=== PATIENT | female | born 1960 | race Caucasian/White ===

== ENCOUNTER 2023-04-16 10:04 | Outpatient (OUT) | payer MEDICARE, SELFPAY ==
--- NOTE | 2023-04-16 10:36 | MM_ITS ---
Patient: JOSE LLANOS Exam Date: 04/16/2023 : 1960 Gender:F Ordering : DR Ray Rawls D.O. Admission #: [id number] Family : Order #: [id number] CLICK HERE TO VIEW EXAM RADIOLOGY REPORT PROCEDURE: MM TOMOSYNTHESIS SCREENING BI COMPARISON: MG MAMM SCREEN 3D OSKAR CAD, 04/13/2022. INDICATIONS: Screening mammogram Z12.13 Calculator Name NCI Breast Cancer Risk Assessment Tool 5 Year Breast Cancer Risk 2.20% Lifetime Breast Cancer Risk 8.20% Personal Breast Cancer No Personal Ovarian Cancer No Treatments None Family Cancers Grandmother-paternal with breast cancer at age 60; Uncle-maternal with brain cancer at age 45. LOCATION: [facility] BREAST COMPOSITION: Scattered areas fibroglandular density. FINDINGS: DIAGNOSTIC CATEGORY 2--BENIGN FINDING: RIGHT BREAST: No significant suspicious finding. No significant change has occurred. LEFT BREAST: No significant suspicious finding. Scattered benign-appearing nodules are present. No significant change has occurred. RECOMMENDATIONS: ROUTINE MAMMOGRAM AND CLINICAL EVALUATION IN 12 MONTHS. PLEASE NOTE: A NORMAL MAMMOGRAM DOES NOT EXCLUDE THE POSSIBILITY OF BREAST CANCER. A CLINICALLY SUSPICIOUS PALPABLE LUMP SHOULD BE BIOPSIED. Dictated by: Clemente Noriega M.D. on 04/16/2023 at 14:34 Approved by: Clemente Noriega M.D. on 04/16/2023 at 14:42
== END 2023-04-16 10:05 | disposition home or self-care (01) ==
LOC: MAMMO 10:10
PROVIDERS: PCP Internal Medicine; Visit Provider Internal Medicine
DX: Z12.31 Encounter for screening mammogram for malignant neoplasm of breast (principal); Z80.3 Family history of malignant neoplasm of breast
CPT/HCPCS: 77063; 77067

== ENCOUNTER 2023-12-04 06:57 | Outpatient (OUT) | payer MEDICARE, SELFPAY ==
[2023-12-04 07:39] LABS: Basophils Percent Auto 0.7 % (0.2-2.0); Eosinophils Absolute Auto 0.3 10^3/uL (0.0-0.7); Eosinophils Percent Auto 5.8 % (0.9-7.0); Hematocrit 38.5 % (36.0-48.0); Hemoglobin 12.2 g/dL (12.0-16.0); Immature Granulocytes Abs Auto 0.01 10^3/uL (0.00-0.03); Immature Granulocytes Pct Auto 0.2 % (0.0-0.5); Lymphocytes Absolute Auto 2.1 10^3/uL (1.2-3.8); Lymphocytes Percent Auto 37.9 % (20.5-60.0); Mean Corpuscular HGB Conc 31.7 g/dL (29.9-35.2); Mean Corpuscular Hemoglobin 28.8 pg (26.7-34.0); Monocytes Absolute Auto 0.4 10^3/uL (0.3-0.8); Monocytes Percent Auto 7.4 % (1.7-12.0); Neutrophils Absolute Auto 2.7 10^3/uL (1.4-6.5); Platelet Count 310 10^3/uL (150-450); Red Blood Count 4.23 10^6/uL (4.20-5.40); Red Cell Distribution Width 13.5 % (11.0-15.0); White Blood Count 5.5 10^3/uL (4.0-11.0)
[2023-12-04 07:44] LABS: Alanine Aminotransferase 27 U/L (14-59); Albumin Globulin Ratio 0.9; Albumin Level 3.4 g/dL (3.4-5.0); Alkaline Phosphatase 87 U/L (46-116); Anion Gap 11.4; Aspartate Amino Transferase 23 U/L (15-37); BUN Creatinine Ratio 17.6; Bilirubin Total 0.3 mg/dL (0.2-1.0); Calcium 9.1 mg/dL (8.5-10.1); Carbon Dioxide 28.8 mmol/L (21.0-32.0); Chloride 100 mmol/L (98-107); Chol HDL Ratio 3.6; Cholesterol 185 mg/dL (<=200); Estimated GFR (African America >60 (>=60); Estimated GFR (Non-African Ame >60 (>=60); Globulin 3.9 g/dL; Glucose 109 mg/dL (74-106); HDL Cholesterol 52 mg/dL (40-60); LDL Cholesterol Calculated 105.8 mg/dL; Potassium 4.2 mmol/L (3.5-5.1); Sodium 136 mmol/L (136-145); Thyroid Stimulating Hormone 6.476 uIU/mL (0.358-3.740); Total Protein 7.3 g/dL (6.4-8.2); Triglycerides 136 mg/dL (<=150); VLDL CHOLESTEROL 27.2 mg/dL
== END 2023-12-04 06:58 | disposition home or self-care (01) ==
LOC: LAB 06:59
PROVIDERS: PCP Internal Medicine; Visit Provider Internal Medicine
DX: E03.9 Hypothyroidism, unspecified (principal); R73.01 Impaired fasting glucose; Z79.899 Other long term (current) drug therapy; R53.83 Other fatigue; E78.00 Pure hypercholesterolemia, unspecified
CPT/HCPCS: 36415; 80053; 80061; 84443; 85025

== ENCOUNTER 2023-12-07 09:31 | Outpatient (OUT) | payer MEDICARE, SELFPAY ==
[2023-12-07 10:15] LABS: Estimated Average Glucose 117 mg/dL; Glycohemoglobin A1C 5.7 % (4.5-6.2)
== END 2023-12-07 09:32 | disposition home or self-care (01) ==
PROVIDERS: PCP Internal Medicine; Visit Provider Internal Medicine
DX: R73.01 Impaired fasting glucose (principal)
CPT/HCPCS: 36415; 83036

== ENCOUNTER 2024-04-18 10:53 | Outpatient (OUT) | payer MEDICARE, SELFPAY ==
--- NOTE | 2024-04-18 10:56 | MM_ITS ---
Patient Name: JOSE LLANOS MR#: [id number] : 1960 Exam Date: 04/18/2024 Ordering Doctor: DR Ray Rawls D.O. RADIOLOGY REPORT PROCEDURE: MM TOMOSYNTHESIS SCREENING BI COMPARISON: MG MAMM SCREEN 3D OSKAR CAD, 04/13/2022. MM TOMOSYNTHESIS SCREENING BI, 04/16/2023. INDICATIONS: Screening Calculator Name NCI Breast Cancer Risk Assessment Tool 5 Year Breast Cancer Risk 2.20% Lifetime Breast Cancer Risk 7.90% Personal Breast Cancer No Personal Ovarian Cancer No Treatments None Family Cancers Grandmother-paternal with breast cancer at age 60; Uncle-maternal with brain cancer at age 45. LOCATION: [facility] BREAST COMPOSITION: There are scattered areas of fibroglandular density. FINDINGS: DIAGNOSTIC CATEGORY 2--BENIGN FINDING. NO CHANGE FROM COMPARISON. Scattered benign-appearing nodules are present. Scattered benign-appearing calcifications are present. Scattered benign-appearing lymph nodes are present. RIGHT BREAST: No significant suspicious finding. LEFT BREAST: No significant suspicious finding. RECOMMENDATIONS: ROUTINE MAMMOGRAM AND CLINICAL EVALUATION IN 12 MONTHS. PLEASE NOTE: A NORMAL MAMMOGRAM DOES NOT EXCLUDE THE POSSIBILITY OF BREAST CANCER. A CLINICALLY SUSPICIOUS PALPABLE LUMP SHOULD BE BIOPSIED. Dictated by: Toro Hendrickson MD on 04/21/2024 at 07:58 Approved by: Toro Hendrickson MD on 04/21/2024 at 07:59
--- OUTSIDE RECORDS SUMMARY | 2024-04-18 10:57 | XMS_ITS | CCD ---
Author Organization [facility] Care Team Providers Care Neurophysiologist Name Role Phone RAY RAWLS Primary Care Physician Curly, Ray Unavailable CURLY, DR BATRES Primary Care Unavailable BALL, DR BATRES Admitting Unavailable BALL, DR BATRES Attending Unavailable BALL, DR BATRES Consulting Unavailable WEST, DR REGINA Gandhi Consulting Unavailable BALL, DR BATRES Primary Care Unavailable REQUEST, DR TIM LISTED Admitting Unavaila ble REQUEST, DR TIM LISTED Attending Unavaila ble REQUEST, DR TIM LISTED Consulting Unavaila ble BALL, DR BATRES Primary Care Unavailable REQUEST, DR TIM LISTED Admitting Unavaila ble REQUEST, DR TIM LISTED Attending Unavaila ble REQUEST, DR TIM LISTED Consulting Unavaila ble BALL, DR BATRES Consulting Unavailable BALL, DR BATRES Primary Care Unavailable BALL, DR BATRES Admitting Unavailable BALL, DR BATRES Attending Unavailable BALL, DR BATRES Consulting Unavailable BALL, DR BATRES Primary Care Unavailable BALL, DR BATRES Admitting Unavailable BALL, DR BATRES Attending Unavailable Leilani Archibald Unavailable Allergies Allergy Classification Reported Allergen(s) Allergy Type Date of Onset Reaction(s) Facility (10 sources) Diclofenac; Translations: [diclofenac] Drug Allergy Unknown (qualifier value) [facility] (1 source) Egg Drug allergy Nausea and vomiting (disorder) [facility] (1 source) influenza A virus A/[place]/GP1 908/2014 (H1N1) antigen / influenza A virus A//2 050/2014 (H3N2) antigen / influenza B virus B/[place] antigen / influenza B virus B/ antigen; Translations: [influenza virus vaccine] Drug Allergy Dyspnea (finding) [facility] (9 sources) Eggs/Apples/Oat s Drug allergy Unknown [facility] Other (6 sources) Diclofenac Potassium *ANALGESICS - ANTI-INFLAMMATO Propensity to adverse reactions Unknown [facility] Other (6 sources) Eggs/Apples/Oat s *DIETARY PRODUCTS/DIETAR Y MANAGEM Propensity to adverse reactions 9 Comment:Allerg y to eggs and cranberries- Reaction unknown [facility] Other (1 source) Diclofenac Potassium *ANALGESI Allergy to substance 4 [facility] (1 source) Eggs/Apples/Oat s *DIETARY PROD Allergy to substance 4 Comment:Allerg y to eggs and cranberries- Reaction unknown [facility] Medications Current Medications Medication Drug Class(es) Dates Sig (Normalized) Sig (Original) acetaminophen 325 mg / HYDROcodone bitartrate 5 mg oral tablet (13 sources) Opioid Agonist Start: 12-06-2023 take 1 tablet by mouth every six hours Hydrocodone-Aceta minophen Active 1 TAB PO Every 6 hours December 06, 2023 12:00am Start: 12-26-2022 take 1 tablet by tala th every six hours HYDROcodone-Acetaminophen 5-325 MG 1 tab let as needed Orally every 6 hrs for 7 days Dec, Active [id number] 200 actuat albuterol 0.09 mg/actuat metered dose inhaler (15 sources) beta2-Adrenergic Agonist Start: 12-06-2023 take 1 puff(s) by inhalation every four hours Albuterol Sulfate (Ventolin Hfa) 90 mcg/actuation HFA aerosol inhaler Active 2 PUFF INHALATION Every 4 hours December 06, 2023 12:00am take 2 puff(s) by in halation every four hours as needed for cough Ventolin HFA 108 (90 Base) MCG/ACT 2 puffs Inhalation every 4 hrs as needed for cough or dyspnea for 90 days Active amoxicillin 875 mg / clavulanate 125 mg oral tablet (2 sources) Penicillin-class Antibacterial Start: 08-13-2023 take 1 tablet by mouth every twelve hours Amoxicillin-Pot Clavulanate 875-125 MG 1 tablet Orally every 12 hrs for 10 days Jul, Active levothyroxine sodium 0.075 mg oral capsule (12 sources) l-Thyroxine Start: 12-10-2023 take 75 ug by mouth once daily Levothyroxine Active 75 MCG PO Daily December 10, 2023 12:00am Start: 12-06-2023 End: 12-10-2023 take 50 ug by mouth once daily Levothyroxine Discontin ued 50 MCG PO Daily December 06, 2023 2:14pm December 10, 2023 9:24am Start: 12-06-2023 End: 12-10-2023 take 50 ug by mouth once daily Levothyroxine Discontin ued 50 MCG PO Daily December 06, 2023 12:00am December 10, 2023 9:24am Start: 12-04-2023 End: 12-06-2023 take 75 ug by mouth once daily Levothyroxine Discontin ued 75 MCG PO Daily December 04, 2023 12:00am December 06, 2023 2:14pm Start: 03-14-2023 take 1 tablet by tala th once daily in the morning Levothyroxine Sodium 50 MCG 1 tablet in the morning on an empty stomach Orally Once a day February, Active Levothyroxine So dium 50 MCG TAKE ONE TABLET BY MOUTH ONCE DAILY IN THE MORNING ON AN EMPTY STOMACH Orally Once a day for 90 days Active montelukast 10 mg oral tablet (16 sources) Leukotriene Receptor Antagonist Start: 12-06-2023 take 10 mg by mouth once daily Montelukast Active 10 MG PO Daily December 06, 2023 12:00am Start: 2022 take 1 tablet by tala th once daily montelukast 10 mg Tab 10 mg = 1 tab(s), Oral, Daily, Refills(s) 0, Allergy symptoms Start Date: 01/02/22 Status: Ordered omeprazole 40 mg delayed release oral capsule (15 sources) Proton Pump Inhibitor Start: 12-06-2023 take 40 mg by mouth once daily Omeprazole Active 40 MG PO Daily December 06, 2023 12:00am take 1 capsule by mouth once josué ly Omeprazole 40 MG 1 capsule 30 minutes before morning meal Orally Once a day Active omeprazole 40 mg Cap-DR (1 source) Start: 2022 omeprazole 40 mg Cap-DR 40 mg = 1 cap(s), Oral, Daily, Refills(s) 0, Control of stomach acid Start Date: 01/02/22 Status: Ordered traMADol hydrochloride 50 mg oral tablet (7 sources) Opioid Agonist Start: 12-25-2022 take 1 tablet by mouth every six hours as needed for pain traMADol HCl 50 MG 1 tablet Orally every 6 hours for pain, as needed for 7 days Dec, Active triamcinolone acetonide 0.055 mg/actuat metered dose nasal spray (4 sources) Corticosteroid Start: 08-03-2023 take 1 spray(s) nasal route once daily Nasacort Allergy 24HR 55 MCG/ACT 1 spray in each nostril Nasally Once a day for 30 days Jul, Active take 1 spray(s) nasal route once daily Nasacort Allergy 24HR 55 MCG/ACT 1 spray in each nostril Nasally Once a day for 30 days Active Ventolin HFA 90 mcg/inh Aerosol (1 source) Start: 2022 take 1 puff(s) by inhalation every six hours as needed for wheezing Ventolin HFA 90 mcg/inh Aerosol puff(s), Inhalation, q6hr as needed for wheezing, Refill(s) 0 Start Date: 01/02/22 Status: Ordered Completed/Discontinued Medications Medication Drug Class(es) Dates Sig (Normalized) Sig (Original) escitalopram 10 mg oral tablet (16 sources) Serotonin Reuptake Inhibitor Start: 12-06-2023 End: 12-10-2023 take 10 mg by mouth once daily Escitalopram Oxalate Discontinued 10 MG PO Daily December 06, 2023 12:00am December 10, 2023 9:26am Start: 2022 take 1 tablet by tala th once daily escitalopram 10 mg Tab 10 mg = 1 tab(s), Oral, Daily, Refills(s) 0, Depression Start Date: 01/02/22 Status: Ordered Fluticasone Propion-Salmeterol (6 sources) Corticosteroid, beta2-Adrenergic Agonist Start: 12-06-2023 End: 12-10-2023 take 1 puff(s) by inhalation twice daily Fluticasone Propion-Salmeterol (Advair Hfa) 115-21 mcg/actuation HFA aerosol inhaler Discontinued 2 PUFF INHALATION Twice daily December 06, 2023 12:00am December 10, 2023 9:26am Start: 05-21-2023 take 2 puff(s) by in halation twice daily Advair HFA 115-21 MCG/ACT 2 puffs Inhalation Twice a day for 30 days May, Active methylPREDNISolone 4 mg oral tablet (4 sources) Corticosteroid Start: 12-06-2023 End: 12-10-2023 take 4 mg by mouth once daily Methylprednisolone Discontinued 4 MG PO Daily December 06, 2023 12:00am December 10, 2023 9:25am Start: 08-09-2023 methylPREDNISo lone 4 MG as directed Orally daily for 6 days Jul, Active ondansetron 4 mg disintegrating oral tablet (11 sources) Serotonin-3 Receptor Antagonist Start: 12-06-2023 End: 12-10-2023 take 4 mg by mouth every six hours Ondansetron Discontinued 4 MG PO Every 6 hours December 06, 2023 12:00am December 10, 2023 9:25am Start: 02-16-2023 Ondansetron 4 MG 1 tablet SL every 6 hours as needed for nausea for 3 days February, Active predniSONE 10 mg oral tablet (5 sources) Start: 03-22-2023 take 2 tablets by mouth twice daily, then take 1 tablet by mouth every other day predniSONE 10 MG 2 tablets Orally Twice daily w/ food x 3 days then decrease by 1 tablet every 2 days for 9 days Mar, Not-Taking Problems Active Problems Problem Classification Problem Date Documented Da te Episodic/Chronic Allergic reactions (10 sources) Idiopathic urticaria; Translations: [Idiopathic urticaria] Episodic Anxiety disorders (17 sources) Generalized anxiety disorder; Translations: [Generalized anxiety disorder] 12-08-2023 Chronic Asthma (20 sources) Mild intermittent asthma; Translations: [Mild intermittent asthma, uncomplicated] Resolved: 12-04-2021 Chronic Diabetes mellitus without complication (9 sources) Diabetes mellitus without complication; Translations: [Type 2 diabetes mellitus without complications] Chronic Diabetes mellitus without complication (17 sources) Impaired fasting glycemia; Translations: [Impaired fasting glucose] Episodic Disorders of lipid metabolism (2 sources) Hypercholesterolemia ; Translations: [Pure hypercholesterolemia , unspecified] 11-29-2023 Chronic Esophageal disorders (7 sources) Gastro-esophageal reflux disease with esophagitis; Translations: [Gastroesophageal reflux disease with esophagitis without hemorrhage] 2022 Chronic Mood disorders (16 sources) Major depression in remission; Translations: [Major depressive disorder, single episode, in full remission] Chronic Mycoses (10 sources) Onychomycosis; Translations: [Tinea unguium] Episodic Nausea and vomiting (6 sources) Nausea; Translations: [Nausea] Episodic Osteoarthritis (20 sources) Osteoarthritis of knee; Translations: [Unilateral primary osteoarthritis, left knee] Chronic Other and unspecified benign neoplasm (1 source) Polyp of colon; Translations: [Polyp of colon] Onset: 02-13-2022 Episodic Other diseases of veins and lymphatics (20 sources) Peripheral venous insufficiency; Translations: [Venous insufficiency (chronic) (peripheral)] 2022 Episodic Other diseases of veins and lymphatics (1 source) Venous insufficiency (chronic) (peripheral) Episodic Other gastrointestinal disorders (1 source) Alteration in bowel elimination 01-03-2022 Episodic Other gastrointestinal disorders (1 source) Diarrhea, unspecified Episodic Other gastrointestinal disorders (1 source) Abnormal feces; Translations: [Other fecal abnormalities] Episodic Other nervous system disorders (15 sources) Trigeminal neuralgia; Translations: [Trigeminal neuralgia] Episodic Other nutritional; endocrine; and metabolic disorders (8 sources) Morbid obesity; Translations: [Morbid (severe) obesity due to excess calories] Resolved: 10-17-2021 Chronic Other nutritional; endocrine; and metabolic disorders (2 sources) Morbid (severe) obesity due to excess calories Chronic Other nutritional; endocrine; and metabolic disorders (5 sources) Body mass index 40+ - severely obese; Translations: [Body mass index (BMI) 40.0-44.9, adult] Chronic Other nutritional; endocrine; and metabolic disorders (5 sources) Severe obesity; Translations: [Morbid (severe) obesity due to excess calories] Chronic Other nutritional; endocrine; and metabolic disorders (1 source) Body mass index (BMI) 40.0-44.9, adult Chronic Other screening for suspected conditions (not mental disorders or infectious disease) (20 sources) Stool DNA-based colorectal cancer screening positive; Translations: [Serum TSH level abnormal] Onset: 04-13-2022 2022 Episodic Other skin disorders (10 sources) Alopecia; Translations: [Nonscarring hair loss, unspecified] Episodic Other upper respiratory infections (1 source) Acute maxillary sinusitis, unspecified Episodic Otitis media and related conditions (2 sources) Unspecified Eustachian tube disorder, left ear Episodic Rheumatoid arthritis and related disease (9 sources) Inflammatory polyarthropathy; Translations: [Inflammatory polyarthropathy] Chronic Sprains and strains (1 source) Strain of muscle and/or tendon of lower leg; Translations: [Strain of unspecified muscle(s) and tendon(s) at lower leg level, left leg, subsequent encounter] Episodic Thyroid disorders (20 sources) Autoimmune thyroiditis; Translations: [Autoimmune thyroiditis] Chronic Past or Other Problems Problem Classification Problem Date Documented Da te Episodic/Chronic Esophageal disorders (12 sources) Esophageal disorders; Translations: [Gastroesophageal reflux disease with esophagitis without hemorrhage] Joint disorders and dislocations; trauma-related (1 source) Current tear of medial cartilage AND/OR meniscus of knee; Translations: [Other tear of medial meniscus, current injury, unspecified knee, initial encounter] Onset: 03-15-2021 Episodic Other connective tissue disease (1 source) Pain in left lower limb; Translations: [Pain in left leg] Resolved: 04-13-2021 Episodic Other nutritional; endocrine; and metabolic disorders (1 source) Obesity; Translations: [Obesity, unspecified] Resolved: 04-13-2022 Chronic Unclassified (1 source) Exposure to acute respiratory syndrome coronavirus 2; Translations: [Contact with and (suspected) exposure to COVID-19] Resolved: 07-20-2020 Results Test Name Value Interpretation Reference Range Facility Glucose mean value [Mass/vol ume] in Blood Estimated from glycated hemoglobinon 12-07-2023 Average glucose Estimated from glycated hemoglobin (Bld) [Mass/Vol] 117 mg/dL [facility] - Hematology and Cell countson 12-07-2023 HbA1c (Bld) [Mass fraction] 5.7 % 4.5-6.2 [facility] Comment on above: ADA RECOMMENDED LIMI T 4.0 - 6.0ADA THERAPEUTIC TARGET < 7.0ACTION SUGGESTED> 7.0 Basophils Auto (Bld) [#/Vol] on 12-04-2023 Basophils (Bld) [#/Vol] 0.0 10 3/uL 0.0-0.1 [facility] Basophils/100 WBC Auto (Bld) on 12-04-2023 Basophils/100 WBC (Bld) 0.7 % 0.2-2.0 [facility] Cholesterol in LDL Calc [Mas s/Vol]on 12-04-2023 Cholesterol in LDL [Mass/Vol] 105.8 mg/dL [facility] Comment on above: <100 mg/dl [id number] 0-129 mg/dl NEAR OR ABOVE [id number] mg/dl BORDERLINE [id number] mg/dl HIGH>190 mg/dl VERY HIGH Cholesterol in VLDL Calc [Ma ss/Vol]on 12-04-2023 Cholesterol in VLDL [Mass/Vol] 27.2 mg/dL [facility] Eosinophils/100 WBC Auto (Bl d)on 12-04-2023 Eosinophils/100 WBC (Bld) 5.8 % 0.9-7.0 [facility] Erythrocyte distribution wid th Auto (RBC) [Ratio]on 12-04-2023 Erythrocyte distribution width (RBC) [Ratio] 13.5 % 11.0-15.0 [facility] Estimated glomerular filtrat ion rate (GFR) non- Americanon 12-04-2023 GFR/1.73 sq M.predicted among non-blacks MDRD (S/P/Bld) [Vol rate/Area] mL/min/{1.73_m2} >=60 [facility] Globulin Calc (S) [Mass/Vol] on 12-04-2023 Globulin (S) [Mass/Vol] 3.9 g/dL [facility] Hematocrit Auto (Bld) [Volum e fraction]on 12-04-2023 Hematocrit (Bld) [Volume fraction] 38.5 % 36.0-48.0 [facility] Hemoglobin [Mass/volume] in Bloodon 12-04-2023 Hemoglobin (Bld) [Mass/Vol] 12.2 g/dL 12.0-16.0 [facility] - Chemistry and C hemistry - challengeon 12-04-2023 Albumin [Mass/Vol] 3.4 g/dL 3.4-5.0 [facility] ALP [Catalytic activity/Vol] 87 U/L 46-116 [facility] ALT [Catalytic activity/Vol] 27 U/L 14-59 [facility] AST [Catalytic activity/Vol] 23 U/L 15-37 [facility] Bilirubin [Mass/Vol] 0.3 mg/dL 0.2-1.0 [facility] Calcium [Mass/Vol] 9.1 mg/dL 8.5-10.1 [facility] Chloride [Moles/Vol] 100 mmol/L 98-107 [facility] Cholesterol [Mass/Vol] 185 mg/dL <=200 [facility] Cholesterol in HDL [Mass/Vol] 52 mg/dL 40-60 [facility] Comment on above: > or =60 mg/dl - LOW CARDIOVASCULAR RISK<40 mg/dl - HIGH CARDIOVASCULAR RISK CO2 [Moles/Vol] 28.8 mmol/L 21.0-32.0 [facility] Creatinine [Mass/Vol] 0.91 mg/dL 0.55-1.02 [facility] GFR/1.73 sq M.predicted MDRD (S/P/Bld) [Vol rate/Area] mL/min/{1.73_m2} >=60 [facility] Glucose [Mass/Vol] 109 mg/dL 74-106 [facility] Potassium [Moles/Vol] 4.2 mmol/L 3.5-5.1 [facility] Protein [Mass/Vol] 7.3 g/dL 6.4-8.2 [facility] Sodium [Moles/Vol] 136 mmol/L 136-145 [facility] Triglyceride [Mass/Vol] 136 mg/dL <=150 [facility] TSH Qn 6.476 m[IU]/L 0.358-3.740 [facility] Urea nitrogen [Mass/Vol] 16.0 mg/dL 7.0-18.0 [facility] Urea nitrogen/Creatinine [Mass ratio] 17.6 mg/mg [facility] - Hematology and Cell countson 12-04-2023 Immature granulocytes/100 WBC (Bld) 0.2 % 0.0-0.5 [facility] Leukocytes [#/volume] correc mart for nucleated erythrocytes in Blood by Automated counon 12-04-2023 WBC corrected for nucl RBC Auto (Bld) [#/Vol] 5.5 10 3/uL 4.0-11.0 [facility] Lymphocytes Auto (Bld) [#/Vo l]on 12-04-2023 Lymphocytes (Bld) [#/Vol] 2.1 10 3/uL 1.2-3.8 [facility] Lymphocytes/100 WBC Auto (Bl d)on 12-04-2023 Lymphocytes/100 WBC (Bld) 37.9 % 20.5-60.0 [facility] MCH Auto (RBC) [Entitic mass ]on 12-04-2023 MCH (RBC) [Entitic mass] 28.8 pg 26.7-34.0 [facility] MCHC Auto (RBC) [Mass/Vol]on 12-04-2023 MCHC (RBC) [Mass/Vol] 31.7 g/dL 29.9-35.2 [facility] MCV Auto (RBC) [Entitic vol] on 12-04-2023 MCV (RBC) [Entitic vol] 91.0 fL 81.0-99.0 [facility] Monocytes Auto (Bld) [#/Vol] on 12-04-2023 Monocytes (Bld) [#/Vol] 0.4 10 3/uL 0.3-0.8 [facility] Monocytes/100 WBC Auto (Bld) on 12-04-2023 Monocytes/100 WBC (Bld) 7.4 % 1.7-12.0 [facility] Neutrophils Auto (Bld) [#/Vo l]on 12-04-2023 Neutrophils (Bld) [#/Vol] 2.7 10 3/uL 1.4-6.5 [facility] Neutrophils/100 WBC Auto (Bl d)on 12-04-2023 Neutrophils/100 WBC (Bld) 48.0 % 43.0-75.0 [facility] No Panel Informationon 12-04 Eosinophils # (Auto) 0.3 10 3/uL 0.0-0.7 [facility] Immature Granulocyte # (Auto) 0.01 10 3/uL 0.00-0.03 [facility] Platelet mean volume Auto (B ld) [Entitic vol]on 12-04-2023 Platelet mean volume (Bld) [Entitic vol] 10.0 fL 9.5-13.5 [facility] Platelets Auto (Bld) [#/Vol] on 12-04-2023 Platelets (Bld) [#/Vol] 310 10 3/uL 150-450 [facility] RBC Auto (Bld) [#/Vol]on RBC (Bld) [#/Vol] 4.23 10 6/uL 4.20-5.40 [facility] Serum or plasma albumin/glob ulin mass ratioon 12-04-2023 Albumin/Globulin [Mass ratio] 0.9 {ratio} [facility] Serum or plasma anion gap de terminationon 12-04-2023 Anion gap [Moles/Vol] 11.4 mmol/L [facility] Serum or plasma total choles terol/high density lipoprotein (HDL) cholesterol mass thomas 12-04-2023 Cholesterol.total/Ch olesterol in HDL [Mass ratio] 3.6 {ratio} [facility] Comment on above: 3.3 - 4.4 LOW RISK4. 4 - 7.1 AVERAGE RISK7.1 - 11.0 MODERATE RISK>11.0 HIGH RISK DANO - TSHon 03-14-2023 TSH 5.980 uIU/mL Critically high 0.358-3.740 [facility] Comment on above: Performed By: #### D ATTSH #### [facility] [address] [place] [address] Dr. Yadira Jo TSH RANGE SEE BELOW Normal [facility] Comment on above: Result Comment: <0.3 4 UIU/ml HYPERTHYROID 0.34-5.60 UIU/ml EUTHYROID >5.60 UIU/ml HYPOTHYROID Performed By: #### D ATTSH #### [facility] [address] [address] [address] Yadira Jo GLUCOSE BLOODon 11-13-2022 Glucose [Mass/Vol] 101 mg/dL Normal 74-106 [facility] Comment on above: Performed By: #### L IPID, GLUC #### [facility] [address] [place] [address] Dr. Yadira Jo GLYCOHEMOGLOBIN A1Con 2022 ADA RECOMMENDATION SEE BELOW Normal [facility] Comment on above: Result Comment: ADA RECOMMENDED LIMIT 4.0 - 6.0 ADA THERAPEUTIC TARGET < 7.0 ACTION SUGGESTED > 7.0 Performed By: #### A 1C #### [facility] [address] [address] [address] Yadira Jo Glucose [Mass/Vol] 111 mg/dL Normal [facility] Comment on above: Performed By: #### A 1C #### [facility] [address] [address] [address] Yadira Jo HbA1c (Bld) [Mass fraction] 5.5 % Normal 4.5-6.2 [facility] Comment on above: Performed By: #### A 1C #### [facility] [address] [address] [address] Yadira Jo LIPID PROFILEon 11-13-2022 CHOL-HDL RATIO NORM SEE BELOW Normal [facility] Comment on above: Result Comment: 3.3 - 4.4 LOW RISK 4.4 - 7.1 AVERAGE RISK 7.1 - 11.0 MODERATE RISK >11.0 HIGH RISK Performed By: #### L IPID, GLUC #### [facility] [address] [place] [address] Dr. Yadira Jo Cholesterol [Mass/Vol] 184 mg/dL Normal <=200 [facility] Comment on above: Performed By: #### L IPID, GLUC #### [facility] [address] [place] [address] Dr. Yadira Jo Cholesterol in HDL [Mass/Vol] 56 mg/dL Normal 40-60 [facility] Comment on above: Performed By: #### L IPID, GLUC #### [facility] [address] [address] [address] Yadira Jo Cholesterol in LDL [Mass/Vol] 111.2 mg/dL Normal [facility] Comment on above: Performed By: #### L IPID, GLUC #### [facility] [address] [address] [address] Yadira Jo Cholesterol.total/Ch olesterol in HDL [Mass ratio] 3.3 {ratio} Normal [facility] Comment on above: Performed By: #### L IPID, GLUC #### [facility] [address] [address] [address] Yadira Jo HDL NORMAL > or = 60 mg/dl - LO W CARDIOVASCULAR RISK <40 mg/dl - HIGH CARDIOVASCULAR RISK Normal [facility] Comment on above: Performed By: #### L IPID, GLUC #### [facility] [address] [place] [address] Dr. Yadira Jo LDL CALC NORMAL SEE BELOW Normal [facility] Comment on above: Result Comment: <100 mg/dl OPTIMAL 100 - 129 mg/dl NEAR OR ABOVE OPTIMAL 130 - 159 mg/dl BORDERLINE HIGH 160 - 189 mg/dl HIGH >190 mg/dl VERY HIGH Performed By: #### L IPID, GLUC #### [facility] [address] [address] [address] Yadira Jo Triglyceride [Mass/Vol] 84 mg/dL Normal <=150 [facility] Comment on above: Performed By: #### L IPID, GLUC #### [facility] [address] [place] [address] Dr. Yadira Jo VLDL CALC 16.8 mg/dL Normal [facility] Comment on above: Performed By: #### L IPID, GLUC #### [facility] [address] [address] [address] Yadira Jo DANO - TSHon 06-08-2022 TSH 4.673 uIU/mL Critically high 0.358-3.740 [facility] Comment on above: Performed By: #### D ATTSH #### [facility] [address] [place] [address] Dr. Yadira Jo TSH RANGE SEE BELOW Normal [facility] Comment on above: Result Comment: <0.3 4 UIU/ml HYPERTHYROID 0.34-5.60 UIU/ml EUTHYROID >5.60 UIU/ml HYPOTHYROID Performed By: #### D ATTSH #### [facility] [address] [place] [address] Dr. Yadira Jo TSHon 04-27-2022 TSH 4.399 uIU/mL Critically high 0.358-3.740 [facility] Comment on above: Performed By: #### T SH #### [facility] [id number] Yadira Jo MG MAMM SCREEN 3D OSKAR CADon 04-13-2022 MG MAMM SCREEN 3D OSKAR CAD Patient: YADIRA SMITH Exam Date: 04/13/2022 : 1960 Gender:F Ordering : DR RAY RAWLS D.O. Admission #: [id number] Family : Order #: [id number] CLICK HERE TO VIEW EXAM RADIOLOGY REPORT PROCEDURE: MAMMOGRAM SCREENING 3D BILATERAL CAD COMPARISON: None. INDICATIONS: Screening mammography Calculator Name NCI Breast Cancer Risk Assessment Tool 5 Year Breast Cancer Risk 1.80% Lifetime Breast Cancer Risk 7.20% Personal Breast Cancer No Personal Ovarian Cancer No Treatments None Family Cancers None LOCATION: [facility] BREAST COMPOSITION: Scattered areas fibroglandular density. FINDINGS: DIAGNOSTIC CATEGORY 2--BENIGN FINDING: Scattered benign-appearing nodules are present. Scattered benign-appearing calcifications are present. Scattered benign-appearing lymph nodes are present. RIGHT BREAST: No significant suspicious finding. LEFT BREAST: No significant suspicious finding. RECOMMENDATIONS: ROUTINE MAMMOGRAM AND CLINICAL EVALUATION IN 12 MONTHS. PLEASE NOTE: A NORMAL MAMMOGRAM DOES NOT EXCLUDE THE POSSIBILITY OF BREAST CANCER. A CLINICALLY SUSPICIOUS PALPABLE LUMP SHOULD BE BIOPSIED. Dictated by: Regina Hendrickson MD on 04/13/2022 at 12:31 Approved by: Regina Hendrickson MD on 04/13/2022 at 12:32 Normal [facility] Reminderson 03-10-2022 Reminders - From: Chantelle Sanches CNP To: Eugenie Good; Sent: 03/02/2022 08:28:24 EDT Show up: 03/02/2022 08:29:00 EDT Subject: Ambulatory Reminder Reminder/Recall Colonoscopy in 5 years (2026). Normal [facility] Ambulatory Visit Summaryon 0 03-02-2022 Ambulatory Visit Summary YADIRA SMITH :1960 Visit Date:03/02/2022 Ambulatory Visit Instructions Your Diagnosis Colon polyp Hemorrhoids Change in bowel habits Your Care Team Attending Physician - Chantelle Sanches CNP Primary Care Physician - RAY RAWLS DO This Is Your Medications List Contact prescribing physician if questions or concerns albuterol (Ventolin HFA 90 mcg/inh Aerosol) escitalopram (escitalopram 10 mg Tab) montelukast (montelukast 10 mg Tab) omeprazole (omeprazole 40 mg Cap-DR) Procedures Performed Colonoscopy (02/13/2022), Gastroscopy (10/15/2018), Abdominal hysterectomy (10/15/2008), Biopsy of breast (10/15/2008), Cholecystectomy (10/15/1998), Carpal tunnel release (10/15/1979). Discharge Vitals Temperature (Temporal Artery) 36.4 ?C Heart Rate (Peripheral) 65 Blood Pressure 120/82 Height 162.0 cm Height 162 cm Weight 105.1 kg Weight 105.1 kg BMI 40.05 What to do next You Need to Schedule the Following Appointments Follow Up with Chantelle Sanches CNP When: Within 1 year, only if needed Where: Medications What How Much When Instructions Unchanged albuterol (Ventolin HFA 90 mcg/ inh Aerosol) Inhalation Every 6 hours as needed for as needed for wheezing Contact prescribing physician if questions or concerns Unchanged escitalopram (escitalopram 10 mg Tab) 1 Tablets By Mouth Every day Contact prescribing physician if questions or concerns Unchanged montelukast (montelukast 10 mg Tab) 1 Tablets By Mouth Every day Contact prescribing physician if questions or concerns Unchanged omeprazole (omeprazole 40 mg Cap-DR) 1 Capsules By Mouth Every day Contact prescribing physician if questions or concerns Allergies Diclofenac Potassium (Unknown) Eggs (Nausea and vomiting) Influenza Virus Vaccine (Shortness of breath) cranberry (anaphylaxis) Problems Ongoing - Any problem that you are currently receiving treatment for. Change in bowel habits Chronic reflux esophagitis Chronic venous insufficiency Colon polyp Hemorrhoids Positive colorectal cancer screening using Cologuard test Education Materials Colon Polyps Polyps are tissue growths inside the body. Polyps can grow in many places, including the large intestine (colon). A polyp may be a round bump or a mushroom-shaped growth. You could have one polyp or several. Most colon polyps are noncancerous (benign). However, some colon polyps can become cancerous over time. Finding and removing the polyps early can help prevent this. What are the causes? The exact cause of colon polyps is not known. What increases the risk? You are more likely to develop this condition if you: ? Have a family history of colon cancer or colon polyps. ? Are older than 50 or older than 45 if you are . ? Have inflammatory bowel disease, such as ulcerative colitis or Crohn's disease. ? Have certain hereditary conditions, such as: ? Familial adenomatous polyposis. ? Sapp syndrome. ? Turcot syndrome. ? Peutz?Jeghers syndrome. ? Are overweight. ? Smoke cigarettes. ? Do not get enough exercise. ? Drink too much alcohol. ? Eat a diet that is high in fat and red meat and low in fiber. ? Had childhood cancer that was treated with abdominal radiation. What are the signs or symptoms? Most polyps do not cause symptoms. If you have symptoms, they may include: ? Blood coming from your rectum when having a bowel movement. ? Blood in your stool. The stool may look dark red or black. ? Abdominal pain. ? A change in bowel habits, such as constipation or diarrhea. How is this diagnosed? This condition is diagnosed with a colonoscopy. This is a procedure in which a lighted, flexible scope is inserted into the anus and then passed into the colon to examine the area. Polyps are sometimes found when a colonoscopy is done as part of routine cancer screening tests. How is this treated? Treatment for this condition involves removing any polyps that are found. Most polyps can be removed during a colonoscopy. Those polyps will then be tested for cancer. Additional treatment may be needed depending on the results of testing. Follow these instructions at home: Lifestyle ? Maintain a healthy weight, or lose weight if recommended by your health care provider. ? Exercise every day or as told by your health care provider. ? Do not use any products that contain nicotine or tobacco, such as cigarettes and e-cigarettes. If you need help quitting, ask your health care provider. ? If you drink alcohol, limit how much you have: ? 0?1 drink a day for women. ? 0?2 drinks a day for men. ? Be aware of how much alcohol is in your drink. In the [place] one drink equals one 12 oz bottle of beer (355 mL), one 5 oz glass of wine (148 mL), or one 1? oz shot of hard liquor (44 mL). Eating and drinking ? Eat (more content not included)... Normal [facility] Gastroenterology Office/Clin ic Noteon 03-02-2022 Gastroenterology Office/Clinic Note Chief Complaint Review results HPI Staff Patient i here today to review procedure results. History of Present Illness Patient is a 62-year-old female who presents for follow-up from colonoscopy completed 02/13/[address] Wu. Patient with positive Cologuard testing and change in bowel habits during previous evaluation 01/03/2022. Patient had reported over the last year looser bowel movements, were previously formed. Patient was ordered colonoscopy and educated to start fiber daily. Colonoscopy completed 02/13/2022 revealed hyperplastic polyp removed from cecum, hemorrhoids- Dr. uW recommended for patient to have repeat colonoscopy in 5 years (2026). During today's visit, patient reports she is having more formed stools with fiber and decrease stress recently. Denies having any GI complaints. Review of Systems PHQ Score Initial Depression Screen Score: 0 ROS - Provider Constitutional: no fever, no chills. Skin: no Jaundice. ENMT: Denies dysphagia and heartburn. Respiratory: no shortness of breath. Cardiovascular: no chest pain. Gastrointestinal: no nausea, no vomiting, no GI bleeding. Physical Exam Vitals & Measurements T: 36.4 ?C(Temporal Artery) HR: 65(Peripheral) BP: 120/82 SpO2: 98% HT: 162.0 cm HT: 162 cm WT: 105.1 kg WT: 105.1 kg BMI: 40.05 General: Well developed, well nourished, in no acute distress Head: Normocephalic/atrauma tic Lungs: Normal respiratory effort and clear to auscultation Cardio: Regular rate and rhythm, normal S1 and S2, no murmur, no rub Abdomen: Soft, non-distended, non-tender. Normoactive bowel sounds present in all 4 abdominal quadrants, bilaterally. Mental Status: Alert and oriented x3. Normal mood and affect Assessment/Plan 1. Colon polyp (K63.5: Polyp of colon) Colonoscopy completed 02/13/2022 revealed hyperplastic polyp removed from cecum, hemorrhoids. Patient to have repeat colonoscopy in 5 years (2026). Educated regarding use of fiber daily for hemorrhoids and to potentially assist in reducing risk of future colon polyps. 2. Hemorrhoids (K64.9: Unspecified hemorrhoids) Same as above plan of care. See # 1. 3. Change in bowel habits (R19.4: Change in bowel habit) Improved- having more formed stools- takes fiber supplementation and reports eating high-fiber diet. Continue fiber daily. Follow-up With When Contact Information Chantelle Sanches CNP Within 1 year, only if needed Additional Instructions: Patient Education Colon Polyps Problem List/Past Medical History Ongoing Change in bowel habits Chronic reflux esophagitis Chronic venous insufficiency Colon polyp Hemorrhoids Positive colorectal cancer screening using Cologuard test Historical No qualifying data Procedure/Surgical History Colonoscopy (02/13/2022), Gastroscopy (10/15/2018), Abdominal hysterectomy (10/15/2008), Biopsy of breast (10/15/2008), Cholecystectomy (10/15/1998), Carpal tunnel release (10/15/1979). Medications escitalopram 10 mg Tab, 10 mg= 1 tab(s), Oral, Daily montelukast 10 mg Tab, 10 mg= 1 tab(s), Oral, Daily omeprazole 40 mg Cap-DR, 40 mg= 1 cap(s), Oral, Daily Ventolin HFA 90 mcg/inh Aerosol, Inhalation, q6hr, PRN Allergies Diclofenac Potassium (Unknown) Eggs (Nausea and vomiting) Influenza Virus Vaccine (Shortness of breath) cranberry (anaphylaxis) Social History Alcohol - Denies Alcohol Use, 2022 Substance Abuse - Denies Substance Abuse, 2022 Tobacco Never (less than 100 in lifetime) Tobacco Use:. Never Smokeless Tobacco Use:., 03/02/2022 Family History : Father. Immunizations Vaccine Date Status Comments influenza virus vaccine, inactivated - Not Given Allergy to Eggs (disorder) SARS-CoV-2 (COVID-19) mRNA BNT-162b2 vax 01/14/2021 Given Prophylaxis SARS-CoV-2 (COVID-19) mRNA BNT-162b2 vax 12/24/2020 Given Prophylaxis Normal [facility] Comment on above: Result Comment: Elec tronically Signed By: Chantelle Sanches CNP\.br\Date and Time Signed: 03/02/22 08:34 EDT Patient Educationon 03-02-20 Patient Education Oncology Colon Polyps Polyps are tissue growths inside the body. Polyps can grow in many places, including the large intestine (colon). A polyp may be a round bump or a mushroom-shaped growth. You could have one polyp or several. Most colon polyps are noncancerous (benign). However, some colon polyps can become cancerous over time. Finding and removing the polyps early can help prevent this. What are the causes? The exact cause of colon polyps is not known. What increases the risk? You are more likely to develop this condition if you: ? Have a family history of colon cancer or colon polyps. ? Are older than 50 or older than 45 if you are . ? Have inflammatory bowel disease, such as ulcerative colitis or Crohn's disease. ? Have certain hereditary conditions, such as: ? Familial adenomatous polyposis. ? Sapp syndrome. ? Turcot syndrome. ? Peutz?Jeghers syndrome. ? Are overweight. ? Smoke cigarettes. ? Do not get enough exercise. ? Drink too much alcohol. ? Eat a diet that is high in fat and red meat and low in fiber. ? Had childhood cancer that was treated with abdominal radiation. What are the signs or symptoms? Most polyps do not cause symptoms. If you have symptoms, they may include: ? Blood coming from your rectum when having a bowel movement. ? Blood in your stool. The stool may look dark red or black. ? Abdominal pain. ? A change in bowel habits, such as constipation or diarrhea. How is this diagnosed? This condition is diagnosed with a colonoscopy. This is a procedure in which a lighted, flexible scope is inserted into the anus and then passed into the colon to examine the area. Polyps are sometimes found when a colonoscopy is done as part of routine cancer screening tests. How is this treated? Treatment for this condition involves removing any polyps that are found. Most polyps can be removed during a colonoscopy. Those polyps will then be tested for cancer. Additional treatment may be needed depending on the results of testing. Follow these instructions at home: Lifestyle ? Maintain a healthy weight, or lose weight if recommended by your health care provider. ? Exercise every day or as told by your health care provider. ? Do not use any products that contain nicotine or tobacco, such as cigarettes and e-cigarettes. If you need help quitting, ask your health care provider. ? If you drink alcohol, limit how much you have: ? 0?1 drink a day for women. ? 0?2 drinks a day for men. ? Be aware of how much alcohol is in your drink. In the [place] one drink equals one 12 oz bottle of beer (355 mL), one 5 oz glass of wine (148 mL), or one 1? oz shot of hard liquor (44 mL). Eating and drinking ? Eat foods that are high in fiber, such as fruits, vegetables, and whole grains. ? Eat foods that are high in calcium and vitamin D, such as milk, cheese, yogurt, eggs, liver, fish, and broccoli. ? Limit foods that are high in fat, such as fried foods and desserts. ? Limit the amount of red meat and processed meat you eat, such as hot dogs, sausage, viramontes, and lunch meats. General instructions ? Keep all follow-up visits as told by your health care provider. This is important. ? This includes having regularly scheduled colonoscopies. ? Talk to your health care provider about when you need a colonoscopy. Contact a health care provider if: ? You have new or worsening bleeding during a bowel movement. ? You have new or increased blood in your stool. ? You have a change in bowel habits. ? You lose weight for no known reason. Summary ? Polyps are tissue growths inside the body. Polyps can grow in many places, including the colon. ? Most colon polyps are noncancerous (benign), but some can become cancerous over time. ? This condition is diagnosed with a colonoscopy. ? Treatment for this condition involves removing any polyps that are found. Most polyps can be removed during a colonoscopy. This information is not intended to replace advice given to you by your health care provider. Make sure you discuss any questions you have with your health care provider. Document Released: 06/27/2005 Document Revised: 01/16/2019 Document Reviewed: 01/16/2019 Ellie Patient Education ? 2019 [employer] [facility] Progress Note-Physicianon Progress Note-Physician Patient: YADIRA SMITH Age: 62 years Sex: Female : 1960 Associated Diagnoses: None Author: Talon Toribio Jr, DO Postoperative Information Post Operative Note: Post Anesthesia Care Unit. Anesthetic utilized: Monitored anesthesia care. Health Status Allergies: Allergic Reactions (Selected) Severity Not Documented Diclofenac Potassium- Unknown. Eggs- Nausea and vomiting. Influenza Virus Vaccine- Shortness of breath. Problem list: All Problems Change in bowel habits / SNOMED CT 209057291 / Confirmed Chronic reflux esophagitis / SNOMED CT 033155986 / Confirmed Chronic venous insufficiency / SNOMED CT 92691561 / Confirmed Positive colorectal cancer screening using Cologuard test / SNOMED CT 7337148216 / Confirmed Physical Examination Vital Signs 02/13/2022 8:50 EDT Heart Rate Monitored 60 bpm Respiratory Rate Monitored 11 br/min Systolic Blood Pressure 155 mmHg HI Diastolic Blood Pressure 86 mmHg SpO2 100 % 02/13/2022 8:35 EDT Heart Rate Monitored 65 bpm Heart Rate Monitored 65 bpm Respiratory Rate Monitored 11 br/min Respiratory Rate Monitored 12 br/min Systolic Blood Pressure 139 mmHg Diastolic Blood Pressure 90 mmHg SpO2 99 % SpO2 100 % 02/13/2022 8:30 EDT Heart Rate Monitored 61 bpm Heart Rate Monitored 63 bpm Respiratory Rate Monitored 10 br/min Respiratory Rate Monitored 8 br/min Respiratory Rate Monitored 18 br/min Systolic Blood Pressure 133 mmHg Diastolic Blood Pressure 83 mmHg SpO2 99 % SpO2 100 % 02/13/2022 8:26 EDT Temperature Temporal Artery 36.0 DegC LOW Heart Rate Monitored 67 bpm Respiratory Rate Monitored 18 br/min Systolic Blood Pressure 126 mmHg Diastolic Blood Pressure 67 mmHg SpO2 100 % 02/13/2022 8:20 EDT Heart Rate Monitored 66 bpm bpm Respiratory Rate 16 br/min br/min Systolic Blood Pressure 106 mmHg mmHg Diastolic Blood Pressure 60 mmHg mmHg SpO2 100 % % 02/13/2022 8:16 EDT Respiratory Rate 19 br/min br/min 02/13/2022 8:15 EDT Heart Rate Monitored 62 bpm bpm Respiratory Rate 19 br/min br/min Systolic Blood Pressure 122 mmHg mmHg Diastolic Blood Pressure 66 mmHg mmHg SpO2 100 % % 02/13/2022 8:10 EDT Heart Rate Monitored 68 bpm bpm Respiratory Rate 16 br/min br/min SpO2 100 % % 02/13/2022 8:08 EDT Systolic Blood Pressure 175 mmHg mmHg Diastolic Blood Pressure 83 mmHg mmHg 02/13/2022 7:20 EDT Temperature Temporal Artery 36.9 DegC Heart Rate Monitored 70 bpm Respiratory Rate Monitored 18 br/min Systolic Blood Pressure 146 mmHg HI Diastolic Blood Pressure 91 mmHg HI Blood Pressure Location Left arm SpO2 100 % Vital Signs (last 24 hrs) Last Charted Resp Rate 11 br/min (FEBRUARY 13 08:50) SBP H 155mmHg (FEBRUARY 13 08:50) DBP 86 mmHg (FEBRUARY 13 08:50) SpO2 100 % (FEBRUARY 13 08:50) Weight 100 kg (FEBRUARY 13 07:11) BMI 38.1 (FEBRUARY 13 07:11) Documented vital signs Pain assessment: Pain Assessment 02/13/2022 8:50 EDT Pain Symptoms Self Report No, able to self report 02/13/2022 8:26 EDT Pain Symptoms Self Report No, able to self report . General: Alert and oriented, No acute distress. Respiratory: Lungs are clear to auscultation. Cardiovascular: Normal rate, Regular rhythm. Neurologic: Normal sensory. Review / Management Condition: Stable. Assessment Anesthetic outcome No anesthetic complications noted. Adequate pain relief. TOLERATING PO INTAKE. voiding w/o diff.. No Complaint of nausea and vomiting. Plan Transfer/ Discharge: Condition stable. Normal [facility] Comment on above: Result Comment: Elec tronically Signed By: Talon Toribio Jr, DO\.br\Date and Time Signed: 02/28/22 08:51 EDT Progress Note-Physician Patient: YADIRA SMITH Age: 62 years Sex: Female : 1960 Associated Diagnoses: None Author: Talon Toribio Jr, DO Preoperative Information Anesthesia Preop Information NPO 8 HOURS EXCEPT GI PREP AT LEAST 4 HOURS PRIOR TO PROCEDURE Anesthesia history: Patient history: No prior anesthesia problems. Re-evaluation prior to induction: Initial evaluation reviewed: No significant change. Anesthesia results Review of Systems Cardiovascular: Negative. Respiratory: Negative. Health Status Allergies: Allergic Reactions (Selected) Severity Not Documented Diclofenac Potassium- Unknown. Eggs- Nausea and vomiting. Influenza Virus Vaccine- Shortness of breath. Current medications: (Selected) Inpatient Medications Ordered Sodium Chloride 0.9% IV Caridad 1000 mL 1,000 mL: 1,000 mL, IV, 20 mL/hr, Routine, Start date 02/13/22 6:44:00 EDT, 50 hour(s), Total volume (mL): 1,000 Prescriptions Prescribed polyethylene glycol 3350 with electrolytes Oral Pwdr for Caridad 4000 mL (NuLytely): See Instructions, 1 EA, Refill(s) 0, PER PHYSICIAN INSTRUCTIONS. PRIOR TO COLONOSCOPY., [facility], 162, cm, 01/03/22 10:33:00 EDT, Height/Length Dosing, 100, kg, 01/03/22 10:33:00 EDT, Weight Dosing Documented Medications Documented Ventolin HFA 90 mcg/inh Aerosol: puff(s), Inhalation, q6hr as needed for wheezing, Refill(s) 0 escitalopram 10 mg Tab: 10 mg = 1 tab(s), Oral, Daily, Refills(s) 0, Depression montelukast 10 mg Tab: 10 mg = 1 tab(s), Oral, Daily, Refills(s) 0, Allergy symptoms omeprazole 40 mg Cap-DR: 40 mg = 1 cap(s), Oral, Daily, Refills(s) 0, Control of stomach acid, Home Medications (5) Active escitalopram 10 mg Tab 10 mg = 1 tab(s), Oral, Daily montelukast 10 mg Tab 10 mg = 1 tab(s), Oral, Daily omeprazole 40 mg Cap-DR 40 mg = 1 cap(s), Oral, Daily polyethylene glycol 3350 with electrolytes Oral Pwdr for Caridad 4000 mL (NuLytely) See Instructions Ventolin HFA 90 mcg/inh Aerosol , PRN, Inhalation, q6hr Problem list: All Problems Change in bowel habits / SNOMED CT 157037744 / Confirmed Chronic reflux esophagitis / SNOMED CT 813444369 / Confirmed Chronic venous insufficiency / SNOMED CT 11355256 / Confirmed Positive colorectal cancer screening using Cologuard test / SNOMED CT 7909637432 / Confirmed Histories Past Medical History: No active or resolved past medical history items have been selected or recorded. Social History Social & Psychosocial Habits Alcohol 2022 Risk Assessment: Denies Alcohol Use Substance Abuse 2022 Risk Assessment: Denies Substance Abuse Tobacco 01/03/2022 Tobacco Use: Never (less than 100 in l Smokeless tobacco use: Never . Physical Examination Airway: Mallampati classification: II (soft palate, fauces, uvula visible). Respiratory: Lungs are clear to auscultation. Cardiovascular: Regular rhythm. Neurologic: Alert, Oriented. Plan [employer] Anesthesiologists (ASA) physical status classification: Class III. Anesthetic Preoperative Plan Anesthesia: General. . Anesthetic plan, risks, benefits, and alternatives discussed with the patient and/or family. Communication: face to face with (patient 5 minutes, Patient educated on smoking cesstation). Normal [facility] Comment on above: Result Comment: Elec tronically Signed By: Talon Toribio Jr, DO\Date and Time Signed: 02/28/22 08:51 EDT Intra[employer] Documentson 0 02-23-2022 [employer] Documents [id number]# 1.00CD:[address] [facility] Coding Summary.on 02-15-2022 Coding Summary. CD:[id number] G h0bWw+PGhlYWQ+QE0FBVQ dF47pcFZiyR5SF5zURF1D TYXPQWGOZS5ZMF7lgNR5I XopF4SlgeNq OfgfqBKjRE20UAq9JSV5z ZdcEYmrsT3bkSFmF6g7Qi LsQZ54qY04AQbrVPGeGfO 3LjZpbjsgbWFy K9arSmRtbWDlHeq+PHRhY mxlIHdpZHRoPScxMDAlJy AwjZivPR8hRh2nQEExEKF vbGxhcHNlOiBj e5hxTCUwNQnsLH2zpQphX 2NgmGQ7LRHof5g1Yp95dT I+QPOeEED9iDsvYRwrf11 8EbXoj2hqCIA2 jYAiITphUME4I22nt7F2B SNrKGEfEIJ9uHA3tL5zoY dnczeoC8EfoGQvLsV7RSY 7hQOmfO0vsSju brmerQ9eVsp+I28GVM3VW XANNL1IDgv7T6YsPntaxW I+YS29YHJkEM20jYCazAK ug5bkcQz7QgAv ESAqMYP8bZusFDddo9JoU JAbV70ssLVdt4O1FBHueV zyxBXcWjUhfSJ7pG6zRKb fikxgn9vkbmii Ogizu3bwud05dI21D28eR EiaTTIcVIV9GBIfMLXuaX kjir3zwD9zYl0+HCjpm2b mg0zxcBs1XdZf KUKdcnNmmQrjLKA4u1RkW x12V8TwbFqha9BsDkh1qp 40fITbh7W2nYM2RIjbPUY piF7iKBzsMaU7 MQPiPgXldH27nQCfMGwfW s4dyZdsgKceNL2mMONacj spQPZheG0cZDFeeMMecRr cKD6gYBMltlqi c252XwBkDPT5EBFphZSpR 7GkfP7kZqUlRGBaHFYoU0 HjgZFeKOroJ530XLbkPyQ 1RXGbblOiP1Ij WHLboGhjWkX1j1E4Mi7Gq 1OvcmleVQX2ROyiECA0Bc C0MvTyShZ5J9CuFho4TGB yoIyoAO3rL0Jk TCFhweixjjqmeNE9BSGuR NMhsD66tKHqPPvwXd0xp4 W2k451TSQuOURkcT59Ns1 udDogMTBwdCBU xC6zjxwtb4fcdnxcZcQhN YWqNNy5KJy9LTMdrRzaVv KpWPW3LqL3TTW4fYAfaV1 dgEaeazpqkZ0w Oyc+X99wjG0aBYU4LDV5z ibkWOTeugDzKP41CM29F5 RyPjwvdGFibGU+PGRpdiB amHawHP2bAjSi z5ssd4YbGPwvN6QoCGLlH IshOfx0BOUuZMD9nEW4aF 0hOIEiYEyol9S4iLI2K6O wvzSakw6kg4zc DXLxVAefY02lrNDce2K9Y IYucMN8BPXdsDsmTnQpgF 93Oyc+RHJnvCgbx8HrUeh gl0ekg7vgsCr8 UdZyFPGabdUyaMgrNTY7v 8GbMo24T18jLLclZWKmNQ RaNIFqKQEqbDcbyb7cxT0 wIi8+PGNvbCB3 mBV6mA6eCBJyGnX7CWooL 809PvVwxMYyUxcma1fgf5 eczCc1WqGyKPVwgvBzrUz zGRR3q6RgPz57 V51sGNlsDJPeRXTcWLSxY XBooLwkhd5tlA4xIa2+PC 8yv5jjep68zT70fYJ+PHR sZFZ6uZpzWYun GDJucW9cPNqtUwT3DMUlD vIgzS65gVZnGCxcAl1skO xnnCcaDT7pIEBvjtamx72 5FrTez8umKRYp lTFzIBapYVN1N73ua5T9K YUaAJQcUMD8uVK9sD0uyO lnbjogbGVmdDsgdmVydGl fZUkrIVrpO025 IHRvcDsnPlBhdGllbnQgT oAqEUt8F4IeUnz7UDXgeA whDR2pyFOsXQoyFz5wtRj poUvcRX2oJBIr vmsdv885WaFsq9mxWSJtg DWmGZvqLJZ0G73vw2U5VV YxMTCqHMH9iZA0mZ0koVk nbjogbGVmdDsg pyJmyPzaWBggZPatO137C HRvcDsnPkJpcnRoIERhdG K4KM60ZF25wZWmk4H5yOH 3F9EmHFTthycc jbvlzRL2SICzJEZpyX43Y p6uzApaQb6eZSAjEKZ9JY MkxYYpC7SilO5xZnCnASP eRRXnJ2FmlJBn FYjvY763BVurZaP9VODxg hJtL4NeWPEdzAnvMwH0b8 G8Gc4MT9Z3MP77MA93yHO ol8Q1jDZ1E4Se VODlfeawhzkzqIO9ASSmG MAzwE64Fb8okPrlGv8kZN AcSJP5APPqyWOiA5UlzM6 yOiAjMDAwMDAw F5WbnREjZWfkS681CCmwR mN2ZXQftmZzI5ByKRLkfF vaIiR7u7I4Qn1FCZa5PK1 3NL91mPVtz6N2 nYE4C0CcRUYbodysrpcah ME9WWMlJSEebB24Ui7piK roYd7yTTGaSKU4KJUiyXI vZ6BufC4iWsFe IALrEIWrQ2PooNNfOAgaT 122FCeuZeW7PYNcwpUtK5 FmLGKnbBsxGsS3l7J2Gz8 GPFXkKA40MAD1 xYZ0TD00TB33C5XwTlref GFibGU+PHRhYmxlIHdpZH RoPScxMDAlJyBzdHlsZT0 tLr5sWFAhHWRe rYicdCGpKrFlc9pnDLYmE WttPN2qtOtiP7OlmCW2ID Qzz2r5Dz02I74sS3YdxES +HTVzwDJ6eGD7 mS5xVxYpDnP2LJjwQ696S tXltWHfKtnvf1jlo8hebW y6MfK7QTKekmUigQzoCYZ 8z9FzCt50D31e IHdpZHRoPSIxNSUiIHZhb Vjdun9pfR5cNr5+PGNvbC B7oBN0mH8mMcDhArO9BDz nD490IkVbhIOi Mksxg3ibg5ahmKa8AwLyX HLlmbKpjBzlBMO4h0IaLb 31R4YqbAsfn1NcOho1uw6 4vBOcg8R0xSV9 Q5GkKBQmxhsbjXBjyAirJ W3cLIIepzduIPQdmW9iFN KiU3u0ZrQjIdJ8ABxiT7S budN0ESLcsQBl UEhuCDE9O42pw9C7FJBqX WOjGZI1uYZ0pO3pkYcfng ogbGVmdDsgdmVydGljYWw kEQczD149HGDs qDleUBMkjF9rAKWsnKJwv QhcUQ9uLMEbevwhXrwCVE FYOtnWLwlsY5IQFVc1H3P tPpa0VQNxqSuc AP8ksDVfQFhnPp8bwFucf WhrTY2cGARnbampOZIrtR 0uQBCrwQEscCrcKZ1bSCH brtoii509UjHu NJZ4CKZvoEEsT5YeaK7eU pDgVTRwNLOeG8DcvMArSD vdT767COsgUeC4BPCgxpB kF6IqJQZqiLyk DyB9s2V9In9hAs8nZZ4cC YN2ZD23JT91qMVlf6O0iI Y6I1LaNTPvtiogwonnvHM 6PZRxPFFjdZ81 qJTlVUtsGc1kg7L2g235V QOtNPEefG01Xk1wlMcjUN AucUEQiB8yspbzc3dvola gIzAwMDAwMDt0 MPo9DXKhdRicYfAaQOB2P kO9WQE5uMXyyA7xyPodyf tknS2uXov+NjQgWWVhcnM 8S4CqFds3IWVu zIweEU3dsTXrPFxrGd4jj JwsqKbdCJ4yVKAiihpuFY PzjE5oDAQplLCguIsqAH6 jPUGmboaat791 FjIyLLN3GDKpvNPkB3Syp K5hCwCxNJXyHARwD3MosO EvNZltS340MTtdAkX8IPD rxlHsN8QqKFXf sVbwZjY2g5S1Rh0TBH6ku HC5B2XnOei8KBFidVsoSL 7uwUOkFWibJl6nvRmokZr jNT2bVGBqxuhy GHSiyX4aUSVxaPMapEwcS K3nGTWgtqvkd538TmJmSV D2AIQljTOyQ1VmgK9tLfV fWNRqREWmO2Nu tOVnLHmiR454RPioNzB6G FRgseDsH9JrHGIvaXgwYm N3m0V7Wq0JyIAhUORvTI2 2DB64YI09U3Lg PjwvdGFibGU+PHRhYmxlI HdpZHRoPScxMDAlJyBzdH prCJ5sJd9xQIKxFMYavWp tjZUzLlVzl0ac HBNyWLhjEE1tgQzzA7Oju VX3XCZri3n3Vb82L46wC7 JvdXA+DOJzaJG3vAF6fQ8 yZkSfSsP7SPsj G935XmJokIGsUuorq0tvc 2oymDe9EkTeRRVrhuBpqL sqHAE7p8AbBg21S00dBPa pZHRoPSIyMCUi OFQzrQkcpr1jpG5bWo0+P DZvmMU7mWU3zW3tWjSgLm U6KHpzN128RbKtlEFoKsr hY07zE6BrtOD+ GXYiOqy9PPBwaZqnQP2mx WJpUPwfJl1fUDW7UoMlXh YtYOepM4ByHNJoynnxtty giJC9HCAtHRRd eP38Iu0agLmkYx0uIRLbM MZ8SBEfnZWmB2RnwT5lKa KcSGKzDBEkU1WtiHDxOSn dL125IWzlEzQ0 UYDqusKeE9NhKDHyrMbiV fL5t8S6Ye2PlLgbmIExNB 6gRqKaSGo7A6HjEvd1RFW dcZjcIS5gnUGl ILlyXw8yvMijtAsxJB0wR FLywfauy821NqPby3jrOM EoqYCxQPqnESP3J12oz1N 2GVZmMEOkEPE0 qJV6uF3krHbmubexiRLki DsgdmVydGljYWwtYWxpZ2 45QHLlxUpvBpEUFzq7Z3T iIlc8VQHmdYmr UV3juMBnRRsfBa9tpLeut CyoSY3fPZHweqzna932Av Mvh7zrJLRdzDMxGJlyVPW 4B73yu5I0AUKc UPHeWNV5fNG1uZ1jaYonk jogbGVmdDsgdmVydGljYW spGXahD093RTJirJhvDy9 QCyg0S6NfJvl2 ZNJgtKnkTG1tdZYoSWkdJ v5aiPaioTbtFO2yKVAlkd vck025AaShs2aeWHAafJV kFJvkXGO8Y72s j1P0LXUjXSPdLAA8sMB3e L0xlRflcfutiFQelMrzza WtoCysOBaoCPudJ547LQO vcDsnPlBheWVy OjwvdGQ+IT74th61Y7OfE abgLfu0XRMxWZR6eJZ7xQ 5gZPQeCUmvu7B5sRX9Z5T kraBwdb1pj6qd YXBz (more content not included)... Normal [facility] Consenton 02-15-2022 Consent [id number] .00CD:127 [facility] Discharge Instructionson Discharge Instructions [id number]#1 .00CD:127 [facility] IntraOperative Documentson 0 02-15-2022 IntraOperative Documents [id number] .00CD:127 [facility] IntraOperative Documents [id number] .00CD:127 [facility] Main OR Intraoperative Recor don 02-15-2022 Main OR Intraoperative Record IntraOp Document Type FT Summary Primary Physician: Stacey WU MD Finalized Date/Time: 02/15/22 14:00:09 Pt. Name: YADIRA SMITH/Sex: 1960 Female Med Rec #: [id number] Physician: Stacey WU MD Financial #: [id number] Pt. Type: O Room/Bed: / Admit/Disch: 02/13/22 06:51:53 - 02/13/22 23:59:59 Institution: Case Times FT Entry 1 Patient Times In Room 02/13/22 08:07:00 Out Room 02/13/22 08:25:00 Procedure Times Start 02/13/22 08:12:00 Stop 02/13/22 08:22:00 Anesthesia Times Start 02/13/22 08:07:00 Stop 02/13/22 08:25:00 Time at [place] 02/13/22 08:16:00 Last Modified By: Gloria LESLIE, Priya Pedraza 02/13/22 08:25:25 General Comments: 02/15 chart opened for charge review only. Kaia Byrne RN. [place] Case Attendance FT Entry 1 Entry 2 Entry 3 Case Attendee Isaac HODGE, Azeb Hale, Mackenzie Art Role Performed Anesthesiologist Scrub - Primary Staff - Other [employer] Time In 02/13/22 08:07:00 02/13/22 08:07:00 02/13/22 08:07:00 Time Out 02/13/22 08:25:00 02/13/22 08:25:00 02/13/22 08:25:00 Procedure COLONOSCOPY(.) COLONOSCOPY(.) COLONOSCOPY(.) Comments Dr. Toribio supervising help in room case Last Modified By: Gloria RN, Priya Castro RN, Priya Castro RN, Pryia Pedraza 02/13/22 08:25:26 02/13/22 08:25:26 02/13/22 08:25:26 Entry 4 Entry 5 Case Attendee BRYCE GONZALEZ, Stacey Castro RN, Priya Pedraza Role Performed Surgeon - Primary Material Distributor - Primary Time In 02/13/22 08:07:00 02/13/22 08:07:00 Time Out 02/13/22 08:25:00 02/13/22 08:25:00 Procedure COLONOSCOPY(.) COLONOSCOPY(.) Comments Last Modified By: Gloria LESLIE, Priya Castro RN, Priya Pedraza 02/13/22 08:25:26 02/13/22 08:25:26 Perioperative Protocols FT Pre-Care Text: Implements protective measures prior to operative or invasive procedure, confirms identity before the operative or invasive procedure, verifies operative procedure, surgical site, and laterality Entry 1 Procedure(s) COLONOSCOPY(.) Patient Identity Birthday, ID Band Verified (select at Check, Patient least 2): Participation Consents / H and P Anesthesia Consent, Operative Site N/A Verified HandP, Surgery/Procedure Marking Verified Consent Surgical Site No Laterality Verified n/a Verified Procedure Verified Yes Correct Patient Yes Position Verified Availability Equipment, Medication Prep Dry n/a Verified (If Applicable) PreOp Antibiotic No Time Out Azeb Spencer, Given Participants Kavita Hale Sparks, Micala E, Stacey WU MD, Priya Castro RN Time Out Complete 02/13/22 08:11:00 Outcomes Met? Yes Last Modified By: Priya Castro RN 02/13/22 08:12:37 Post-Care Text: The patient is free from signs and symptoms of injury caused by extraneous objects Allergy Information FT Pre-Care Text: Verifies allergies Entry 1 Allergies Reviewed? Yes Allergies Reviewed Self/Patient With Outcomes Met? Yes Last Modified By: Priya Castro RN 02/13/22 08:12:43 Post-Care Text: The patient received appropriate medication(s) safely administered during the perioperative period Surgical Procedures FT Entry 1 Procedure Description Procedure COLONOSCOPY Modifiers . Surgeon Description Colonoscopy with cecal polypectomy Primary Procedure Yes Primary Surgeon Stacey WU MD Start 02/13/22 08:12:00 Stop 02/13/22 08:22:00 Anesthesia Type General Surgical Service Gastroenterology Wound Class 2 - Clean-Contaminated Last Modified By: Priya Castro RN 02/13/22 08:22:08 General Case Data FT Pre-Care Text: Classifies surgical wound, implements aseptic technique, initiates traffic control Entry 1 Case Information OR ENDO 1 FT Case Level Level 2 Wound Class 2 - Clean-Contaminated Specialty Gastroenterology ASA Class 3 Preop Diagnosis Change in bowel habits, Postop Same As Preop No positive cologuard Postop Diagnosis Cecal polyp, internal Outcomes Met? Yes hemorrhoids Last Modified By: Priya Castro RN 02/13/22 08:22:51 Post-Care Text: The patient is free from signs and symptoms of infection Skin Assessment (Pre Procedure) FT Pre-Care Text: Implements protective measures to prevent skin/ tissue injury due to thermal or mechanical sources Evaluates for signs and symptoms of physical injury to skin and tissue Entry 1 Skin Integrity Intact, [place], Warm, and Skin Abnormality No Dry Outcomes Met? Yes Last Modified By: Priya Castro RN 02/13/22 08:13:18 Post-Care Text: The patient is free from signs and symptoms of injury caused by extraneous objects Patient Positioning FT Pre-Care Text: Identifies physical alterations that require additional precautions for procedure-specific positioning, verifies presence of prosthetics or corrective devices, positions the patient, evaluates the patient for signs and symptoms of injury as a result of positioning Entry 1 Procedure COLONOSCOPY(.) Body Position Lateral, right side u (more content not included)... Normal [facility] Postoperative Documentson Postoperative Documents [id number]#1 .00CD:[address] [facility] Consent for Treatmenton Consent for Treatment [id number] .00CD:[address] [facility] Endoscopic Procedure Report - Otheron 02-13-2022 Endoscopic Procedure Report - Other Patient: YADIRA SMITH Age: 62 years Sex: Female : 1960 Associated Diagnoses: None Author: Stacey WU MD Pre-Procedure Procedure Date 02/13/2022 08:24:00 . Procedure Type: Colonoscopy with removal of tumor(s), polyp(s), or other lesion(s) by cold snare technique. Procedure provider Performed by Stacey Wu MD. Current history and physical Documented on chart. Colorectal neoplasm risk assessment Average risk. Informed Consent After discussing the rationale, risks and benefits, and alternatives to this procedure, the patient provided signed consent for the procedure. Pre-procedure diagnosis: Positive fecal immunochemical test. Medications Anticoagulant/antipla telet None. ASA Classification: Class II. . Procedure The procedure was performed in the hospital. Rectal exam was performed and was normal with no masses palpated. The patient was positioned in the left lateral decubitus position and a digital rectal exam was performed.. Endoscope type used was an adult-size. The endoscope was lubricated then introduced through the anus. The scope was advanced to the cecum verified by photographing the appendiceal orifice, verified by photographing the ileocecal valve, verified by transillumination, The time to the cecum was 4 minutes, The withdrawal time was 6 minutes. No difficulties encountered during the procedure. The bowel preparation quality was adequate (see polyps greater than or equal to 6 millimeters). The patient tolerated the procedure well. Findings Diminutive polyp, 2 mm, in the cecum, removed completely with cold snare Moderate nonbleeding internal hemorrhoids Images Procedure images: [id number]_hd_video_2021_ _[id number].jpg Rec1_hd_video_2021_ _[id number].jpg [id number]_hd_video_2021_ _[id number].jpg [id number]_hd_video_2021_ _[id number].jpg . Post-Procedure Complications: none. Estimated blood loss: none. Specimens: sent to pathology. Devices/ implants: none left in place. Impression and Plan Diminutive polyp, 2 mm, in the cecum, removed completely with cold snare Moderate nonbleeding internal hemorrhoids Recommendations: Repeat colonoscopy:: In 5 years, Pending pathology results. Follow-up:: Clinic follow-up in 1-2 weeks. Diet:: Resume previous diet. Medication resumption:: Continue current medications. Return to activities:: After [address]. [address] [facility] Comment on above: Result Comment: Elec tronically Signed By: BRYCE GONZALEZ, Stacey\.br\Date and Time Signed: 02/13/22 08:25 EDT Other Comment: Idania green Attachment - attachment storage system not supported [id number] Can be viewed in source system Missing Attachment - attachment storage system not supported [id number] Can be viewed in source system Missing Attachment - attachment storage system not supported [id number] Can be viewed in source system Missing Attachment - attachment storage system not supported [id number] Can be viewed in source system Inpatient Patient Summaryon 02-13-2022 Inpatient Patient Summary [address] [address] [facility] Clinical Discharge Instructions PERSON INFORMATION Name: YADIRA SMITH PHYSICIANS Admitting Physician: Stacey WU MD Attending Physician: Stacey WU MD PCP: RAY RAWLS DO Discharge Diagnosis: Colon polyp Comment: PATIENT EDUCATION INFORMATION Instructions: Colonoscopy, Care After Surgery Bryce (JAMILAH); Colon Polyps Medication Leaflets: Follow up: With: Address: [facility] [address] [place], [place] [phone] Business (1) MEDICATION LIST Medications to Continue with No Changes Other Medications albuterol (Ventolin HFA 90 mcg/inh Aerosol) Inhalation every 6 hours as needed as needed for wheezing. escitalopram (escitalopram 10 mg Tab) 1 Tablets By Mouth every day. montelukast (montelukast 10 mg Tab) 1 Tablets By Mouth every day. omeprazole (omeprazole 40 mg Cap-DR) 1 Capsules By Mouth every day. Comment: Normal [facility] Main OR PACU I Recordon Main OR PACU I Record PACU Phase I Document Type FT Summary Primary Physician: Stacey WU MD Finalized Date/Time: 02/13/22 12:41:47 Pt. Name: YADIRA SMITH/Sex: 1960 Female Med Rec #: [id number] Physician: Stacey WU MD Financial #: [id number] Pt. Type: O Room/Bed: / Admit/Disch: 02/13/22 06:51:53 - Institution: Case Times PACU I FT Pre-Care Text: Identifies barriers to communication and implements measures to provide psychological support Develops individualized plan of care, and ensures continuity of care Maintains patient's dignity and privacy, and maintains patient confidentiality Identifies and reports philosophical, cultural, and spiritual beliefs and values Identifies individual values and wishes concerning care Implements aseptic technique, and administers prescribed antibiotic therapy and immunizing agents as ordered Evaluates postoperative tissue perfusion Implements thermoregulation measures, and monitors body temperature Evaluates postoperative respiratory status Evaluates postoperative cardiac status Evaluates postoperative neurological status Assesses pain control, collaborated in initiating patient-controlled analgesia and implements alternative methods of pain control Verifies allergies, administers prescribed medications and solutions, evaluates response to medications Entry 1 In PACU I 02/13/22 08:26:00 Discharge from PACU 02/13/22 08:56:00 I Outcomes Met? Yes Last Modified By: Delmi Bailey RN 02/13/22 12:40:19 Post-Care Text: The patient demonstrates knowledge of the expected response to the operative or invasive procedure The patient's care is consistent with the individualized perioperative plan of care The patient's right to privacy is maintained The patient's value system, lifestyle, ethnicity, and culture are considered, respected, and incorporated into the perioperative plan of care The patient participates in decisions affecting his or her perioperative plan of care The patient is free from signs and symptoms of infection The patient has wound/tissue perfusion consistent with or improved from baseline levels established preoperatively The patient is at or returning to normothermia at the conclusion of the immediate postoperative period The patient's respiratory function is consistent with or improved from baseline levels established preoperatively The patient's cardiovascular status is consistent with or improved from baseline levels established preoperatively The patient's cardiovascular status is consistent with or improved from baseline levels established preoperatively The patient demonstrates and/or reports adequate pain control throughout the perioperative period The patient received appropriate medication(s), safely administered during the perioperative period Acuity Level PACU I FT Entry 1 Start Time 02/13/22 08:26:00 Stop Time 02/13/22 08:56:00 Acuity Level Acuity Level I Last Modified By: Delmi Bailey RN 02/13/22 12:41:43 Finalized By: Delmi Bailey RN Document Signatures Signed By: Delmi Bailey RN 02/13/22 12:[address] [facility] Main OR Preoperative Recordo n 02-13-2022 Main OR Preoperative Record Holding Area Document Type FT Summary Primary Physician: Stacey WU MD Finalized Date/Time: 02/13/22 07:11:40 Pt. Name: YADIRA SMITH/Sex: 1960 Female Med Rec #: [id number] Physician: Stacey WU MD Financial #: [id number] Pt. Type: O Room/Bed: / Admit/Disch: 02/13/22 06:51:53 - Institution: Case Times Holding FT Pre-Care Text: Verifies consent for planned procedure, identifies individual values and wishes concerning care, includes family members in perioperative teaching Secures patient's records' belongings, and valuables, maintains patient's dignity and privacy, and maintains patient confidentiality Entry 1 In Holding 02/13/22 07:07:00 Outcomes Met? Yes Last Modified By: Priya Castro RN 02/13/22 07:09:08 Post-Care Text: The patient participates in decisions affecting his or her perioperative plan of care The patient's right to privacy is maintained Surgery Checklist FT Entry 1 Patient Birthday, ID Band Procedure History and Physical, Identification: Check, Patient Verification: Surgical Consent, With Participation Patient NPO after Midnight: No Results Reviewed pt states finished Comments: colon prep at 0230, states stool is clear in color Personal Items: Glasses Personal Items clothes, glasses Comment: Limitations: n/a Complaints of Pain: No Pain Comment: denies Operative Site n/a Marking: Marked By: n/a Availability Equipment Verified: Does Patient Smoke No Patient states Yes Comment - Adult Sae- brother postop adult Supervision supervision available Case Cancelled in No Holding Area see comments below for reason Last Modified By: Priya Castro RN 02/13/22 07:11:35 Finalized By: Priya Castro RN Document Signatures Signed By: Priya Castro RN 02/13/22 07:[address] [facility] Monitor Recordon 02-13-2022 Monitor Record [id number]# 1.00CD:[address] [facility] Monitor Record [id number]# 1.00CD:[address] [facility] Outpatient Surgery Discharge Instructionon 02-13-2022 Outpatient Surgery Discharge Instruction [address] [address] Patient Discharge Instructions PERSON INFORMATION Name: YADIRA SMITH Date of : 1960 Current Date: 02/13/2022 08:39:03 PHYSICIANS Admitting Physician: BRYCE GONZALEZ, Ibarra Discharge Diagnosis: Colon polyp YADIRA SMITH has been given the following list of follow-up instructions, prescriptions, and patient education materials: PATIENT FOLLOW-UP INFORMATION Diet: Regular Discharge Activity: Resume normal activities in 24 hours Discharge Restrictions: No driving for 24 hrs, Do not operate machinery or tools, Do not make important decisions for 24 hours IF UNABLE TO CONTACT YOUR PHYSICIAN AND YOU FEEL IT IS AN EMERGENCY, GO TO THE NEAREST EMERGENCY ROOM OR CALL 911 ROMI Petersen SALLY, have received the attached patient education materials/instruction s and have verbalized understanding: May we do a follow up call? Yes No I was present when discharge instructions were given Patient Signature Date Clinican/Nurse Signature Date Follow up: With: Address: When: Stacey WU [address] [place] [address]. [address] [place], [place] [phone] Business (1) [facility] Information[facility] You may receive a survey from [employer] asking you to rate your care experience. Your feedback is important and will help us understand what we do well and how we can improve the quality of care we provide to you, your loved ones and our community. It?s an honor to serve you. Thank you for choosing [facility] HERE ARE THE MEDICATION CHANGES THAT OCCURRED DURING YOUR HOSPITAL STAY Medications to Continue with No Changes Other Medications albuterol (Ventolin HFA 90 mcg/inh Aerosol) Inhalation every 6 hours as needed as needed for wheezing. escitalopram (escitalopram 10 mg Tab) 1 Tablets By Mouth every day. montelukast (montelukast 10 mg Tab) 1 Tablets By Mouth every day. omeprazole (omeprazole 40 mg Cap-DR) 1 Capsules By Mouth every day. PATIENT EDUCATION INFORMATION Instructions: Colonoscopy Care After Surgery Please read the instructions outlined below and refer to this sheet in the next few weeks. These discharge instructions provide you with general information on caring for yourself after you leave the hospital. Your doctor may also give you specific instructions. While your treatment has been planned according to the most current medical practices available, unavoidable complications occasionally occur. If you have any problems or questions after discharge, please call your doctor. ACTIVITY You may resume your regular activity, but move at a slower pace for the next 24 hours. Take frequent rest periods for the next 24 hours. Walking will help get rid of the air and reduce the bloated feeling in your abdomen (belly). No driving for 24 hours (because of the anesthesia (medicine) used during the test). You may shower. Do not sign any important legal documents or operate any machinery for 24 hours (because of the anesthesia used during the test). NUTRITION Drink plenty of fluids. You may resume your normal diet as instructed by your doctor. Begin with a light meal and progress to your normal diet. Heavy or fried foods are harder to digest and may make you feel nauseated (sick to your stomach). Avoid alcoholic beverages for 24 hours or as instructed. MEDICATIONS You may resume your normal medications unless your doctor tells you otherwise. WHAT YOU CAN EXPECT TODAY Some feelings of bloating in the abdomen. Passage of more gas than usual. Spotting of blood in your stool or on the toilet paper. FOLLOW-UP Your doctor will discuss the results of your test with you. SEEK IMMEDIATE MEDICAL ATTENTION IF: There is more than a spotting of blood in your stool. There is abdominal distention (your abdomen is swollen). There is vomiting. You have a temperature over 101.5 F. There is abdominal pain or discomfort that is severe or gets worse throughout the day. Colon Polyps Polyps are tissue growths inside the body. Polyps can grow in many places, including the large intestine (colon). A polyp may be a round bump or a mushroom-shaped growth. You could have one polyp or several. Most colon polyps are noncancerous (benign). However, some colon polyps can become cancerous over time. Finding and removing the polyps early can help prevent this. What are the causes? The exact cause of colon polyps is not known. What increases the risk? You are more likely to develop this condition if you: ? Have a (more content not included)... Normal [facility] Patient Education - Texton 0 02-13-2022 Patient Education - Text Colonoscopy Care After Surgery Please read the instructions outlined below and refer to this sheet in the next few weeks. These discharge instructions provide you with general information on caring for yourself after you leave the hospital. Your doctor may also give you specific instructions. While your treatment has been planned according to the most current medical practices available, unavoidable complications occasionally occur. If you have any problems or questions after discharge, please call your doctor. ACTIVITY You may resume your regular activity, but move at a slower pace for the next 24 hours. Take frequent rest periods for the next 24 hours. Walking will help get rid of the air and reduce the bloated feeling in your abdomen (belly). No driving for 24 hours (because of the anesthesia (medicine) used during the test). You may shower. Do not sign any important legal documents or operate any machinery for 24 hours (because of the anesthesia used during the test). NUTRITION Drink plenty of fluids. You may resume your normal diet as instructed by your doctor. Begin with a light meal and progress to your normal diet. Heavy or fried foods are harder to digest and may make you feel nauseated (sick to your stomach). Avoid alcoholic beverages for 24 hours or as instructed. MEDICATIONS You may resume your normal medications unless your doctor tells you otherwise. WHAT YOU CAN EXPECT TODAY Some feelings of bloating in the abdomen. Passage of more gas than usual. Spotting of blood in your stool or on the toilet paper. FOLLOW-UP Your doctor will discuss the results of your test with you. SEEK IMMEDIATE MEDICAL ATTENTION IF: There is more than a spotting of blood in your stool. There is abdominal distention (your abdomen is swollen). There is vomiting. You have a temperature over 101.5 F. There is abdominal pain or discomfort that is severe or gets worse throughout the day. Oncology Colon Polyps Polyps are tissue growths inside the body. Polyps can grow in many places, including the large intestine (colon). A polyp may be a round bump or a mushroom-shaped growth. You could have one polyp or several. Most colon polyps are noncancerous (benign). However, some colon polyps can become cancerous over time. Finding and removing the polyps early can help prevent this. What are the causes? The exact cause of colon polyps is not known. What increases the risk? You are more likely to develop this condition if you: ? Have a family history of colon cancer or colon polyps. ? Are older than 50 or older than 45 if you are . ? Have inflammatory bowel disease, such as ulcerative colitis or Crohn's disease. ? Have certain hereditary conditions, such as: ? Familial adenomatous polyposis. ? Sapp syndrome. ? Turcot syndrome. ? Peutz?Jeghers syndrome. ? Are overweight. ? Smoke cigarettes. ? Do not get enough exercise. ? Drink too much alcohol. ? Eat a diet that is high in fat and red meat and low in fiber. ? Had childhood cancer that was treated with abdominal radiation. What are the signs or symptoms? Most polyps do not cause symptoms. If you have symptoms, they may include: ? Blood coming from your rectum when having a bowel movement. ? Blood in your stool. The stool may look dark red or black. ? Abdominal pain. ? A change in bowel habits, such as constipation or diarrhea. How is this diagnosed? This condition is diagnosed with a colonoscopy. This is a procedure in which a lighted, flexible scope is inserted into the anus and then passed into the colon to examine the area. Polyps are sometimes found when a colonoscopy is done as part of routine cancer screening tests. How is this treated? Treatment for this condition involves removing any polyps that are found. Most polyps can be removed during a colonoscopy. Those polyps will then be tested for cancer. Additional treatment may be needed depending on the results of testing. Follow these instructions at home: Lifestyle ? Maintain a healthy weight, or lose weight if recommended by your health care provider. ? Exercise every day or as told by your health care provider. ? Do not use any products that contain nicotine or tobacco, such as cigarettes and e-cigarettes. If you need help quitting, ask your health care provider. ? If you drink alcohol, limit how much you have: ? 0?1 drink a day for women. ? 0?2 drinks a day for men. ? Be aware of how much alcohol is in your drink. In the [place] one drink equals one 12 oz bottle of beer (355 mL), one 5 oz glass of wine (148 mL), or one 1? oz shot of hard liquor (44 mL). Eating and drinking ? Eat foods that are high in fiber, such as fruits, vegetables, and whole grains. ? Eat foods that are high in calcium and vitamin D, such as milk, cheese, yogurt, eggs, liver, fish, and broccoli. ? Limit foods that are (more content not included)... Normal [facility] Coding Summary.on 01-13-2022 Coding Summary. CD:[id number] G h0bWw+PGhlYWQ+BY5MZQV tO21twCBapU3II7dYVX0G FFWLPBQITK5KIV5uuYS9W DhnA7TlyqRb NvovtQZoBL38HJu5CAY5i ZtuKIzluX0ekZBbO8n1St AxHZ84zU35NGzvQIWdQpA 3LjZpbjsgbWFy N3tkUwBicFCmSht+PHRhY mxlIHdpZHRoPScxMDAlJy VvgYbyNO6oRz4pYUZgLKM vbGxhcHNlOiBj c2jaXVTeUAgdFJ6egMloH 6OqvNH8MCVqg1o5Ym00wX I+QKIhVND7kScfCHaxt09 1AsDbv6fyNNZ5 lULuSBtjREE2Z64th9V2G EXsTZEcEYQ0zRI6fT0gvN qqtbanP9HdcZOcIsT3LBH 5qNJjqG9qaAux jlaoqG5mBjw+D64DCG1SR XNGSS5VHml0N8UkTiwipZ I+MJ50UQEoWO97pVHwbLJ mb5krlFf1MlVt ZMHcIZH1zMneRZszw6DaU WHnW07biYKln1T3QZSjbR andTIrBtXlhXS3dP6oRVy oqypbr2lewfke Bmpao6tocw37iB14O30eI KojDITgMFJ6EMTtLFCxeM afjw4fqU4jVg4+BDtwq2o sk7afoXn2BsUf SDFufaFkmLyeMTV8w4FbC b28F0IyfObvg1JdVzp6oe 90wBXvi2O7cXU0NMufSVG eiO4sIOuzKpO8 KUMqPhRmhQ04aZNxRFykS g7mdJewiNhnKG8uSYHrpx xdEJZprK8wIUAcqFHrpYt wPR7lBFEvwxws f307XsTnMGD9RTYntOJpH 8EmiM3uTeQbXNWwIAUuN3 LjiZDiEZpeH162HZgbDtR 4LKWhbdPlW2Gj JURttYmtUuI0s8X3Re2Dr 9SusrtcDBZ0ZGvhZJJ4Ht HzIpQeYvV6Q0MrIuq6NIA unQncYR4aJ4Gk WFIdlegzkqlupAT9IZMlI CYenN67lRXtZIzhAc1bn7 R4k545HAVnQYKcyJ28Ty6 udDogMTBwdCBU xN7upmyqh7nmkvivCkAdQ ZFeTBq7VUx3GARtwNypQl DzOWM5VlE3UNY8fZBzoE4 saInjdxqccD4z Oyc+D50xvR4mQDA4VKE1f enxSXIjanUaWN48GT92W7 RyPjwvdGFibGU+PGRpdiB goCmyMV3aNaAa o4mjf6SmSTsdK1LgIMHsN ShlMmy0QCTgFYV9sKO1nB 6iXERyYYoye6H6jVO3Q1O jhcWotk5vp2zo HOAkYVcmQ93paXDze3B4O SDbpUY9DQNirObkQzXayA 93Oyc+YVHvqYcap6GgHzu xe9exa5rdeAm2 MfUdWNYilbSmnAqxENG4x 1TgDq37T03aBAsjSBCoXT DsJIGlEQTypSkvxl6hhU3 wIi8+PGNvbCB3 gKE2mT5hYZDhVdV2QXvfV 799IgLhvDNcLwegu2kxb2 tcwYq5ZxUhAZKdwnCkcNn iEIM8p7BqHm44 S19pWXkaWEHeEAVdZFLrK YQhcNczyb9niN3pAq0+PC 4dq0sstm66cZ53cPK+PHR nNZD3vKcqWPue EJNbkN5gIFrwYuF1VFRjK dLvvG00jFGcNMouRd0xwA ytxPsyAC4eVBOfozoiw86 1JnCfp4gmHXZz iNVpLVgnKWT1Y89cb9H2X MWvDJQzOHW8sAV7cW7dtR lnbjogbGVmdDsgdmVydGl xSZjzWDwsZ145 IHRvcDsnPlBhdGllbnQgT uHqFWl3Q4UqNqa1CQNxfM sbJQ2xnLSxPVvvQs8afTb gdFbmDE6pJXDg swdma784KjNtb9qpESAhl HAbXNgcFYN7T66ye4M2MV BfSHJkRWK2aYM6iQ0sjWf nbjogbGVmdDsg ozJnqXwcDJkcEBnuM593P HRvcDsnPkJpcnRoIERhdG V3TS22KT93eXOho3Y7aVJ 6S5NfYSItaupl xcouvQW8SWEhCAIfuH39F b6gpJuwUl2jMHOjEDH6OG MdyNDaM7CdaW8yHoLcONX jDQUvB1YjbLDk YWwuJ150PTikVqZ0RSCiv lAoR3UzPRZqbJdbOsP4r6 I0Nj5LU7H7RR10OG09qLG tj3J3zGK2D4Ep OUIustwmpjknjFN9GLEdD CRemA13Kc8fhPwmJu9dBW SxKZM1YCWtzQUfC8PafC8 yOiAjMDAwMDAw Z0KdqHZkSOczW482YTcpY lW8HQEonsEmF2WeXSVccK ioMgN6c3B5Kk8STPe1PL5 0PX26hSXvf7N7 kOI5C1AnRFDyitbfmvdag EW9AEZxKDFdeZ14Wv8biI rsYy7sJWGjUOJ7NUFsaIN eD3RroC1qYqNw FAFwKDJqK0KuuRUhSOxxF 325RIrgLcJ8IALxgnGzW3 LsMAPyfSrcGuP5r1L6Ym3 GEULgPX11GZX8 tDS8OO12LA22O8PgHcjez GFibGU+PHRhYmxlIHdpZH RoPScxMDAlJyBzdHlsZT0 eZu4uGCNuDDHr aAnjoZDbBfZpo7ykJBRjV BzrAF4cvMgqB6LxvHY9DE Pnz9h0Id16W95bM9NblUI +WBHqdHC0sTH3 rU4dOwLrWiV1BEzbV906M vUjhRHzPrjbo5nxh3pdnI y4WxB0KHPisvQheHacGJR 8o0AkSp64S06w IHdpZHRoPSIxNSUiIHZhb Bccbr7cdG8nRr8+PGNvbC R4xVZ6nR7aLhWsWbD8MCo vS854LkWckNKj Veiud0phn8mxpYb2SjUzV TWunkAzfHquHYZ8f4DhDo 43M3QmmYdox2LvJrh2ll7 2aNBlt6X5sQU2 K5MbLJJeepspvJJfwByqL R9oLVMrfkjlZGHciZ1hWQ FaX7r2LyCoPwA6EOekF7C ybuX4GAIunVIt ALijRLD1Z89nf7S2JWAjM HPeNIB7fNB1yP1zpKnact ogbGVmdDsgdmVydGljYWw hEQtuW708QQUr vCzhQJHjrI9dMWEzfSLcc NlmKK4lUBVkcppiXixEQK AAUtzUOkowY0QNYDr9B7A eKkp3KZGwgIeh JI7sgQPhUApvXv6ccDeyy NodOS6tOIHtpgliUPOfxQ 6dXSIryJRnsYklWH3tFDX xohxpu034HnYu HWQ1MIOwtEVfS1SumD2fZ nRmRSZwNCWtK7DkkHLjVB gtM194BQybTdZ8LXOxraX fC5FeQBKsmXrx LzV9l1Z2Zv6pYe2wOA5xW AX3DG73JE80rMDiq5Z5nQ O3E6QpXMHoefjycodizSJ 8YQPuOQBnwI06 uXBkJBlbIj2wx8E9y455B ZWbWWQxzP05Kj4nbVftAE KpqKWCpP6apvpcj2hchde gIzAwMDAwMDt0 TOr1MPEjsAgvYdVrTJN9J aJ4ZMJ4qAJbgW2wiAeikt daqA7oNty+NjQgWWVhcnM 8B5OxXth8UKBa aYviVC2ecYRtYMxpGd4vv QojbOkdIL0lHLGynupoXA ZtcY0aYWFgpEYdrVlxTP9 pNTFbmvfpy930 QvFsPJD0BFNriQBgA1Zic C2yLjWvTAJaDZJxI7GhgC CaDFclG911UZnsUcU3LVU iyqLxR9PkMJIk uIrrOtT8b9X0Ti9VER8gu CW4C6ClGnh4OBZjgCetFR 1ovVIqPDnhAb5xkNbzaXk qMQ8vNWWgmajx KPAunL4xPNTxcFBukDliW Y2lNNNdlnetj551NfZyVP Y4UHFrgWPdO2JrkE0oKzP rVGZsNUCqV4Hx nQEyQOykJ762IEfaElZ4A PFsqhEqA1PkGDHrbOihSj S1l3H1Lh1QtWWuQKTgEH8 9OC92IV76O5Ar PjwvdGFibGU+PHRhYmxlI HdpZHRoPScxMDAlJyBzdH ywYV8wZa7hCGHmVSZtaXo nvVYpRtLdl1ly ZULxCAxzSZ5cdKrhW4Wot YK7HVAtq4l6Uq84T37gC9 JvdXA+SJVkcUM6iMX5zR9 kNeUzGpL7TNin F451SzNkhDPlLloku6pkw 9dzdWd9FiZnTIRxdoRyeI amTRG9p0DiDr91Q90kCUp pZHRoPSIyMCUi KGGbbLuero9vzZ2wNg6+P ALmqIC5bDG8aG6uIsXbAu L7HIzcZ409EtXhdKMhEfz yB90rJ1FmuRT+ RAUvYdq5OFKcnXgoHK2tm BBgXOzqSc1jJLS4OtFzNl WzPGabO7IyQGNdhhpvspx ctHN3TSOkJPEi hJ00Kn8mvXlxTn1yIUVvG FF7EKTcyTNjT5FujS1xLz PgNWFmELEuU7SkfUXdBHh uA866UOxqPwD4 KNHljvRuF3EtNWEsrTgrT sJ8d8D4Vf5JmXhkfIUkCO 0vTySbXYc5F2SgQtk1JZI clXotIF2jaIIt LLjyDu2wcJybqPuuZH7wE HWhvsbov105LvKhq7gwHX UsdVUrTEouOOE0L38ag4T 6GTPfHWSzBEV1 tXR4iR4mnEknofqogEFtj DsgdmVydGljYWwtYWxpZ2 31JUNfaGhwNvYWPcb7N6K iZlg9KKArnBvv MC7tcQJnVCsqLy8hxJapy JntNX9uAXIcljiai444Fu Ggz9dhUOIxvVSsTCanPTQ 0R37ks4L5PNZd EPEsCGS2vEG2jZ6lnAnop jogbGVmdDsgdmVydGljYW awMJtrB402HAMomGmpQl5 FTnh0T6UsRij0 BLYyxLjxZE5qsGZjFSxcL r4xxSezfCtbFO0dPMTkzf hjq840JsKld4hqCTHtiXO aKSwkDNA9N13o z2F0SXSpRAAsHPP2hAW2k I6giEwzxsabrBPfjCujco DuyUxjBFkySHqcJ058HLI vcDsnPlBheWVy OjwvdGQ+JX71lv99E3OzF cwlMxm1RMYsEAJ2fEH9wU 5tEPUlHRgnf3H4uEZ9U6X nnhRlfs6nc6ek YXBz (more content not included)... Normal [facility] T3 Totalon 01-07-2022 T3 [Mass/Vol] 113 ng/dL Invalid Interpretation Code 71-[address] [facility] Comment on above: Result Comment: Perf ormed at: [facility] [id number] [place], [place] [id number] PhD Krishna Richardson Performed By: #### 2 [id number] ####[facility] [address] [place] [address] Thyroid Perox.tpo Abon 01-07 TPO Ab Qn 293 International_Unit/mL High 0-[address] [facility] Comment on above: Result Comment: Perf ormed at: [facility] [address] [place], [place] [id number] PhD Krishna Richardson Performed By: #### 2 [id number] ####[facility] [address] [place] [address] Consent for Treatmenton 12-14 Consent for Treatment [id number]# 1.00CD:[address] [facility] Free T4on 01-06-2022 Free T4 [Mass/Vol] 0.85 ng/dL Normal 0.58-1.[address] [facility] Comment on above: Performed By: #### 2 [id number] ####[facility] [address] [place] [address] TSHon 01-06-2022 TSH Qn 5.94 m[IU]/L High 0.34-5.[address] [facility] Comment on above: Performed By: #### 2 [id number] ####[facility] [address] [place] [address] Physician Orderon 01-05-2022 Physician Order [id number]# 1.00CD:[address] [facility] Consent for Procedure/Surger yon 01-04-2022 Consent for Procedure/Surgery [id number] .00CD:[address] [facility] Gastroenterology Office/Clin ic Noteon 01-03-2022 Gastroenterology Office/Clinic Note Chief Complaint [employer] positive cologuard HPI Staff New patient Yadira is a 62 y.o. female referred by Dr. Ck Rawls for positive Cologuard She denies constipation She does have frequent stools that are soft to diarrhea in consistency Denies blood in stools Denies family hx of colon ca History of Present Illness Patient is a 62-year-old female who presents for colonoscopy ?Referred by her PCP Dr. Rawls for positive Cologuard test-performed by her PCP. Family history of colon cancer: Denies. Family history of colon polyps: Denies. Personal history of colon cancer: Denies. Personal history of colon polyps: Denies. Anticoagulation therapy: Denies. Antiplatelet therapy: Denies. During today's visit, patient reports she has never had a colonoscopy before. Patient reports she has been experiencing change in bowel habits over the last year with looser in consistency, were previously formed. Explains she was previously having 1 BM daily and is now having a BM 2-3 times a day. Denies black/bloody stools. Denies having any other GI complaints. Review of Systems PHQ Score Initial Depression Screen Score: 2 ROS - Provider Constitutional: no fever, no chills. Skin: no Jaundice. ENMT: Denies dysphagia and heartburn. Respiratory: no shortness of breath. Cardiovascular: no chest pain. Gastrointestinal: no nausea, no vomiting, no diarrhea, no GI bleeding. Physical Exam Vitals & Measurements HR: 60(Peripheral) BP: 135/77 HT: 162.0 cm HT: 162 cm WT: 100.0 kg WT: 100 kg BMI: 38.1 General: Well developed, well nourished, in no acute distress Head: Normocephalic/atrauma tic Lungs: Normal respiratory effort and clear to auscultation Cardio: Regular rate and rhythm, normal S1 and S2, no murmur, no rub Abdomen: Soft, non-distended, non-tender. Normoactive bowel sounds present in all 4 abdominal quadrants, bilaterally. Mental Status: Alert and oriented x3. Normal mood and affect Assessment/Plan 1. Positive colorectal cancer screening using Cologuard test (R19.5: Other fecal abnormalities) Per patient's PCP- positive cologuard test. Ordered Colonoscopy. Denies anticoagulation therapy. Ordered: Colonoscopy (Hospital Procedure) E&M of New Patient Low 30-44 Min 97451 2. Change in bowel habits (R19.4: Change in bowel habit) Change in bowel habits over the last year with looser in consistency, were previously formed. Explains she was previously having 1 BM daily and is now having a BM 2-3 times a day. BMs formed. Educated regarding use of fiber daily. Ordered Colonoscopy. Ordered: Colonoscopy (Hospital Procedure) E&M of New Patient Low 30-44 Min 68402 Orders: polyethylene glycol 3350 with electrolytes, See Instructions, 1 EA, Refill(s) 0, PER PHYSICIAN INSTRUCTIONS. PRIOR TO COLONOSCOPY., [facility], 162, cm, 01/03/22 10:33:00 EDT, Height/Length Dosing, 100, kg, 01/03/22 10:33:00 EDT, Weight Dosing Follow-up With When Contact Information Chantelle Sanches CNP Within 2 to 4 weeks Additional Instructions: Patient Education Colonoscopy, Adult Problem List/Past Medical History Ongoing Change in bowel habits Chronic reflux esophagitis Chronic venous insufficiency Positive colorectal cancer screening using Cologuard test Historical No qualifying data Procedure/Surgical History Gastroscopy (10/15/2018), Abdominal hysterectomy (10/15/2008), Biopsy of breast (10/15/2008), Cholecystectomy (10/15/1998), Carpal tunnel release (10/15/1979). Medications escitalopram 10 mg Tab, 10 mg= 1 tab(s), Oral, Daily montelukast 10 mg Tab, 10 mg= 1 tab(s), Oral, Daily omeprazole 40 mg Cap-DR, 40 mg= 1 cap(s), Oral, Daily polyethylene glycol 3350 with electrolytes Oral Pwdr for Caridad 4000 mL (NuLytely), See Instructions Ventolin HFA 90 mcg/inh Aerosol, Inhalation, q6hr Allergies Diclofenac Potassium (Unknown) Eggs (Nausea and vomiting) Influenza Virus Vaccine (Shortness of breath) Social History Alcohol - Denies Alcohol Use, 2022 Substance Abuse - Denies Substance Abuse, 2022 Tobacco Never (less than 100 in lifetime) Tobacco Use:. Never Smokeless Tobacco Use:., 01/03/2022 Family History : Father. Immunizations Vaccine Date Status Comments influenza virus vaccine, inactivated - Not Given Allergy to Eggs (disorder) SARS-CoV-2 (COVID-19) mRNA BNT-162b2 vax 01/14/2021 Given Prophylaxis SARS-CoV-2 (COVID-19) mRNA BNT-162b2 vax 12/24/2020 Given Prophylaxis Normal [facility] Comment on above: Result Comment: Elec tronically Signed By: Chantelle Sanches CNP\.br\Date and Time Signed: 01/03/22 10:43 EDT Patient Educationon 01-04-20 Patient Education Radiology Colonoscopy, Adult A colonoscopy is an exam to look at the entire large intestine. During the exam, a lubricated, flexible tube that has a camera on the end of it is inserted into the anus and then passed into the rectum, colon, and other parts of the large intestine. You may have a colonoscopy as a part of normal colorectal screening or if you have certain symptoms, such as: ? Lack of red blood cells (anemia). ? Diarrhea that does not go away. ? Abdominal pain. ? Blood in your stool (feces). A colonoscopy can help screen for and diagnose medical problems, including: ? Tumors. ? Polyps. ? Inflammation. ? Areas of bleeding. Tell a health care provider about: ? Any allergies you have. ? All medicines you are taking, including vitamins, herbs, eye drops, creams, and ocls-jra-ogqksrp medicines. ? Any problems you or family members have had with anesthetic medicines. ? Any blood disorders you have. ? Any surgeries you have had. ? Any medical conditions you have. ? Any problems you have had passing stool. What are the risks? Generally, this is a safe procedure. However, problems may occur, including: ? Bleeding. ? A tear in the intestine. ? A reaction to medicines given during the exam. ? Infection (rare). What happens before the procedure? Eating and drinking restrictions Follow instructions from your health care provider about eating and drinking, which may include: ? A few days before the procedure ? follow a low-fiber diet. Avoid nuts, seeds, dried fruit, raw fruits, and vegetables. ? 1?3 days before the procedure ? follow a clear liquid diet. Drink only clear liquids, such as clear broth or bouillon, black coffee or tea, clear juice, clear soft drinks or sports drinks, gelatin dessert, and popsicles. Avoid any liquids that contain red or purple dye. ? On the day of the procedure ? do not eat or drink anything starting 2 hours before the procedure, or within the time period that your health care provider recommends. Up to 2 hours before the procedure, you may continue to drink clear liquids, such as water or clear fruit juice. Bowel prep If you were prescribed an oral bowel prep to clean out your colon: ? Take it as told by your health care provider. Starting the day before your procedure, you will need to drink a large amount of medicated liquid. The liquid will cause you to have multiple loose stools until your stool is almost clear or light green. ? If your skin or anus gets irritated from diarrhea, you may use these to relieve the irritation: ? Medicated wipes, such as adult wet wipes with aloe and vitamin E. ? A skin-soothing product like petroleum jelly. ? If you vomit while drinking the bowel prep, take a break for up to 60 minutes and then begin the bowel prep again. If vomiting continues and you cannot take the bowel prep without vomiting, call your health care provider. ? To clean out your colon, you may also be given: ? Laxative medicines. ? Instructions about how to use an enema. General instructions ? Ask your health care provider about: ? Changing or stopping your regular medicines or supplements. This is especially important if you are taking iron supplements, diabetes medicines, or blood thinners. ? Taking medicines such as aspirin and ibuprofen. These medicines can thin your blood. Do not take these medicines before the procedure if your health care provider tells you not to. ? Plan to have someone take you home from the hospital or clinic. What happens during the procedure? ? An IV may be inserted into one of your veins. ? You will be given medicine to help you relax (sedative). ? To reduce your risk of infection: ? Your health care team will wash or sanitize their hands. ? Your anal area will be washed with soap. ? You will be asked to lie on your side with your knees bent. ? Your health care provider will lubricate a long, thin, flexible tube. The tube will have a camera and a light on the end. ? The tube will be inserted into your anus. ? The tube will be gently eased through your rectum and colon. ? Air will be delivered into your colon to keep it open. You may feel some pressure or cramping. ? The camera will be used to take images during the procedure. ? A small tissue sample may be removed to be examined under a microscope (biopsy). ? If small polyps are found, your health care provider may remove them and have them checked for cancer cells. ? When the exam is done, the tube will be removed. The procedure may vary among health care providers and hospitals. What happens after the procedure? ? Your blood pressure, heart rate, breathing rate, and blood oxygen level will be monitored until the medicines you were given have worn off. ? Do not drive for 24 hours after the exam. ? You may have a small amount of blood in your stool. ? You may pass gas and have mild abdominal cramping or bloating due to the air t (more content not included)... Normal [facility] Physician Referralon Physician Referral [id number]#1 .00CD:[address] [facility] COVID-19 ([facility])on 11-14-2021 SARS-CoV-2 (COVID-19) RNA NORMA+probe Ql (Resp) Not detected Normal Not Detected [facility] Comment on above: Result Comment: This test result should be correlated with clinical presentations and medical history by a healthcare provider to determine its clinical significance. This assay was performed by a reverse transcriptase real-time polymerase chain reaction (rt PCR) method on the [employer] reQRdos system. This test has been authorized only for the detection of nucleic acid from SARS-CoV-2, not for any other viruses or pathogens. This test has not been FDA cleared or approved. This test has been authorized by FDA under an Emergency Use Authorization (EUA). This test is only authorized for the duration of time the declaration on that circumstances exist justifying the authorization emergency use of in vitro diagnostic tests for detection and/or diagnosis of COVID-19 infection under section 564 (b) (1) of the Act, 21 U.S.C. 360 bbb-3 (b) (1), unless authorization is terminated or revoked sooner. Performed By: #### 2 [id number] #### [facility] [address] [place] [address] SARS-CoV-2 (COVID-19) RNA NORMA+probe Ql (Unsp spec) Pass Normal Pass [facility] Comment on above: Performed By: #### 2 [id number] #### [facility] [address] [place] [address] Specimen source Nom (Unsp spec) Nasal Normal [facility] Comment on above: Performed By: #### 2 [id number] #### [facility] [address] [place] [address] ADMITTED TO INTENSIVE CARE UNIT FOR CONDITION OF INTEREST:FIND:PT: Unknown Normal [facility] Comment on above: Performed By: #### 2 [id number] #### [facility] [address] [place] [address] EMPLOYED IN A HEALTHCARE SETTING:FIND:PT: YES Normal [facility] Comment on above: Performed By: #### 2 [id number] #### [facility] [address] [place] [address] FIRST TEST FOR CONDITION OF INTEREST:FIND:PT: Unknown Normal [facility] Comment on above: Performed By: #### 2 [id number] #### [facility] [address] [place] [address] HAS SYMPTOMS RELATED TO CONDITION OF INTEREST:FIND:PT: Unknown Normal [facility] Comment on above: Performed By: #### 2 [id number] #### [facility] [address] [place] [address] HOSPITALIZED FOR CONDITION OF INTEREST:FIND:PT: Unknown Normal [facility] Comment on above: Performed By: #### 2 [id number] #### [facility] [address] [place] [address] STATUS:FIND:PT: Unknown Normal [facility] Comment on above: Performed By: #### 2 [id number] #### [facility] [address] [place] [address] [facility]:FIND:PT: Unknown Normal [facility] Comment on above: Performed By: #### 2 [id number] #### [facility] [address] [place] [address] Consent for Treatmenton 10-17 Consent for Treatment [id number]# 1.00CD:[address] [facility] Coding Summary.on 11-02-2021 Coding Summary. CD:[id number] G h0bWw+PGhlYWQ+IH3NSEX yW51jiMEzqQ0OS4zBWI7S NLOHNWKRYW7OAQ8fbEK1W GyaJ3CmjoJi CixclPKvVF12QVl6DDH1m MmzQMxcxX9psFLgI7c2Sv LtZO47vL57MZofCPKdPrY 3LjZpbjsgbWFy S9rlWwLrkAUoGwt+PHRhY mxlIHdpZHRoPScxMDAlJy VnjGhvAY6jYz6hOMPnSZR vbGxhcHNlOiBj v7nwJUIrGQimNK7unLveZ 0YxvMG6DYUnh6i6Te60uU I+XHMjZDE3gNbeDKxbb01 5BjAgn5hvEXB9 rRIyVOvyFBB8P15jb6K9T EHzPFBmIKP3qSS3vZ2hiP oviypwT1TaeWUhVhL9GJW 5uGIhbY3mzCsd lexbxJ9dQkn+X31LTI5DY SOGKO7KVfi6C2KkNdlyqT I+RJ48JKXfZX27qLCrrNB dl7czaIj8LrGf AATmKLA0rQoiZPzmt2XrX AYpH95yhECkh6L8EAFvuZ fmvAQwBySwaGP5mA2eOKb swpblx5fftaoq Gqqyt2voez32bA39W29aJ TuiBGWjXLU0TXDpOKZyfY mrvw3qiM8fFk1+DArvx9n bf1fuqDl4DjCx TLGxsoKncRqfMIA7q8TnG s56S4EvvDnve9IqWph8fx 38wKNnt4H7jNA4VUkgZFB zwR2lZErjViU5 XXJvMqFsmA19zRPcSUtxH y6rlAubfHggQX2aZTLrlh zsNRYkfN7iGAEbnHOihZu iYT3qXOSzqxpa v498LoOyPAD7DXDeqQJlV 3LxvZ5yDoNkFKAfNWBfP9 TzaKRnCAbgE800JNraNvB 0ZKKhzqGjN4Hi HDDycYezZrD7d1X2Sb9Oj 7NtqpugTFO3LLonCGOfJx J7GsTeCdS7J9HyAtr2EXJ xhIxhKG9bU1Gb GYYhspwwnvpcsGT5YBGxL VKaeA48dWNvITyjCh1dq8 M9v918SLXjNGCcjX98Ne7 udDogMTBwdCBU gD3cjixyh8amkowmXrVfN EFkZTy6JWq7JTPzqPhiCv RoDVS9HyF1MEB4yXPkiE7 hlLpaegdxjE4e Oyc+V91skN9pORM1UWK4o mreDITgbvEbHL26ZH95C5 RyPjwvdGFibGU+PGRpdiB eyZrrOP0uImIv r9uuy6WtPQzoS6BqEGCnJ TyyLio5YDOiHZJ8rFR9gZ 4eDIDhXCcyw5Y3pQP2K0G kdsTqoj9tp1kp SNAaEIthK54uxCXhk8Z0O MRrcBE1BVKzfHokPtIwqJ 93Oyc+TDFeyLrgj6CpXpd or3dmh2tvpPc1 CfNeVKSbbiRqfEsxFOR8q 8BcDn40V65kDNeiPFYpVF RhSGYwIWLikKzoup1rdJ9 wIi8+PGNvbCB3 iHI5mF9gRWDwAsD0YRysT 706JcJbbMWtOffoy5mms0 evsVj0FwShDQDsnkNcoWm oWRH8t1GhOi84 X49eLOclGAFhFCDyPYUuF RZdfKdlhy5oqR7vUi2+PC 1lo4eyxo20nW57nNJ+PHR gMLY0qKxlWLvo OMSctD4fSBsvSwU3EOMhG aKofP91cWPtGDesSv6mdZ rowAgmZB5uDACjketij04 0JtQww7foSGGh mPGpHHnhTXG3A35cd7V0N CNaVSIyDSV2tQQ1dJ4awT lnbjogbGVmdDsgdmVydGl jHBvaSHrqV185 IHRvcDsnPlBhdGllbnQgT vZyHKh9R6TyQdy4GENwvG cwXT5pvHCvJRhzIi8bkTm qmSwkSJ6bEDFo fhkss279DtQvh1uiHDDjl UHqKXjoPOZ9A75ju6W5UF RzEZEvXDE9bDT6kW9ndBw nbjogbGVmdDsg tbFynLnlWYyfFGynY290A HRvcDsnPkJpcnRoIERhdG Z8QP74TE41cQDxq3A1dXN 4Y2WpTSCennfp umegnLU3ETObAXGcaY06B a2lzQilHn0yNIRzYNW5UZ BxjHFiJ3OleR4vLjTdAWI zIAMkG9DrbLGn OCvjV374INhkPkB6FMOpj vWeB6QcEKWtkHtqOiI6j2 J7Ff0WC2O6UG24QG17vKB wx7L2iVJ2O3Bb QZPsmppolodvcLN4NOHrZ JRziO68Qs5jwBlsBf3nUL IxVWN2LZJeuUUzX3YeeX8 yOiAjMDAwMDAw Z1FzyPEvZYetK221COcaT aY3JBShoqSoU5YpWEJmlZ wmOcD7d7B3Sm4BEWt7NC6 2VH29yTHbw0Z1 rPZ8R0JeLBIysosheaxlv PS3JOBxCBSxyC91Ma8kcV glAi8kLZCgURJ0QCSmoAO cU5QsgA4hNiFb UGOkUXFzL2FxnRAfBIdzL 869OJotZfW8PQLduwKcD4 MrBCTnqXrjJpP2q8X3Xb5 QSIGtCA06QXU9 jKG8BE25GM48L0YrRkaim GFibGU+PHRhYmxlIHdpZH RoPScxMDAlJyBzdHlsZT0 cXd6lOTMrGOGq xAwtsYFrRfTzd9oaQAIvT RhqXO8kbQnzE1KtzKH0HX Xtc2y9Pd88Y18tN0DxuMC +OAYbqPT3gQB7 mA9xTkEkNvH8IRmaQ781S jSskGQeGmmkl9mgg8yxbM e8OwQ6KIAuvwZezUtgFSU 8s4AqUc06L61v IHdpZHRoPSIxNSUiIHZhb Ddtrr4fnH9zEv5+PGNvbC F6sMT5pY5vJjStMqH7KBu pP587JfJwnFUd Rdafe8ixl6gzcYc0LnJnO DCbjhVuiTwyQPV1h4BjXr 04U0YakQyzi9HzMkv1pq6 9eHNnl6M6yOO9 T7IfZZFhwhhtpKCdxJsiU U3fBTXeozdtRTQllJ4xLG DoE2b1RyNeWaK5VYefR0N jboQ6DRXioHFv TRspAYA3Q10ot0I8HQBfU NQcXGA1cMT2pC5bxBggjd ogbGVmdDsgdmVydGljYWw oJClsM001NKWu sTmzKRYeiJ5yVICmoXWxa KahUL3zXOArnqzyNlhVSV JGCveFYrxnW7XNWLi6J0O oEst4FVNfnWgx ZR2viWNqHOvtBp8boGuzu FdoWR7yJDGnretrCLJcuF 7uHHFdhABshEwsXA4xAAZ nzkvra615QbPo STF6EJGlkUAvM7EjpN1gY iUlDIWjIHMjX8BjdDCsVY hyT855VMwmFiT7FGPyfbQ dW2AbBCFthXqi NbW1x5E2Jo1bXm2bWF7lT KH2WH02OJ58cTQab3Z7vE M8E0GsLSOexdikrmaxkFN 0AGVkLYLsmT36 zMFtOIaxJx8qn4N5s464V RAhQPUesE80Eg5viLghJX EahXWFbF7tbwfct6gtvpl gIzAwMDAwMDt0 IRx9UYZsqXbzVrJnKRG5H lA5EFY0tJSwsG4ghYusrp zubV6hSri+NjMgWWVhcnM 1U3PoVhp1BYNa cOtfVG4emRYqKWzsVq5qb CvzhXqxBN5hOVAawmtdUD DfjO7oSHCzaYNvwBkuMW1 oXYNsnzwhb439 UuAmMIK9OWOaaHMnS6Pdx H9bBeOsEDWaWVPcT3GjyP RmAIpzD244LBsaScL9UID cqcDbZ5IpWABg zEblKiQ5m1S8Ez6VBL2dc MR4Z5IaThf5YBKgoDjfKF 3ckSScQSheLb2qdTigtZl qEZ1nJYNncecs NAKauP9vMYBtaYNinLurW F2vIQPefcvyf661CxPqPY G3KYNvdIGdQ5RllV5lNuY qZVVfTZNsE5Fd fGNkPHfmC721RWcnSpD4J PBgsoJzE3UuIAJsnFjcPq V1u8Y7Cd0JdVIvABXzOM3 6YQ72BF29R7Rz PjwvdGFibGU+PHRhYmxlI HdpZHRoPScxMDAlJyBzdH mfXT4cRa8pIYDoURXnpRy nrTKjGsZzj7pm FOTfLGlnLX5ikWlxO6Xuo XS8MVVfn9r2Pk86W50gV8 JvdXA+LKHheHK7zMQ3fT4 zNbUsXbF8LEkr A393KyKwxMWmKcgwu6stq 1eirWq6QmUfPMApaoPidD umMQP7k9MxGc02S48qPSr pZHRoPSIyMCUi CYFoaAundj7cmL3bJr5+P YFduSC1yRD8qJ9zClTpMz X8YEnjW100AkUjaLHxYxd jU66zO6BjbLN+ FLZwLqc5FTOokJobZD5wg EFwPHzkUe5hVOI6CtWgHk XaXCbyK3LkVMRfotbduoo ovCP9BACpPXXu vX37Iu6baEveMo9hROCzW UL0CCBqyHSfX9BlrM9aOb UzEKVtCHCdA1ChsIYiLCi uL423UTkzIzG0 UUMbniBoO8UqWXKhiQqcO xI6j1I1Qu0PvPuqiAXzJO 9gJpYmVWj5X4KzMwl1VPR dhMgjQV0onSUx ALqgOi0baIwbeLqgLH2cJ VFbltlkj940ReUsk0vrRQ JpoPZcEOcoSNO4D93ky8R 8TKSuDCFjTFZ1 uGD9eY7lyWdhwqdqdUBsd DsgdmVydGljYWwtYWxpZ2 46YOGehQhdEyTTVjy3C9B bOby1EJGzrZgd NZ0rzOXxXGteDw4xvZkcp WevFT0bKISjsgavp161Nb Nab7zhQMYuwWYsSJuxZJG 8O46wb1Q2NLHk HJPlKSB6kTW1rL7ocVdjv jogbGVmdDsgdmVydGljYW adDKbrD055SIKiuBakZb8 GNnp2A9ZnZrl1 HQBcaAwjHG6jnSWsNQdhC t1weNdxjRyuDW7nXTVxnt vek434FvNvd5yhMRAzeOH aGSscPTO3F23r v0M6FLQqFJRqXRT0pXH6t Z6xbMrnjxpkwOUpvOxlsh TbaQenBLykTOffH486HEE vcDsnPlBheWVy OjwvdGQ+CP93nq82Z0NoX nptLhi8YSCaNVX1oPR7cF 7wPYLiLGrvg6H4sFN6H4X jypInmz4jf7re YXBz (more content not included)... Normal [facility] Auto Diffon 10-22-2021 Basophils/100 WBC (Bld) 0.1 % Normal 0.0-2.[address] [facility] Comment on above: Order Comment: Order Added by Discern Expert. Performed By: #### 2 414506, 9938079, 4735986, 4804627, 8064967, 10919216 ####[facility] [address] [place] [address] Basophils/Leukocytes Auto (Bld) [Pure # fraction] 0.0 E9/L Normal 0.0-0.[address] [facility] Comment on above: Order Comment: Order Added by Discern Expert. Performed By: #### 2 242780, 4787314, 5410943, 3473432, 3005340, 08363941 ####[address] [address] Eosinophils/100 WBC (Bld) 4.8 % Normal 0.0-8.[address] [facility] Comment on above: Order Comment: Order Added by Discern Expert. Performed By: #### 2 082671, 4587714, 1177863, 5383342, 8939716, 36431592 ####[address] [address] Eosinophils/Leukocyt es Auto (Bld) [Pure # fraction] 0.2 E9/L Normal 0.0-0.[address] [facility] Comment on above: Order Comment: Order Added by Discern Expert. Performed By: #### 2 355275, 4212098, 3850713, 7809113, 7643551, 79073897 ####[address] [address] Lymphocytes/100 WBC (Bld) 33.2 % Normal 14.0-50.[address] [facility] Comment on above: Order Comment: Order Added by Discern Expert. Performed By: #### 2 486546, 8954116, 2808940, 9953239, 3335545, 74564577 ####[address] [place] [address] Lymphocytes/Leukocyt es Auto (Bld) [Pure # fraction] 1.5 E9/L Normal 1.0-4.[address] [facility] Comment on above: Order Comment: Order Added by Discern Expert. Performed By: #### 2 159360, 6375234, 4663276, 0741602, 6031526, 24337273 ####[address] [address] Monocytes/100 WBC (Bld) 8.4 % Normal 4.0-14.[address] [facility] Comment on above: Order Comment: Order Added by Discern Expert. Performed By: #### 2 498290, 1988852, 6722416, 2651363, 7572577, 97504582 ####[address] [address] Monocytes/Leukocytes Auto (Bld) [Pure # fraction] 0.4 E9/L Normal 0.2-1.[address] [facility] Comment on above: Order Comment: Order Added by Discern Expert. Performed By: #### 2 035150, 8268047, 9686559, 1467723, 5254107, 16780415 ####[address] [address] Neutrophils/100 WBC (Bld) 53.5 % Normal 36.0-75.[address] [facility] Comment on above: Order Comment: Order Added by Discern Expert. Performed By: #### 2 930575, 5327496, 1010836, 1710259, 3084003, 22897806 ####[address] [place] [address] Neutrophils/Leukocyt es Auto (Bld) [Pure # fraction] 2.3 E9/L Normal 2.0-7.[address] [facility] Comment on above: Order Comment: Order Added by Discern Expert. Performed By: #### 2 739017, 3602801, 3138814, 3715969, 1038687, 41175237 ####[address] [address] CBC w/ Auto Diffon Erythrocyte distribution width (RBC) [Ratio] 14.4 % High 10.9-14.[address] [facility] Comment on above: Performed By: #### 2 956803, 4304215, 4128903, 7516476, 4231526, 27866825 ####[facility] [address] [place] [address] Hematocrit (Bld) [Volume fraction] 38.2 % Normal 34.0-46.[address] [facility] Comment on above: Performed By: #### 2 534318, 8025364, 2749947, 2806661, 7552457, 38540332 ####[facility] [address] [place] [address] Hemoglobin (Bld) [Mass/Vol] 12.8 g/dL Normal 12.0-16.[address] [facility] Comment on above: Performed By: #### 2 904051, 9925113, 8329938, 7931639, 2011633, 77077958 ####[facility] [address] [place] [address] MCH (RBC) [Entitic mass] 29.1 pg Normal 27.0-34.[address] [facility] Comment on above: Performed By: #### 2 578593, 4667466, 7246202, 9331088, 4097217, 85045769 ####[facility] [address] [place] [address] MCHC (RBC) [Mass/Vol] 33.5 g/dL Normal 31.4-36.[address] [facility] Comment on above: Performed By: #### 2 904088, 7215844, 0747842, 4984966, 3034888, 23704062 ####[address] [place] [address] MCV (RBC) [Entitic vol] 86.8 fL Normal 80.0-100.[address] [facility] Comment on above: Performed By: #### 2 099057, 6026453, 0771749, 0789858, 5056926, 61471315 ####[facility] [address] [place] [address] Platelet mean volume (Bld) [Entitic vol] 8.3 fL Normal 6.4-10.[address] [facility] Comment on above: Performed By: #### 2 835917, 9506829, 8560083, 8842468, 3611615, 94716548 ####[facility] [address] [place] [address] Platelets (Bld) [#/Vol] 303.0 E9/L Normal 150.0-500.[address] [facility] Comment on above: Performed By: #### 2 294764, 9034988, 3850257, 0927163, 2193947, 73727437 ####[address] [address] RBC (Bld) [#/Vol] 4.4 E12/L Normal 4.3-5.[address] [facility] Comment on above: Performed By: #### 2 028159, 8600401, 9430838, 6254263, 9200344, 01094229 ####[address] [address] WBC corrected for nucl RBC Auto (Bld) [#/Vol] 4.4 E9/L Normal 4.0-11.[address] [facility] Comment on above: Performed By: #### 2 967508, 5051574, 9626227, 8861846, 8306895, 50723974 ####[facility] [address] [place] [address] CMPon 10-22-2021 Albumin [Mass/Vol] 3.6 g/dL Normal 3.3-5.[address] [facility] Comment on above: Performed By: #### 2 848585, 3582983, 6406315, 7406524, 3986763, 66052644 ####[facility] [address] [place] [address] Albumin/Globulin (S) [Mass conc ratio] 1.2 Normal 1.1-2.[address] [facility] Comment on above: Performed By: #### 2 885384, 0050880, 3060234, 0788726, 5294533, 74823161 ####[facility] [address] [place] [address] ALP [Catalytic activity/Vol] 115 Int._Unit/L High 21-[address] [facility] Comment on above: Performed By: #### 2 704777, 1613684, 3996024, 8651317, 5797949, 23610358 ####[facility] [address] [place] [address] ALT No additional P-5'-P [Catalytic activity/Vol] 46 Int._Unit/L Normal 6-[address] [facility] Comment on above: Performed By: #### 2 728165, 9572628, 2966536, 3232301, 7625597, 43724431 ####[facility] [address] [place] [address] Anion gap [Moles/Vol] 12 mmol/L Normal 6-[address] [facility] Comment on above: Performed By: #### 2 898281, 9541127, 2769122, 9294554, 2583837, 16331674 ####[facility] [address] [place] [address] AST [Catalytic activity/Vol] 36 Int._Unit/L Normal 5-[address] [facility] Comment on above: Performed By: #### 2 756514, 1050989, 3726013, 3155169, 4525973, 35747721 ####[facility] [address] [place] [address] Bilirubin [Mass/Vol] 0.6 mg/dL Normal 0.0-1.1 [facility] Comment on above: Performed By: #### 2 308944, 6469475, 5016921, 8869707, 2477544, 42981940 ####[facility] [address] [place] [address] Calcium [Mass/Vol] 9.3 mg/dL Normal 8.9-11.[address] [facility] Comment on above: Performed By: #### 2 735622, 2930392, 8183615, 3747938, 9303007, 40474013 ####[facility] [address] [place] [address] Chloride [Moles/Vol] 101 mmol/L Normal 101-111 [facility] Comment on above: Performed By: #### 2 410167, 3730610, 8284666, 0881158, 2905635, 14114426 ####[facility] [address] [place] [address] CO2 [Moles/Vol] 26 mmol/L Normal 21-31 [facility] Comment on above: Performed By: #### 2 375327, 9892049, 7730394, 7898789, 0942295, 00643499 ####[facility] [address] [place] [address] Creatinine [Mass/Vol] 0.7 mg/dL Normal 0.5-1.[address] [facility] Comment on above: Performed By: #### 2 584685, 2843664, 2564895, 3940852, 6578755, 78570724 ####[facility] [address] [place] [address] Globulin (S) [Mass/Vol] 3.0 g/dL Normal 1.4-4.[address] [facility] Comment on above: Performed By: #### 2 082527, 1858403, 8927063, 4130156, 5487256, 16628678 ####[facility] [address] [place] [address] Glucose [Mass/Vol] 90 mg/dL Normal 55-[address] [facility] Comment on above: Result Comment: If t his glucose result represents a fasting glucose, interpretation should refer to the following reference range: 55-99 mg/dL Performed By: #### 2 929558, 1981908, 1517648, 1782261, 6339138, 22232676 ####[facility] [address] [place] [address] Potassium [Moles/Vol] 4.2 mmol/L Normal 3.5-5.[address] [facility] Comment on above: Performed By: #### 2 591553, 4644597, 5525288, 0680227, 4472091, 64414175 ####[facility] [address] [place] [address] Protein [Mass/Vol] 6.6 g/dL Normal 6.0-7.[address] [facility] Comment on above: Performed By: #### 2 816938, 1793162, 9091219, 8599965, 9657868, 32402724 ####[facility] [address] [place] [address] Sodium [Moles/Vol] 135 mmol/L Normal 135-[address] [facility] Comment on above: Performed By: #### 2 735511, 0656425, 5922499, 0361966, 3453148, 16823581 ####[facility] [address] [place] [address] Urea nitrogen [Mass/Vol] 14 mg/dL Normal 5-[address] [facility] Comment on above: Performed By: #### 2 271552, 9923830, 7811705, 8235439, 5844295, 16895952 ####[facility] [address] [place] [address] Urea nitrogen/Creatinine [Mass ratio] 20 No Units Normal 10-[address] [facility] Comment on above: Performed By: #### 2 132707, 1812387, 2093816, 9348421, 9007533, 83066248 ####[facility] [address] [place] [address] Consent for Treatmenton Consent for Treatment [id number] .00CD:[address] [facility] Lipid Panelon 10-22-2021 Cholesterol [Mass/Vol] 207 mg/dL High 120-[address] [facility] Comment on above: Performed By: #### 2 743341, 3842375, 4628591, 1388760, 1129647, 51388101 ####[facility] [address] [place] [address] Cholesterol in HDL [Mass/Vol] 51 mg/dL Invalid Interpretation Code [facility] Comment on above: Result Comment: HDL > or equal to 60 mg/dL: Low cardiovascular risk HDL < 40 mg/dL : High cardiovascular risk Performed By: #### 2 388407, 5050390, 3651497, 3053755, 5413024, 69149705 ####[facility] [address] [place] [address] Cholesterol in LDL [Mass/Vol] 128 mg/dL Normal <=[address] [facility] Comment on above: Performed By: #### 2 474565, 4342971, 6834737, 6302222, 7718512, 46813980 ####[facility] [address] [place] [address] Cholesterol in VLDL [Mass/Vol] 21 mg/dL Normal 7-[address] [facility] Comment on above: Performed By: #### 2 147426, 3742349, 9390926, 4308925, 0709742, 14653186 ####[facility] [address] [place] [address] Triglyceride [Mass/Vol] 107 mg/dL Normal <=[address] [facility] Comment on above: Performed By: #### 2 123160, 2826212, 0984804, 2775709, 4929088, 37674026 ####[facility] [address] [place] [address] Physician Orderon 10-22-2021 Physician Order [id number]. 00CD:[address] [facility] TSHon 10-22-2021 TSH Qn 6.19 m[IU]/L High 0.34-5.[address] [facility] Comment on above: Performed By: #### 2 377428, 2609915, 7053019, 5047378, 1390106, 88578560 ####[facility] [address] [place] [address] eGFRon 10-22-2021 GFR/1.73 sq M.predicted among blacks MDRD (S/P/Bld) [Vol rate/Area] mL/min/{1.73_m2} Normal >=[address] [facility] Comment on above: Order Comment: Order added by Discern Expert. Result Comment: eGFR is race adjusted. AA=. Performed By: #### 2 117810, 9173015, 3680376, 8836426, 4363079, 45739156 ####[facility] [address] [place] [address] GFR/1.73 sq M.predicted among non-blacks MDRD (S/P/Bld) [Vol rate/Area] mL/min/{1.73_m2} Normal >=[address] [facility] Comment on above: Order Comment: Order added by Discern Expert. Result Comment: [employer] Room T[employer] ginger kidney disease could be indicated at eGFR's of less than 60 mL/min/1.73m2. Kidney failure is indicated at less than 15 mL/min/1.73m2. Performed By: #### 2 424832, 1321787, 6596357, 5867208, 7213594, 54402005 ####[facility] [address] [place] [address] COVID-19 ([facility])on 10-13-2021 SARS-CoV-2 (COVID-19) RNA NORMA+probe Ql (Resp) Not detected Normal Not Detected [facility] Comment on above: Result Comment: This test result should be correlated with clinical presentations and medical history by a healthcare provider to determine its clinical significance. This assay was performed by a reverse transcriptase real-time polymerase chain reaction (rt PCR) method on the [employer] reQRdos system. This test has been authorized only for the detection of nucleic acid from SARS-CoV-2, not for any other viruses or pathogens. This test has not been FDA cleared or approved. This test has been authorized by FDA under an Emergency Use Authorization (EUA). This test is only authorized for the duration of time the declaration on that circumstances exist justifying the authorization emergency use of in vitro diagnostic tests for detection and/or diagnosis of COVID-19 infection under section 564 (b) (1) of the Act, 21 U.S.C. 360 bbb-3 (b) (1), unless authorization is terminated or revoked sooner. Performed By: #### 2 [id number] #### [facility] [address] [place] [address] SARS-CoV-2 (COVID-19) RNA NORMA+probe Ql (Unsp spec) Pass Normal Pass [facility] Comment on above: Performed By: #### 2 [id number] #### [facility] [address] [place] [address] Specimen source Nom (Unsp spec) Nasal Normal [facility] Comment on above: Performed By: #### 2 [id number] #### [facility] [address] [place] [address] COVID-19 ([facility])on 10-12-2021 ADMITTED TO INTENSIVE CARE UNIT FOR CONDITION OF INTEREST:FIND:PT: NO Normal [facility] Comment on above: Performed By: #### 2 [id number] #### [facility] [address] [place] [address] EMPLOYED IN A HEALTHCARE SETTING:FIND:PT: YES Normal [facility] Comment on above: Performed By: #### 2 [id number] #### [facility] [address] [place] [address] FIRST TEST FOR CONDITION OF INTEREST:FIND:PT: Unknown Normal [facility] Comment on above: Performed By: #### 2 [id number] #### [facility] [address] [place] [address] HAS SYMPTOMS RELATED TO CONDITION OF INTEREST:FIND:PT: Unknown Normal [facility] Comment on above: Performed By: #### 2 [id number] #### [facility] [address] [place] [address] HOSPITALIZED FOR CONDITION OF INTEREST:FIND:PT: NO Normal [facility] Comment on above: Performed By: #### 2 [id number] #### [facility] [address] [place] [address] STATUS:FIND:PT: NO Normal [facility] Comment on above: Performed By: #### 2 [id number] #### [facility] [address] [place] [address] RESIDES IN A CRITICAL ACCESS HOSPITAL CARE SETTING:FIND:PT: NO Normal [facility] Comment on above: Performed By: #### 2 [id number] #### [facility] [address] [place] [address] Coding Summary.on 04-08-2021 Coding Summary. CD:[id number] G h0bWw+PGhlYWQ+FU9QVBW qU54lfHUsnU4VO3oJBX3L JBXORUXQDW6JJY8glMC4T QwrI1VlakGh NlgxdEXwPG07HDb9HAT3u CdqBVbcsH2wxALjE5g4Mc DfOZ96eV50GKnwMYZrBcP 3LjZpbjsgbWFy H7ubWzJslYBtYxl+PHRhY mxlIHdpZHRoPScxMDAlJy FrtYnpKM7fHt9lRELcCAC vbGxhcHNlOiBj g2osVHCzFOkbOS9smNuxQ 5GjyRU6FPElt4y7Rf02aX I+DAWuBUM0dZsqWDtuq34 3KiTtg7ujQXF5 hLUsXOddAUR0F44dd8B6E JZkWRXyWJB5fEX4wL6nwV cmveeaX8YcoVXiLwP9OOC 5rZZycK1cwIod dfbhlX8eOgu+N47HWY8EB HKYFV1PXex7S3LnNrblbV I+FB77DCNzTY69vOMzfIZ zv7htxOc1NrXw OSTzCYI3jZyjBFigo8MpL LKxD03yiRAxw2X5EBChaB mmuLJiJoVrzQC2cM7cPSx zgskeh8phyjor Cxzpn6jcye59wM11H89qV JxeAWVkIOX1YJHmOTSurF iohw2bcY4fDr7+ELbhu3b zz0fhxSh2HxJj PZWhsvBzoMooKZE1x6StZ r04W3DipJihl9MfVcy1mv 69uWEzo5H9qAW6SRrtETD smP9dOMghVxS1 OYPoJwKfxJ93pRCdIHpcT q3crCbtkCdbBQ9xGVKnko tiWDHvoT2oLXSrxIYlmSq mCW9dPRNyihbv k273VzNzKXA9AUWweZPuY 7UnjB4xSkIiDAEmIPZvR1 UoxBNsYMyuL249GHilXtE 7EEGluyOnT7Qi JPTgcUqoTrB7h9M8Yn6Sl 9GqeneoDYG9UVbsAEJ9Nw S5MgMlLhJ8H2DkXep4RVX nbPskUM6uN7Hi TEHbbbkkijesiGZ7KZKuW YXetL17zQIvACdnMt3am8 R1r572ZTCeZWQlcV62Oe5 udDogMTBwdCBU hF5hcwnaq4xpmxcqFlDtO ZKlETw9YLs7KDJaqOxrHj ZsUZY5UsG7JPF6vBXhcS5 agLvxcequzK5c Oyc+A65gxN4fXSU2BAK1b atvVCOvkfZeZR74RW35A7 RyPjwvdGFibGU+PGRpdiB ipIqwIJ6qPpWm g9kpn3BsSHgjF9YyBMQmS QwlFiq0IXMmKKL0qPF5bO 7oDXLuSEttn1J7lCC6S3S qjgUhej7gb8zn BEAlUScqF68hvXUpp6D4J OAphPJ3WNHxnBnqTsGtsT 93Oyc+DNUucGapd5YhGbd ko9xmu9dxaPq4 RqDqJIQytiRsgPsxXZA0m 4TzMn68Z87dBThaPATnOR VjCNJzHQXnsQbgsb2kfE3 wIi8+PGNvbCB3 pKV9rC1hESKsBwE9TOuqW 270OtXiaUIbHrbwm2buo6 jeqWe7EzFkTVGqlyQpjHt gVHN9t6LhDc74 O56oSZhwDNDxAYHyCAAyY UOskEwaqg9vxF7lAl7+PC 3ch1jpgv17bD84qVX+PHR dAVH6lXlyJCcb FNYgjH5oBIqpMvN3ECRaI gWqsR62aMUoIFudTm1njF hbzLvuPF7hVPFfbwbdp81 1ZvGaa5auWAVc aHEoVKpsCJZ0H83zk1W5E PJwKRPnHRU2sJS9iG3yrS lnbjogbGVmdDsgdmVydGl wSNriEXgmQ758 IHRvcDsnPlBhdGllbnQgT oNnQWe4B6WmVbr0CHNmaD wtNE0wgTGuIFyeSf0rkFc gpMshIV5oBYNm uytae609RxFdq1ebLUSvy FKyOVejBCC0J81in2Z6VV IsKJQnPSG0qGC0nA8myEn nbjogbGVmdDsg vmDnkXaySJtaIQglB186Y HRvcDsnPkJpcnRoIERhdG D9ZV34EG83wEKns1C9oAT 3Y0AyRRZholci bxfuoQL6FTFtYWEieF17I d0taYhfDl5dCMOvEUK9LC AydIMnS6ZlyZ7oVpDtVHV bVSWlS7RteQQl TEukY836BBfcLfW2BGVst bPiD7ZxGXZmjOqcHjL4k9 H8Cu8PD9Q2SI38LA16sWK qa1W8mES5V8Mb GYZgpsdrujlgyIA6CSKaK LBhyF36Ux5fsHrfIp3dYI EwLHB4JBSdkSRiP1HpiB6 yOiAjMDAwMDAw O5SxuTXrJEbqA718NIfuG xI5WDYpcrEbS4YkSGDurG nkJxH6h0M5Tk2PZFz3CY5 1EO27uQGng3Z3 uWC9F6BkRAQpyyagnszeo QD3HDYrNMUifM65De5buV cvHj7rBLUgNWI5CCOsoCW uS7IftP7rIdAt EWXmGUUdH7BaaYMwXWzzL 068AHlzAtF9LPMpizBwZ1 XzZNUaiFedRnD7b7Z9Hr4 KGKKmVR44BMY1 mZT4ZJ43EM77M9UyRmdsp GFibGU+PHRhYmxlIHdpZH RoPScxMDAlJyBzdHlsZT0 uFt3iRTGfRTAj gUlttXXrAgNzk1prETNkJ RcxLT0scOhlF5XsdYB8IR Frq0x0Ay78M00vA2DinJX +DKOvuCW9cOO4 yZ5uIiRvSiX1ROytP343A fApqJUvLvqfo8bps8yjgQ x5JtL5PKNouzQjiJjpNGO 2e3RkLj52B12n IHdpZHRoPSIxNSUiIHZhb Qduyi3hdZ6bGu4+PGNvbC M5xIY2dS6cXmFcOuD4WLk oF264HhCamYCv Okofv9edu4abpTl1DkFjP WQhvnTreQotFQT0d8KlIh 46R9OzlZjhr2NuTti8gm7 0tTOup7V7cJS3 S8CvGZVoqwrbzKRcnYxfL M1lALIqnsigLJGclK4mKH JrM8w7HfJrMtU8KJthE7X tdxY1QIJjlWVk USliTRZ9B60rg5Z5DCAkW QMtQNF2zHR0tT7amSlggf ogbGVmdDsgdmVydGljYWw nBUjmO001QMTx vTfeXDImzL0wQXZluSFca IdpZL1kDMQygcktIeuYHV LLNlhHLvbcH5FVDWh6G3Y zPsb5IAWvaRtl GN5udNCrGFpoAa0ivDytd GjdQS4zBGSdfkxuRMSssM 7sSVBdiVAlnFmkYA9oQHM derczw704EsAn MSS1JRZthHQuX6ZbtR1bY gGdPUWzEGUsH1XeeYXrOO sfQ653JCfoWsH5LJHuxeT oF1CkVRBsvAua PuC3i2K8Mw9bOb3mZW4fE KM7EH56YL15mUYjy6J9yR T2X4VeEBNuejkkulnpmHE 6ZIBnVJNmaQ66 xZIwWOowAd6cu4C6n776O DTxEPYsrL89Ld1nzCfeOY UezZCGhJ8qsuqjn6apugk gIzAwMDAwMDt0 MRv5BIMijUgdUySsIZC1Z eR8XKC4uSLonP9apZfoca dluY3mWfv+NjMgWWVhcnM 8B0RoEcn0MVCk uIlmHS0kyDUlENxxVr1bv EjjkCbvHQ5tEGMzvtcaYR XxuJ8hZZCshEIkmFoyQH9 iZJGzbhbhs234 FyEkLVB2BNZrmMIfZ6Pfl J4uDeFpVPSuXLCyG0PwnG GpBDcrL314NNvtCuD6EPY anuLjD0ItCVFr yBvmUdK5o9F7Yq4LVG6ut MC5M6GrInu9QHTkhHwqOW 8hiVTjIWwlVb5nkLapcXj zIC7nXOMnfica RECrtL5hNMTseIGguVhbH L4qYCLiasibe155HjRmLU L1OAVtgWAxG0TauI2cThB vCWYpUQBnJ2Ov hZUrLEwtS280MCmiCyC3G GJnuwQnG2UySYQiqXfwQz R2t9Y5Qq5PpMZuWCVzGO9 2TG22KN15Z4Pd PjwvdGFibGU+PHRhYmxlI HdpZHRoPScxMDAlJyBzdH tgLJ3pZa6kUQCiTBHeiVp qxYXwEvTuc8jm DFScJYtsBA6twAxoJ4Esd AJ6OGLrn5f1Nr18W56tG5 JvdXA+SYMjmQQ0iYV6nO1 fFrUxLvX6MUiy G655GcGtnSHbAkmto8gng 9oyzIm0RtGfHEBnlfTbcP vlAHM3y2UxJz40Y60bYEn pZHRoPSIyMCUi STHkuKijuu2flY0gYa8+P KXysLB8nSY7dR5lYkEqWb S0LOgyC979QrDzoDBkXgx iF86hU5ScuLQ+ LBZyKsq3ZRUsiFcfWG7ef PUtDBtqBw6zAIJ7AsSiRa ZgIWtjS1HmTPBflrjronb syNG7URJeGJPe cI51Em6plRtsCr2rJLTzF HE5RDGcwZZrS4AvkP5lXu WiYVMjUGTkR0SzlXXvQEr zM608ZMwyHgK8 ZPHvjuWzR7KeUMCliIkeG dY7w5Y2Vd1MaOemmAMgZC 9uEmRaZMl8R3EpNox2CXY ztAybJF6poVQe AAufSt3fyUlfaWnwVZ8oW XUmkpkaq206KjUaj4wvIS QwtUYjCIbuTGP6B09sf9Y 6ODKjBZDhWQF2 tJC8sW9zrJqotnjtbEPki DsgdmVydGljYWwtYWxpZ2 45DVKjgKoaTbOXNok9N9N kGtd0BLUobXnx BK7ocXWjGZrlEx8fwPtns IhmXU5fDTQnjvqrz936Fi Fux2gaTFByeXYhVFktNCI 1O76ls3I6EMFw JZUyENK7sMW4uN5zeCufj jogbGVmdDsgdmVydGljYW lzJFcaJ045QHAyhZfoYc8 FRbl5C2LxXwq7 QNRdlItaNY5snDRzEHrcP h1bcMdeqPqrFU6rREHsrz jvc353KtHhn0gkIAZpcPY eQMvgTKX5D38d e5T5PYGmASZrKJL0gTG6j V0cjNlrlrtmnKXywJsabh [id number] (more content not included)... Normal [facility] MRI Knee w/o Contrast Lefton 04-08-2021 MRI Knee w/o Contrast Left Exam Date/Time: 04/07/2021 17:36 EDT Reason for Exam: [id number] Report IMPRESSION: Medial meniscal tear with associated subchondral fracture medial tibial plateau. Ruptured Reyez's cyst. Moderate patellofemoral osteoarthritis with findings predisposing to patellar instability/maltracki ng. EXAMINATION: MRI Knee w/o Contrast Left HISTORY: Left knee pain involving the entire knee with difficulty walking and symptoms for a couple weeks. Possible Reyez's cyst rupture TECHNIQUE: Routine non-contrast MRI of the knee LEFT COMPARISON: Radiographs 03/17/2021 RESULT: MENISCI: Medial Meniscus: Radial tear involving the posterior root and horizontal tearing involving the posterior horn and body. Portion of the meniscus protruding toward the medial gutter. Lateral Meniscus: Intact. LIGAMENTS: ACL: Intact PCL: Intact MCL: Intact LCL Complex: Intact CARTILAGE: Medial Femoral Condyle: Normal Medial Tibial Plateau: Small area(s) of full thickness cartilage loss/fissuring Lateral Femoral Condyle: Normal Lateral Tibial Plateau: Normal Patella: Moderate sized area(s) of full thickness cartilage loss/fissuring Trochlea: Normal TENDONS: Distal quadriceps intact. Patellar tendon is intact. Popliteus tendon is intact. BONES AND MARROW: Subchondral edema within the medial tibial plateau, with associated subchondral fracture measuring approximately 12 mm in AP dimension x 10 mm transverse. Subchondral edema underlying the full-thickness cartilage loss involving the patella. MUSCLES: Muscle bulk and signal intensity are normal. Report JOINT FLUID AND SYNOVIUM: Small joint effusion. No synovitis. Small Reyez's cyst with ruptured component tracking inferiorly. OTHER: Diffuse subcutaneous edema. Patella vinh. Shallow trochlear morphology. TT-TG distance measures approximately 14 mm. FINAL REPORT Dictated: 04/08/2021 12:43 pm Jose Hodgson MD Signed (Electronic Signature): 04/08/2021 12:43 pm Signed by: Jose Hodgson MD Transcribed by: NEETU Technologist: MEGHANN Technical Comments None [facility] Consent for Treatmenton 03-16 Consent for Treatment [id number] .00CD:127 [facility] RAD - MRI Screening Formon 0 04-07-2021 RAD - MRI Screening Form [id number]# 1.00CD:127 [facility] Physician Orderon 03-24-2021 Physician Order [id number]# 1.00CD:127 [facility] Pre-Certification Formon Pre-Certification Form [id number]# 1.00CD:127 [facility] Vital Signs Date Time Vital Sign Value Performing Clinician Facility 12-10-2023 09:290500 Body height 162.56 cm [facility] 12-10-2023 09:29-0500 Body mass index (BMI) [Ratio] 39.1 kg/m2 [facility] 12-10-2023 09:29-0500 Body weight 103.47 kg [facility] 12-10-2023 09:29-0500 Diastolic blood pressure 83 mm[Hg] [facility] 12-10-2023 09:29-0500 Heart rate 83 /min [facility] 12-10-2023 09:29-0500 Respiratory rate 12 /min [facility] 12-10-2023 09:29-0500 Systolic blood pressure 134 mm[Hg] [facility] 08-13-2023 14:30-0400 Body height 162.56 cm Leilani Archibald Other [facility] Other 08-13-2023 14:30-0400 Diastolic blood pressure 64 mm[Hg] Leilani Buciorbacher Other [facility] Other 08-13-2023 14:30-0400 SaO2% (BldA) [Mass fraction] 100 % Leilani Christineacher Other [facility] Other 08-13-2023 14:30-0400 Systolic blood pressure 122 mm[Hg] Leilani Buciorbacher Other [facility] Other 08-03-2023 10:15-0400 Body height 162.56 cm Leilani Christineacher Other [facility] Other 08-03-2023 10:15-0400 Diastolic blood pressure 80 mm[Hg] Leilani Buciorbacher Other [facility] Other 08-03-2023 10:15-0400 SaO2% (BldA) [Mass fraction] 100 % Leilani Buciorbacher Other [facility] Other 08-03-2023 10:15-0400 Systolic blood pressure 132 mm[Hg] Leilani Rupinderrbacher Other [facility] Other 05-21-2023 09:00-0400 Body height 162.56 cm Ray Ball Other [facility] Other 05-21-2023 09:00-0400 Body mass index (BMI) [Ratio] 41.6 kg/m2 Ray Ball Other [facility] Other 05-21-2023 09:00-0400 Body weight 109.95 kg Ray Ball Other [facility] Other 05-21-2023 09:00-0400 Diastolic blood pressure 84 mm[Hg] Ray Ball Other [facility] Other 05-21-2023 09:00-0400 Respiratory rate 16 /min Ray Ball Other [facility] Other 05-21-2023 09:00-0400 Systolic blood pressure 133 mm[Hg] Ray Ball Other [facility] Other 12-26-2022 15:30-0400 Body height 162.56 cm Ray Ball Other [facility] Other 12-26-2022 15:30-0400 Body mass index (BMI) [Ratio] 42.38 kg/m2 Ray Ball Other [facility] Other 12-26-2022 15:30-0400 Body weight 111.99 kg Ray Ball Other [facility] Other 12-26-2022 15:30-0400 Diastolic blood pressure 84 mm[Hg] Ray Ball Other [facility] Other 12-26-2022 15:30-0400 Respiratory rate 12 /min Ray Ball Other [facility] Other 12-26-2022 15:30-0400 Systolic blood pressure 132 mm[Hg] Ray Ball Other [facility] [employer] Other 02-13-2022 08:50-0400 Diastolic blood pressure 86 mm[Hg] Ibarra SALAM [facility] 02-13-2022 08:50-0400 Heart rate 60 /min Ibarra SALAM [facility] 02-13-2022 08:50-0400 Respiratory rate 11 /min Ibarra SALAM [facility] 02-13-2022 08:50-0400 SaO2% (BldA) [Mass fraction] 100 % Ibarra SALAM [facility] 02-13-2022 08:50-0400 Systolic blood pressure 155 mm[Hg] Ibarra SALAM [facility] 02-13-2022 08:35-0400 Diastolic blood pressure 90 mm[Hg] Ibarra SALAM [facility] 02-13-2022 08:35-0400 Heart rate 65 /min Ibarra SALAM [facility] 02-13-2022 08:35-0400 Respiratory rate 12 /min Ibarra SALAM [facility] 02-13-2022 08:35-0400 Respiratory rate 11 /min Ibarra SALAM [facility] 02-13-2022 08:35-0400 SaO2% (BldA) [Mass fraction] 100 % Ibarra SALAM [facility] 02-13-2022 08:35-0400 SaO2% (BldA) [Mass fraction] 99 % Ibarra SALAM [place] 41478-02-2022 08:35-0400 Systolic blood pressure 139 mm[Hg] Ibarra SALAM [facility] 02-13-2022 08:30-0400 Diastolic blood pressure 83 mm[Hg] Ibarra SALAM [facility] 02-13-2022 08:30-0400 Systolic blood pressure 133 mm[Hg] Ibarra SALAM [facility] 02-13-2022 08:26-0400 Body temperature 96.8 [degF] Ibarra SALAM [facility] 02-13-2022 08:20-0400 Respiratory rate 16 /min Ibarra SALAM [facility] 02-13-2022 08:16-0400 Respiratory rate 19 /min Ibarra SALAM [facility] 02-13-2022 08:15-0400 Respiratory rate 19 /min Ibarra SALAM [facility] 02-13-2022 07:20-0400 Blood Pressure Location Ibarra SALAM [facility] 02-13-2022 07:20-0400 Body temperature 98.42 [degF] Ibarra SALAM [facility] Encounters Encounter Date Encounter Type Care Provider Facility Start: 12-10-2023 End: 12-10-2023 ambulatory [facility] Work Phone: Start: 12-10-2023 End: 12-10-2023 Patient encounter procedure [facility] Work Phone: Start: 12-07-2023 Non-patient / Non-visit [facility] Work Phone: Start: 12-04-2023 Non-patient / Non-visit [facility] Work Phone: Start: 11-07-2023 End: 11-07-2023 ambulatory Ray Rawls Other [facility] Other Start: 11-07-2023 Telephone encounter Ray Rawls [facility] Start: 08-13-2023 End: 08-13-2023 ambulatory Leilani Archibald Other [facility] Other Start: 08-13-2023 Office outpatient vi sit 15 minutes Leilani Cristela [facility] Start: 08-09-2023 End: 08-09-2023 ambulatory Leilani Cristela Other [facility] Other Start: 08-09-2023 Telephone encounter Leilani menon [facility] Start: 08-03-2023 End: 08-03-2023 ambulatory Leilani Archibald Other [facility] Other Start: 08-03-2023 Office outpatient vi sit 15 minutes Leilani Archibald [facility] Start: 05-21-2023 End: 05-21-2023 ambulatory Ray Rawls Other [facility] Other Start: 05-21-2023 Office outpatient vi sit 25 minutes Ray Rawls [facility] Start: 05-15-2023 End: 05-15-2023 ambulatory Ray Rawls Other [facility] Other Start: 05-15-2023 Telephone encounter Ray Rawls [facility] Start: 04-18-2023 End: 04-18-2023 ambulatory Ray Ralws Other [facility] Other Start: 04-18-2023 Telephone encounter Ray WOLFE [facility] Start: 03-14-2023 End: 03-15-[address] RAY RAWLS Facility:[facility] Start: 03-14-2023 Telephone encounter Ray Rawls [facility] Start: 02-16-2023 End: 02-16-2023 ambulatory Ray Rawls Other [facility] Other Start: 02-16-2023 Office outpatient vi sit 10 minutes Ray Rawls [facility] Start: 02-16-2023 Telephone encounter Ray Rawls [facility] Start: 12-26-2022 End: 12-26-2022 ambulatory Ray Rawls Other [facility] Other Start: 12-26-2022 Office outpatient vi sit 15 minutes Ray Rawls [facility] Start: 12-25-2022 End: 12-25-2022 ambulatory Ray Rawls Other [facility] Other Start: 12-25-2022 Telephone encounter Ray Rawls [facility] Start: 11-14-2022 Encounter for genera l adult medical examination without abnormal findings DR RAY RAWLS [facility] Start: 11-13-2022 End: 11-14-[address] RAY RAWLS Facility:[facility] Start: 11-13-2022 End: 11-14-2022 Encounter for general adult medical examination without abnormal findings DR RAY RAWLS Facility:[facility] Start: 11-01-2022 End: 11-01-2022 ambulatory Ray Rawls Other [facility] Other Start: 11-01-2022 Encounter for genera l adult medical examination without abnormal findings Ray Rawls [facility] Start: 11-01-2022 Telephone encounter Ray WOLFE [facility] Start: 06-14-2022 End: 06-15-[address] RAY RAWLS Facility:[facility] Start: 04-27-2022 End: 04-28-[address] RAY RAWLS Facility:[facility] Start: 04-13-2022 End: 04-14-[address] RAY RAWLS Facility:[facility] Start: 02-13-2022 End: 02-13-2022 Patient encounter procedure Stacey WU [facility] Start: 01-12-2022 Adult health examination Ray Rawls Other [facility] [employer] Other Procedures Date Procedure Procedure Detail Performing Clinician Start: 02-13-2022 Colonoscopy Stacey Borja Comment on above: cecal colon polyp, I H Start: 10-15-2018 Endoscopy of stomach Vickie WU Start: 10-15-2008 Abdominal hysterectomy Stacey WU Start: 10-15-2008 Biopsy of breast Stacey WU Start: 10-15-1998 Cholecystectomy Stacey ACOSTA Start: 10-15-1979 Decompression of med diogenes nerve Stacey WU Depression screening Livier Rawls Other End: 01-12-2022 Screening for malignant neoplasm of breast Ray Rawls Other Screening mammography Charley Rawls Other Immunizations Immunization Date Immunization Notes Care Provider Sandeep robertson 07-16-2023 COVID-19 Vaccine Pfizer - Documentation Purposes Only Leilani Archibald Other [facility] 07-16-2023 Flu Shot - Documentation Purposes Only Leilani Archibald Other [facility] 07-14-2022 influenza virus vaccine, split virus (incl. purified surface antigen) Ray Rawls Other [facility] Other 07-14-2022 influenza virus vaccine, unspecified formulation [facility] 08-13-2021 COVID-19 Vaccine Pfizer - Documentation Purposes Only Ray Rawls Other [facility] 01-14-2021 COVID-19, mRNA, LNP- S, PF, 30 mcg/0.3 mL dose; Translations: [Pfizer-BioNTech COVID-19 Vaccine] Stacey WU [facility] Comment on above: Reason for Medicatio n: Prophylaxis 12-24-2020 COVID-19, mRNA, LNP- S, PF, 30 mcg/0.3 mL dose; Translations: [ColoWrap-[employer] Sound COVID-19 Vaccine] Stacey WU [facility] Comment on above: Reason for Medicatio n: Prophylaxis Payers Date Payer Category Payer Self-pay 1961 Unknown [id number] 1960 Unknown [id number] 1960 Unknown [id number] 1960 Unknown [id number] [facility] [id number] Unknown [id number] [id number] Unknown [id number] [id number] Social History Date Type Detail Facility Start: 01-03-2022 End: 12-10-2023 Tobacco smoking status Never smoked tobacco (finding) [facility] Tobacco smoking status Never [facility] Sex Assigned At Female [facility] Start: 1960 Sex Assigned At Female [facility] Clinical Notes 02-13-2022 to 08-13-2023 Note Date & Type Note Facility 08-13-2023 Evaluation note Encounter Date Diagnosis Assessment Notes Jul, Acute non-recurrent maxillary sinusitis (ICD-10 - J01.00) Will tx tody for bacterial sinusitis based on physical exam and duration of symptoms. Take antibiotic as prescribed, complete entire course of therapy even if symptoms resolve. Supportive care as directed, push fluids and rest, Tylenol/Motrin as directed for aches/fever, warm moist compress over sinuses several times a day, cool mist humidifier, nasal saline spray as directed. Symptoms should improve in the next 3 days, if symptoms persist follow up with PCP. Immediate eval for warning s/sx as discussed. Patient verbalizes understanding and is agreeable to treatment plan. Jul, Dysfunction of left eustachian tube (ICD-10 - H69.92) Informed pt that there are no signs of a bacterial infection on exam today. Continue to use Nasocort nasal spray, 1 sprays in each nostril once daily. Takes 5-7 days of consistent use to see full benefits of medication. Encouraged patient to continue taking OTC antihistamine. May use OTC Tylenol/Motrin as directed for any discomfort. If continues follow-up may need to refer to ENT. Patient verbalizes understanding and agreement with treatment plan. [facility] Other 10-20-2023 Evaluation note* Encounter Date Diagnosis Assessment Notes Treatment Notes Treatment Clinical Notes Jul, Dysfunction of left eustachian tube (ICD-10 - H69.92) Informed pt that there are no signs of a bacterial infection on exam today. Will not treat with an antibiotic at this time. Use Nasocort nasal spray, 1 sprays in each nostril once daily. Takes 5-7 days of consistent use to see full benefits of medication. Encouraged patient to continue taking OTC antihistamine to help dry up effusion. May use OTC Tylenol/Motrin as directed for any discomfort. If no improvement of symptoms by 7-10 days, patient should follow up. Patient should follow up sooner if symptoms worsen. Patient verbalizes understanding and agreement with treatment plan. [facility] Other 08-07-2023 Evaluation note* Encounter Date Diagnosis Assessment Notes Treatment Notes Treatment Clinical Notes May, IFG (impaired fastin g glucose) (ICD-10 - R73.01) This patient is following a comprehensive diabetic treatment plan. They are checking their feet daily for calluses and nonhealing ulcers. They are being seen for yearly dilated eye examinations. Goals: SBP less than 130, LDL less than 100, FBS less than 140, AC and A1C less than 7%. They are checking their BS daily, will which are reviewed at the office visit. Continue regular routine monitoring of A1C,] Microalbumin, Dilated eye exam and Foot exam Instructed on healthy diet, exercise ad weight loss May, Moderate persistent asthma without complication (ICD-10 - J45.40) Increased use of CLARIBEL due to poor air quality. Suggested continuing Singuliar Add LABA/ICS q 12 hours Continue CLARIBEL as needed May, Gastroesophageal reflux disease with esophagitis without hemorrhage (ICD-10 - K21.00) Diet instructions: Smaller portions, avoid eating and laying flat, avoid eating or drinking prior to bedtime. Weight loss. Continue PPI May, Autoimmune thyroidit is (ICD-10 - E06.3) Much improved w/ treatment. Fatigue, weight, edema all improved w/ Levothyroxine Continue replacement, TSH yearly May, Other specified hypothyroidism (ICD-10 - E03.8) May, Morbid (severe) obesity due to excess calories (ICD-10 - E66.01) This patient has been instructed on a low-fat, high-fiber diet. They are instructed to reduce calories, portion sizes and snacks. It is recommended that they exercise for 30 minutes, 3-5 times weekly. May, Body mass index [BMI ] 40.0-44.9, adult (ICD-10 - Z68.41) May, Chronic venous insufficiency (ICD-10 - I87.2) Avoid salt and elevate lower extremities, support stockings, inspect legs and feet daily for blisters and ulcerations. May, Primary osteoarthrit is of left knee (ICD-10 - M17.12) Quad exercises, ice/heat and weight loss. Non weightbearing exercises. f/u Ortho for Synvisc if needed in Jun [facility] Other 05-31-2023 Evaluation note* Encounter Date Diagnosis Assessment Notes Treatment Notes Treatment Clinical Notes February, Other specified hypothyroidism (ICD-10 - E03.8) February, Autoimmune thyroiditis (ICD-10 - E06.3) [facility] Other 05-05-2023 Evaluation note* Encounter Date Diagnosis Assessment Notes Treatment Notes Treatment Clinical Notes February, Diarrhea of presumed infectious origin (ICD-10 - R19.7) Diet instructions: - avoid juice, milk and tomato sauce - increase bananas, yogurt and cheese February, Nausea (ICD-10 - R11.0) Sip on water and snack every couple hours Zofran as needed. ER for intractable nausea/emesis and dehydration [facility] Other 03-14-2023 Evaluation note* Encounter Date Diagnosis Assessment Notes Treatment Notes Treatment Clinical Notes Dec, Primary osteoarthritis of right knee (ICD-10 - M17.11) Quad exercises, ice/heat and Tylenol Avoid squatting or kneeling Dec, Morbid exogenous obesity (ICD-10 - E66.01) This patient has been instructed on a low-fat, high-fiber diet. They are instructed to reduce calories, portion sizes and snacks. It is recommended that they exercise for 30 minutes, 3-5 times weekly. [facility] Other 01-18-2023 Evaluation note* Encounter Date Diagnosis Assessment Notes Treatment Notes Treatment Clinical Notes Oct, Wellness examination (ICD-10 - Z00.00) [facility] Other 05-04-2022 Note [id number]:127[facility] 02-13-2022 Hospital Discharge instructions Patient Education 02/13/2022 08:39:02 Colonoscopy, Care After Surgery Bryce (CUSTOM) Colonoscopy Care After Surgery Please read the instructions outlined below and refer to this sheet in the next few weeks. These discharge instructions provide you with general information on [facility] Your doctor may also give you specific instructions. While your treatment has been planned according to the most current medical practices available, unavoidable complications occasionally occur. If you have any problems or questions after discharge, please call your doctor. ACTIVITY You may resume your regular activity, but move at a slower pace for the next 24 hours. Take frequent rest periods for the next 24 hours. Walking will help get rid of the air and reduce the bloated feeling in your abdomen (belly). No driving for 24 hours (because of the anesthesia (medicine) used during the test). You may shower. Do not sign any important legal documents or operate any machinery for 24 hours (because of the anesthesia used during the test). NUTRITION Drink plenty of fluids. You may resume your normal diet as instructed by your doctor. Begin with a light meal and progress to your normal diet. Heavy or fried foods are harder to digestand may make you feel nauseated (sick to your stomach). Avoid alcoholic beverages for 24 hours or as instructed. MEDICATIONS You may resume your normal medications unless your doctor tells you otherwise. WHAT YOU CAN EXPECT TODAY Some feelings of bloating in the abdomen. Passage of more gas than usual. Spotting of blood in your stool or on the toilet paper. FOLLOW-UP Your doctor will discuss the results of your test with you. SEEK IMMEDIATE MEDICAL ATTENTION IF: There is more than a spotting of blood in your stool. There is abdominal distention (your abdomen is swollen). There is vomiting. You have a temperature over 101.5 F. There is abdominal pain or discomfort that is severe or gets worse throughout the day. 02/13/2022 08:39:02 Colon Polyps Colon Polyps Polyps are tissue growths inside the body. Polyps can grow in many places, including the large intestine (colon). A polyp may be a round bump or a mushroom-shaped growth. You could have one polyp or several. Most colon polyps are noncancerous (benign). However, some colon polyps can become cancerous over time. Finding and removing the polyps early can help prevent this. What are the causes? The exact cause of colon polyps is not known. What increases the risk? You are more likely to develop this condition if you: Have a family history of colon cancer or colon polyps. Are older than 50 or older than 45 if you are . Have inflammatory bowel disease, such as ulcerative colitis or Crohn's disease. Have certain hereditary conditions, such as: ?Familial adenomatous polyposis. ?Sapp syndrome. ?Turcot syndrome. ?Peutz Jeghers syndrome. Are overweight. Smoke cigarettes. Do not get enough exercise. Drink too much alcohol. Eat a diet that is high in fat and red meat and low in fiber. Had childhood cancer that was treated with abdominal radiation. What are the signs or symptoms? Most polyps do not cause symptoms. If you have symptoms, they may include: Blood coming from your rectum when having a bowel movement. Blood in your stool. The stool may look dark red or black. Abdominal pain. A change in bowel habits, such as constipation or diarrhea. How is this diagnosed? This condition is diagnosed with a colonoscopy. This is a procedure in which a lighted, flexible scope is inserted into the anus and then passed into the colon to examine the area. Polyps are sometimes found when a colonoscopy is done as part of routine cancer screening tests. How is this treated? Treatment for this condition involves removing any polyps that are found. Most polyps can be removed during a colonoscopy. Those polyps will then be tested for cancer. Additional treatment may be needed depending on the results of testing. Follow these instructions at home: Lifestyle Maintain a healthy weight, or lose weight if recommended by your health care provider. Exercise every day or as told by your health care provider. Do not use any products that contain nicotine or tobacco, such as cigarettes and e-cigarettes. If you need help quitting, ask your health care provider. If you drink alcohol, limit how much you have: ?0 1 drink a day for women. ? 0 2 drinks a day for men. Be aware of how much alcohol is in your drink. In the [place] one drink equals one 12 oz bottle of beer (355 mL), one 5 oz glass of wine (148 mL), or one 1 oz shot of hard liquor (44 mL). Eating and drinking Eat foods that are high in fiber, such as fruits, vegetables, and whole grains. Eat foods that are high in calcium and vitamin D, such as milk, cheese, yogurt, eggs, liver, fish, and broccoli. Limit foods that are high in fat, such as fried foods and desserts. Limit the amount of red meat and processed meat you eat, such as hot dogs, sausage, viramontes, and lunch meats. General instructions Keep all follow-up visits as told by your health care provider. This is important. ?This includes having regularly scheduled colonoscopies. ?Talk to your health care provider about when you need a colonoscopy. Contact a health care provider if: You have new or worsening bleeding during a bowel movement. You have new or increased blood in your stool. You have a change in bowel habits. You lose weight for no known reason. Summary Polyps are tissue growths inside the body. Polyps can grow in many places, including the colon. Most colon polyps are noncancerous (benign), but some can become cancerous over time. This condition is diagnosed with a colonoscopy. Treatment for this condition involves removing any polyps that are found. Most polyps can be removed during a colonoscopy. This information is not intended to replace advice given to you by your health care provider. Make sure you discuss any questions you have with your health care provider. Document Released: 06/27/2005 Document Revised: 01/16/2019 Document Reviewed: 01/16/2019 Ellie Patient Education 2019 [employer] Follow Up Care 01/03/2022 10:52:47 With:Stacey WU Address: [facility] [address] [place] [address] Business (1) When: Unknown [facility] + Plan note No data available for this section [facility] noteNo InformationNokapturem Infolinks Other Evaluation note* Diagnosis Onset Date Resolution Status JEANE (generalized anxiety disorder) acute Gastroesophageal reflux dise ase with esophagitis without hemorrhage acute Hypercholesteremia acute Hypothyroid acute IFG (impaired fasting glucose) acute Screening mammogram for breast cancer acute [facility] Work Phone: [place] [facility] Narrative - Reported* Type Description Date Medical History Asthma, mild intermittent Medical History Abnormal TSH Medical History Gastroesophageal ref lux disease with esophagitis without hemorrhage Medical History JEANE (generalized anxiety disorde r) Medical History Trigeminal neuralgia of left jacinda e of face Medical History Alopecia Medical History Onychomycosis Medical History Abnormal stool test Medical History Major depression in remission Medical History Inflammatory polyarthropathy Medical History Urticaria, idiopathic Medical History Chronic venous insufficiency Medical History Osteoarthritis of left knee Medical History Chronic venous insufficiency Medical History IFG (impaired fasting glucose) Medical History Screening mammogram for breast c ancer Surgical History HYSTERECTOMY; ABDOMINAL 2009 Surgical History BREAST BIOPSY; LEFT 2009 Surgical History CARPAL TUNNEL SURGERY; LEFT 198 0 Surgical History CHOLECYSTECTOMY 1998 Surgical History GASTROSCOPY 2018 Surgical History COLONOSCOPY 2021 Hospitalization History SEE SURGICAL HX [facility] Other [place] Narrative - Reported* Type Description Date Medical History Asthma, mild intermittent Medical History Abnormal TSH Medical History Gastroesophageal ref lux disease with esophagitis without hemorrhage Medical History JEANE (generalized anxiety disorde r) Medical History Trigeminal neuralgia of left jacinda e of face Medical History Alopecia Medical History Onychomycosis Medical History Abnormal stool test Medical History Major depression in remission Medical History Inflammatory polyarthropathy Medical History Urticaria, idiopathic Medical History Chronic venous insufficiency Medical History Osteoarthritis of left knee Medical History Chronic venous insufficiency Medical History IFG (impaired fasting glucose) Medical History Screening mammogram for breast c ancer Medical History hypothyroid Surgical History HYSTERECTOMY; ABDOMINAL 2009 Surgical History BREAST BIOPSY; LEFT 2009 Surgical History CARPAL TUNNEL SURGERY; LEFT 198 0 Surgical History CHOLECYSTECTOMY 1998 Surgical History GASTROSCOPY 2018 Surgical History COLONOSCOPY 2021 Hospitalization History SEE SURGICAL HX [facility] Other Summary Purpose Family History No Family History Records FoundNo Family History Records Found Advance Directives Advance Directive Response Recorded Date/ Time Advance Directives No November 03, 2023 1:50pm Chief Complaint and Reason for Visit Chief Complaint Medicare Wellness Reason for Visit JEANE (generalized anx iety disorder) Gastroesophageal reflux disease with esophagitis without hemorrhage Hypercholesteremia Hypothyroid IFG (impaired fasting glucose) Screening mammogram for breast cancer Additional Source Comments INFORMATION SOURCE (unrecogn ized section and content) DATE CREATED AUTHOR 03/11/2022 [facility] DATE CREATED AUTHOR AUTHOR'S ORGANIZ ATION 03/23/2023 [facility] REASON FOR VISIT (unrecogniz ed section and content) BloodworkNo Informationknee painprescription refillWork noteDiarrhea/Vomiting- Work NoteNo InformationMamm resultsrepeat labs6 month Follow upleft ear acheUpdateLEFT EAR ACHERefill Care Teams (unrecognized sec tion and content) Team Status: Active Member Role Status Dates Ray Rawls DO Primary Care Provider Active Team Status: Active Member Role Status Dates Ray Rawls DO Primary Care Provide r, Attending Provider Active Start: December 04, 2023 Team Status: Active Member Role Status Dates Ray Rawls DO Primary Care Provide r, Attending Provider Active Start: December 07, 2023 Team Status: Inactive Member Role Status Dates Ray Rawls DO Primary Care Provide r, Attending Provider Active Start: December 10, 2023 End: December 10, 2023 Goals (unrecognized section and content) Goals may be documented in a n alternate section FOR RECORDS PERTAINING TO PATIENTS WHO ARE OR HAVE BEEN ENROLLED IN A CHEMICAL DEPENDENCY/SUBSTANCEABUSE PROGRAM, SOME INFORMATION MAY BE OMITTED. This clinical summary was aggregated from multiple sources. Caution should be exercised in using it in the provision of clinical care. This summary normalizes information from multiple sources, and as a consequence, information in this document may materially change the coding, format and clinical context of patient data. In addition, data may be omitted in some cases. CLINICAL DECISIONS SHOULD BE BASED ON THE PRIMARY CLINICAL RECORDS. [employer] [facility]. provides no warranty or guarantee of the accuracy or completeness of information in this document.
== END 2024-04-18 10:54 | disposition home or self-care (01) ==
LOC: MAMMO 10:53
PROVIDERS: PCP Internal Medicine; Visit Provider Internal Medicine
DX: Z12.31 Encounter for screening mammogram for malignant neoplasm of breast (principal); Z80.3 Family history of malignant neoplasm of breast; Z80.8 Family history of malignant neoplasm of other organs or systems
CPT/HCPCS: 77063; 77067

== ENCOUNTER 2024-06-02 09:32 | Outpatient (OUT) | payer MEDICARE, SELFPAY ==
--- OUTSIDE RECORDS SUMMARY | 2024-06-02 09:55 | XMS_ITS | CCD ---
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 Role Phone RAY RAWLS Primary Care Physician Ray Rawls Unavailable CURLY, DR BATRES Primary Care Unavailable [...] DR BATRES Attending Unavailable Leilani Archibald Unavailable BANDAR BILLS Attending Unavailable CLIFF SERRANO Referring Unavailable CLIFF SERRANO Attending Unavailable Allergies Allergy Classification Reported Allergen(s) Allergy Type Date of Onset Reaction(s) Facility (10 sources) Diclofenac; Translations: [diclofenac] Drug Allergy Unknown (qualifier value) [facility] (1 source) Egg Drug allergy Nausea and vomiting (disorder) [facility] (1 source) influenza A virus A/[place]/GP1 908 (H1N1) antigen / influenza A virus A//GP2 050/2014 (H3N2) antigen / influenza B virus B/[place] antigen / influenza B virus B/ antigen; Translations: [influenza virus vaccine] Drug Allergy Dyspnea (finding) [facility] (9 sources) Eggs/Apples/Oat s Drug allergy Unknown [facility] Other (6 sources) Diclofenac Potassium *ANALGESICS - ANTI-INFLAMMATO Propensity to adverse reactions Unknown [facility] Other (6 sources) Eggs/Apples/Oat s *DIETARY PRODUCTS/DIETAR Y MANAGEM Propensity to adverse reactions 9 Comment:Allerg y to eggs and cranberries- Reaction unknown [facility] Other (1 source) Diclofenac Potassium *ANALGESI Allergy to substance 4 [facility] (1 source) Eggs/Apples/Oat s *DIETARY PROD Allergy to substance 4 Comment:Allerg y to eggs and cranberries- Reaction unknown [facility] Medications Current Medications Medication Drug Class(es) Dates [...] 6 hrs for 7 days Dec, Active [id number] 200 actuat albuterol 0.09 mg/actuat metered dose [...] from glycated hemoglobin (Bld) [Mass/Vol] 117 mg/dL [facility] Laboratory - Hematology and Cell countson 12-07-2023 HbA1c (Bld) [Mass fraction] 5.7 % 4.5-6.2 [facility] Comment on above: ADA RECOMMENDED LIMI T 4.0 - 6.0ADA THERAPEUTIC TARGET < 7.0ACTION SUGGESTED> 7.0 Basophils Auto (Bld) [#/Vol] on 12-04-2023 Basophils (Bld) [#/Vol] 0.0 10 3/uL 0.0-0.1 [facility] Basophils/100 WBC Auto (Bld) on 12-04-2023 Basophils/100 WBC (Bld) 0.7 % 0.2-2.0 [facility] Cholesterol in LDL Calc [Mas s/Vol]on 12-04-2023 Cholesterol in LDL [Mass/Vol] 105.8 mg/dL [facility] Comment on above: <100 mg/dl [id number] 0-129 mg/dl NEAR OR ABOVE IUCIDYW215-230 mg/dl BORDERLINE [id number] mg/dl HIGH>190 mg/dl VERY HIGH Cholesterol in VLDL Calc [Ma ss/Vol]on 12-04-2023 Cholesterol in VLDL [Mass/Vol] 27.2 mg/dL [facility] Eosinophils/100 WBC Auto (Bl d)on 12-04-2023 Eosinophils/100 WBC (Bld) 5.8 % 0.9-7.0 [facility] Erythrocyte distribution wid th Auto (RBC) [Ratio]on 12-04-2023 Erythrocyte distribution width (RBC) [Ratio] 13.5 % 11.0-15.0 [facility] Estimated glomerular filtrat ion rate (GFR) non- Americanon 12-04-2023 GFR/1.73 sq M.predicted among non-blacks MDRD (S/P/Bld) [Vol rate/Area] mL/min/{1.73_m2} >=60 [facility] Globulin Calc (S) [Mass/Vol] on 12-04-2023 Globulin (S) [Mass/Vol] 3.9 g/dL [facility] Hematocrit Auto (Bld) [Volum e fraction]on 12-04-2023 Hematocrit (Bld) [Volume fraction] 38.5 % 36.0-48.0 [facility] Hemoglobin [Mass/volume] in Bloodon 12-04-2023 Hemoglobin (Bld) [Mass/Vol] 12.2 g/dL 12.0-16.0 [facility] Laboratory - Chemistry and C hemistry - challengeon 12-04-2023 Albumin [Mass/Vol] 3.4 g/dL 3.4-5.0 [facility] ALP [Catalytic activity/Vol] 87 U/L 46-116 [facility] ALT [Catalytic activity/Vol] 27 U/L 14-59 [facility] AST [Catalytic activity/Vol] 23 U/L 15-37 [facility] Bilirubin [Mass/Vol] 0.3 mg/dL 0.2-1.0 [facility] Calcium [Mass/Vol] 9.1 mg/dL 8.5-10.1 [facility] Chloride [Moles/Vol] 100 mmol/L 98-107 [facility] Cholesterol [Mass/Vol] 185 mg/dL <=200 [facility] Cholesterol in HDL [Mass/Vol] 52 mg/dL 40-60 [facility] Comment on above: > or =60 mg/dl - LOW CARDIOVASCULAR RISK<40 mg/dl - HIGH CARDIOVASCULAR RISK CO2 [Moles/Vol] 28.8 mmol/L 21.0-32.0 [facility] Creatinine [Mass/Vol] 0.91 mg/dL 0.55-1.02 [facility] GFR/1.73 sq M.predicted MDRD (S/P/Bld) [Vol rate/Area] mL/min/{1.73_m2} >=60 [facility] Glucose [Mass/Vol] 109 mg/dL 74-106 [facility] Potassium [Moles/Vol] 4.2 mmol/L 3.5-5.1 [facility] Protein [Mass/Vol] 7.3 g/dL 6.4-8.2 [facility] Sodium [Moles/Vol] 136 mmol/L 136-145 [facility] Triglyceride [Mass/Vol] 136 mg/dL <=150 [facility] TSH Qn 6.476 m[IU]/L 0.358-3.740 [facility] Urea nitrogen [Mass/Vol] 16.0 mg/dL 7.0-18.0 [facility] Urea nitrogen/Creatinine [Mass ratio] 17.6 mg/mg [facility] Laboratory - Hematology and Cell countson 12-04-2023 Immature granulocytes/100 WBC (Bld) 0.2 % 0.0-0.5 [facility] Leukocytes [#/volume] correc mart for nucleated erythrocytes in Blood by Automated counon 12-04-2023 WBC corrected for nucl RBC Auto (Bld) [#/Vol] 5.5 10 3/uL 4.0-11.0 [facility] Lymphocytes Auto (Bld) [#/Vo l]on 12-04-2023 Lymphocytes (Bld) [#/Vol] 2.1 10 3/uL 1.2-3.8 [facility] Lymphocytes/100 WBC Auto (Bl d)on 12-04-2023 Lymphocytes/100 WBC (Bld) 37.9 % 20.5-60.0 [facility] MCH Auto (RBC) [Entitic mass ]on 12-04-2023 MCH (RBC) [Entitic mass] 28.8 pg 26.7-34.0 [facility] MCHC Auto (RBC) [Mass/Vol]on 12-04-2023 MCHC (RBC) [Mass/Vol] 31.7 g/dL 29.9-35.2 [facility] MCV Auto (RBC) [Entitic vol] on 12-04-2023 MCV (RBC) [Entitic vol] 91.0 fL 81.0-99.0 [facility] Monocytes Auto (Bld) [#/Vol] on 12-04-2023 Monocytes (Bld) [#/Vol] 0.4 10 3/uL 0.3-0.8 [facility] Monocytes/100 WBC Auto (Bld) on 12-04-2023 Monocytes/100 WBC (Bld) 7.4 % 1.7-12.0 [facility] Neutrophils Auto (Bld) [#/Vo l]on 12-04-2023 Neutrophils (Bld) [#/Vol] 2.7 10 3/uL 1.4-6.5 [facility] Neutrophils/100 WBC Auto (Bl d)on 12-04-2023 Neutrophils/100 WBC (Bld) 48.0 % 43.0-75.0 [facility] No Panel Informationon 12-04 Eosinophils # (Auto) 0.3 10 3/uL 0.0-0.7 [facility] Immature Granulocyte # (Auto) 0.01 10 3/uL 0.00-0.03 [facility] Platelet mean volume Auto (B ld) [Entitic vol]on 12-04-2023 Platelet mean volume (Bld) [Entitic vol] 10.0 fL 9.5-13.5 [facility] Platelets Auto (Bld) [#/Vol] on 12-04-2023 Platelets (Bld) [#/Vol] 310 10 3/uL 150-450 [facility] RBC Auto (Bld) [#/Vol]on RBC (Bld) [#/Vol] 4.23 10 6/uL 4.20-5.40 [facility] Serum or plasma albumin/glob ulin mass ratioon 12-04-2023 Albumin/Globulin [Mass ratio] 0.9 {ratio} [facility] Serum or plasma anion gap de terminationon 12-04-2023 Anion gap [Moles/Vol] 11.4 mmol/L [facility] Serum or plasma total choles terol/high density lipoprotein (HDL) cholesterol mass thomas 12-04-2023 Cholesterol.total/Ch olesterol in HDL [Mass ratio] 3.6 {ratio} [facility] Comment on above: 3.3 - 4.4 LOW RISK4. 4 - 7.1 AVERAGE RISK7.1 - 11.0 MODERATE RISK>11.0 HIGH RISK DANO - TSHon 03-14-2023 TSH 5.980 uIU/mL Critically high 0.358-3.740 [facility] Comment on above: Performed By: #### D ATTSH #### [facility] [address] [address] [address] Yadira Jo TSH RANGE SEE BELOW Normal [facility] Comment on above: Result Comment: <0.3 4 UIU/ml HYPERTHYROID 0.34-5.60 UIU/ml EUTHYROID >5.60 UIU/ml HYPOTHYROID Performed By: #### D ATTSH #### [facility] [address] [address] [address] Yadira Jo GLUCOSE BLOODon 11-13-2022 Glucose [Mass/Vol] 101 mg/dL Normal 74-106 [facility] Comment on above: Performed By: #### L IPID, GLUC #### [facility] [address] [address] [address] Yadira Jo GLYCOHEMOGLOBIN A1Con 2022 ADA RECOMMENDATION SEE BELOW Normal [facility] Comment on above: Result Comment: ADA RECOMMENDED LIMIT 4.0 - 6.0 ADA THERAPEUTIC TARGET < 7.0 ACTION SUGGESTED > 7.0 Performed By: #### A 1C #### [facility] [address] [place] [address] Dr. Yadira Jo Glucose [Mass/Vol] 111 mg/dL Normal [facility] Comment on above: Performed By: #### A 1C #### [facility] [address] [address] [address] Yadira Jo HbA1c (Bld) [Mass fraction] 5.5 % Normal 4.5-6.2 [facility] Comment on above: Performed By: #### A 1C #### [facility] [address] [place] [address] Dr. Yadira Jo LIPID PROFILEon 11-13-2022 CHOL-HDL RATIO NORM SEE BELOW Normal [facility] Comment on above: Result Comment: 3.3 - 4.4 LOW RISK 4.4 - 7.1 AVERAGE RISK 7.1 - 11.0 MODERATE RISK >11.0 HIGH RISK Performed By: #### L IPID, GLUC #### [facility] [address] [place] [address] Dr. Yadira Jo Cholesterol [Mass/Vol] 184 mg/dL Normal <=200 [facility] Comment on above: Performed By: #### L IPID, GLUC #### [facility] [address] [place] [address] Dr. Yadira Jo Cholesterol in HDL [Mass/Vol] 56 mg/dL Normal 40-60 [facility] Comment on above: Performed By: #### L IPID, GLUC #### [facility] [address] [address] [address] Yadira Jo Cholesterol in LDL [Mass/Vol] 111.2 mg/dL Normal [facility] Comment on above: Performed By: #### L IPID, GLUC #### [facility] [address] [address] [address] Yadira Jo Cholesterol.total/Ch olesterol in HDL [Mass ratio] 3.3 {ratio} Normal [facility] Comment on above: Performed By: #### L IPID, GLUC #### [facility] [address] [address] [address] Yadira Jo HDL NORMAL > or = 60 mg/dl - LO W CARDIOVASCULAR RISK <40 mg/dl - HIGH CARDIOVASCULAR RISK Normal [facility] Comment on above: Performed By: #### L IPID, GLUC #### [facility] [address] [address] [address] Yadira Jo LDL CALC NORMAL SEE BELOW Normal [facility] Comment on above: Result Comment: <100 mg/dl OPTIMAL 100 - 129 mg/dl NEAR OR ABOVE OPTIMAL 130 - 159 mg/dl BORDERLINE HIGH 160 - 189 mg/dl HIGH >190 mg/dl VERY HIGH Performed By: #### L IPID, GLUC #### [facility] [address] [address] [address] Yadira Jo Triglyceride [Mass/Vol] 84 mg/dL Normal <=150 [facility] Comment on above: Performed By: #### L IPID, GLUC #### [facility] [address] [address] [address] Yadira Jo VLDL CALC 16.8 mg/dL Normal [facility] Comment on above: Performed By: #### L IPID, GLUC #### [facility] [address] [address] [address] Yadira Jo DANO - TSHon 06-08-2022 TSH 4.673 uIU/mL Critically high 0.358-3.740 [facility] Comment on above: Performed By: #### D ATTSH #### [facility] [address] [address] [address] Yadira Jo TSH RANGE SEE BELOW Normal [facility] Comment on above: Result Comment: <0.3 4 UIU/ml HYPERTHYROID 0.34-5.60 UIU/ml EUTHYROID >5.60 UIU/ml HYPOTHYROID Performed By: #### D ATTSH #### [facility] [address] [place] [address] Dr. Yadira Jo TSHon 04-27-2022 TSH 4.399 uIU/mL Critically high 0.358-3.740 [facility] Comment on above: Performed By: #### T #### [facility] [address] [address] [address] Yadira Jo MG MAMM SCREEN 3D OSKAR CADon 04-13-2022 MG MAMM SCREEN 3D OSKAR CAD Patient: YADIRA LLANOS Exam Date: 04/13/2022 : 1960 Gender:F Ordering : DR RAY RAWLS D.O. Admission #: [id number] Family : Order #: [id number] CLICK HERE TO VIEW EXAM RADIOLOGY REPORT PROCEDURE: MAMMOGRAM SCREENING 3D BILATERAL CAD COMPARISON: None. INDICATIONS: Screening mammography Calculator Name NCI Breast Cancer Risk Assessment Tool 5 Year Breast Cancer Risk 1.80% Lifetime Breast Cancer Risk 7.20% Personal Breast Cancer No Personal Ovarian Cancer No Treatments None Family Cancers None LOCATION: [facility] BREAST COMPOSITION: Scattered areas fibroglandular density. [...] Hendrickson MD on 04/13/2022 at 12:32 Normal [facility] Reminderson 03-10-2022 Reminders - From: Chantelle Sanches CNP To: Eugenie Good; Sent: 03/02/2022 08:28:24 EDT Show up: 03/02/2022 08:29:00 EDT Subject: Ambulatory Reminder Reminder/Recall Colonoscopy in 5 years (2026). Normal [facility] Ambulatory Visit Summaryon 0 03-02-2022 Ambulatory Visit Summary YADIRA LLANOS :1960 Visit Date:03/02/2022 Ambulatory Visit Instructions Your [...] ? Eat (more content not included)... Normal [facility] Gastroenterology Office/Clin ic Noteon 03-02-2022 Gastroenterology Office/Clinic [...] hyperplastic polyp removed from cecum, hemorrhoids- Dr. Wu recommended for patient to have repeat colonoscopy [...] vax 12/24/2020 Given Prophylaxis Normal [facility] Comment on above: Result Comment: Elec [...] 06/27/2005 Document Revised: 01/16/2019 Document Reviewed: 01/16/2019 Qonf Patient Education ? 2019 [employer]. [facility] Progress Note-Physicianon Progress Note-Physician Patient: YADIRA LLANOS Age: 62 years Sex: Female : 1960 Associated Diagnoses: None Author: Talon Toribio Jr, DO Postoperative Information Post Operative Note: Post Anesthesia Care Unit. Anesthetic utilized: Monitored anesthesia care. Health Status Allergies: Allergic Reactions (Selected) Severity Not Documented Diclofenac Potassium- Unknown. Eggs- Nausea and vomiting. Influenza Virus Vaccine- Shortness of breath. Problem list: All Problems Change in bowel habits / SNOMED CT 510008429 / Confirmed Chronic reflux esophagitis / SNOMED CT 750748993 / Confirmed Chronic venous insufficiency / SNOMED CT 48657556 / Confirmed Positive colorectal cancer screening using Cologuard test / SNOMED CT 3884846839 / Confirmed Physical Examination Vital Signs 02/13/2022 [...] Transfer/ Discharge: Condition stable. Normal [facility] Comment on above: Result Comment: Elec tronically Signed By: Talon Toribio Jr, DO\.br\Date and Time Signed: 02/28/22 08:51 EDT Progress Note-Physician Patient: YADIRA LLANOS Age: 62 years Sex: Female : 1960 [...] Change in bowel habits / SNOMED CT 897303350 / Confirmed Chronic reflux esophagitis / SNOMED CT 849193730 / Confirmed Chronic venous insufficiency / SNOMED CT 98396344 / Confirmed Positive colorectal cancer screening using Cologuard test / SNOMED CT 0713404176 / Confirmed Histories Past Medical History: No [...] Cardiovascular: Regular rhythm. Neurologic: Alert, Oriented. Plan [place] [employer] (ASA) physical status classification: Class III. Anesthetic Preoperative Plan Anesthesia: General. . Anesthetic plan, risks, benefits, and alternatives discussed with the patient and/or family. Communication: face to face with (patient 5 minutes, Patient educated on smoking cesstation). [facility] Comment on above: Result Comment: Elec tronically Signed By: Talon Toribio Jr, DO.tammy\Date and Time Signed: 02/28/22 08:51 EDT IntraOperative Documentson 0 02-23-2022 IntraOperative Documents [id number]# 1.00CD:127 [facility] Coding Summary.on 02-15-2022 Coding Summary. CD:[id number] G h0bWw+PGhlYWQ+SZ7LYBS iU17jlIBvjM4IX0uVGZ3Y NSRAOPBVVX4JYP1uxNK5P WtgG8SuzcLn TxjooSJoPS92RBu8JXR6h RcqGFkpnF1wdYWjQ2c1Lz LlHK75vO80CKxuQPIqMfD 3LjZpbjsgbWFy Z1ijZcZonXMzUby+PHRhY mxlIHdpZHRoPScxMDAlJy CveIiqKG4xVv3kSPWuQWL vbGxhcHNlOiBj r4usWLTcGIicGX0pqNxeN 7FeqWB8VMHcj1f5Pr82iL I+XCQrMTI6cDypQGydk07 3HxAkk7trGVK9 uHWuMIxvTOA1I31qo0G9W UYfJLJcFGL2rXR7xQ2ltU ooqnoyZ8BifMMlChP4THC 4sWOskN9zmXco ixdifD6sYad+N30BEC3DZ OTGXG4KYky6O2CzJfqdoM I+OC13NXZrLG88zKYxkWF cb6evxGt2YnHn UUSwNDH7aFjwRTifu2WhV AEuC29zlTOsu5B4SDIojH eaxBVkUvXzwAP9kM6ySEr sukuqu4vpmpxx Pbvqd1ozgd31oX96D33pO YzmJIAfZIR8BTRoBMExvV mheu4qyT2rVu7+VJnwq1w ox7xxtJr9BoKp GFZqrgExaSdiEWH8h1CvF x29Y4SjgYafx0ZjPss2ks 58cKSjt5N9qXN9JQgzTFJ kzJ3kWKocGzH5 CBGrZkXvuW74pPEzXVkdN v3fsWzhzAuuOR2hTAIoro lyEHEouI9zKPOiiIBcoRo uSB5uDGAvnmsz j943VtXdLAB0THLayFZeP 4GrlR1nDhAfYGKxUDIgD9 EumNYgJCrwV992NMqaEjW 5BGZprlSwU5Vb DSBrsFdkDdV5i1X5Hc5Ds 9HxdallACN7WMkxFYO5Ib W1OdRyDhG2O2ZnMck7LOJ faFtkSF9lJ9Ao STQattolyslpjMC9EAAxV HAjdP41wDXpCXukDn8zz1 X6r081VGKiLJVxmQ52El9 udDogMTBwdCBU oN5ecfdxk1mvazclUwGmT HFfFZp8IPr0XRDqkUhzXl YwJAT9VxO6JEY4gVYrfT9 cmGbqzmmkzE1x Oyc+P07mmQ2jAMB2AQG8k fepTNFngiOzMM47DQ12M8 RyPjwvdGFibGU+PGRpdiB bkIxdTO6uIcWe a8yoo4NwUQqlR6PuDMHlO AnzRgb5OHGoQZL8lZC2aC 9vPGZeCIxds4X6bLH2E7P ztgTybj3fa7ss HBFlDOgdI88fqCLah9O4N NIrvOI3GKMauMwdMdSsbH 93Oyc+DKZenSwqo4RcBbm ls5upz8nfaTs4 OqDlJBGqfxExjEuuQOQ6i 5GxSs15Z13yUUajTNDeOU IuWFDmYNHvyIeqsk1ylF2 wIi8+PGNvbCB3 nSP4lH9vXZPxMtS0NCbzV 142PtSgnDJzHmynh4ztw8 zyjPo0TpDhVGEnoiPwtDf aQIO0o9PzWp55 O66eKXtaOLNzKEYuKBNgQ JBtiHtkzv5utW9vWd1+PC 6bk3pgqm16cR09dGD+PHR gBEU1dNrlCNyr ZDIgjG1fURvsQyZ3ADBaZ rTfzD64dHXoSStqBy8ajA mpzQosTP0hMOCinuupv10 4ReAib4egBCFv lWEbZXvuJYA5N82dp9T4U QVpSZOdYXB6hZI1xE5dpA lnbjogbGVmdDsgdmVydGl xRRzhNWlzG724 IHRvcDsnPlBhdGllbnQgT cBjMRn6H0SiPgp4WUThiJ qhZX9pnSJeQVevCz8hbPt vjGaxFU6jPUDb xmgve650IoQmh2geQXWil WZfTUzjPDE6G85wt4Z3NI XvDFMdQDD5mQJ8yU8gmAf nbjogbGVmdDsg epZdmLlaQLusIAuiQ765Y HRvcDsnPkJpcnRoIERhdG R5KH19GE35mNFoz6T6gNE 6O8KwNIQixtdb kamdiWI8OCXaACIovM12V o0bqSpoWs7yQMMjZOZ9VR RcyTAlB9NxmW3aSuWdLAI qCQIkM7NdrEOn CGkbH992FBupIbB1IWQol zVtH5YzNLCsgVriEqY1y5 V6Vr4NL4W8CP02AC21lMF os6L3hWV4K4Su MZFjcydgjyshgCB7ASTqQ GLgdF00Vn8vtQmlXt4pWT AcJEP5ORIxsOTyP9HjtG3 yOiAjMDAwMDAw G4WbyIGqEHurX910QRuwV lE5FWRjfcGpC9TlFERuwS rrZlX3w8M3Zu6YDEo7ZK0 6QH68lGDvd2M0 jBM1E1FnDOWvhchrauywh CK4RWCrVCEscY12Ry4njV gmYj7wSGYePEP3EECzxBA yD9QttL3iGdTd NWPuVHMvN2PkfUSmBOnpP 818HNblHyZ6AYTjvtUrA5 AbEABvhScfWgW8d2Z0Tn0 FKIOpCK21XZT7 zDU4AN92QW12O1TzQbagx GFibGU+PHRhYmxlIHdpZH RoPScxMDAlJyBzdHlsZT0 wAm5hNNXiIDUq zObjcMIqYdHeq8mrJQOnU AcoAN8baBvtU0EnxRZ8TZ Hvy8u8Iv76G15zI8TulCA +VLFlvDI1rBJ5 hA5hLbQrRnC6GStkL846C cLpqLEcCzobv8fom0xkiS d8EhH9RYYptyWweEooSAK 2u6RmQl12T94y IHdpZHRoPSIxNSUiIHZhb Ybndj3nyQ2kTn0+PGNvbC X5dDD0oH8tUeWyRvT7XPq qD992UqRvrEXu Lsbyv6vwt6xxyMk6AbNgG INgkxJjeCneUKT0t5WhHy 89C9GzlNtqn1LyCgv4ui9 7oFStw6O1cCA4 G6QgFRYelauvbCQesPzeM O0gIURgqxwbGTXhqF1bNJ GtY4i7AdAuQsF1XWzwT0Y plrF1UTQubIBw KPxeYML9V85ia6J9SERbR WKmKKZ4tFA5cS1sfEcyca ogbGVmdDsgdmVydGljYWw rZVivA452VRKd uZwvBTRmbK7dHTDwmZBpa MeiHE4tXWYafzdcSbeZBZ KVNoaVOwlaU4JQHKr9Z4P vOxa9AKUdcPzi BW7phOZmLHneDp7nlApfz GtlNT0sNRDmwtedSGTrfI 3iHAEbyELvkDosMV5vMSU ofzfis834RnHy CSA7PRIlkIPkZ2VqvT5zZ kEtVGHmJUNdU5HjpUTaXR swK038ETxrHmP3VPQregY eU8RxKTMviOjw UgF4h4U0Wv0zYw1bTA1oK QL0EZ78SC87yLGap6P8mJ Y5U1UuGYRkabnhhdyywYD 7RBEvHFGviR69 oZRmGXgiWm4bv9D3a098D BSqLAHnbG24Xv5qiHzhER CxzRQZiW0lsedfl2zxlzz gIzAwMDAwMDt0 OYd4WMGtnApiScUaAFN4Z mC3BGO6lJDevA3mmYxoid rgdD7cOfa+NjQgWWVhcnM 6F4WrZsy3HZRg mWhtPW7qjKAcUQccWq3yc BadtQdtIQ0vGNAbxzzeLK SorG1yXRMfmVUryXkcVD6 mEIXetjljf674 McVsXJP9AGZkkDIaR2Waf Y0gEyYsDEZmWMYpY3QalH UkJRucE078PLlnRmV3VFC hiqSnK6VnODAh eEgrDoZ1r9J8Us4MGL4qa SA1T8DeSjf3QJJijVckEJ 2riNUpWPnyLa2uoZlehAm gJT5bENXnkghq QPSngK6rZOSubGBggGcxH F4mHUVladmkk704QsRrFF W8NRDufPOuC1JykD1uMrH sIMNgIUIdY3Xu eJDlFGcqJ143HVxaDuN0P TFbylTmI8AwGFGwrTakDm Q4a5I0Ml4RnNTpJLQbWZ4 4BR95DP09G2Nr PjwvdGFibGU+PHRhYmxlI HdpZHRoPScxMDAlJyBzdH axXW3zQm1iTMVhCFSznFx njCJmXfJcg4ft SUUdNFknIK6fvAcoK4Qlq CE5OUFpc5m7Ut37D59lM3 JvdXA+EBBxkRX6nVB0jF5 aOsWhGbH8VQad I917ZzCwsLJcZegyd7ics 5ilmAp9FnVkIQNceoWryC pvTYO7s1CaGy13B52gXUs pZHRoPSIyMCUi WUAjgXmkpv7vkZ4tBg2+P LSjyOE0jTR1sZ9yQdYoZl B3PXqcI979CvTyiTAtUkw kI12dC0JbxER+ UQWsRvh1SRTghBpzSD8pv BTyUUtcEi0qBPQ5WxRxLf WgJVzmZ6YgBWGqwxvsics gfML7XVKsRWXv cR75Td9swDhaAs8vREUlQ JC2GKIytHJbD2XhsX5jKk AhGZDoYMIjZ4SvzCPwPHc uC737CTotXsO2 KFCvvhFbM6CrYLSlnBexE lF9q6S3Im2SpDyvaULpUT 2zYdJsKAb8I9AbPzi4HSK wyObbHF4btUSv JRdeMb8yeMiyxCazBS8cW MTxpvquf760KnBie3awXP YnvJCwDIoyMGO2R01ov3G 2LNHnZVDbNQQ8 oNE8bX5nqNklzccflBIpx DsgdmVydGljYWwtYWxpZ2 72HZVuuSlkNnGTQmp8I1F rYdy6LBWfpMkf TE1rfIEzGNddVi7huRpyx SnbGJ8fJCWjwwzsa310Dn Lba9gwNXMcqQDeFYrrWYR 0N91nj4I5BYNi RXCrPRB8dSD9xX5lyWymx jogbGVmdDsgdmVydGljYW tjBPeaD628KFGdwOspIo2 OMhv9L5BmQxh3 ODHoqRioLB1peBHyPZjlL u9leZmezBwlON7mASLbvm ddq949AoAln4cpFVWuyEM oBTwzZDX8Z41l h6P8ODNxGLDjERN6sXM3x T9peVyaljsqzYFdtJzlem TtjTpzGLprMKgfC467PAZ vcDsnPlBheWVy OjwvdGQ+YX02ud64D8PeF yprGzr9HOGkQGU1sMF0nT 8nJXYkQCjfb5I2wYA6P1X juxZnxi8cy0fi YXBz (more content not included)... Normal [facility] Consenton 02-15-2022 Consent [id number]#1 .00CD:127 [facility] Discharge Instructionson Discharge Instructions [id number]#1 .00CD:127 [facility] IntraOperative Documentson 0 02-15-2022 IntraOperative Documents [id number]#1 .00CD:127 [facility] IntraOperative Documents [id number]#1 .00CD:127 [facility] Main OR Intraoperative Recor don 02-15-2022 Main OR Intraoperative Record IntraOp Document Type FT Summary Primary Physician: Stacey WU MD Finalized Date/Time: 02/15/22 14:00:09 Pt. Name: YADIRA LLANOS/Sex: 1960 Female Med Rec #: [id number] Physician: Stacey WU MD Financial #: [id number] Pt. Type: O Room/Bed: / Admit/Disch: 02/13/22 [...] Anesthesiologist Scrub - Primary Staff - Other Hot Dip Plating Supervisor Time In 02/13/22 08:07:00 02/13/22 08:07:00 02/13/22 08:07:00 Time Out 02/13/22 08:25:00 02/13/22 08:25:00 02/13/22 08:25:00 Procedure COLONOSCOPY(.) COLONOSCOPY(.) COLONOSCOPY(.) Comments Dr. Toribio supervising help in room case Last Modified By: Gloria LESLIE, Priya Castro RN, Priya Castro RN, Priya Pedraza 02/13/22 08:25:26 02/13/22 08:25:26 02/13/22 08:25:26 Entry 4 Entry 5 Case Attendee BRYCE GONZALEZ, Stacey Castro RN, Priya Pedraza Role Performed Surgeon - Primary Sales And Marketing Engineer - Primary Time In 02/13/22 08:07:00 02/13/22 [...] Time Out Azeb Spencer, Given Participants Kavita Hale, Mackenzie Zavala, Stacey WU MD, Vogel RN, Madaline F Time Out Complete 02/13/22 08:11:00 Outcomes Met? [...] and tissue Entry 1 Skin Integrity Intact, [place], Warm, and Skin Abnormality No Dry Outcomes Met? Yes Last Modified By: Gloria LESLIE, Priya Pedraza 02/13/22 08:13:18 Post-Care Text: The patient is [...] (more content not included)... Normal [facility] Postoperative Documentson Postoperative Documents [id number]#1 .00CD:127 Normal [facility] Consent for Treatmenton Consent for Treatment [id number]#1 .00CD:127 Normal [facility] Endoscopic Procedure Report - Otheron 02-13-2022 Endoscopic Procedure Report - Other Patient: YADIRA LLANOS Age: 62 years Sex: Female : 1960 [...] Procedure images: Rec1_hd_video_2021_ _[id number].jpg Rec1_hd_video_2021_ _[id number].jpg Rec1_hd_video_2021_ _[id number].jpg Rec1_hd_video_2021_ _[id number].jpg . Post-Procedure Complications: none. Estimated [...] activities:: After 24 hours. Normal [facility] Comment on above: Result Comment: Elec tronically Signed By: BRYCE GONZALEZ, Stacey\.br\Date and Time Signed: 02/13/22 08:25 EDT Other Comment: Idania green Attachment - attachment storage system not supported [id number] Can be viewed in source system Missing Attachment - attachment storage system not supported [id number] Can be viewed in source system Missing Attachment - attachment storage system not supported [id number] Can be viewed in source system Missing Attachment - attachment storage system not supported [id number] Can be viewed in source system Inpatient Patient Summaryon 02-13-2022 Inpatient Patient Summary [address] [address] [facility] Clinical Discharge Instructions PERSON INFORMATION Name: YADIRA LLANOS [facility]#:[id number] PHYSICIANS Admitting Physician: Stacey UW MD Attending Physician: Stacey WU MD PCP: RAY RAWLS DO Discharge Diagnosis: Colon polyp Comment: PATIENT EDUCATION INFORMATION Instructions: Colonoscopy, Care After Surgery Bryce (CUSTOM); Colon Polyps Medication Leaflets: Follow up: With: Address: When: Stacey WU [address] [place], [place] [phone] Business (1) MEDICATION LIST Medications to Continue [...] Mouth every day. Comment: Normal [facility] Main OR PACU I Recordon Main OR PACU I Record PACU Phase I Document Type FT Summary Primary Physician: Stacey WU MD Finalized Date/Time: 02/13/22 12:41:47 Pt. Name: YADIRA LLANOS /Sex: 1960 Female Med Rec #: [id number] Physician: Stacey WU MD Financial #: [id number] Pt. Type: O Room/Bed: / Admit/Disch: 02/13/22 [...] I Outcomes Met? Yes Last Modified By: Delim Bailey RN 02/13/22 12:40:19 Post-Care Text: The [...] Bailey RN 02/13/22 12:41 Normal [facility] Main OR Preoperative Recordo n 02-13-2022 Main OR Preoperative Record Holding Area Document Type FT Summary Primary Physician: Stacey WU MD Finalized Date/Time: 02/13/22 07:11:40 Pt. Name: YADIRA LLANOS/Sex: 1960 Female Med Rec #: [id number] Physician: Stacey WU MD Financial #: [id number] Pt. Type: O Room/Bed: / Admit/Disch: 02/13/22 [...] Castro RN 02/13/22 07:11 Normal [facility] Monitor Recordon 02-13-2022 Monitor Record [id number]# 1.00CD:127 Normal [facility] Monitor Record [id number]# 1.00CD:127 Normal [facility] Outpatient Surgery Discharge Instructionon 02-13-2022 Outpatient Surgery Discharge Instruction [address] [address] Patient Discharge Instructions PERSON INFORMATION Name: YADIRA LLANOS Date of : 1960 Current Date: 02/13/2022 08:39:03 PHYSICIANS Admitting Physician: BRYCE GONZALEZ Ibarra Discharge Diagnosis: Colon polyp YADIRA LLANOS has been given the following list of [...] THE NEAREST EMERGENCY ROOM OR CALL 911 I, YADIRA LLANOS, have received the attached patient education materials/instruction s and have verbalized understanding: May we do a follow up call? Yes No I was present when discharge instructions were given Patient Signature Date Clinican/Nurse Signature Date Follow up: With: Address: When: Stacey WU [address] [place] [address] [address] [place], [place] [phone] Business (1) [facility] You may receive a survey from [employer] asking you to rate your care experience. Your feedback is important and will help us understand what we do well and how we can improve the quality of care we provide to you, your loved ones and our community. It?s an honor to serve you. Thank you for choosing [facility] HERE ARE THE MEDICATION CHANGES THAT OCCURRED [...] (more content not included)... Normal [facility] Patient Education - Texton 0 02-13-2022 [...] (more content not included)... Normal [facility] Coding Summary.on 01-13-2022 Coding Summary. CD:[id number] G h0bWw+PGhlYWQ+CO2POHA eJ78qwZFcrL0BK0xEFU1I FNASVVMAKR8OST7ybHW4C SpjN3PiohJz JxspoIUfHP81DDp3EXX2v DpjTDebiA4fuCEbK7d1Df QxZM02cI22KEkoZPMhKyH 3LjZpbjsgbWFy X5wuBsIioWEeLve+PHRhY mxlIHdpZHRoPScxMDAlJy OhlRwrPN6eFu6fLKVzFHL vbGxhcHNlOiBj b5fsIUFqJHckAM3prRnsT 1YiwKP3QMZmq6o5Yl75bD I+VOSnTMB9iVfnBKpja83 0AuQup7taIHS0 hQKrFPjjCUJ6G82ed0R4R YWcQTPfIEP3bZH3dT0pdA icazpjT7HezACaZhL5HXK 3nSAlfZ9biUno psiljO3cDxp+O02CTI2BI RNFWD6SSpe5S0YeZsexfK I+QZ71LFTrCZ75wRDgiYH tz6djaVw5AhUm GGZqUNH6kPqrGFnbf9NsB RJnD15peKUga6L6JDYsdP lbsYWcHiTvjNG4vZ1tDDy rotqvh1mhsywu Fulfi2qbbw80jR01B77oX SxuYJHhIAG7KQUbXSCmoV plnw6kuP3mFv1+QCvux4t zo2ffcHh5NxBs MLBsufPpkYlxMKL2i5RcO d58X8HuuNxrw4ArTmc7rn 97bZQtf6H8mTZ5IGiuEPU aoQ0vSTbpGuL3 GEUpSfYfaJ09pLQgIEbeI p3gcFpldJkuPM1rAHOxxk yeCKGkpD4sKWLwbXIqwVh iDI4zRSEhwshg r951TfOwOVR1ZYTcyMFnO 9DdqQ2dPjKkECQtEQAlD5 NcxOBhBWqyT371PScnGbS 7ZZSzsvQxZ7Gh VAIqwNidMwL1t3A8Qq1Po 2TjqhfgPUZ7QIobMQA6Ex KkKuJjHyC1C4KuDxp0MXM yfBjdTX3kL6Ox GJOkwawmuvyqsLH3VPKeI JGhqH80uQDkTHsiKr8ch1 N5e769PDKqJHDnkD08Gy4 udDogMTBwdCBU xY2yijfdh0lqswlaEvLsX YLnSQu2WGz9BZXpnWeeQi GzFTJ7IiC7NXC9zTMnaJ9 bySrrpmicbD4i Oyc+R95lcA8yIAB1VTH3e utnWZPykpDlJD75SD55L7 RyPjwvdGFibGU+PGRpdiB iiJoePP3tOoBr j3esr5IwKZqiX9JyWOHwO FqtHav9VEOgHSK3eEW3aM 5cIYDhIAojo3K4oSQ6L2I bozFqdr8fe7vp WRBkJProT12axLTht2R0W XAfcNV2JBRknYpqEoVxuW 93Oyc+NQZypCmnm5HyUqr ge6tla5sfzAq0 OxNtCGJelcJxqZwhMOK1y 2ElSl00I24aWVkiUNRkAS TtDEVqXKNahKvvgr8zxO5 wIi8+PGNvbCB3 ySS1iM3uVMHfIvR3ZWpcH 575LqPdyBZxNdwoy3vty7 qeiGi1KaPeTPOksyViiFw uTYW8s2NvAn67 V39kCPbrETAuPZQxBAJmC FRyxAposw0boZ4xBi9+PC 0jr5ujhx87tW47uWL+PHR kUJK8bGrqVWoe SQOhrG3bKRafNjU9HNNyU gPddB78dMZiKIirAv4thR lwzGntJP2zVICisloij61 9UwOog9eoCQSv wASyLCllUML7E43bv4B4Y AWuYYLxJJY9dQA4dA6mnY lnbjogbGVmdDsgdmVydGl rHVyuFZeuT244 IHRvcDsnPlBhdGllbnQgT uJoFSl8D1LlVde1CGFzmY rmNT2xhDNmSSwoUi6erCl enRxmDQ4sMGQs rqpst003KzTfc6jiUMChe LObRGswDGU6J29tl1C3HA FaDHRcVFI6qGH9sV9yvBu nbjogbGVmdDsg muOtxVwfNKugZXraO311A HRvcDsnPkJpcnRoIERhdG Q8TB73XA36hBXmz3W7cUI 1T5McNFQwmesh mgzkpWW3NMUkMZHfpH65E o1ggFygGy9vLWNpKLF2VA YvaMToJ7NjpR5uDaEdNPV fWKYqR7FonBSg CJklD664LFdtZgP1CGUyl eUfP3AxSGGjjBaySnV4z0 W5Cg1TF4E8TD11SH56jSA id0A8tIE1L2Ki ZSNiuikqwyiyyFU4TANjK YPtdT98Qm8hcByzGk0cNG VtTUV9IWNagMVoL1HcoQ2 yOiAjMDAwMDAw H5KqxUCeKHugW442KLljM uX6YFHkokGoZ8JrUZUslN xvVhE0l3X2Kf2GYKv4JA3 2EC00rWRsr3I2 eIX7I6GjKNCelblwnoluv DK4XVCpPXCrsZ85Ib5jfN zqBv6jBUHoMDS6WEPqjXI bZ1MkcB6mBhIl NCAyNFKwF6AteVSzSJnpW 210XOfrFtQ1FBFgrxOlJ8 OtLRXzdMxwEpW5g9K9Ck4 BPROrSY60DVN5 cMY6JS49EH94K7FtUubye GFibGU+PHRhYmxlIHdpZH RoPScxMDAlJyBzdHlsZT0 xId7hRPDrIRHx gBlxyQTwUrJgv2kvJOMhS NqkHP1yaLkwQ4YlrCP0FD Zry3h4An99N75oB7TovEO +TRRkmBA9rAY5 jZ0vKtEfJpZ2HKnyG383E fBzrRWyYaokw1gfm8tpbW d4EwT8KKEyaoQdlPdqZXQ 5n0SfLt35Y81j IHdpZHRoPSIxNSUiIHZhb Uctrv1fzE5dGo0+PGNvbC J3rCL1lS7wElHiToM3GLw qK385PoCozEPx Ycyal7vpg0qybRn4BxVeP GMhjrLxcQcuOGO0o1WlOu 34G8HqzIaqm9BzLjj9uy3 6cNKdp4I6vGL0 M7VbHUSmnbiwdDAdpRfmO R5qBGLszqnyYJQjzT3eOS ZwC9b0JhJiBpX8ECsbW0A zvfE7LEBijNCh BJbsKDQ6M04ip8L7DVBhY NBnWPP1pIT4eG6ffVttcw ogbGVmdDsgdmVydGljYWw lDImiX423RBLa zIjxHSQagJ6iMMTwdVKmi LabXG6bFARonxzzQpgRGY KWHnjUMrheG2TKKTs9N8E iOmq7ADIzqWrp FW3cjJScRGzrZz9nvTgno SguPW3pHRVcgspjRDLldV 7sXIAuaEIxvVfkVE2mTSX mzwuyx620WlHe HBP7ZWZoeDTfB5VyiC0oC lFhJZYoCDXnI8QwuJRaGD thU981INnqXfZ9WFZptfW hN6EzCIKggMyr VyV4y1U4Lm4uGj9lJI8pK TC8YG75BG13oSJko2Q6pT E4C2ItVGKrvszclnduqRE 9OJCbPEWwnO75 sNFsBMapRz1qc6S8l820P KZmXNOouC05Hu2loMshQQ KzkBPGsT6auawzz4uktxg gIzAwMDAwMDt0 PRu3ZGLscWbrIiDgGYK1A hP2WBM2rNRwjC4gyNirfc arxX2pZbj+NjQgWWVhcnM 5O6MvHbz3MYOh eQhhJK5nnCOjLDfxZy7fl FnvuMdzTF7qJTQduhciBJ VywZ2jMBAxcVYgcPddTY9 iPLYxpbydc155 SmTbFJW6IZVeqKPiM0Www F7hYdAtNTSdLDXwR3XxvG ItSOjlE328QAjuLyY9DTG pfbWqH8OmKLMm lYesPzY1f1W3Qk8EDG3px LC2I9IaHxq0WKIbnQzqCL 3cvJUzHPmkFi8nlZovkPw sPD1wFVXeklnv MHOedE5vDUYljTUmjWmrO J0yGTVfpxapw007IxAgBD D2HEMqwBKoB7GppV1xRlB oFKVbOQDeG1Ct qNUjDGnrI395RPspPbJ5F YSnfbXlH4AaFVRhhAodUv V8d0K4Xr8XiYDoMFCiXQ1 4FT04RR85G3Xp PjwvdGFibGU+PHRhYmxlI HdpZHRoPScxMDAlJyBzdH kkLX1dUr1kNJImAPXksAm tcKVoGhFfg2iz DIZbOLthJL5ugVqdU7Obd TP3BUJjh8x6Mz66R58uP5 JvdXA+WQSvjNK0lTZ3vL5 gMzSbDlN7IOvw C842AdTwrDUqWhsti2fpi 2vwwLs8HeJoOBUnkeTwjC amPDD5x2GtLg30I45uNWs pZHRoPSIyMCUi MJTmlDmjqn4xcT6wPx3+P TMlvJN4zOK2aP1sYzGtCl E7LNaoI344VbXdyVFcCdu lA34hP5PjrAQ+ QNEyVpo0PKEgaIssUF5yd DIiEWcoYp9rDZD3ScIkFy GfWRvtI0KnFAEejbximfl yvBJ4ZKZfYVOn uV55Uy7ueBoePz6ySLPkX AD9MOQjcZWyW7CdeF4iVh BfJYBmZWOkY7AzaWKeUKk uF084REjsXuR6 SWXcveEcT5PoJHJrjQuwE jM7n7A9Qg2PwZiurIPzKA 3bOmStAZe9K9JnKxc8EPT wmUdpKI2maQKu HZpvVo1ogVudzSdrLL6pU YQyalxvn970NnEdy8ojVX ElbXSiDQvaEEX2Y06pe8J 5NKRaELJdXVS2 uPY8uJ5pfJhqozzozTPge DsgdmVydGljYWwtYWxpZ2 73KWAbqFreUiRBHcu3C5B gQje8QOCudKio LS5nkYZcZWmrYf7qeGzjn KraTF0mBFXutcxws006Ov Ebn2usIOAxpOZlBTeuEFS 2D51rj1V0TMVa IPGdRZV2qXK1gV5jnVhcf jogbGVmdDsgdmVydGljYW vuRRhtP391CCHaiItoOf8 YRiy1U1AyDjx8 DPYnsUmqZN3avAPvDGjoQ d5jtHoenJgvIU5zXGLjae nut586JtCdk2wmZNBqrPP oFZbySZE5R01n g0A3YAJtJLEaNFP8eDS3x V7ihUplkktlbCQilMamua KxxRwtUIgwXQcpU421GGA vcDsnPlBheWVy OjwvdGQ+VK40ut09C1CwN jxyRif9HQLlCSG3uYW2vO 0vKONpOVwtj3S7jCF9P5E hgzAebe9vd4ax YXBz (more content not included)... Normal [facility] T3 Totalon 01-07-2022 T3 [Mass/Vol] 113 ng/dL Invalid Interpretation Code 71-180 [facility] Comment on above: Result Comment: Perf ormed at: [facility] [address], [place] [id number] PhD Krishna Richardson Performed By: #### 2 [id number], [id number], [id number] ####[facility] [address] [place] [address] Thyroid Perox.tpo Abon 01-07 TPO Ab Qn 293 International_Unit/mL High 0-34 [facility] Comment on above: Result Comment: Perf ormed at: [facility] [address], [place] [id number] PhD Krishna Richardson Performed By: #### 2 [id number], [id number], [id number], [id number] ####[facility] [address] [place] [address] Consent for Treatmenton 12-14 Consent for Treatment [id number]# 1.00CD:127 Normal [facility] Free T4on 01-06-2022 Free T4 [Mass/Vol] 0.85 ng/dL Normal 0.58-1.64 [facility] Comment on above: Performed By: #### 2 [id number], [id number], [id number], [id number] ####[facility] [address] [place] [address] TSHon 01-06-2022 TSH Qn 5.94 m[IU]/L High 0.34-5.60 [facility] Comment on above: Performed By: #### 2 [id number], [id number], [id number], [id number] ####[facility] [address] [place] [address] Physician Orderon 01-05-2022 Physician Order [id number]# 1.00CD:127 Normal [facility] Consent for Procedure/Surger yon 01-04-2022 Consent for Procedure/Surgery [id number]#1 .00CD:127 Normal [facility] Gastroenterology Office/Clin ic Noteon 01-03-2022 Gastroenterology Office/Clinic Note Chief Complaint HAT SIZER positive cologuard HPI Staff New patient Yadira [...] E&M of New Patient Low 30-44 Min 92601 2. Change in bowel habits (R19.4: Change [...] E&M of New Patient Low 30-44 Min 30166 Orders: polyethylene glycol 3350 with electrolytes, See [...] vax 12/24/2020 Given Prophylaxis Normal [facility] Comment on above: Result Comment: Elec tronically Signed By: Chantelle Sanches CNP\.br\Date and Time Signed: 01/03/22 10:43 EDT Patient Educationon 03-22-20 22 Patient Education Radiology Colonoscopy, Adult A colonoscopy [...] including vitamins, herbs, eye drops, creams, and ulii-xeo-ulvthzw medicines. ? Any problems you or family [...] (more content not included)... Normal [facility] Physician Referralon 022 Physician Referral [id number]#1 .00CD:127 Normal [facility] COVID-19 ([facility])on 11-14-2021 SARS-CoV-2 (COVID-19) RNA NORMA+probe Ql (Resp) Not detected Normal Not Detected [facility] Comment on above: Result Comment: This test result should be correlated with clinical presentations and medical history by a healthcare provider to determine its clinical significance. This assay was performed by a reverse transcriptase real-time polymerase chain reaction (rt PCR) method on the [employer] system. This test has been authorized only [...] or revoked sooner. Performed By: #### 2 [id number] #### [facility] [address] [place] [address] SARS-CoV-2 (COVID-19) RNA NORMA+probe Ql (Unsp spec) Pass Normal Pass [facility] Comment on above: Performed By: #### 2 [id number] #### [facility] [address] [place] [address] Specimen source Nom (Unsp spec) Nasal Normal [facility] Comment on above: Performed By: #### 2 [id number] #### [facility] [address] [place] [address] ADMITTED TO INTENSIVE CARE UNIT FOR CONDITION OF INTEREST:FIND:PT: Unknown Normal [facility] Comment on above: Performed By: #### 2 [id number] #### [facility] [address] [place] [address] EMPLOYED IN A HEALTHCARE SETTING:FIND:PT: YES Normal [facility] Comment on above: Performed By: #### 2 [id number] #### [facility] [address] [place] [address] FIRST TEST FOR CONDITION OF INTEREST:FIND:PT: Unknown Normal [facility] Comment on above: Performed By: #### 2 [id number] #### [facility] [address] [place] [address] HAS SYMPTOMS RELATED TO CONDITION OF INTEREST:FIND:PT: Unknown Normal [facility] Comment on above: Performed By: #### 2 [id number] #### [facility] [address] [place] [address] HOSPITALIZED FOR CONDITION OF INTEREST:FIND:PT: Unknown Normal [facility] Comment on above: Performed By: #### 2 [id number] #### [facility] [address] [place] [address] STATUS:FIND:PT: Unknown Normal [facility] Comment on above: Performed By: #### 2 [id number] #### [facility] [address] [place] [address] [facility]:FIND:PT: Unknown Normal [facility] Comment on above: Performed By: #### 2 [id number] #### [facility] [address] [place] [address] Consent for Treatmenton 10-17 Consent for Treatment [id number]# 1.00CD:127 Normal [facility] Coding Summary.on 11-02-2021 Coding Summary. CD:[id number]:[id number] G h0bWw+PGhlYWQ+BX5ZXPR hF73soCUjuR0UC1zDOB0G DIMLDGRVGJ3AVI2hjJP4N MovN5HafqRh PtulmSLkCO68AGq9TKW2r PqrXRfahW1xcJHdQ2s2Zp FyFY93cD06UOleWNUeReW 3LjZpbjsgbWFy T0fmFqLjzYKqHqf+PHRhY mxlIHdpZHRoPScxMDAlJy FtxVsmBS9rDp9dQTVbRWW vbGxhcHNlOiBj f8saSAGlSAcaHE8csVydN 1ToiBN0LIPat6a1Td36xC I+PMOuIXI5zUetQEroy44 4KhEgm1lsDQH8 lRFyXUxpYQM0K59nt4W8L MIlNKGtYPF5uFU8yA6znW ppzdqeJ7JnvWHsBqV3YMA 9qDHxdS1rzVxn thqkiA0lTgo+B66DBI4YE BCTQA2WNje5S6GlBpejrU I+ZJ39BJEmBC78rWKzdAJ rt0wewEb0BnDc TIYdXGG3fLuhKZofb6NlA BWjX29brSUpl2X1GMShwG iuuYRqSeHkvMR3hO9wQUq uyayzc1bodigw Wstsw2nybf48aR02A05eL DpnQCZuEYW4RZWzWQNmeO oaog4wnS2kEe8+CYzfc4i fy9kjsJx4DfVi BGGujiGziOfmENV6q4HvT s14J0FsaWhzs5AiBmk3rm 26mKIvz5T7jMZ1VZamLZD vbL1jPFxbNmK8 YDRhGxPovY48kILcQIenB x6luEehrIluLC6cRUIlxh ldBOUpkE3rDOPogSFmuHc yYV8eSYUqjbjx e185KnLrJHK8HAGbsQFpZ 2OuhB1pPqNwWKVgXUYxQ1 MawBDySUyuM040URdvDvA 8KYQhcqKoE4Up CPVpzYzoXuK8d0A0Hb0Hj 1OeqjgqPRE7VQzuAOCgCg C0KmQhQyS1I6AjMvv8ZQN goYmiEV0wU0Wk JAQzhngjtvhoxGW9OYGgV OIqtO87fIBxHYdnZn6sb7 K7f346LCLyUGShcQ61Hg0 udDogMTBwdCBU hP3foapjz4xszhdvYlTaI HKvXIx9WLu5XBAhpNbwYp AdDNZ9HmP8NZR4bIKqeA5 fsXcujnnwzB6w Oyc+I81fcU2gWVS3MSE2s fbpSDDeubJpTC49HD84Y9 RyPjwvdGFibGU+PGRpdiB kzFcyKC5cZlBv f4fik4VfCNkpW5XcICLhA KoxOng8CTYrKSU3aAJ6sA 3oNCDjKBigm4E0mFC4Y5V qrsFbqu6wu1kl EQMwJYpiO11mtVCph9V9I WGacAL2IKUdpYhuNtHhgE 93Oyc+BCKnqAvzj4BsDqr ag4ptr3rlmUt5 FgUfJPOdapIkfUdaSED4c 0SdHq39V70qARnaKMIrDT NfFVDbKOHulSbymg2bwR8 wIi8+PGNvbCB3 tLP5pB4cXQCfQzB3GOngY 122JlIckMQzIjzxi7pib0 jdpPz9WgMfNSExsnMioTv xUTI8p2QnOv42 Z11oJBxaPFYpAOWkFANgU XAsgArrfc6qoP1yVh5+PC 5uu3qzpi68lO75nGE+PHR rHBZ6sPjlBZdg JAJbgZ2mAEbdBqK5MDVzM fWxlX17aSRzBRidYa5dhX sajOqgDC2fAIDoqcqjq05 3ZsWmi6yhPOKp uPFcULduYLL8K79si2F8V TPrILQbKOI7wDL5nK8jhD lnbjogbGVmdDsgdmVydGl bYBboOZuqN284 IHRvcDsnPlBhdGllbnQgT lEhDIp8B4IvYht9JRXwvR oaYY2heEQqQLgbPk7hwEl azFwwRC9zKZDo pybpo159YrTqj3tsWUFoz EBhSSqwDRU2D73ig4Z2CE FjHJQhYOF0mWY7lK0ncWr nbjogbGVmdDsg dxXjnCfzKMkoQJhzN017D HRvcDsnPkJpcnRoIERhdG Y4ND47RS01bZQgm4P5cWV 3P3MqFMZefcyu ocsxbSD1DIZjBICdtY64H t0ksQhvEw0sTVBmGSB9XN RdnGMrO1JucU6pBbFcJWE aEGBqS3ZxdFBp DVigE931USrjSvQ1BWUhf vOdQ2HzVXJniSekDqK1e7 A9In7NF0Z3YH76JN64cOY oo1R0nID3B2Iw YMOhkqucitibqVW5SAYtF ULjvA67Nk5quZehVt8bVG DpFNJ2FPBbqSRpG8ZjjR8 yOiAjMDAwMDAw O4JocCUgULtrM147NIfcP dI3BPPnmvYgH1JeQGCodY pyCfP6r4U5Uc2BDWi5UC9 1RO93fZAez6O2 zUY9G1MnBRBgpnhawblld OD6BEGpQQQarJ04Gi2tcB uaPr9jEAIkOHO8NEFefQO xF0JkeW6zHbQh HRZaHPVzY1RvsGInLBedQ 367BJlwGmC6GYDogoBdC3 HaDTCwkJajEeZ4x9D8Ud0 SJBXpJK97HDA6 wCB9GD75PA51Y9YbCqwcd GFibGU+PHRhYmxlIHdpZH RoPScxMDAlJyBzdHlsZT0 cCa4hMNSdQZTw oPiqwMJvAmCwo6zkBGCcI CvbWU6sjOorZ0KuwCS5ME Hho2q7Sq34P88fT0RexVP +TMJuvDN6mQP0 mP7fKeVpXwE4ZHnqN376S gTmiPKkXlrks0rgc8khcC s2SiJ6QTTsveXipZmwPLT 9h9OhXr33Y56n IHdpZHRoPSIxNSUiIHZhb Kxazy8szG5xIj7+PGNvbC D5yZZ8mZ6bMvHqEbQ1GHa oI061VpTulMCn Kbfix0bva5pltSb2FjWjH IClhlPkwZntLDX2l8IoRs 75Z8AgwEtbn1VmCzd2nd7 6mGBbn1F1aYZ8 V4LtJPAzfsffgHWjpHezF G9lHDFozqpbZFGiyY3yMJ ZgC9s1DvSuFzD9QYfoG4O wujT7MFTczHQw WDmzJJP0W95ua4S1VEMfC JQqYUN5vUJ7aG0sjVgnwf ogbGVmdDsgdmVydGljYWw oFZklB599CYOq bAoeGVGpbV4bCJHvvLQcj LpdVF3gVIPbujisIkfNIO MQMqeVBrhjE0IZETz8S9T eMto9GTOooXlt DS6rpFUvXRstLk5sxFvmi OabOC0tQCGfyqmiWPNefR 8bBZBitIGcpFtdPO0kDMM wwxtwx337UaVo FGR0XPNjzIBvZ5WluA9mQ sWcAAGiMLEmP6HrwTKwUC fgM766AUnrFoB8QUDfcdA vC6VaLLZohGig JuK1v1G7Wy2qIj7eYJ6sY JU8VA77YQ78zXYww9G6tP B8H9AhJDFykrolejcnbYN 8VJIsKQUcfP90 lSCkWEcvAj5qj8W1q324D SVdPFUnbP04Ue2nlTmeMI EjeTPIdP8pyvgag8rfolh gIzAwMDAwMDt0 GUn9SNHnoWjaNtNcLKY9T bS9ZNA0sKNtzM9qnUhewn lffF4zYbq+NjMgWWVhcnM 1H5CwMoi0HZDb yNxpTM1ebFNcEOrdQf4eg KsbgWttLO4mRNSephgsQF QveT5vYRKilWKmoSugOJ5 lYSVdtrmxk506 XoJqYQA5JMNakCMrD1Nes S0kLaKuGVKyFAGnJ7QusL KgSHytX203JLyuMdY4XBS buxUmQ8AtCQIv bEnsBmT7q4Y0Vb9SRM8yg JW2V8QdMqw5XCSmxNvnXE 4bwYZnPUkcHm1dfGzbxRi sYX0zPEMoegrp TRTgfY1kBYAgaZTtbFhrP G5dPRJnjkclc797DeFpUX R8BQThtBSlP2VmtD6mJuB xLHHwTNTqR6Lo kRFuLHldU738OHjvDmS5P MHrfeJvS2VeVYBicHspVy W9b3V0Uv2OvKGwJDJfZU1 4LA61LV09S3Zp PjwvdGFibGU+PHRhYmxlI HdpZHRoPScxMDAlJyBzdH yjQS7hOy6lMIFnONCvwBv sbXUuEnImj2um RFRmSUbaFC0zhNmpR7Ovb YH9LDSgj7r3Jz13L74dZ8 JvdXA+ULEpvIX9oVS9lM3 pTyRvHmU0CUbn O742EvBwtJDyRmblz9xfh 8egbPy9KlFqNOGjelGzpE igFRA8d5VxIk61G61pSJt pZHRoPSIyMCUi OKWzqQvrnh2ldN4uYr8+P AHdpRG0tOV0gH1jKxDkBm P1OZhuN866HmLicOGhZpl wP71yT9YkjWE+ EFFhMmy2NDDhfJhePD2xp YGyQNsrOr4dKKF6RbQgFf KrGWfdL7EnLEQmcspgkvc itMM9OELgCAOo tR69Ds0pdDxiMm3vGZZoG NG0UQRkmIHgK5BnzW4sOr UyOCOoPDCcZ2GvxGCmWTr fF159ZKboNoQ8 ZPQiojXeQ5HlSPBrqOweN qM4m8J0Ge0ZfImuhYWzOX 9rFaEnGDa6J6EyCiw8SFQ qdGefVJ5huUJo YXpjZa8wyUvaoEllYU4xU AKollfjf272OyXdv0sxNI HkeBXzPWasSIR5B31gd0C 5PPPqTLYdLKG0 kOA8fO9ncAdmxbrdnLCvq DsgdmVydGljYWwtYWxpZ2 56ENHcwLniGmIZXjh5Q7V xNyi2JKGqtFqf FI1tcRDkNHsqXy6feSbdk ScyRE6kDQFolvorl110Ll Epq0oqEXXplHUzPUgfHMH 6J46ng1K7VZAf LBNdQTF1sQP4eJ1bwPcnv jogbGVmdDsgdmVydGljYW tiCSpmY633SZQiwUuwBg9 XPgw0F1KkGgg9 TFWmhOzqSR9gxCYeICmqQ e3xkSzmwJluVY6wRWBulp pgv217HzDbb3diSGQfrTL eAAvdZSG9J41r k0H4LFYuFUBpRGQ0gRE7r S0ayZgghfxjrCZrpLgasj VrvMpiIIiiMPhkL045ZCY vcDsnPlBheWVy OjwvdGQ+EB28do71L1FfP agqPxe0IUDuKNK8iYE8wC 4fYJRrODegu8D0kMX3D6G bwqHhjj5kl1rm YXBz (more content not included)... Normal [facility] Auto Diffon 10-22-2021 Basophils/100 WBC (Bld) 0.1 % Normal 0.0-2.0 [facility] Comment on above: Order Comment: Order Added by Discern Expert. Performed By: #### 2 [id number], 0057505, 2356355, 4552604, 5013132, [id number] ####[facility] [address] [place] [address] Basophils/Leukocytes Auto (Bld) [Pure # fraction] 0.0 E9/L Normal 0.0-0.2 [facility] Comment on above: Order Comment: Order Added by Discern Expert. Performed By: #### 2 815050, 6577404, 7673677, 1913781, 4061724, [id number] ####[facility] [address] [place] [address] Eosinophils/100 WBC (Bld) 4.8 % Normal 0.0-8.0 [facility] Comment on above: Order Comment: Order Added by Discern Expert. Performed By: #### 2 302167, 5098352, 0257497, 5063290, 2990569, 74464747 ####[facility] [address] [place] [address] Eosinophils/Leukocyt es Auto (Bld) [Pure # fraction] 0.2 E9/L Normal 0.0-0.5 [facility] Comment on above: Order Comment: Order Added by Discern Expert. Performed By: #### 2 217702, 9729555, 5355262, 3504683, 7348106, 60145849 ####[facility] [address] [place] [address] Lymphocytes/100 WBC (Bld) 33.2 % Normal 14.0-50.0 [facility] Comment on above: Order Comment: Order Added by Discern Expert. Performed By: #### 2 673234, 3593240, 0333686, 9966139, 4940454, 93967057 ####[address] [address] Lymphocytes/Leukocyt es Auto (Bld) [Pure # fraction] 1.5 E9/L Normal 1.0-4.0 [facility] Comment on above: Order Comment: Order Added by Discern Expert. Performed By: #### 2 155307, 0311671, 7423552, 2132113, 3381914, [id number] ####[address] [address] Monocytes/100 WBC (Bld) 8.4 % Normal 4.0-14.0 [facility] Comment on above: Order Comment: Order Added by Discern Expert. Performed By: #### 2 872703, 0251596, 0094130, 3043573, 1691994, 39307582 ####[address] [address] Monocytes/Leukocytes Auto (Bld) [Pure # fraction] 0.4 E9/L Normal 0.2-1.0 [facility] Comment on above: Order Comment: Order Added by Discern Expert. Performed By: #### 2 579992, 6657774, 2801907, 0915006, 7781069, 64983593 ####[address] [address] Neutrophils/100 WBC (Bld) 53.5 % Normal 36.0-75.0 [facility] Comment on above: Order Comment: Order Added by Discern Expert. Performed By: #### 2 956266, 3552884, 5097389, 7140720, 3762310, 68281399 ####[address] [address] Neutrophils/Leukocyt es Auto (Bld) [Pure # fraction] 2.3 E9/L Normal 2.0-7.5 [facility] Comment on above: Order Comment: Order Added by Discern Expert. Performed By: #### 2 293065, 3907901, 6111149, 6691370, 7611222, [id number] ####[facility] [address] [place] [address] CBC w/ Auto Diffon Erythrocyte distribution width (RBC) [Ratio] 14.4 % High 10.9-14.2 [facility] Comment on above: Performed By: #### 2 299315, 5886661, 1385626, 9180808, 6597349, 84473875 ####[address] [place] [address] Hematocrit (Bld) [Volume fraction] 38.2 % Normal 34.0-46.0 [facility] Comment on above: Performed By: #### 2 434987, 0249504, 6005855, 7227211, 3833076, 81031634 ####[address] [address] Hemoglobin (Bld) [Mass/Vol] 12.8 g/dL Normal 12.0-16.0 [facility] Comment on above: Performed By: #### 2 262090, 5688382, 8072888, 6223885, 0469212, 50024653 ####[address] [address] MCH (RBC) [Entitic mass] 29.1 pg Normal 27.0-34.0 [facility] Comment on above: Performed By: #### 2 529289, 6312535, 8310898, 8244562, 1269635, 84976763 ####[address] [address] MCHC (RBC) [Mass/Vol] 33.5 g/dL Normal 31.4-36.0 [facility] Comment on above: Performed By: #### 2 345166, 5406982, 4395516, 5554902, 2908304, 32512992 ####[address] [place] [address] MCV (RBC) [Entitic vol] 86.8 fL Normal 80.0-100.0 [facility] Comment on above: Performed By: #### 2 704761, 1118374, 0392178, 3505709, 3249257, 52382938 ####[address] [place] [address] Platelet mean volume (Bld) [Entitic vol] 8.3 fL Normal 6.4-10.8 [facility] Comment on above: Performed By: #### 2 397033, 0260284, 8114081, 7705437, 4505274, 65347090 ####[address] [place] [address] Platelets (Bld) [#/Vol] 303.0 E9/L Normal 150.0-500.0 [facility] Comment on above: Performed By: #### 2 325415, 5422963, 1611616, 0121445, 8702182, 42800347 ####[address] [address] RBC (Bld) [#/Vol] 4.4 E12/L Normal 4.3-5.9 [facility] Comment on above: Performed By: #### 2 388430, 9851959, 7914173, 9723690, 4858673, 68201185 ####[address] [address] WBC corrected for nucl RBC Auto (Bld) [#/Vol] 4.4 E9/L Normal 4.0-11.0 [facility] Comment on above: Performed By: #### 2 519784, 6221967, 7916461, 7435419, 5442151, 37742686 ####[address] [address] CMPon 10-22-2021 Albumin [Mass/Vol] 3.6 g/dL Normal 3.3-5.0 [facility] Comment on above: Performed By: #### 2 350577, 9449023, 2936340, 8046969, 9792517, [id number] ####[address] [place] [address] Albumin/Globulin (S) [Mass conc ratio] 1.2 Normal 1.1-2.2 [facility] Comment on above: Performed By: #### 2 452173, 5119077, 4706840, 8882639, 8789806, 40070676 ####[facility] [address] [place] [address] ALP [Catalytic activity/Vol] 115 Int._Unit/L High 21-98 [facility] Comment on above: Performed By: #### 2 101407, 3661704, 8829135, 9672468, 8111923, 26617264 ####[address] [address] ALT No additional P-5'-P [Catalytic activity/Vol] 46 Int._Unit/L Normal 6-46 [facility] Comment on above: Performed By: #### 2 123238, 6596478, 3988322, 2553723, 5935575, 14315463 ####[facility] [address] [place] [address] Anion gap [Moles/Vol] 12 mmol/L Normal 6-16 [facility] Comment on above: Performed By: #### 2 915609, 5520209, 4125615, 0910546, 6298112, 76618034 ####[address] [place] [address] AST [Catalytic activity/Vol] 36 Int._Unit/L Normal 5-43 [facility] Comment on above: Performed By: #### 2 422235, 4097441, 8713379, 3836024, 0810749, 82699697 ####[address] [place] [address] Bilirubin [Mass/Vol] 0.6 mg/dL Normal 0.0-1.1 [facility] Comment on above: Performed By: #### 2 709080, 7406699, 0870841, 4784343, 0727290, 56509419 ####[facility] [address] [place] [address] Calcium [Mass/Vol] 9.3 mg/dL Normal 8.9-11.1 [facility] Comment on above: Performed By: #### 2 878097, 3565387, 6346475, 8075020, 4802469, 00979149 ####[facility] [address] [place] [address] Chloride [Moles/Vol] 101 mmol/L Normal 101-111 [facility] Comment on above: Performed By: #### 2 789210, 7085762, 1921579, 7552031, 6386387, 53811418 ####[facility] [address] [place] [address] CO2 [Moles/Vol] 26 mmol/L Normal 21-31 [facility] Comment on above: Performed By: #### 2 846016, 7906342, 8729668, 7595119, 9498580, 02349014 ####[facility] [address] [place] [address] Creatinine [Mass/Vol] 0.7 mg/dL Normal 0.5-1.3 [facility] Comment on above: Performed By: #### 2 990042, 1484848, 3458870, 4545575, 9262427, 09741025 ####[facility] [address] [place] [address] Globulin (S) [Mass/Vol] 3.0 g/dL Normal 1.4-4.0 [facility] Comment on above: Performed By: #### 2 486241, 8615172, 3278181, 9057168, 5197907, 26560383 ####[facility] [address] [place] [address] Glucose [Mass/Vol] 90 mg/dL Normal 55-199 [facility] Comment on above: Result Comment: If t his glucose result represents a fasting glucose, interpretation should refer to the following reference range: 55-99 mg/dL Performed By: #### 2 514798, 1154273, 5713523, 4909891, 0916332, 15581742 ####[facility] [address] [place] [address] Potassium [Moles/Vol] 4.2 mmol/L Normal 3.5-5.3 [facility] Comment on above: Performed By: #### 2 923417, 8514417, 9032529, 7395980, 0766503, 58047968 ####[facility] [address] [place] [address] Protein [Mass/Vol] 6.6 g/dL Normal 6.0-7.8 [facility] Comment on above: Performed By: #### 2 279287, 7658095, 1736546, 9029685, 6308532, 73842954 ####[facility] [address] [place] [address] Sodium [Moles/Vol] 135 mmol/L Normal 135-145 [facility] Comment on above: Performed By: #### 2 527928, 2542749, 3486054, 6821469, 7757847, 82344957 ####[facility] [address] [place] [address] Urea nitrogen [Mass/Vol] 14 mg/dL Normal 5-21 [facility] Comment on above: Performed By: #### 2 938439, 1662370, 5225365, 4972664, 5292817, 88486601 ####[facility] [address] [place] [address] Urea nitrogen/Creatinine [Mass ratio] 20 No Units Normal 10-20 [facility] Comment on above: Performed By: #### 2 916245, 8547415, 5612457, 8224462, 9708884, 00623187 ####[facility] [address] [place] [address] Consent for Treatmenton Consent for Treatment [id number]#1 .00CD:127 Normal [facility] Lipid Panelon 10-22-2021 Cholesterol [Mass/Vol] 207 mg/dL High 120-200 [facility] Comment on above: Performed By: #### 2 744607, 6563841, 7259205, 0742787, 4763868, 49004906 ####[facility] [address] [place] [address] Cholesterol in HDL [Mass/Vol] 51 mg/dL Invalid Interpretation Code [facility] Comment on above: Result Comment: HDL > or equal to 60 mg/dL: Low cardiovascular risk HDL < 40 mg/dL : High cardiovascular risk Performed By: #### 2 807628, 4832529, 1383958, 6484684, 7740087, 59235402 ####[facility] [address] [place] [address] Cholesterol in LDL [Mass/Vol] 128 mg/dL Normal <=129 [facility] Comment on above: Performed By: #### 2 464596, 3351469, 5959552, 8058502, 7965242, 19023559 ####[facility] [address] [place] [address] Cholesterol in VLDL [Mass/Vol] 21 mg/dL Normal 7-40 [facility] Comment on above: Performed By: #### 2 090520, 2502376, 5152220, 9956983, 1691174, 15199891 ####[facility] [address] [place] [address] Triglyceride [Mass/Vol] 107 mg/dL Normal <=149 [facility] Comment on above: Performed By: #### 2 747622, 1669739, 6317789, 3994679, 9180940, 00907554 ####[facility] [address] [place] [address] Physician Orderon 10-22-2021 Physician Order [id number]#1. 00CD:127 Normal [facility] TSHon 10-22-2021 TSH Qn 6.19 m[IU]/L High 0.34-5.60 [facility] Comment on above: Performed By: #### 2 986037, 1747229, 2770590, 7277337, 0392853, 96469056 ####[facility] [address] [place] [address] eGFRon 10-22-2021 GFR/1.73 sq M.predicted among blacks MDRD (S/P/Bld) [Vol rate/Area] mL/min/{1.73_m2} Normal >=59 [facility] Comment on above: Order Comment: Order added by Discern Expert. Result Comment: eGFR is race adjusted. AA=. Performed By: #### 2 414985, 5689354, 1354680, 9581606, 2331774, 44493892 ####[facility] [address] [place] [address] GFR/1.73 sq M.predicted among non-blacks MDRD (S/P/Bld) [Vol rate/Area] mL/min/{1.73_m2} Normal >=59 [facility] Comment on above: Order Comment: Order added by Discern Expert. Result Comment: Resort Manager ginger kidney disease could be indicated at eGFR's of less than 60 mL/min/1.73m2. Kidney failure is indicated at less than 15 mL/min/1.73m2. Performed By: #### 2 789358, 1081679, 9553646, 8328624, 2302892, 05582536 ####[facility] [address] [place] [address] COVID-19 ([facility])on 10-13-2021 SARS-CoV-2 (COVID-19) RNA NORMA+probe Ql (Resp) Not detected Normal Not Detected [facility] Comment on above: Result Comment: This test result should be correlated with clinical presentations and medical history by a healthcare provider to determine its clinical significance. This assay was performed by a reverse transcriptase real-time polymerase chain reaction (rt PCR) method on the [employer] system. This test has been authorized only [...] or revoked sooner. Performed By: #### 2 [id number] #### [facility] [address] [place] [address] SARS-CoV-2 (COVID-19) RNA NORMA+probe Ql (Unsp spec) Pass Normal Pass [facility] Comment on above: Performed By: #### 2 [id number] #### [facility] [address] [place] [address] Specimen source Nom (Unsp spec) Nasal Normal [facility] Comment on above: Performed By: #### 2 [id number] #### [facility] [address] [place] [address] COVID-19 ([facility])on 10-12-2021 ADMITTED TO INTENSIVE CARE UNIT FOR CONDITION OF INTEREST:FIND:PT: NO Normal [facility] Comment on above: Performed By: #### 2 [id number] #### [facility] [address] [place] [address] EMPLOYED IN A HEALTHCARE SETTING:FIND:PT: YES Normal [facility] Comment on above: Performed By: #### 2 [id number] #### [facility] [address] [place] [address] FIRST TEST FOR CONDITION OF INTEREST:FIND:PT: Unknown Normal [facility] Comment on above: Performed By: #### 2 [id number] #### [facility] [address] [place] [address] HAS SYMPTOMS RELATED TO CONDITION OF INTEREST:FIND:PT: Unknown Normal [facility] Comment on above: Performed By: #### 2 [id number] #### [facility] [address] [place] [address] HOSPITALIZED FOR CONDITION OF INTEREST:FIND:PT: NO Normal [facility] Comment on above: Performed By: #### 2 [id number] #### [facility] [address] [place] [address] STATUS:FIND:PT: NO Normal [facility] Comment on above: Performed By: #### 2 [id number] #### [facility] [address] [place] [address] RESIDES IN A [facility] CARE SETTING:FIND:PT: NO Normal [facility] Comment on above: Performed By: #### 2 [id number] #### [facility] [address] [place] [address] Coding Summary.on 04-08-2021 Coding Summary. CD:[id number] G h0bWw+PGhlYWQ+DC7VAUD vP57miYGrvJ7YP2aOGQ7H UPANACCQMU3QNP9ktZZ9U KvpQ7MlaxJm KxswvRLePJ97JQu5JMP3e WfwALuwkG8fnITzJ7u8Mx TtYU99rT15ODpiFNQpVnT 3LjZpbjsgbWFy P6qxDaWejBMrAmb+PHRhY mxlIHdpZHRoPScxMDAlJy QdjPocGN0yBn0oIZXgDSC vbGxhcHNlOiBj j1ozIFBeBOqiDJ9xhBjhV 8ZzaTH2ZIHlt7o2Nw60oK I+GBZpPCL4gQjiPMrrq25 5KbGek2daZSR5 vNJrZAhhQXY1B59tr1N4B EOtTSCcNVH3sNN0nI4dgC eazmrvK4GwvFAbInX7WFE 2vHMfoP6xxDbt locxbD9gBnw+O37MLO5AD KEMIF4YBsn0Y9QwArnwzR I+MB73UZAaZP19lHTxiPE xa4ygoAj7CxSw VPPiWWT3zRofTIoyp6PuF NYhL45ekWMyx8I3TZQsaQ qifOZaMrDlxCH8fO5jHOf ltjtcf7vxppzj Jueck4cfea70tY26V47pF XnqQMGmQNB7DAXlHUAunW opmf4gjU1qMp2+XAxoo0m to5cvoFc8OoGc CXBzxqPaqPsuYAK1y3ZwX q77A7IamOplm7KkRah7fr 27hQFfs9Z5yXM0JKglFRG idR2bIVseNiG7 ZSGdSzVvkY97aINmKOzpO g7nlRjudFciZL2oSTSawg vhIUHdwZ3iRVHmvYUjoJl tMZ6vEEPjtkrd f514PeQnOLP4KAAjzYXwU 3IinH8mKbUoZMToFGMyY4 HdfUGvBKyfW136LVisSgZ 3ODHenqKfP1Er MZMkhWefSfB2l7A3Bj1Ph 1CmmtjjXNK5HLglKYU9Lq F1PsWuRzF1O3OsWxg5HBE hoMydKN2cF9Sm ZDYqjrklqjtxjBX5CCKaU OXvmB99zHAoUTxpLy2ib0 S2a272WULhDCIdnY11Ac8 udDogMTBwdCBU wY1dweaxe5rmmdouYwFdK FEiAUg3STc1BRRcwIxaIj PvXPR5VlW4JOT0mIGkdN7 kjNekoxrmsI4e Oyc+M50ijA8kDLR7FEO5y ojqNRUvlnKnAR61JH54Z7 RyPjwvdGFibGU+PGRpdiB bpLljCI7fDvTh y3gdi3AnDZieR9AtKAFwA LayKnq9OSJeLZA1mGX3eX 2vTICtIUwia7J0jHG8S8E hpdCawk4nh4ac CQWnGBidA29ulTRtu1I4L QPxzIC7AJQrsSufWiVfjO 93Oyc+FYJyaTfms1TwUly zd0grc6bgfHm5 ElXjVOOztdGutQduIHV8w 3PmDo23A12sKVmbQBZuPY VzKBBoLREaeAcaug5vcX6 wIi8+PGNvbCB3 sAT7aC5jDKXiUmA8VXheQ 495BkPqcYCvMyrel8hkw8 bvxUn1NsPkUIZlbsEohRm jRWO2n7OsKe45 I58dOJreYORrOGCjLNSaO LKwkVkdje5rpY5tYv4+PC 9mg3cssc62cL23pLE+PHR dEGV0dJllQPex CLQdeV3lWZxdNuK7XBNqC qQbnJ49bBAkXRhiIo2jaF nqkCbzNI6vERXxlhulw54 9SmWof5jvUHHi uPJrPScxOND2G03qv7S2O SFmYHGuENT5qQF6xQ2egA lnbjogbGVmdDsgdmVydGl nJStgHZsvS874 IHRvcDsnPlBhdGllbnQgT aBuVXy4U6DiFxk7HGNufF zrCJ7saLZfSIjlWy3rgSs keAsyWN4tWKYt mhtqw093WaHwt9dcDSVmo YVmOEsuOOY5Y44kv5U3GO HrYNEnZFR4vZS1bH9rqWa nbjogbGVmdDsg ciCgyXfrDOjoSBcbS877H HRvcDsnPkJpcnRoIERhdG Y2OT62FS86uVAin7H7vKB 0Q6QtINMactkr soefjWU2NUJmSJSjxE72K s8acXjaJq9vJGHfLJG4GU AssNKcP9QdtS0lIoCkLOF mGLWrQ3GhoSQw MMosZ807DQjgGkA4GLXjq bIcO1XtZDXrsTxgBzW1e8 L5Mm2LI1Z3ZY85HW28dQI pg4X6uRX5B3Ht CFVaiydwwqchsSM2FIJpN IXyiF92Ws5yyFnfDp0kVS LsXIS0XAApmJRhJ1TwhL6 yOiAjMDAwMDAw C2KqaZVwCWhkC600PBvgP hN3VBTeczEmC6AoOISbrY waAkG9s2M6Cm8LULx1AI6 0ZO34lYFvn7T7 tQD8G9TyHFNqvolczfqvl RZ1OQDcUZAmtM76Ui9hoM ksMs9mLKUvSDD6FYDqhSF lK6HnsO7jStOp ETVuZDQnT6GinCIyDTzfO 603NAcvYeF6JIWifaHhQ0 FbEWZlmKkiAwC3y4F8Il4 ZWZIyMZ12NSY8 iNI0PT69FM34M1HsUzyzk GFibGU+PHRhYmxlIHdpZH RoPScxMDAlJyBzdHlsZT0 lVd1wEHFaRUZo yTtwpTJuOnKsm5ykIXZfM YriNW5bdZwbN3TyrIE8BW Nkj6i5Nl75R22nS0SkrTY +NOTkuXY5jZE8 cV1rPlSrRcJ1RTjkP276P aQbfUBtCftrq5ves4lupI l9IdW8JRWnlgEglUwyBSC 4r2HoWq48D65p IHdpZHRoPSIxNSUiIHZhb Mhxmb2lfS9sJu8+PGNvbC Z6uRL9iQ4uGqMmNrO3HDs pK300KpEdqXAy Hojlz6rez5qkqJq3HwNmG ZWpotVdwLovQWE6k6PsKt 33R0YvkSvle1XeFdq6er1 7dGSge7N4yOV4 U9VlOOHasuixhGKfbNrrF G4iGMOhtmgsQOQfzS9pPL YkT6r4AjIcRzC7EBogB4T sfdB8XYCsrOEm REheRWC7H31jz1Y3PIHqZ EFnYCR5rPN7gD2qiHnttn ogbGVmdDsgdmVydGljYWw aZMdoX075DXBw gUnkCCZveT2pYKQsuFQyj MzeIU7vKOZtiuptKwaXOC XHKnaETvxyV2XVYPd1H4M tFdd5SJNvyZrd XE3kwMQvAEgkCg1fkUwgz DtqJC4cBEWcfuouIONgaQ 3bRIUdyNRdpNupAD0aOLB ipsbau854RiDp UUW1NEMimUTbI1TjbI4pZ cUmKIRoXPIvH2SmwCSfEP ztM182EYwrChR0NGAwvdZ eK7XrRFVoeLhb YfP0f7N3Qt2hTs7dAX7eM GF9TS00EK18rBCmm7Y5nK O7C3SmBMVrhrokjxzlcBK 4OBXbOOJhoM51 mCDtXPvcOv3hk5I9g845T GVcNWRilA12Ed3qgJvyRC UwzSYOuU3nlhbdf5oaptk gIzAwMDAwMDt0 GZi0RPOzwEscGvSxQLQ0E sZ0JEB1nDRiaL4hmRmrho gecK5eNhj+NjMgWWVhcnM 8E4MjFkw0HFBm eCfdRA0urLWbMCwrFm3dd IcrtLntSR6iEMCeuorkNC RimE5fDKKmeNJfoNwcOG2 fCSKlgdpnq303 HkLfRWC4NHKupHOrE3Fbo D9jNkGwJVRwELUjM5QdcQ BoAJiqJ865ZOvoSwK0GFP pvhZwO0MwGKGc zWgrQbX9b9Y1Xs5HZN5wa YU9A8QrHrl7NRBjbYqbPS 8jzMWpUZqkPq3xeFrzdYo cLE6uDNMxeitk LXKsqE6tDXGxaOBsuJfhW N7ePFScqbdvq817NgSoPL I2UPMrzQQeI9HjoT5uVkZ cXLOaOYOcK6Co oWVvMRinX788EQlrFyC8M LRrpjRmA4LwMQBxaEskEa E6g0F9Zs1JqXBdTITmJM8 5VR40EC52E0Uu PjwvdGFibGU+PHRhYmxlI HdpZHRoPScxMDAlJyBzdH upIK9jAn4xJDZlGMZslEi tjWMtAyWak0gk LCOgZNyrKF7nwFbeK6Nor HK0VDUxy0v8Lv93G59eS9 JvdXA+VNNgmZT2vAJ2bC6 pKpAeLrD8DMwy P226YzMmeLXfJqhbw6xra 2jozEz8SxQeEPUkslUweT uiNDU3g2HkDm74M92jPPg pZHRoPSIyMCUi DUMzfUwdkk6mvE8eVv2+P YGcqWC7xQD7wL0rFmJpJz G5GKrpP112QnHhgMJpJyh uI76iG5ZckLB+ IFPxFmv9NWXttRasXM3yz XLdOQtxVb6rEIM5PaQpZk GuRGabW6WtZYTuwordyim snMS3ZFEpJHTw tU56Jl7ycVyvHv4iSUTpC TT9HLGmcRCuE3CriD3rUf WiVJYzPVPlF7CguPUtINo kU154MSbgFkM7 RUKytuUhR7KoMZCylYmjR yP1m6D8Hw3NgRkzhDUkZL 3aAnSqCOf9J4MqTjp9TCJ uvAzmPI0dnINk QIrqNd6puThzjNvdEL3hL YOpkxysi922EvKnj9gkEU FcoXSaMKktWGM7O52xr9H 4UYNrYJFxZAF7 cBP2aD0qkHnplchctEOwz DsgdmVydGljYWwtYWxpZ2 80XVDawFbsHlKMAte1H2L bWha9LEPxgApn UM9apCZbBYuqQg3jiVsaj KfdOJ7cWSOzdrtkg544Sy Mmn2dbRRIcrFRfSBbfWPB 3H16gz3G8VSYq WYTiLIT0dJC5iY3hzVikk jogbGVmdDsgdmVydGljYW vsCGgfF263HKNbmRthAh4 JVcw7N5JdTok0 HLBckFluCW4eaFGuKFziR q5kdWkbmGckKZ2xGPLlit fja983KoKzl1kgYNZbvVO xEQzgMAZ7K89r s3E9XYUlJHTbFNB6mRZ4q B8ngYmgjthpyNVyxChylr KfxIxbQPkfHMmoV093TWR vcDsnPlBheWVy OjwvdGQ+IY25ty43X4MrQ lsfKkv0AKQzSXI9oXB1kI 7yCGMxEAdld2Z1wAS4E7Z vlrEkdm6yb0ry YXBz (more content not included)... Normal [facility] MRI Knee w/o Contrast Lefton 04-08-2021 [...] by: NEETU Technologist: MEGHANN Technical Comments None [facility] Consent for Treatmenton 03-16 Consent for Treatment [id number]#1 .00CD:127 [facility] RAD - MRI Screening Formon 0 04-07-2021 RAD - MRI Screening Form [id number]# 1.00CD:127 [facility] Physician Orderon 03-24-2021 Physician Order [id number]# 1.00CD:127 [facility] Pre-Certification Formon Pre-Certification Form [id number]# 1.00CD:127 [facility] Vital Signs Date Time Vital Sign Value Performing Clinician Facility 12-10-2023 09:29-0500 Body height 162.56 cm [facility] 12-10-2023 09:29-0500 Body mass index (BMI) [Ratio] 39.1 kg/m2 [facility] 12-10-2023 09:290500 Body weight 103.47 kg [facility] 12-10-2023 09:29-0500 Diastolic blood pressure 83 mm[Hg] [facility] 12-10-2023 09:29-0500 Heart rate 83 /min [facility] 12-10-2023 09:29-0500 Respiratory rate 12 /min [facility] 12-10-2023 09:29-0500 Systolic blood pressure 134 mm[Hg] [facility] 08-13-2023 14:30-0400 Body height 162.56 cm Leilani Archibald Other [email or web address] [facility] [employer] Other 08-13-2023 14:30-0400 Diastolic blood pressure 64 mm[Hg] Leilani Wolfer Other [employer] Other 08-13-2023 14:30-0400 SaO2% (BldA) [Mass fraction] 100 % Leilani Archibald Other [employer] Other 08-13-2023 14:30-0400 Systolic blood pressure 122 mm[Hg] Leilani Wolfer Other [employer] Other 08-03-2023 10:15-0400 Body height 162.56 cm Leilani Archibald Other [employer] Other 08-03-2023 10:15-0400 Diastolic blood pressure 80 mm[Hg] Leilani Buciorbacher Other [employer] Other 08-03-2023 10:15-0400 SaO2% (BldA) [Mass fraction] 100 % Leilani Christineacher Other [employer] Other 08-03-2023 10:15-0400 Systolic blood pressure 132 mm[Hg] Leilani Archibald Other [employer] Other 05-21-2023 09:00-0400 Body height 162.56 cm Ray Ball Other [employer] Other 05-21-2023 09:00-0400 Body mass index (BMI) [Ratio] 41.6 kg/m2 Ray Ball Other [employer] Other 05-21-2023 09:00-0400 Body weight 109.95 kg Ray Ball Other [employer] Other 05-21-2023 09:00-0400 Diastolic blood pressure 84 mm[Hg] Ray Ball Other [employer] Other 05-21-2023 09:00-0400 Respiratory rate 16 /min Ray Ball Other [employer] Other 05-21-2023 09:00-0400 Systolic blood pressure 133 mm[Hg] Ray Ball Other [employer] Other 12-26-2022 15:30-0400 Body height 162.56 cm Ray Ball Other [employer] Other 12-26-2022 15:30-0400 Body mass index (BMI) [Ratio] 42.38 kg/m2 Ray Ball Other [employer] Other 12-26-2022 15:30-0400 Body weight 111.99 kg Ray Ball Other [employer] Other 12-26-2022 15:30-0400 Diastolic blood pressure 84 mm[Hg] Ray Ball Other [employer] Other 12-26-2022 15:30-0400 Respiratory rate 12 /min Ray Ball Other [facility] [employer] Other 12-26-2022 15:30-0400 Systolic blood pressure 132 mm[Hg] Ray Ball Other [facility] [employer] Other 02-13-2022 08:50-0400 Diastolic blood pressure 86 mm[Hg] Ibarra SALAM [facility] 02-13-2022 08:50-0400 Heart rate 60 /min Ibarra SALAM [facility] 02-13-2022 08:50-0400 Respiratory rate 11 /min Ibarra SALAM [facility] 02-13-2022 08:50-0400 SaO2% (BldA) [Mass fraction] 100 % Ibarra SALAM [facility] 02-13-2022 08:50-0400 Systolic blood pressure 155 mm[Hg] Ibarra SALAM [facility] 02-13-2022 08:35-0400 Diastolic blood pressure 90 mm[Hg] Ibarra SALAM [facility] 02-13-2022 08:35-0400 Heart rate 65 /min Ibarra SALAM [facility] 02-13-2022 08:35-0400 Respiratory rate 12 /min Ibarra SALAM [facility] 02-13-2022 08:35-0400 Respiratory rate 11 /min Ibarra SALAM [facility] 02-13-2022 08:35-0400 SaO2% (BldA) [Mass fraction] 100 % Ibarra SALAM [facility] 02-13-2022 08:35-0400 SaO2% (BldA) [Mass fraction] 99 % Ibarra SALAM [facility] 02-13-2022 08:35-0400 Systolic blood pressure 139 mm[Hg] Ibarra SALAM [facility] 02-13-2022 08:30-0400 Diastolic blood pressure 83 mm[Hg] Ibarra SALAM [facility] 02-13-2022 08:30-0400 Systolic blood pressure 133 mm[Hg] Ibarra SALAM [facility] 02-13-2022 08:26-0400 Body temperature 96.8 [degF] Ibarra SALAM [facility] 02-13-2022 08:20-0400 Respiratory rate 16 /min Ibarra SALAM [facility] 02-13-2022 08:16-0400 Respiratory rate 19 /min Ibarra SALAM [facility] 02-13-2022 08:15-0400 Respiratory rate 19 /min Ibarra SALAM [facility] 02-13-2022 07:20-0400 Blood Pressure Location Ibarra SALAM [facility] 02-13-2022 07:20-0400 Body temperature 98.42 [degF] Ibarra SALAM [facility] Encounters Encounter Date Encounter Type Care Provider Facility Start: 05-21-2024 End: 05-21-2024 ambulatory CLIFF SERRANO Not Available Start: 05-05-2024 End: 05-05-2024 ambulatory BANDAR BILLS Not Available Start: 12-10-2023 End: 12-10-2023 ambulatory [facility] Work Phone: Start: 12-10-2023 End: 12-10-2023 Patient encounter procedure [facility] Work Phone: Start: 12-07-2023 Non-patient / Non-visit [facility] Work Phone: Start: 12-04-2023 Non-patient / Non-visit [facility] Work Phone: Start: 11-07-2023 End: 11-07-2023 ambulatory Ray Rawls Other [facility] Other Start: 11-07-2023 Telephone encounter Ray Rawls [facility] Start: 08-13-2023 End: 08-13-2023 ambulatory Leilani Archibald Other [facility] Other Start: 08-13-2023 Office outpatient vi sit 15 minutes Leilani Archibald [facility] Start: 08-09-2023 End: 08-09-2023 ambulatory Leilani Archibald Other [facility] Other Start: 08-09-2023 Telephone encounter Leilani menon [facility] Start: 08-03-2023 End: 08-03-2023 ambulatory Leilani Archibald Other [facility] Other Start: 08-03-2023 Office outpatient vi sit 15 minutes Leilani Archibald [facility] Start: 05-21-2023 End: 05-21-2023 ambulatory Ray Rawls Other [facility] Other Start: 05-21-2023 Office outpatient vi sit 25 minutes Ray Rawls [facility] Start: 05-15-2023 End: 05-15-2023 ambulatory Ray Rawls Other [facility] Other Start: 05-15-2023 Telephone encounter Ray WOLFE [facility] Start: 04-18-2023 End: 04-18-2023 ambulatory Ray Rawls Other [facility] Other Start: 04-18-2023 Telephone encounter Ray Rawls [facility] Start: 03-14-2023 End: 03-15-[address] RAY RAWLS Facility:[facility] Start: 03-14-2023 Telephone encounter Ray Rawls [facility] Start: 02-16-2023 End: 02-16-2023 ambulatory Ray Rawls Other [facility] Other Start: 02-16-2023 Office outpatient vi sit 10 minutes Ray Rawls [facility] Start: 02-16-2023 Telephone encounter Ray Rawls [facility] Start: 12-26-2022 End: 12-26-2022 ambulatory Ray Rawls [facility] Other Start: 12-26-2022 Office outpatient vi sit 15 minutes Ray Rawls [facility] Start: 12-25-2022 End: 12-25-2022 ambulatory Ray Rawls Other [facility] Other Start: 12-25-2022 Telephone encounter Ray Rawls [facility] Start: 11-14-2022 Encounter for genera l adult medical examination without abnormal findings DR RAY RAWLS [facility] Start: 11-13-2022 End: 11-14-[address] RAY RAWLS Facility:[facility] Start: 11-13-2022 End: 11-14-2022 Encounter for general adult medical examination without abnormal findings DR RAY RAWLS Facility:[facility] Start: 11-01-2022 End: 11-01-2022 ambulatory Ray Rawls Other [facility] Other Start: 11-01-2022 Encounter for genera l adult medical examination without abnormal findings Ray Rawls [facility] Start: 11-01-2022 Telephone encounter Ray WOLFE [facility] Start: 06-14-2022 End: 06-15-[address] RAY RAWLS Facility:[facility] Start: 04-27-2022 End: 04-28-[address] RAY RAWLS Facility:[facility] Start: 04-13-2022 End: 04-14-[address] RAY RAWLS Facility:[facility] Start: 02-13-2022 End: 02-13-2022 Patient encounter procedure Stacey WU [facility] Start: 01-12-2022 Adult health examination Ray Rawls Other [place] [facility] Other Procedures Date Procedure Procedure Detail Performing Clinician Start: 02-13-2022 Colonoscopy Stacey Borja Comment on above: cecal colon polyp, I H Start: 10-15-2018 Endoscopy of stomach Vickie WU Start: 10-15-2008 Abdominal hysterectomy Stacey WU Start: 10-15-2008 Biopsy of breast Stacey WU Start: 10-15-1998 Cholecystectomy Stacey Valadez ALAHuong Start: 10-15-1979 Decompression of med diogenes nerve Stacey WU Depression screening Livier Rawls Other End: 01-12-2022 Screening for malignant neoplasm of breast Ray Rawls Other Screening mammography Charley ramirez Curly Other Immunizations Immunization Date Immunization Notes Care Provider Sandeep robertson 07-16-2023 COVID-19 Vaccine Pfizer - Documentation Purposes Only Leilani Archibald Other [facility] 07-16-2023 Flu Shot - Documentation Purposes Only Leilani Archibald Other [facility] 07-14-2022 influenza virus vaccine, split virus (incl. purified surface antigen) Ray Rawls Other [facility] Other 07-14-2022 influenza virus vaccine, unspecified formulation [facility] 08-13-2021 COVID-19 Vaccine Pfizer - Documentation Purposes Only Ray Rawls Other [facility] 01-14-2021 COVID-19, mRNA, LNP- S, PF, 30 mcg/0.3 mL dose; Translations: [Pfizer-BioNTech COVID-19 Vaccine] Ibarra [facility] Comment on above: Reason for Medicatio n: Prophylaxis 12-24-2020 COVID-19, mRNA, LNP- S, PF, 30 mcg/0.3 mL dose; Translations: [Pfizer-BioNTech COVID-19 Vaccine] Ibarra [facility] Comment on above: Reason for Medicatio n: Prophylaxis Payers Date Payer Category Payer Medicare [id number] 2023 [facility] [id number] 1961 Self-pay 1961 Unknown [id number]. [id number] 1958 Unknown [id number] 2.16.84 [id number] 1960 Unknown [id number] 2.16.84 [id number] 1958 Unknown [id number] 2.16.84 [id number] 1958 Unknown [id number] 2.16.84 [id number] 1958 Unknown [id number] 2.16.84 [id number] 1958 Unknown [id number] 2.16.84 [id number] 1960 Unknown [id number] 2.16.84 [id number] Unknown [id number] 2.16.84 [id number] Unknown [id number] 2.16.84 [id number] Social History Date Type Detail Facility Start: 01-03-2022 End: 12-10-2023 Tobacco smoking status Never smoked tobacco (finding) [facility] Tobacco smoking status Never Ad[facility] Sex Assigned At Female [facility] Start: 1960 Sex Assigned At Female Milo [facility] Clinical Notes 02-13-2022 to 08-13-2023 Note Date [...] verbalizes understanding and agreement with treatment plan. [facility] Other 10-20-2023 Evaluation note* Encounter Date Diagnosis [...] verbalizes understanding and agreement with treatment plan. [facility] Other 08-07-2023 Evaluation note* Encounter Date Diagnosis [...] f/u Ortho for Synvisc if needed in Sept [facility] Other 05-31-2023 Evaluation note* Encounter Date Diagnosis Assessment Notes Treatment Notes Treatment Clinical Notes February, Other specified hypothyroidism (ICD-10 - E03.8) February, Autoimmune thyroiditis (ICD-10 - E06.3) [facility] Other 05-05-2023 Evaluation note* Encounter Date Diagnosis Assessment Notes Treatment Notes Treatment Clinical Notes February, Diarrhea of presumed infectious origin (ICD-10 - R19.7) Diet instructions: - avoid juice, milk and tomato sauce - increase bananas, yogurt and cheese February, Nausea (ICD-10 - R11.0) Sip on water and snack every couple hours Zofran as needed. ER for intractable nausea/emesis and dehydration [facility] Other 03-14-2023 Evaluation note* Encounter Date Diagnosis [...] exercise for 30 minutes, 3-5 times weekly. [facility] Other 01-18-2023 Evaluation note* Encounter Date Diagnosis Assessment Notes Treatment Notes Treatment Clinical Notes Oct, Wellness examination (ICD-10 - Z00.00) [facility] Other 05-04-2022 Note [id number]:[id number] 02-13-2022 Hospital Discharge instructions Patient Education 02/13/2022 08:39:02 Colonoscopy, Care After Surgery Salam (CUSTOM) Colonoscopy Care After Surgery Please read the instructions outlined below and refer to this sheet in the next few weeks. These discharge instructions provide you with general information on caring for yourself after you leave the[facility]. Your doctor may also give you specific [...] 06/27/2005 Document Revised: 01/16/2019 Document Reviewed: 01/16/2019 [employer]onf Patient Education 2020 [employer]. Follow Up Care 01/03/2022 10:52:47 With:Stacey WU Address: [address] [place] [address]. [address] [place] [address] Business (1) When: Unknown [facility] No data available for this section [facility] Other Evaluation note* Diagnosis Onset Date Resolution Status JEANE (generalized anxiety disorder) acute Gastroesophageal reflux dise ase with esophagitis without hemorrhage acute Hypercholesteremia acute Hypothyroid acute IFG (impaired fasting glucose) acute Screening mammogram for breast cancer acute [facility] Work Phone: History general Narrative - Reported* Type Description Date [...] SURGERY; LEFT 198 0 Surgical History CHOLECYSTECTOMY 1999 Surgical History GASTROSCOPY 2019 Surgical History COLONOSCOPY 2021 Hospitalization History SEE SURGICAL [facility] Other History general Narrative - Reported* Type Description Date [...] Surgical History CHOLECYSTECTOMY 1998 Surgical History GASTROSCOPY 2019 Surgical History COLONOSCOPY 2021 Hospitalization History SEE SURGICAL [facility] Other Summary Purpose Family History No Family History Records FoundNo Family History Records FoundNo Family History Records Found Advance Directives No Advanced Directives Records Found Advance Directive Response Recorded Date/ Time Advance [...] and content) DATE CREATED AUTHOR 03/11/[address] [employer] [facility] DATE CREATED AUTHOR AUTHOR'S ORGANIZ ATION 03/23/2023 [facility] DATE CREATED AUTHOR AUTHOR'S ORGANIZ ATION 05/24/2024 [facility] EPIC REASON FOR VISIT (unrecogniz ed section and content) BloodworkNo Informationknee painprescription refillWork noteDiarrhea/Vomiting- Work NoteNo InformationMamm resultsrepeat labs6 month Follow upleft ear acheUpdateLEFT EAR ACHERefill Care Teams (unrecognized sec tion and content) Team Status: Active Member Role Status Dates Ray Rawls , DO Primary Care Provider Active Team Status: Active Member Role Status Dates Ray Rawls , DO Primary Care Provide r, Attending Provider Active Start: December 04, 2023 Team Status: Active Member Role Status Dates Ray Rawls , DO Primary Care Provide r, Attending Provider Active Start: December 07, 2023 Team Status: Inactive Member Role Status Dates Ray Rawls , DO Primary Care Provide r, Attending Provider [...] BE BASED ON THE PRIMARY CLINICAL RECORDS. [facility] [employer] [facility]. provides no warranty or guarantee of the accuracy or completeness of information in this document.
[2024-06-02 11:21] LABS: Free T4 1.37 ng/dL (0.76-1.46)
[2024-06-02 11:27] LABS: Thyroid Stimulating Hormone 3.596 uIU/mL (0.358-3.740)
[2024-06-03 11:09] LABS: Triiodothyronine (T3) 90 ng/dL (71-180)
== END 2024-06-02 09:33 | disposition home or self-care (01) ==
LOC: LAB 09:37
PROVIDERS: PCP Internal Medicine; Visit Provider Internal Medicine
DX: E03.8 Other specified hypothyroidism (principal)
CPT/HCPCS: 36415; 84439; 84443; 84480

== ENCOUNTER 2024-10-02 13:54 | Outpatient (OUT) | payer MEDICARE, SELFPAY ==
--- NOTE | 2024-10-02 14:00 | CA_ITS ---
Patient Name: JOSE LLANOS MR#: [id number] : 1960 Exam Date: 10/02/2024 Ordering Doctor: DR Ray Rawls D.O. ECHOCARDIOGRAM REPORT PROCEDURE: CA ECHO DOPPLER COMPLETE INDICATIONS: Palpitations, heart murmur COMPARISON: None. DESCRIPTION: COMPLETE ECHOCARDIOGRAM Real-time transthoracic echocardiography with 2D, M-mode, spectral and color flow Doppler performed. QUALITY: Technical quality was good. LEFT VENTRICLE: Normal chamber size. Normal left ventricular wall thickness. Global left ventricular systolic function is normal. LV EF: Estimated left ventricular ejection fraction is 55%. DIASTOLIC: Normal diastolic function. ATRIAL SEPTUM: LEFT ATRIUM: Normal chamber size. RIGHT ATRIUM: Normal chamber size. RIGHT VENTRICLE: Normal chamber size. Normal right ventricular systolic function. TRICUSPID VALVE: Normal mobility and thickness. No stenosis with trivial regurgitation. No evidence of pulmonary hypertension. RVSP 23 mmHg MITRAL VALVE: Normal mobility and thickness. No evidence of mitral valve stenosis. There is no mitral annular calcification. Trivial mitral regurgitation. AORTIC VALVE: Normal trileaflet appearance. No visible sclerosis. Normal leaflet mobility. No evidence of aortic valve stenosis. No aortic regurgitation. AORTIC ROOT: Normal diameter and appearance. PULMONIC VALVE: Normal thickness and mobility. No stenosis. No regurgitation. PERICARDIUM: Trivial pericardial effusion. IVC: Collapses with inspirations. Normal size. PLEURA: CONCLUSION: 1. Normal left ventricular size and systolic function. LVEF is 55%. 2. Normal right ventricular size and systolic function. 3. Normal diastolic function. 4. No significant valvular dysfunction. 5. Normal right-sided pressures. 6. Trivial pericardial effusion. Adult Echocardiography Procedure Report Left Ventricle LVEDD (3.7 - 5.6 cm): 4.17 cm LVESD (2.2 - 4.0 cm): 2.58 cm LVIVS thickness (0.6 - 1.2 cm): 0.91 cm LVPW thickness (0.5 - 1.0 cm): 1.05 cm e': 0.11 m/s E - e': 4.81 LVOT Max Gradient: 3.96 mm[Hg] LVOT Area (cm2): 1.00 m/s Peak Velocity (LVOT): 1.00 m/s Mean Velocity (LVOT): 0.70 m/s LVOT Diameter 2.02 cm Left Ventricular Ejection Fraction: 55 % Left Atrium LA Volume Index (2D A2C): 26.62 ml/m2 Left Atrium Systolic Dimension: 2.87 cm Mitral Valve MV E to A Ratio: 0.70 Mitral Valve A-Wave Peak Velocity: 0.79 m/s Mitral Valve E-Wave Peak Velocity: 0.55 m/s Right Ventricle RV Internal Diastolic Dimension: 3.20 cm Aorta AO Root Diam: 2.94 cm Ascending Ao Diam: 2.68 cm Aortic Valve AoV Area (Peak Advid): 2.22 cm2, 2.22 cm2 AoV Area (VTI): 2.05 cm2, 2.05 cm2 Peak Velocity(Antegrade Flow): 1.44 m/s Peak Gradient(Antegrade Flow): 8.30 mm[Hg] Mean Velocity(Antegrade Flow): 0.97 m/s Mean Gradient(Antegrade Flow): 4.30 mm[Hg] Velocity Time Integral: 33.14 cm Tricuspid Valve Peak Velocity (Regurgitant Flow): 2.22 m/s Pulmonic Valve Mean Gradient: 1.82 mm[Hg], 2.05 mm[Hg] Mean Velocity: 0.62 m/s, 0.67 m/s Peak Velocity: 0.97 m/s Peak Gradient: 3.73 mm[Hg], 3.73 mm[Hg] Right Atrium Right Atrium Systolic Pressure: 44.85 ml, 44.85 ml Dictated by: Erasmo Saleem M.D. on 10/02/2024 at 21:10 Approved by: Erasmo Saleem M.D. on 10/02/2024 at 21:12
--- OUTSIDE RECORDS SUMMARY | 2024-10-02 14:17 | XMS_ITS | CCD ---
Author Organization [facility] Inform ion Partnership [facility] Care Team Providers Care Layout Mechanic Name Role Phone RAY RAWLS Primary Care Physician Joanne, Ray Robert JOANNE, DR BATRES Primary Care Unavailable JOANNE, DR BATRES Admitting Unavailable JOANNE, DR BATRES Attending Unavailable BALL, DR BATRES Consulting Unavailable WEST, DR REGINA Gandhi Consulting Unavailable JOANNE, DR BATRES Primary Care Unavailable REQUEST, DR TIM LISTED Admitting Unavaila ble REQUEST, DR TIM LISTED Attending Unavaila ble REQUEST, DR TIM LISTED Consulting Unavaila ble JOANNE, DR BATRES Primary Care Unavailable REQUEST, DR [...] DR BATRES Attending Unavailable Leilani Archibald Unavailable ROSALIND MCLAUGHLIN Attending Unavailable CLIFF SERRANO Referring Unavailable CLIFF SERRANO Attending Unavailable SHAISTA, FUNMILAYO Villarreal Attending Unavailable SHAISTA, FUNMILAYO Villarreal Attending Unavailable SHAISTA, FUNMILAYO Villarreal Attending Unavailable SHAISTA, FUNMILAYO Villarreal Attending Unavailable Ray Rawls MD Primary Care Provider Allergies Allergy Classification Reported Allergen(s) Allergy Type Date of Onset Reaction(s) Facility (12 sources) Diclofenac; Translations: [diclofenac] Drug Allergy 4 Unknown (qualifier value), Itching, Unknown [facility] (1 source) Egg Drug allergy Nausea and vomiting (disorder) [facility] (1 source) influenza A virus A/[place]/GP1 908 (H1N1) antigen / influenza A virus A/[place]/GP2 050/2014 (H3N2) antigen / influenza B virus B/[place] antigen / influenza B virus B/ antigen; Translations: [influenza virus vaccine] Drug Allergy Dyspnea (finding) [facility] (9 sources) Eggs/Apples/Oat s Drug allergy Unknown [facility] Other (6 sources) Diclofenac Potassium *ANALGESICS - ANTI-INFLAMMATO Propensity to adverse reactions Unknown [facility] Other (6 sources) Eggs/Apples/Oat s *DIETARY PRODUCTS/DIETAR Y MANAGEM Propensity to adverse reactions 9 Comment:Allerg y to eggs and cranberries- Reaction unknown [facility] Other (2 sources) Diclofenac Potassium *ANALGESI Allergy to substance 4 [facility] (2 sources) Eggs/Apples/Oat s *DIETARY PROD Allergy to substance 4 Comment:Allerg y to eggs and cranberries- Reaction unknown [facility] (2 sources) Cranberry Allergy to substance 1 Anaphylaxis [facility] (2 sources) Haemophilus influenzae type b Drug Allergy 4 Shortness of breath [facility] (2 sources) Non-steroidal anti-inflammato ry agent Drug Allergy 4 Unknown [facility] Medications Current Medications Medication Drug Class(es) Dates Sig (Normalized) Sig (Original) acetaminophen 325 mg oral tablet (3 sources) Start: 06-09-2024 take 1 tablet by mouth every six hours Acetaminophen (Tylenol) 325 mg tablet Active 325 MG PO Every 6 hours June 09, 2024 12:00am acetaminophen (T ylenol) 500 MG tablet Take by mouth Active acetaminophen 325 mg / HYDROcodone bitartrate 5 mg oral tablet (16 sources) Opioid Agonist Start: 06-09-2024 take 1 tablet by mouth twice daily as needed for pain HYDROcodone-acetaminophen ([place]) 5-325 MG tablet TAKE 1 TABLET BY MOUTH TWICE A DAY NEEDED FOR PAIN FOR 14 DAYS 06/09/2024 Active Start: 12-06-2023 End: 06-09-2024 take 1 tablet by mouth every six hours Hydrocodone-Acetaminophen Discontinued 1 TAB PO Every 6 hours December 06, 2023 1:00am June 09, 2024 9:04am Start: 12-26-2022 take 1 tablet by tala th every six hours HYDROcodone-Acetaminophen 5-325 MG 1 tab let as needed Orally every 6 hrs for 7 days Dec, Active Albuterol Sulfate (Ventolin Hfa) 90 mcg/actuation HFA aerosol inhaler (1 source) Start: 02-18-2024 take 1 puff(s) by inhalation every four hours Albuterol Sulfate (Ventolin Hfa) 90 mcg/actuation HFA aerosol inhaler Active 2 PUFF INHALATION Every 4 hours 6.7 February 18, 2024 1:28pm amoxicillin 875 mg / clavulanate 125 mg oral tablet (2 sources) Penicillin-class Antibacterial Start: 08-13-2023 take 1 tablet by mouth every twelve hours Amoxicillin-Pot Clavulanate 875-125 MG 1 tablet Orally every 12 hrs for 10 days Jul, Active levothyroxine sodium 0.075 mg oral tablet (19 sources) l-Thyroxine Start: 04-22-2024 take 1 tablet by mouth once daily levothyroxine (Synthroid, Levoxyl) 75 MCG tablet Take 75 mcg by mouth Daily 04/22/2024 Active Start: 12-10-2023 End: 01-24-2024 take 75 ug by mouth once daily Levothyroxine Active 75 MCG PO Daily 90 90 January 24, 2024 8:44pm Start: 12-06-2023 End: 12-10-2023 take 50 ug by mouth once daily Levothyroxine Discontin ued 50 MCG PO Daily December 06, 2023 3:14pm December 10, 2023 10:24am Start: 12-06-2023 End: 12-10-2023 take 50 ug by mouth once daily Levothyroxine Discontin ued 50 MCG PO Daily December 06, 2023 1:00am December 10, 2023 10:24am Start: 12-04-2023 End: 12-06-2023 take 75 ug by mouth once daily Levothyroxine Discontin ued 75 MCG PO Daily December 04, 2023 1:00am December 06, 2023 3:14pm Start: 03-14-2023 take 1 tablet by tala [...] days Active montelukast 10 mg oral tablet (20 sources) Leukotriene Receptor Antagonist Start: 06-09-2024 take 10 mg by mouth once daily Montelukast Active 10 MG PO Daily June 09, 2024 9:03am Start: 05-15-2024 End: 06-09-2024 take 1 tablet by mouth once daily Montelukast Discontinued 0 .ROUTE .COMPLEX 90 May 15, 2024 8:51am June 09, 2024 9:04am TAKE 1 TABLET BY MOUTH EVERY DAY Start: 2022 End: 05-15-2024 take 10 mg by mouth once daily Montelukast Discontinue d 10 MG PO Daily December 06, 2023 1:00am May 15, 2024 8:51am Multi (1 source) Start: 06-09-2024 Multi Active P O June 09, 2024 12:00am omeprazole 20 mg delayed release oral tablet (19 sources) Proton Pump Inhibitor Start: 06-09-2024 take 20 mg by mouth once daily Omeprazole Active 20 MG PO Daily June 09, 2024 12:00am Start: 12-06-2023 End: 06-09-2024 take 40 mg by mouth once daily Omeprazole Discontinued 40 MG PO Daily December 06, 2023 1:00am June 09, 2024 9:03am take 1 capsule by [facility] before mealtime omeprazole (PriLOSEC) [address] capsule Take 10 mg by mouth in the morning. Take before meals. Do not crush or chew.. Active take 1 capsule by mo ut once daily Omeprazole 40 MG 1 capsule 30 minutes [...] Drug Class(es) Dates Sig (Normalized) Sig (Original) [id number] 200 actuat albuterol 0.09 mg/actuat metered dose inhaler (18 sources) beta2-Adrenergic Agonist Start: 12-06-2023 End: 02-18-2024 take 1 puff(s) by inhalation every four hours Albuterol Sulfate (Ventolin Hfa) 90 mcg/actuation HFA aerosol inhaler Discontinued 2 PUFF INHALATION Every 4 hours December 06, 2023 1:00am February 18, 2024 1:29pm take 2 puff(s) by in halation every four hours as needed albuterol HFA 90 mcg/act inhaler INHALE 2 PUFFS EVERY 4 HOURS NEEDED FOR WHEEZE OR FOR SHORTNESS OF BREATH Active take 2 puff(s) by in halation every four hours as needed for cough Ventolin HFA 108 (90 Base) MCG/ACT 2 puffs Inhalation every 4 hrs as needed for cough or dyspnea for 90 days Active escitalopram 10 mg oral tablet (17 sources) Serotonin Reuptake Inhibitor Start: 12-06-2023 End: 12-10-2023 take 10 mg by mouth once daily Escitalopram Oxalate Discontinued 10 MG PO Daily December 06, 2023 1:00am December 10, 2023 10:26am Start: 2022 take 1 tablet by tala th once daily escitalopram 10 mg Tab 10 mg = 1 tab(s), Oral, Daily, Refills(s) 0, Depression Start Date: 01/02/22 Status: Ordered Fluticasone Propion-Salmeterol (7 sources) Corticosteroid, beta2-Adrenergic Agonist Start: 12-06-2023 End: 12-10-2023 take 1 puff(s) by inhalation twice daily Fluticasone Propion-Salmeterol (Advair Hfa) 115-21 mcg/actuation HFA aerosol inhaler Discontinued 2 PUFF INHALATION Twice daily December 06, 2023 1:00am December 10, 2023 10:26am Start: 12-06-2023 End: 12-10-2023 take 1 puff(s) by inhalation twice daily Fluticasone Propion-Salmeterol (Advair Hfa) 115-21 mcg/actuation HFA aerosol inhaler Discontinued 2 PUFF INHALATION Twice daily December 06, 2023 12:00am December 10, 2023 9:26am Start: 05-21-2023 take 2 puff(s) by in halation twice daily Advair HFA 115-21 MCG/ACT 2 puffs Inhalation Twice a day for 30 days May, Active 2 ml sodium hyaluronate 8.4 mg/ml prefilled syringe (4 sources) Start: 07-01-2024 End: 07-01-2024 sodium hyaluronate (Gelsyn-3 ) injection 2 mL Start: 07-01-2024 End: 07-01-2024 2 mL, Intra-articular, Once PRN Procedure, Starting on Sun07/01/24 at 1032, For 1 dose methylPREDNISolone 4 mg oral tablet (5 sources) Corticosteroid Start: 12-06-2023 End: 12-10-2023 take 4 mg by mouth once daily Methylprednisolone Discontinued 4 MG PO Daily December 06, 2023 1:00am December 10, 2023 10:25am Start: 08-09-2023 methylPREDNISo lone 4 MG as directed Orally daily for 6 days Jul, Active ondansetron 4 mg disintegrating oral tablet (12 sources) Serotonin-3 Receptor Antagonist Start: 12-06-2023 End: 12-10-2023 take 4 mg by mouth every six hours Ondansetron Discontinued 4 MG PO Every 6 hours December 06, 2023 1:00am December 10, 2023 10:25am Start: 02-16-2023 Ondansetron 4 MG 1 tablet [...] urticaria; Translations: [Idiopathic urticaria] Episodic Anxiety disorders (19 sources) Generalized anxiety disorder; Translations: [Generalized anxiety disorder] 12-08-2023 Chronic Asthma (20 sources) Mild intermittent asthma; Translations: [Mild intermittent asthma, uncomplicated] Resolved: 12-04-2021 Chronic Diabetes mellitus without complication (9 sources) Diabetes mellitus without complication; Translations: [Type 2 diabetes mellitus without complications] Chronic Diabetes mellitus without complication (19 sources) Impaired fasting glycemia; Translations: [Impaired fasting glucose] Episodic Disorders of lipid metabolism (4 sources) Hypercholesterolemia ; Translations: [Pure hypercholesterolemia , unspecified] 11-29-2023 Chronic Esophageal disorders (9 sources) Gastro-esophageal reflux disease with esophagitis; Translations: [...] nutritional; endocrine; and metabolic disorders (2 sources) Obesity; Translations: [Obesity, unspecified] Resolved: 04-13-2022 12-10-2023 Chronic Other nutritional; endocrine; and metabolic disorders (5 sources) Body mass index 40+ - severely obese; Translations: [Body mass index (BMI) 40.0-44.9, adult] Chronic Other nutritional; endocrine; and metabolic disorders (5 sources) Severe obesity; Translations: [Morbid (severe) obesity due to excess calories] Chronic Other nutritional; endocrine; and metabolic disorders (1 source) Body mass index (BMI) 40.0-44.9, adult Chronic Other nutritional; endocrine; and metabolic disorders (1 source) Obesity, unspecified; Translations: [Obesity, unspecified] 06-09-2024 Chronic Other screening for suspected conditions (not [...] [Pain in left leg] Resolved: 04-13-2021 Episodic Unclassified (1 source) Exposure to acute respiratory syndrome coronavirus 2; Translations: [Contact with and (suspected) exposure to COVID-19] Resolved: 07-20-2020 Results Test Name Value Interpretation Reference Range Facility L Inj/Asp: bilateral kneeon 07-01-2024 Funmilayo Mireille Shaista, DO 07/01/2024 1:40 PM L Inj/Asp: bilateral knee on 07/01/2024 10:32 AM Details: 22 G needle Medications (Right): 2 mL sodium hyaluronate 16.8 MG/2ML Medications (Left): 2 mL sodium hyaluronate 16.8 MG/2ML [facility] - Chemistry and C hemistry - challengeon 06-02-2024 Free T4 [Mass/Vol] 1.37 ng/dL 0.76-1.46 [facility] TSH Qn 3.596 m[IU]/L 0.358-3.740 [facility] No Panel Informationon 06-02 Total Triiodothyronine 90 ng/dL 71-180 [facility] Comment on above: Performed at: [address] [id number] Director: Dylan eKller PhD, Phone: [phone] Glucose mean value [Mass/vol ume] in Blood Estimated from glycated hemoglobinon 12-07-2023 Average glucose Estimated from glycated hemoglobin (Bld) [Mass/Vol] 117 mg/dL [facility] Laboratory - Hematology and Cell countson 12-07-2023 HbA1c (Bld) [Mass fraction] 5.7 % 4.5-6.2 [facility] Comment on above: ADA RECOMMENDED LIMI T 4.0 - 6.0ADA THERAPEUTIC TARGET < 7.0ACTION SUGGESTED> 7.0 Basophils Auto (Bld) [#/Vol] on 12-04-2023 Basophils (Bld) [#/Vol] 0.0 10 3/uL 0.0-0.1 [facility] Basophils/100 WBC Auto (Bld) on 12-04-2023 Basophils/100 WBC (Bld) 0.7 % 0.2-2.0 [facility] Cholesterol in LDL Calc [Mas s/Vol]on 12-04-2023 Cholesterol in LDL [Mass/Vol] 105.8 mg/dL [facility] Comment on above: <100 mg/dl [id number] 0-129 mg/dl NEAR OR ABOVE [id number] mg/dl BORDERLINE [id number] mg/dl HIGH>190 mg/dl VERY HIGH Cholesterol in VLDL Calc [Ma ss/Vol]on 12-04-2023 Cholesterol in VLDL [Mass/Vol] 27.2 mg/dL [facility] Eosinophils/100 WBC Auto (Bl d)on 12-04-2023 Eosinophils/100 WBC (Bld) 5.8 % 0.9-7.0 [facility] Erythrocyte distribution wid th Auto (RBC) [Ratio]on 12-04-2023 Erythrocyte distribution width (RBC) [Ratio] 13.5 % 11.0-15.0 [facility] Estimated glomerular filtrat ion rate (GFR) non- Americanon 12-04-2023 GFR/1.73 sq M.predicted among non-blacks MDRD (S/P/Bld) [Vol rate/Area] mL/min/{1.73_m2} >=60 [facility] Globulin Calc (S) [Mass/Vol] on 12-04-2023 Globulin (S) [Mass/Vol] 3.9 g/dL [facility] Hematocrit Auto (Bld) [Volum e fraction]on 12-04-2023 Hematocrit (Bld) [Volume fraction] 38.5 % 36.0-48.0 [facility] Hemoglobin [Mass/volume] in Bloodon 12-04-2023 Hemoglobin (Bld) [Mass/Vol] 12.2 g/dL 12.0-16.0 [facility] Laboratory - Chemistry and C hemistry - challengeon 12-04-2023 Albumin [Mass/Vol] 3.4 g/dL 3.4-5.0 [facility] ALP [Catalytic activity/Vol] 87 U/L 46-116 [facility] ALT [Catalytic activity/Vol] 27 U/L 14-59 [facility] AST [Catalytic activity/Vol] 23 U/L 15-37 [facility] Bilirubin [Mass/Vol] 0.3 mg/dL 0.2-1.0 [facility] Calcium [Mass/Vol] 9.1 mg/dL 8.5-10.1 [facility] Chloride [Moles/Vol] 100 mmol/L 98-107 [facility] Cholesterol [Mass/Vol] 185 mg/dL <=200 [facility] Cholesterol in HDL [Mass/Vol] 52 mg/dL 40-60 [facility] Comment on above: > or =60 mg/dl - LOW CARDIOVASCULAR RISK<40 mg/dl - HIGH CARDIOVASCULAR RISK CO2 [Moles/Vol] 28.8 mmol/L 21.0-32.0 [facility] Creatinine [Mass/Vol] 0.91 mg/dL 0.55-1.02 [facility] GFR/1.73 sq M.predicted MDRD (S/P/Bld) [Vol rate/Area] mL/min/{1.73_m2} >=60 [facility] Glucose [Mass/Vol] 109 mg/dL 74-106 [facility] Potassium [Moles/Vol] 4.2 mmol/L 3.5-5.1 [facility] Protein [Mass/Vol] 7.3 g/dL 6.4-8.2 [facility] Sodium [Moles/Vol] 136 mmol/L 136-145 [facility] Triglyceride [Mass/Vol] 136 mg/dL <=150 [facility] TSH Qn 6.476 m[IU]/L 0.358-3.740 [facility] Urea nitrogen [Mass/Vol] 16.0 mg/dL 7.0-18.0 [facility] Urea nitrogen/Creatinine [Mass ratio] 17.6 mg/mg [facility] Laboratory - Hematology and Cell countson 12-04-2023 Immature granulocytes/100 WBC (Bld) 0.2 % 0.0-0.5 [facility] Leukocytes [#/volume] correc mart for nucleated erythrocytes in Blood by Automated counon 12-04-2023 WBC corrected for nucl RBC Auto (Bld) [#/Vol] 5.5 10 3/uL 4.0-11.0 [facility] Lymphocytes Auto (Bld) [#/Vo l]on 12-04-2023 Lymphocytes (Bld) [#/Vol] 2.1 10 3/uL 1.2-3.8 [facility] Lymphocytes/100 WBC Auto (Bl d)on 12-04-2023 Lymphocytes/100 WBC (Bld) 37.9 % 20.5-60.0 [facility] MCH Auto (RBC) [Entitic mass ]on 12-04-2023 MCH (RBC) [Entitic mass] 28.8 pg 26.7-34.0 [facility] MCHC Auto (RBC) [Mass/Vol]on 12-04-2023 MCHC (RBC) [Mass/Vol] 31.7 g/dL 29.9-35.2 [facility] MCV Auto (RBC) [Entitic vol] on 12-04-2023 MCV (RBC) [Entitic vol] 91.0 fL 81.0-99.0 [facility] Monocytes Auto (Bld) [#/Vol] on 12-04-2023 Monocytes (Bld) [#/Vol] 0.4 10 3/uL 0.3-0.8 [facility] Monocytes/100 WBC Auto (Bld) on 12-04-2023 Monocytes/100 WBC (Bld) 7.4 % 1.7-12.0 [facility] Neutrophils Auto (Bld) [#/Vo l]on 12-04-2023 Neutrophils (Bld) [#/Vol] 2.7 10 3/uL 1.4-6.5 [facility] Neutrophils/100 WBC Auto (Bl d)on 12-04-2023 Neutrophils/100 WBC (Bld) 48.0 % 43.0-75.0 [facility] No Panel Informationon 02-20 -2024 Eosinophils # (Auto) 0.3 10 3/uL 0.0-0.7 [facility] Immature Granulocyte # (Auto) 0.01 10 3/uL 0.00-0.03 [facility] Platelet mean volume Auto (B ld) [Entitic vol]on 12-04-2023 Platelet mean volume (Bld) [Entitic vol] 10.0 fL 9.5-13.5 [facility] Platelets Auto (Bld) [#/Vol] on 12-04-2023 Platelets (Bld) [#/Vol] 310 10 3/uL 150-450 [facility] RBC Auto (Bld) [#/Vol]on RBC (Bld) [#/Vol] 4.23 10 6/uL 4.20-5.[address] [facility] Serum or plasma albumin/glob ulin mass ratioon 12-04-2023 Albumin/Globulin [Mass ratio] 0.9 {ratio} [facility] Serum or plasma anion gap de terminationon 12-04-2023 Anion gap [Moles/Vol] 11.4 mmol/L [facility] Serum or plasma total choles terol/high density lipoprotein (HDL) cholesterol mass thomas 12-04-2023 Cholesterol.total/Ch olesterol in HDL [Mass ratio] 3.6 {ratio} [facility] Comment on above: 3.3 - 4.4 LOW RISK4. 4 - 7.1 AVERAGE RISK7.1 - 11.0 MODERATE RISK>11.0 HIGH RISK DANO - TSHon 03-14-2023 TSH 5.980 uIU/mL Critically high 0.358-3.740 [facility] Comment on above: Performed By: #### D ATTSH #### [facility] [address] [place] [address] Dr. Yadira Jo TSH RANGE SEE BELOW Normal [facility] Comment on above: Result Comment: <0.3 4 UIU/ml HYPERTHYROID 0.34-5.60 UIU/ml EUTHYROID >5.60 UIU/ml HYPOTHYROID Performed By: #### D ATTSH #### [facility] [address] [address] [address] Yadira Jo GLUCOSE BLOODon 11-13-2022 Glucose [Mass/Vol] 101 mg/dL Normal 74-106 [facility] Comment on above: Performed By: #### L IPID, GLUC #### [facility] [address] [address] [address] Yadira Jo GLYCOHEMOGLOBIN A1Con 2022 ADA RECOMMENDATION SEE BELOW Normal [facility] Comment on above: Result Comment: ADA RECOMMENDED LIMIT 4.0 - 6.0 ADA THERAPEUTIC TARGET < 7.0 ACTION SUGGESTED > 7.0 Performed By: #### A 1C #### [facility] [address] [address] [address] Yadira Jo Glucose [Mass/Vol] 111 mg/dL Normal [facility] Comment on above: Performed By: #### A 1C #### [facility] [address] [place] [address] Dr. Yadira Jo HbA1c (Bld) [Mass fraction] 5.5 % Normal 4.5-6.2 [facility] Comment on above: Performed By: #### A 1C #### [facility] [address] [place] [address] Dr. Yadira Jo LIPID PROFILEon 11-13-2022 CHOL-HDL RATIO NORM SEE BELOW Normal [facility] Comment on above: Result Comment: 3.3 - 4.4 LOW RISK 4.4 - 7.1 AVERAGE RISK 7.1 - 11.0 MODERATE RISK >11.0 HIGH RISK Performed By: #### L IPID, GLUC #### [facility] [address] [place] [address] Dr. Yadira Jo Cholesterol [Mass/Vol] 184 mg/dL Normal <=200 [facility] Comment on above: Performed By: #### L IPID, GLUC #### [facility] [address] [place] [address] Dr. Yadira Jo Cholesterol in HDL [Mass/Vol] 56 mg/dL Normal 40-60 [facility] Comment on above: Performed By: #### L IPID, GLUC #### [facility] [address] [place] [address] Dr. Yadira Jo Cholesterol in LDL [Mass/Vol] 111.2 mg/dL Normal [facility] Comment on above: Performed By: #### L IPID, GLUC #### [facility] [address] [address] [address] Yadira Jo Cholesterol.total/Ch olesterol in HDL [Mass ratio] 3.3 {ratio} Normal [facility] Comment on above: Performed By: #### L IPID, GLUC #### [facility] [address] [address] [address] Yadira Jo HDL NORMAL > or = 60 mg/dl - LO W CARDIOVASCULAR RISK <40 mg/dl - HIGH CARDIOVASCULAR RISK Normal [facility] Comment on above: Performed By: #### L IPID, GLUC #### [facility] [address] [place] [address] Dr. Yadira Jo LDL CALC NORMAL SEE BELOW Normal [facility] Comment on above: Result Comment: <100 mg/dl OPTIMAL 100 - 129 mg/dl NEAR OR ABOVE OPTIMAL 130 - 159 mg/dl BORDERLINE HIGH 160 - 189 mg/dl HIGH >190 mg/dl VERY HIGH Performed By: #### L IPID, GLUC #### [facility] [address] [address] [address] Yadira Jo Triglyceride [Mass/Vol] 84 mg/dL Normal <=150 [facility] Comment on above: Performed By: #### L IPID, GLUC #### [facility] [address] [address] [address] Yadira Jo VLDL CALC 16.8 mg/dL Normal [facility] Comment on above: Performed By: #### L IPID, GLUC #### [facility] [address] [address] [address] Yadira Jo DANO - TSHon 06-08-2022 TSH 4.673 uIU/mL Critically high 0.358-3.740 [facility] Comment on above: Performed By: #### D ATTSH #### [facility] [address] [place] [address] Dr. Yadira Jo TSH RANGE SEE BELOW Normal [facility] Comment on above: Result Comment: <0.3 4 UIU/ml HYPERTHYROID 0.34-5.60 UIU/ml EUTHYROID >5.60 UIU/ml HYPOTHYROID Performed By: #### D ATTSH #### [facility] [address] [address] [address] Yadira Jo TSHon 04-27-2022 TSH 4.399 uIU/mL Critically high 0.358-3.740 [facility] Comment on above: Performed By: #### T SH #### [facility] [address] [address] [address] Yadira Jo MG MAMM SCREEN 3D OSKAR CADon 04-13-2022 MG MAMM SCREEN 3D OSKAR CAD Patient: YADIRA LLANOS Exam Date: 04/13/2022 : 1960 Gender:F Ordering : DR RAY RAWLS D.O. Admission #: [id number] Family : Order #: [id number] CLICK HERE TO VIEW EXAM RADIOLOGY REPORT PROCEDURE: MAMMOGRAM SCREENING 3D BILATERAL CAD COMPARISON: None. INDICATIONS: Screening mammography Calculator Name NCI Breast Cancer Risk Assessment Tool 5 Year Breast Cancer Risk 1.80% Lifetime Breast Cancer Risk 7.20% Personal Breast Cancer No Personal Ovarian Cancer No Treatments None Family Cancers None LOCATION: [facility] BREAST COMPOSITION: Scattered areas fibroglandular density. [...] Hendrickson MD on 04/13/2022 at 12:32 Normal [facility] Reminderson 03-10-2022 Reminders - From: Chantelle Sanches CNP To: Eugenie Good; Sent: 03/02/2022 08:28:24 EDT Show up: 03/02/2022 08:29:00 EDT Subject: Ambulatory Reminder Reminder/Recall Colonoscopy in 5 years (2026). Mj [facility] Ambulatory Visit Summaryon 0 03-02-2022 Ambulatory [...] Eat (more content not included)... Normal [facility] Gastroenterology Office/Clin ic Noteon 03-02-2022 Gastroenterology [...] mRNA BNT-162b2 vax 12/24/2020 Given Prophylaxis Normal [facility] Comment on above: Result Comment: Elec tronically Signed By: Chantelle Sanches CNP\.tammy\Date and Time Signed: 03/02/22 08:34 EDT Patient [...] 06/27/2005 Document Revised: 01/16/2019 Document Reviewed: 01/16/2019 Elsevier Patient Education ? 2019 [employer] [facility] Progress Note-Physicianon Progress Note-Physician Patient: YADIRA LLANOS [...] Change in bowel habits / SNOMED CT 730438637 / Confirmed Chronic reflux esophagitis / SNOMED CT 283195510 / Confirmed Chronic venous insufficiency / SNOMED CT 27448781 / Confirmed Positive colorectal cancer screening using Cologuard test / SNOMED CT 1733173379 / Confirmed Physical Examination Vital Signs 02/13/2022 [...] Discharge: Condition stable. Normal [facility] Comment on above: Result Comment: Elec [...] Change in bowel habits / SNOMED CT 760473782 / Confirmed Chronic reflux esophagitis / SNOMED CT 539763664 / Confirmed Chronic venous insufficiency / SNOMED CT 65161361 / Confirmed Positive colorectal cancer screening using Cologuard test / SNOMED CT 8419087186 / Confirmed Histories Past Medical History: No [...] Cardiovascular: Regular rhythm. Neurologic: Alert, Oriented. Plan [place] [employer] (ASA) physical status classification: Class III. Anesthetic Preoperative Plan Anesthesia: General. . Anesthetic plan, risks, benefits, and alternatives discussed with the patient and/or family. Communication: face to face with (patient 5 minutes, Patient educated on smoking cesstation). Normal [facility] Comment on above: Result Comment: Elec tronically Signed By: Catarino Valle DO, Talon Ace\.br\Date and Time Signed: 02/28/22 08:51 EDT IntraOperative Documentson 0 02-23-2022 IntraOperative Documents [id number]# 1.00CD:[address] [facility] Coding Summary.on 02-15-2022 Coding Summary. CD:[id number] G h0bWw+PGhlYWQ+VB6OXNK jU56bmTLetF8QZ7cAMI9H THJWJQXYDM9ZYT3ynUA9D FwuV6AbxeYh CabyhQMvAB67HQl9NJA2t UluAWmrqU1fjFTkM4n4Yi JdAP81hL35BGsbXDShOkI 3LjZpbjsgbWFy B8xqGlOusEObQmb+PHRhY mxlIHdpZHRoPScxMDAlJy KrfJflTE6tCd9fTMWwZXX vbGxhcHNlOiBj m5qjCZDnZNvlLN6jaGieT 0VpyRJ9ILAkc1z4Az81pR I+HOQoXAC4vZmzZSltz37 6WiZkf5qnRRZ7 vZNuKFhmATV7A30kl5U9W ZAyCELxJDF5tJU8bY5exX cslnsrW5JcnCAjCvE0BRX 3mFRppT6vwYtf wyoekJ4aYzx+R43CAS8TF FGRZQ1PBqk8V7YuWhoqbA I+IE48CHVzRE71cVWvyGU oh2ppuPg8OrNt DHSrOIZ1qHufJYfae1NmV MPfE72mnSPpx9Y5XFThpW sxnDJgOkFfsVG0xQ6hGTa rnoazy7waqmti Jwjxy4vfnt95dH88I73oO FcoGMTpMYY4TTDzOEWxjD pssj5lbY7rEd8+PZqsm0v sy2scfFd4MmWx ZIYxldFocZexHRG3d7SuX p82R5FfaUuzz2GtMgw9pm 22pAAot2W2yHQ9GZxiJEK mkM7sCNdwHnM1 DHKzKzFyrB14fWVbXOnsF v3jbOdccHwvWT9uDFYqbn itTEPesY6zUDBxjSMvaTk ePR3cPHLjnhyx w347QrJfAVP6SMTurYPiQ 7JrhK7dXbXnCHZiLLIkG9 FmsYZjHAnwB510LSvjAoX 3GREdwfBtC8Mn ERRnySxgUkB9h2E4Nz1Oy 9NkdzmlMHT1XCumVQW7Zh R7DjKaToO2L0InWvd3GVE pgQsxFX0qL7Aa UMLkcxbcyccjpOK8EFEeC WLrjW32aXKaKOdySx6yo1 F7m269UQQwGRBveD18Bp0 udDogMTBwdCBU eP6ftvnsr7zrzvtuDgXwW QAyLVl0OVt5YIZhbLiiLg XfIDN3VtY9OMT8hQVatU7 avWdyfsxphU5q Oyc+N49anY1eIZK9LMT5t fxoTGSxsxRqFP92SZ11Y4 RyPjwvdGFibGU+PGRpdiB nkHvrYF3iRvHt b6mzj9GiQLdaZ9VfDIVkS OqzVgh9EIHuJFO3lDL1uL 3cIVRsROela2E0eXO5K5E gjqNnxm6os1pw KGHsQPkbK11qvBZvf5E7J UDwgCF5YASddPofFlQrvS 93Oyc+QCSikGimg5JzHea er5cbn9zvaXk8 PkYrASSzbfXorBkiWUB9a 1QdDh10U10yETrdFBCbUZ SyGRPjVYCpeAdgwo9qnP5 wIi8+PGNvbCB3 nMR7rV7sIPJhJiJ3TBxlP 002XpEaiDYwEwvxe9rtv4 fnxCe1IfGsWDVibhRkfIt iIXE1u6VqQn52 D48dIZyzRXYmSONaIGYzY ZYgdDuuss3slQ4eYo1+PC 1pp6qhbb50mU63pXG+PHR oIKV9qDcmSHjr LCLedU8fANaaJoO4CNMuZ bAvxQ48jRKgSUbuIe6kjK hiqWutCY2wOPUlqodxx84 9DmGsd5wtUCGc sQTjPIxcRYT7A33rv7V4Z ESkUEPrOJS1iBM2kV2hwV lnbjogbGVmdDsgdmVydGl rAZwjXZtkH690 IHRvcDsnPlBhdGllbnQgT lXqNYr2Y4OyBbi0QJQfpT psQS4dvKYrEBgbIy3auUs beBxzJD6eRAQw cwifs080DfVrq9sxOTLml NAgTNwrLZT3R09sc5S5YN XzGLYwVJC2lXS1nZ1iqZc nbjogbGVmdDsg kkYymWlcCThgWOxuC817Y HRvcDsnPkJpcnRoIERhdG O4MA44OX63qPFvy4W6bVV 5G0KrDHDuwhkt irejfYN2QLHmZNTtmC34Z g1whZyfOr2yMWXoBKP0AI QlyYIdX1RoqW2wWuLpIQB cABZiA7HqgBPt FYmtH373XEwnOyE7SZYob sAdL1IxASXgbHhhRnH7g4 D5Ns1HS0F6FB15GV41xSX pz4Q8yOA6Z8Ie RWIaatowxnsuzZC8XUWiL TEbeB22Xk4ggUrpTs9rYN WaQJN9IAPxjRGnV5FyuF5 yOiAjMDAwMDAw O4GdmHOrEVqgA903UGawU pR2FFWtegAsR7ZeTKMmnY bxBlE7g7O0Xn2WTFq7SX6 6AC14xYNqa9X2 dJO8M3FuTRGquhcxvzeur CC7ZFUnUEOajP81Wp9rrP zgSe6gIQWaOZA6TIGrvBG kN9AtfS2bEtPr GDWyACKfF6CzkEOkCGlmJ 697CLclPdY5BNGnqdKvI5 DpHWMcoRdbEgC3m7T5Je9 MKJEpKY20DME1 wZQ4TP27WY11A5MdTcuok GFibGU+PHRhYmxlIHdpZH RoPScxMDAlJyBzdHlsZT0 jRv7aOQXrBLHz mOwymDMuPcLgc7rvHCQmB PwyKC1bfRjwB7UrpJN6GQ Hod8z8Wr26Y58hS6KcuNX +LEQlwBH7gSR3 tB3hBfMrKqB3AJnpY723Q eLpnKRuWqjpp9ogo4rzyU t7TeJ6IUCdlyIodOhtDPH 3i4KeUi90F24y IHdpZHRoPSIxNSUiIHZhb Qverz5jsT7mXt2+PGNvbC X5rCC0dH7bImWfUsQ8XMj nL210LvCnnNLj Zlojn5eqp9vyjBc9UoWpB VPgvbFnfHpfPSU8t5SdOh 18U2LqtAfsc5SzSrx3kq3 9oBMql0Q6vMI1 N5MnRQOyzswwcRCvyPmzI J6qQCMyeeyiLQPheE6bMQ UuB1r9VrWbIbA5VJjvZ4M hocF5MDGmxXSh MAnyCOA0U86sy3Q9XFKjA JEgTZE7fFU3mT7alLtgzj ogbGVmdDsgdmVydGljYWw pREivC596QIUv uKbkIEBipB9bXHMoaJTfg EqeZK8yBEKwffemFpfLGN CHXfkEKrwoK1MCSJh9S5L ySef9DTRiiLsb JP3gmAVdAMpiYx4ozHybw KlsBA4zPDTkhoxbPVIexN 7dXKVwoNJtzQgfPP4iDZJ fejeso048JiMz ARS2JTMjuTLzB0TlwZ6bS tQrZIKlETAjG4BnwNLsVT ihW169FUguYqA6PPVcmpJ uV8ZtDBSqaJxg JpJ4b4V2Oe9hHr9yEJ3kN RM9YT58CO01fPGfx1W3qP U3J1PrLVLjffwevcfbhIQ 4WMGwTYWqpK14 dHXeAKilZa9cy9D0j250D NOnKDAjrQ26Jj0tlEehFD XttRHQeL2bfwmxt3hxphr gIzAwMDAwMDt0 DLp3FRXsfOhjUeBoXRS7E tV9XVK9jSRygR5pbLpiyk sedH0pLpf+NjQgWWVhcnM 3K2ZzKqg6FJPj cRhpWV8cjLFcWRokYw7vm KvcsGxlQF7lJAKzhlqqEI EynP1iPRWlkQKuqOmyHJ0 yYWAfcimre437 LwAmUUP5HGCntBWhZ2Lys N8fJwCnTSXqHQYcK1AdlO IrWDcnD973ZJckLgH2YAS rfdJkN9EaCSHl hGxbGeT2r4U5Ml8HIK0qv AA3K6DgMjb9OKNdxKlvTF 8tsYFyMEuaBd5mkOwwuZx zBN8kNHMycrdp IZSbgX8fKZZbdJTyaDnoC O9hGXUcqnoan756HdVoYX C1VEHpsWHuI8YwqU2sNjP sEHGaCIKkJ5Ya gWYnEPcpV586SPcaWfY1I TSaszSyK4KgUDTctKruQf C2s8F3Wp2OdNHpVDFcPH9 6NL28BO07H1Ms PjwvdGFibGU+PHRhYmxlI HdpZHRoPScxMDAlJyBzdH ryRV3kXr0iRZGqPBUueFu xaQMvGiAow6lc AEShLHwhWK1ycClyN0Uxt DM5DZSny7r3Ts56F35bT0 JvdXA+AFQysXD5wDZ9wD7 qOqRuFhQ0NLba N309FqRhoQIoMuojm6mth 6lriHr1FtRdNQQxegApmU liPQC8h5TfWo35U20vADk pZHRoPSIyMCUi AVHfjJrzpe1wdO6jFj9+P UHnlMI9fWG2hY9zQuWiIx R6ANteZ251BoUaeZVdPeg fG02bJ7XbhQX+ FOLwTmn1VIDsdQmbKG5ut MOlRReiNt7qOXR7WpDhAk EcSIfkA4YjRGWsnnxqpbk irJQ0TQWhNMLl wK44Sk5ohRwbLn4dFGFsB JR0STNmoGGwP5ZoaX6pAz VfYGOaGBSqU3GdlWIfAIa yO167ICxlSuA2 NPZejaTjC9VnJIOfxFvbY aN0n8C4Ad0PlTctfXGmBQ 0pZdQyHLo9I1LrWam8GWQ msDusYZ8yjIUj FFhkFf2cxEnplNceEV4tD JGeywizg184AcAre5vcMO ImrAQiKBvkSSL6E04cu4V 4JMYoJDMnWTC6 xJU5iS3qbLwtmficeXYin DsgdmVydGljYWwtYWxpZ2 43VUAvdIbqAdAELda8Z9E pBlk8NIXroGdr AH4qwMXxWFkhSc3czFcwy YfyKF4kKGTiddhyi799Af Bcf5doOVOddEQgPOboQAZ 8B60da8B2JSCv AOFjQGE8wSU6nR0txEbee jogbGVmdDsgdmVydGljYW mbNNksF440WJOtjYzoAo4 CYqv5M5CqWhk1 IPEdyJbjYI1hjPCqLXwwR b7omZgqkDblJV9kJDUfel upu429OwCom7tbRKRdqTO cOEsrNMX9P55t w5P0NLOzGJXdAYH5sMJ6m Q9ddDzakafwhHQabIrfeg WciEswYSrxZUbwJ089JJI vcDsnPlBheWVy OjwvdGQ+TI18ib86T9GnB xgtFki2JQIxADP7kZW1lV 5yRQIaTCest0R5aXA0V4O wnrNdpw1tr8zl YXBz (more content not included)... [facility] Consenton 02-15-2022 Consent [id number]#1 .00CD:127 [facility] Discharge Instructionson Discharge Instructions [id number]#1 .00CD:127 [facility] IntraOperative Documentson 0 02-15-2022 IntraOperative Documents [id number]#1 .00CD:127 [facility] IntraOperative Documents [id number]#1 .00CD:127 [facility] Main OR Intraoperative Recor don 02-15-2022 Main OR Intraoperative Record IntraOp Document Type FT Summary Primary Physician: Stacey WU MD Finalized Date/Time: 02/15/22 14:00:09 Pt. Name: YADIRA LLANOS /Sex: 1960 Female Med Rec #: [id number] Physician: Stacey WU MD Financial #: [id number] Pt. Type: O Room/Bed: / Admit/Disch: 02/13/22 [...] Anesthesiologist Scrub - Primary Staff - Other Company Doctor Time In 02/13/22 08:07:00 02/13/22 08:07:00 02/13/22 08:07:00 Time Out 02/13/22 08:25:00 02/13/22 08:25:00 02/13/22 08:25:00 Procedure COLONOSCOPY(.) COLONOSCOPY(.) COLONOSCOPY(.) Comments Dr. Toribio supervising help in room case Last Modified By: Gloria LESLIE, Priya Castro RN, Priya Castro RN, Priya F 02/13/22 08:25:26 02/13/22 08:25:26 02/13/22 08:25:26 Entry 4 Entry 5 Case Attendee Stacey WU MD RN, Priya Pedraza Role Performed Surgeon - Primary Rubber Off - Primary Time In 02/13/22 08:07:00 02/13/22 08:07:00 Time Out 02/13/22 08:25:00 02/13/22 08:25:00 Procedure COLONOSCOPY(.) COLONOSCOPY(.) Comments Last Modified By: Priya Castro RN, RN, Madaline F 02/13/22 08:25:26 02/13/22 08:25:26 Perioperative Protocols FT [...] and tissue Entry 1 Skin Integrity Intact, [place], Warm, and Skin Abnormality No Dry Outcomes [...] content not included)... Normal [facility] Postoperative Documentson Postoperative Documents [id number]#1 .00CD:[address] [facility] Consent for Treatmenton Consent for Treatment [id number]#1 .00CD:[address] [facility] Endoscopic Procedure Report - Otheron 02-13-2022 [...] After [address]. [address] [facility] Comment on above: Result Comment: Elec tronically Signed By: BRYCE GONZALEZ, Stacey\.br\Date and Time Signed: 02/13/22 08:25 EDT Other Comment: Idania green Attachment - attachment storage system not supported [id number] Can be viewed in source system Missing Attachment - attachment storage system not supported [id number] Can be viewed in source system Missing Attachment - attachment storage system not supported [id number] Can be viewed in source system Missing Attachment - attachment storage system not supported [id number] Can be viewed in source system Inpatient Patient Summaryon 02-13-2022 Inpatient Patient Summary [address] [address] [facility] Clinical Discharge Instructions PERSON INFORMATION Name: YADIRA LLANOS PHYSICIANS Admitting Physician: Stacey WU MD Attending Physician: Stacey WU MD PCP: RAY RAWLS DO Discharge Diagnosis: Colon polyp Comment: PATIENT EDUCATION INFORMATION Instructions: Colonoscopy, Care After Surgery Bryce (JAMILAH); Colon Polyps Medication Leaflets: Follow up: With: Address: When: Stacey BRYCE [address] [place] [address]. [address] [place], [place] [phone] Business (1) MEDICATION LIST Medications to Continue [...] every day. Comment: Normal [facility] Main OR PACU I Recordon Main OR PACU I Record PACU Phase I Document Type FT Summary Primary Physician: Stacey WU MD Finalized Date/Time: 02/13/22 12:41:47 Pt. Name: YADIRA LLANOS /Sex: 1960 Female Med Rec #: [id number] Physician: Stacey WU MD Financial #: [id number] Pt. Type: O Room/Bed: / Admit/Disch: 02/13/22 [...] RN 02/13/22 12:[address] [facility] Main OR Preoperative Recordo n 02-13-2022 Main OR Preoperative Record Holding Area Document Type FT Summary Primary Physician: Stacey WU MD Finalized Date/Time: 02/13/22 07:11:40 Pt. Name: YADIRA LLANOS /Sex: 1960 Female Med Rec #: [id number] Physician: Stacey WU MD Financial #: [id number] Pt. Type: O Room/Bed: / Admit/Disch: 02/13/22 [...] RN 02/13/22 07:[address] [facility] Monitor Recordon 02-13-2022 Monitor Record [id number]# 1.00CD:[address] [facility] Monitor Record [id number]# 1.00CD:127 [facility] Outpatient Surgery Discharge Instructionon 02-13-2022 Outpatient Surgery Discharge Instruction [address] [address] Patient Discharge Instructions PERSON INFORMATION Name: YADIRA LLANOS Date of : 1960 Current Date: 02/13/2022 08:39:03 PHYSICIANS Admitting Physician: Stacey WU MD Discharge Diagnosis: Colon polyp ROMIYADIRA has been given the following list of [...] NEAREST EMERGENCY ROOM OR CALL 911 I, ROMIYADIRA, have received the attached patient education materials/instruction s and have verbalized understanding: May we do a follow up call? Yes No I was present when discharge instructions were given Patient Signature Date Clinican/Nurse Signature Date Follow up: With: Address: When: Stacey WU [address] [place] [address] [address] [place], [place] [phone] Business (1) Pharmacy Information: Medicine Leanna Morris You may receive a survey from [employer] asking you to rate your care experience. Your feedback is important and will help us understand what we do well and how we can improve the quality of care we provide to you, your loved ones and our community. It?s an honor to serve you. Thank you for choosing [facility] HERE ARE THE MEDICATION CHANGES THAT OCCURRED [...] content not included)... Normal [facility] Patient Education - Texton 0 02-13-2022 [...] content not included)... Normal [facility] Coding Summary.on 01-13-2022 Coding Summary. CD:[id number] G h0bWw+PGhlYWQ+IT9RBAH kC50awANagE9HE1wMAI6R PUBLXVOIMS3FLK1pkDW6K EncB9QxbqNm DdcbhIJxDA76PNb7LSS9c NzoHTtlbR5tjKYlQ5t4Rg YzGU54qO02FFphFNNgEmT 3LjZpbjsgbWFy Z6jiFzShuQQhUzm+PHRhY mxlIHdpZHRoPScxMDAlJy VmcJocET4eBd5pULLxURQ vbGxhcHNlOiBj v1drWPOvMUpoJR3moAzdL 5UviSZ3PNJnv4m3Rn80hR I+LDLsXVT1tPfdZYbdb19 6VdHuy9orAHR8 vGPpKSirGDJ2G38ws2F2R PFaTYVtHLZ4oTW1qV1wzD gwezsuB1RonTQoItP9SYO 8tKUudT1ezTqd dlprhQ8kBih+B65CFH1WA FKZYE7ZHnw1N2KjLmefwD I+MI48WSCzSW17rANdqNY xl9dcbNk5BzGt NXFrBKU3rDorCPhhw4IhV OTdR82ufEVqt4K7UQPnmJ ffwDMmMtGzcDV8gN9aGEe ukahlv5bexjnf Hqwnn9fsdy48fK11G81mI BeuQQIdYPC2RJCxVUQrdI swft3nfE5fIr9+FEdhi0r an5fheUk3CyQu NHRsinKxrGlrJJN1w6IoP n82T3XqpJfop4QnLai3xh 58tBTlt5B6cTD1NDihVQR axS6oPHlrZbT2 YOJpGcTcoX95kYKwDUovF d3neUxnbSyvTS0vAMUtxw egDRKtnN4sKGFqgDNmzKr nCF6dBLFdfhyp t704NkHwOAQ2BWMjeTZuP 4CqhD5uRbPdRUHjJTWkF2 MjxHNqFHclE249TIbaJqI 1CHCiydPaW7Rn MWRhpVuyUcC0z7W9Sh4Jr 8QtzlvpIUA3XSvaJHP3Zi BlEmOrTnZ3O9ZyBqz5KBD ryTqwQH3cX3Ly VEJdnobjonxodTE5FDHbV OSrfL95fRVxGNzeCl2gf2 S2e351LFPaNMBufT59Jl1 udDogMTBwdCBU kG5bgzdyi8eitwthFvEmH PKpHVk3NZn1BDBdvExyYm RxGTN9GxS0DQV7mPLubM3 rfOmjkbxscP5l Oyc+T60gnP6cTXE9ZNV8w xfnWUYwpvQbCL38RJ72U1 RyPjwvdGFibGU+PGRpdiB vmMwcIT8zCgCz x3nki8NoFCenW8WaMTXlJ SyoNql1MFTkNAJ7wWD2iS 4lMWFbLMnfv4H6hCF2S8X jgvDwwc5ey1wc LTLmXAriL85yaZBcd6Y2L OImcXD0SFKsbKgiTpVxfM 93Oyc+KGZeyDorc3LrMde ht3kvo5xrbCs5 BsMzAKIzbqAvyWuyDXS5y 1UpLn57R62sYNgiZWXiUE YtCBEaDYGxuGbvfr7hoU2 wIi8+PGNvbCB3 sUF2aM3jRFChSmW1DUrmT 312FnXdlFPcNfmaj2zbe8 vdyTd1AxRuNRHlvsDivDx rOFF9a5NhXs56 Q91nBRtbFCXiTIMiRSMvZ MBukUwdld0vcY9vEo4+PC 9gx3iton12yZ15tRO+PHR uHJI2hBdeACbx YLLutY8aLSwmBkU1RTUmD oLgmB19zSHxZVviHx7ahX trfBioXD5aGYVkqvwal18 1ZhCpa0niTGQb bOAwWAqrUHI3D79uq3K5F FMyVHWeIRZ8bJD5nA0xtS lnbjogbGVmdDsgdmVydGl yUCvsZJzlO912 IHRvcDsnPlBhdGllbnQgT qXwRCn4L0BwTnw5FXOwjB gdWW2kwWVuDKkeXu1upZy ubQkhWV3aBRPv voykr783BhWzp3gfAZAby LMqAKvhFIZ7M45fn1V4BC ThTAEvYGZ4jJV1bU3zwGb nbjogbGVmdDsg gkRfsLawFHnpGCrgY203D HRvcDsnPkJpcnRoIERhdG F9RM77RT40qQYpj9H0qID 7U1ZnQKTqrspr vhfjqEY4QCLlETCxaY56N h9qcXluFb4vGBUmWWD5NV DkwYUsU4RlwG5gOoPqKKN pPLOzO4EsjWIl PVqeY511OIjsPaF9KMFdv gWpT1DcDDOkqDdvEzX1r5 B6Go2WP6N6XU36BA55tLZ bp0V8zKT8U4Nw OAKbhsssygeujLT6QYQvB HOuyY58Hv6roYunHw4kTL TvRBT4QSBamHYyN1RtiX5 yOiAjMDAwMDAw A1SjfZNuQZoqT802WXkvE tU6UUTckiJuV7QkORNpyP lrXtP3h5S4Or5CGSq6RH7 5RP11iVUil5T0 eWP2K9NqGHDeiehvpbcyg FS2XTZeFXRkrY33As3clB qsEc1nGKShDBU5MSVswIH iO3NagN1jBlNr WCSsRMOoS8PnjHMwAIlcW 282SBigIkX0YFGnviMfE6 OiEDYmqNgrZcA1u3S3Xe2 VXXCbYW66AZA7 qLI5SM24GJ96Y3VxUgssa GFibGU+PHRhYmxlIHdpZH RoPScxMDAlJyBzdHlsZT0 nQz2jGRMhFPQh gIoxtGDzZeKfp8neLTNbF TkuBQ0wkHmkR8TkuWV3PI Hrh9c8Xo84S65mO7MioIL +QDIriMK1hJX8 wA0fRuEwWoH3GZphY107N vNpcAOeOdwcz8gju0svoV b0ScM8NVUhmkSmwEdxHGE 1r5IvJo46C79d IHdpZHRoPSIxNSUiIHZhb Dxanm1ftX7aLt9+PGNvbC R9bLY0iE3wZyZbMiL3HWi cQ171DlHksHYv Oxzyp3lpn8tecRg5AyXlC VHryiMrbOvlMCR7w2BwKy 30L6AieEjcj5FyZwp6jv4 3rDFac4N8sHS2 U9VnUZOmxifllHOznPnmB G6yTJBkqlzbLBZjcV9hXY XbB3z2NuPdKxO3JGfoH8M dutT1JOIquDVy DOnwSPL1K10lk4I3GDRhW WWaGPN3wHP5eL3wlRledn ogbGVmdDsgdmVydGljYWw nLZxpX740TYQa rOgiMZLbiG0hUIYanQCii GllLF5oGGMpjedaSnxKVY HFJsmWXwecV5TQOZr5N4E nJth1GWYhvNvx NA8xaLMbZSngAs7fkJfdd ZmqCG9vFRZmilioEBSyhW 7jFPSagTMccDoeGX2fXHP rvstln540FpQk TCZ9ZCReoMFrI0KmnC2sD hCbDHEzRAHhN6OwxURfYH npL353LMulByU7LALheaW mD2UfRDOozHfq PsD2s9B3Qw9uId5fLI8wW KE6RM97WH40yBBae6V9tO Y0A2MuUFFaordnbuktlXB 4QJBkKCAqtS32 fCFsLLnnPt9pp2I4t089H CGrYCQsgE05Gm3iaKovQA QrtGFDdB0ohwmbs0ygxnj gIzAwMDAwMDt0 PDh1XWKwjDydJlOqEAH1P iE5CCO4jMHvrV0kzAwkmj nxyY3kPbl+NjQgWWVhcnM 3M1QtGrt5WDWl yAatZZ5fxWEuKAgxQf2pa QanuGpiIL8eOJFxivpcNI ZpzK7aIJHcuBGlxTlaOJ5 cPEQgbdxkk408 DjTuAKB8ETZwuNUcO7Zto W3pNsYqQCJcYJQcT8FyiK BdTApyI728TEfqGaB7WXQ xnjIdN3HqLLIu zChhFzO1r1U5Tc2AJI1zk VZ6I7IeMyw3PPKapQemGD 8ywIDaVJrsJh1ypPjycIt eFD9bNPYjgeml MOYybW9dGRBzzQCqzZzbV C0tMCQlhtzju679WuOpIL M7OBUdcWLoG2FmpI6nKzF sQTFoURRhY2Ug tHEwSXvjW441PJgcZlC9T XPztkCaP3XzFLSpiFygBj C1x7N3Db7ZxSXsQUWfIB3 8IP00KP60D0Ch PjwvdGFibGU+PHRhYmxlI HdpZHRoPScxMDAlJyBzdH unPF6jEj6vLAKyPLVprIc czHGyOvUes5lj OARfTShtWJ7ewBedR1Ebq ZT5LBPaz9e5Yu92A91mL7 JvdXA+LFZyyWM9dGQ1wV2 vXfPfBiE7IPyt A962McKnpLZxGpbuq6hnz 9estFm7MlRlLKEnwoEwiF bsCZS7p5RgFb13G79jFHk pZHRoPSIyMCUi XBUyxIwmbf2fwW0lUw9+P YXgiCV4xXP1zY3hDoVtJv U2SUuoB727IxNidHEyXrz xR92zF2GkvHD+ DVTrRxw0DBHyoGnoVK3wg KVqDAroQn5dEBP7FrZsEl WrXOlzC9CjEDWrkmykekl jnVV1SDQxTIHp aX65Ol3wtUkiAp3uMGVjL VZ9EVKzoGRmX8AydM8hAd CsDSBeBDAtH6CoeZDzXSw jE740TEbyTaX6 HJDqtsMbQ5OvXIAfxVxvY hE6z2Q2Jz8WqPhreSCeWA 7eHkPnWMw2U9BxGbz0KWB ydPlmYB1svORq LCadFg5guRrccYimFJ5wL WIqadfvm075QsPip7ajYB KdpWXwWKxpVTZ1A23xm4Y 1MPAwIYKyJJP5 hHV2xB9jhPotfavrvHLof DsgdmVydGljYWwtYWxpZ2 58XAGzfKqfIwZJVfr0E4W jAfx3AGIoyOud TY2hoUFwWKghLp9inUnqv LnpYB2eFQNsprooe054Hu Vgy0dfJMZuoJJfIJbyDWF 6R98zo1L6WESz VLAaJIR3uHH8vK4rwNslk jogbGVmdDsgdmVydGljYW wlUJwuS860EYWfcMeuRi1 APne0E2UcKiz1 JETkwWmjYH7ssIRsABqtY y3djNpbfUsrJJ4cEUQjrt wfd128FzRad0viKSPkqUZ vXLkbHGP5Y02s m8F0PUGkEGHvKOH4nCK2z Z9bvKfknyvemUUfcJdmam HdvSthJXovGOosJ143MNY vcDsnPlBheWVy OjwvdGQ+EG87xv76K6JjO nboWhw6DODhEIH7wJF4mJ 8bPEOkESlkr4F7lBB9I0L hzkXham7rs1xo YXBz (more content not included)... Normal [facility] T3 Totalon 01-07-2022 T3 [Mass/Vol] 113 ng/dL Invalid Interpretation Code 71-[address] [facility] Comment on above: Result Comment: Perf ormed at: [facility] [id number] PhD Krishna Richardson Performed By: #### 2 [id number] ####[facility] [address] [place] [address] Thyroid Perox.tpo Abon 01-07 TPO Ab Qn 293 International_Unit/mL High 0-[address] [facility] Comment on above: Result Comment: Perf ormed at: [facility] [address] [id number] PhD Krishna Richardson Performed By: #### 2 [id number] ####[facility] [address] [place] [address] Consent for Treatmenton 12-14 Consent for Treatment [id number]# 1.00CD:[address] [facility] Free T4on 01-06-2022 Free T4 [Mass/Vol] 0.85 ng/dL Normal 0.58-1.[address] [facility] Comment on above: Performed By: #### 2 [id number], [id number] ####[facility] [address] [place] [address] TSHon 01-06-2022 TSH Qn 5.94 m[IU]/L High 0.34-5.[address] [facility] Comment on above: Performed By: #### 2 [id number] ####[facility] [address] [place] [address] Physician Orderon 01-05-2022 Physician Order [id number]# 1.00CD:[address] [facility] Consent for Procedure/Surger yon 01-04-2022 Consent for Procedure/Surgery [id number]#1 .00CD:[address] [facility] Gastroenterology Office/Clin ic Noteon 01-03-2022 Gastroenterology Office/Clinic Note Chief Complaint [employer] positive cologuard HPI Staff New patient Yadira [...] E&M of New Patient Low 30-44 Min 04025 2. Change in bowel habits (R19.4: Change [...] E&M of New Patient Low 30-44 Min 87378 Orders: polyethylene glycol 3350 with electrolytes, See [...] mRNA BNT-162b2 vax 12/24/2020 Given Prophylaxis Normal [facility] Comment on above: Result Comment: Josiah puckett Signed By: Chantelle Sanches CNP\.tammy\Date and Time Signed: 01/03/22 10:43 EDT Patient Educationon 01-04-20 22 Patient Education Radiology Colonoscopy, Adult A [...] including vitamins, herbs, eye drops, creams, and coxb-rqu-gixkdbi medicines. ? Any problems you or family [...] content not included)... Normal [facility] Physician Referralon 022 Physician Referral [id number]#1 .00CD:[address] [facility] COVID-19 ([facility])on 11-14-2021 SARS-CoV-2 (COVID-19) RNA NORMA+probe Ql (Resp) Not detected Normal Not Detected [facility] Comment on above: Result Comment: This test result should be correlated with clinical presentations and medical history by a healthcare provider to determine its clinical significance. This assay was performed by a reverse transcriptase real-time polymerase chain reaction (rt PCR) method on the [employer] system. This test has been authorized only [...] or revoked sooner. Performed By: #### 2 [id number] #### [facility] [address] [place] [id number] SARS-CoV-2 (COVID-19) RNA NORMA+probe Ql (Unsp spec) Pass Normal Pass [facility] Comment on above: Performed By: #### 2 [id number] #### [facility] [address] [place] [address] Specimen source Nom (Unsp spec) Nasal Normal [facility] Comment on above: Performed By: #### 2 [id number] #### [facility] [address] [place] [address] ADMITTED TO INTENSIVE CARE UNIT FOR CONDITION OF INTEREST:FIND:PT: Unknown Normal [facility] Comment on above: Performed By: #### 2 [id number] #### [facility] [address] [place] [address] EMPLOYED IN A HEALTHCARE SETTING:FIND:PT: YES Normal [facility] Comment on above: Performed By: #### 2 [id number] #### [facility] [address] [place] [address] FIRST TEST FOR CONDITION OF INTEREST:FIND:PT: Unknown Normal [facility] Comment on above: Performed By: #### 2 [id number] #### [facility] [address] [place] [address] HAS SYMPTOMS RELATED TO CONDITION OF INTEREST:FIND:PT: Unknown Normal [facility] Comment on above: Performed By: #### 2 [id number] #### [facility] [address] [place] [address] HOSPITALIZED FOR CONDITION OF INTEREST:FIND:PT: Unknown Normal [facility] Comment on above: Performed By: #### 2 [id number] #### [facility] [address] [id number] STATUS:FIND:PT: Unknown Normal [facility] [facility] Comment on above: Performed By: #### 2 [id number] #### [facility] [address] [place] [address] RESIDES IN A CONGREGATE CARE SETTING:FIND:PT: Unknown Normal [facility] Comment on above: Performed By: #### 2 [id number] #### [facility] [address] [place] [address] Consent for Treatmenton 10-17 Consent for Treatment [id number]# 1.00CD:[address] [facility] Coding Summary.on 11-02-2021 Coding Summary. CD:[id number] G h0bWw+PGhlYWQ+NP3ISVF jE71eiSEwnC0YG4lKJC4K JIKJGGTDYJ5CCU6xqYL5C WnzP7WygySw DighpYQmXC06GPa9BTH5p MfcRKslcC5imRVkR6r4Pk ZhNX68mG94FHqvFUZcAsG 3LjZpbjsgbWFy P9ylYtAvqUNcBsq+PHRhY mxlIHdpZHRoPScxMDAlJy LwyGedKJ2sCi3cKERtKDP vbGxhcHNlOiBj u7ddSNHjJJwuTV6wzXarN 7BjlPZ2JFLez1p2Hz37bB I+HNFbYCJ8fHlmVAiid54 4BlBsd6wmVGY1 yQWaYQjwSBK7G50vb2A6S QZnVGWqJPF2tOZ5qA9uxK phchuyA4ZzgLJhDgC2JKK 5bQNeoR8ncZiy wwwuaV3wYnl+G75YLB3ZB AYSVA1QCto7D6PaKzrbtH I+GQ45CBQiLD22eKYcnQM ji6zjuBn9AwHv TNDvLIN1eDbtADftz2NiW ESsM77cuZRmi0O1WEOutQ gcaGYsSaKasEZ2oW0hJIf tjyauk9hfxbhc Zjvee4lmkp81aY68L49eQ OtcVYHbVYJ3VJKqPXQelL xfyl8yfV6jSf7+ETlpi1l zo9lvmWc8OqOl JDMbmqIdqWheTGD2m2SfY k40Y9NpmOong7LxVqa4pw 28oRHhn4M1cGG1AGxuZFM kxG3pLCrkEmV3 SUOoDmLbyB46lDLpLHbwW w1jmJcpcCutCS4lJOAxgy joZEZxoW8iOMKjgKRryJz gOS2xNRNmwblf n756OwQaKNV4KIAwoKAuB 8ZyeM7nLdEqYMMwFZHsG6 XuuIQmUEkwT832DQygJrY 4TQFzejYcE3On GPYhcHbvKjL5e7B1If6Xc 4RvaumeOEE2PAkwQVCdRy D4SyVqHpR0I6XdPoi6UCC fyBoqTN5uQ2Wt IMFtwzwddmlysFV8VOSeU SGylN96jNKeHGieWo6cl6 R9v846LPNsVOTvrH94Tp9 udDogMTBwdCBU oG0ljuars6cnthppMdEwF WRmPEx1PXh0MHUmiWrtBb PoBOG1IfB1HEP6iGXooD4 vqOakwwyydF2x Oyc+A08tcD5nZEV8IXA4q tzmESEyyvXqLZ59OO09F8 RyPjwvdGFibGU+PGRpdiB pzVqwCF4nRzSk f2cee7ChXImuT9MkHQZbD CsyAek8VVZtERH1gPN4dD 0tMVEhGBbgg5U6iIH5Q1C yprOnpp7ge2ym FEZeXKaoC25lwNYvm6U1H ZPtcWU7YJZojJezFgBjlQ 93Oyc+YGDfoMqeg1XaDau bm2tsk7maiJz1 MtXtNVJhhuXkwYyvDMJ5m 9YsRz44E42vVBhtJKVuYZ BqHMHkUHKksYebpj4itU9 wIi8+PGNvbCB3 cFF4jL5zNKToVqT8FNktL 689RrXvqVMeDmdgf3nxd5 hvpHk5AgYzQYLrcfDkjSs oHJJ4a3BpHv04 S19sWZkyWSOzCNFhGYScT OIyvIcqcq4wlT5hPv4+PC 9xo8dabd67oQ29xDL+PHR iPTO0kWoqFItu FRLrmN9fQMlpTvL0SUFkZ mZkbW82fIAcAQygGy4pcG yciGobWV6dBLJnikxjv47 7DcCzi3nlBYNz nBCxZFzpBAF0K64te6A6U SByICAaAFO2bRC9zV7dwL lnbjogbGVmdDsgdmVydGl gRQtwGOzvO246 IHRvcDsnPlBhdGllbnQgT cNrCIz6H8YeGtu9DSCqpJ dtRH4pqGSoERwhNb0ueXb wkNpjXD5jRZJj lrcgh505GxKkd3scFOOpz HCqPArpFPI2S86rt1B5KC IeQHUaFNL5kUY8iO3anPu nbjogbGVmdDsg nuEqxLssNOljYWvlV586N HRvcDsnPkJpcnRoIERhdG D9RK75MA33eXHub4T3gZH 9T3VaXMPlwtvs hdgoaSM3MONpLWKgfH67U h3omTqyUt6wYPHmSTN1QK CpuVNpU6OzoW6aScZyHUA pEWWkT5AmpEGf DKvdM375JGufDdM3QYSfm mDiP7BeJBJbwDjpRbH5n8 L6En3LK5Q2PY02WC47nWG sj9R8bIG7Y7Dr OWTpasxfxizzhPW3TMQvZ XBprC59Ai7chNkdEl3iJB BvVDH7XYOsmGUfV7PdhQ8 yOiAjMDAwMDAw A6PdiHHcOCucQ038AEbwF rZ7WUWajlRlR8RzEZAiaC nyIyL9e4D1Fc8PSUl8CC7 2UR28hHCrm4C4 oNX3M5TjPAWmixhaljtkz OX3TFEhGFZtdL89Wp6bgQ kgYy7fQDYlXOF5WVNbtCT iG5MsnP9fXjLx KFRiAQDbJ7YzyPSbPBcmL 482TUdbGrV9VRZdwbTiZ5 TmNMYfeWgaCsN0a4G8Sq4 XZMDuRS14RYR9 qZX0TA33UB49G4SaGvcsq GFibGU+PHRhYmxlIHdpZH RoPScxMDAlJyBzdHlsZT0 eDm3vRMFfNYTz kNtdbRZwViZkz4rwEUKcN RupCQ5jpXbtE6DieYT3CR Mxx1r0Ix58R38pK5ZevND +EMBysPH1sKY7 cR9hBaXeAuL5OFckB427Q aBnfIJfTrzlg5dbh1pyaY u8OoA1EZEniuJqhZyrDOF 4m5McKb91U07s IHdpZHRoPSIxNSUiIHZhb Miyhg3liF8kIq7+PGNvbC F2uVC5xI6bOxLiAwJ9BAh bF211YrXuiPTm Hbbqi0uko8tzlOa4FrMcE ECootMylHzjHGT2c9AxJf 43V8BsnVsxs7IfJwb0qe5 7iRRmi7M8zDA3 O2SuEGZfjxmwtGIwlOksQ S7hRDBahwnhSBElnT8zGE YnX2k5RaDeWgR1RTisL3X gvzR6NNTigOMw PAjoOXI2C19ts4L7UCIuL HYbASQ9mEB2yA2cwTymcb ogbGVmdDsgdmVydGljYWw zJZynD248SOSz tHdrVFOhoL8gUESpaGEkh GwkYW8sPCSolwbjGykATI KGCniBZspgM9AWRYh3B1R pDra0VSLzmFsn UK7rlKLpHWydQs5xwEnkd UinIQ3gZDXdyqzpURAinJ 9fZDPpiFHdeLrgCW7aSZQ imullf951QmIl BUJ9PVSzvBPaA5RkmP5rP jMdRLKjYPEdO9KfoQVjME lkV727BUmgUpP9VGVvnmU vO0QbDXUirJbg OhD7q8V0Ox5fGu3tWR9kJ ET4WH67EZ69vTHhj9U1mQ E3U9CdOLEuqjcaeticgCA 2JZIeSTJhtU92 rJAhJHyfAh7mg9Q5r884F GWrCJHvpF38Ut3heFvzKR YltCOMrK7iklggm6myccg gIzAwMDAwMDt0 AMh5CGDvxJvaAfSvPQA4K pE2GJK8zLFkqR0iiHwrpx xibA4xAxf+NjMgWWVhcnM 9I3XlLze9PLQk eUjsWY1cwUVbGXfoIa1my WwzkDodPP3kLNPeqfflQN XpfI4uTCApwUYtcOpxZG8 oAHNmoxouj672 UtGaIHM3VUWiwYClH4Qwe W5pMeQpGWVcNWSsM3QueO PkXAcyC839ONsxZfD0ZHK sfqEsR0MuBTOs nIlfZkL1g2F0Pc5GCL5gf VM8U9AhIjy8MZUrzCkqNN 6qkCDtEQbsJy1ykOzkgDo hBA3pJMFlflff NYMraH3mBEFroIFdbDswS X6fFNIpkmjqr145QcGpYV D2CVWadCFlZ9BhlG3yJbJ eHBUpGLMzW3Gm sOVsTBihB010URdxQvX9K VUonvTmW4DvAKUjqOrkEf E3t6P8Va9BmLMfJIEsJE7 2SK88EL82L1Vj PjwvdGFibGU+PHRhYmxlI HdpZHRoPScxMDAlJyBzdH coKQ9wYa2gNZHvNKDnwKd nsOMiEoGlp5fp LNTpXChdZW7fmTcvA6Xlx IB0GLTme8w3Ox31O85xT9 JvdXA+PVApjIS0mAF4tY7 jDzEaXlU5WHdc Z074CpKjcXZdJgfvo3rbc 8krbIm2HeGkCUUbfqApqU hgFHC6a0DlBd19O30pQXh pZHRoPSIyMCUi EPRmbVqcgq3xsB8iBk0+P UWbkXI4yXQ6zE8oRzDcDu U7BMorJ109HfDncPKtLos mB41vP0NfaWU+ IHEtFee6AKEssUarHF3fa XBsYJvtOq8nPVR0VnQcUy IhBMbkA7InARSaelxwbfk aoAK5OZOtVMJv eL53Ye2fxPamJs4tZMMlI IL2PJOpgHGtQ8CclR4oAc NpZNZnBLYtR0BbcYSwVJr xF965TUctTaQ1 QOOnjnDpS1OxVGDquXluO sX2l1E7Ud8JlOkclHQvIQ 8tLxXeGAb1M7CbIoa3TWU blQdxDQ3nvWZi BAjfBa8cgTcwvOwcVQ3yQ YEroyqzl533YyBbg5fbGT YeyQImZPwlZZR4H04qd7X 5SGMrPRGfDZB2 zXF9wJ4ksIfwlzpfmUZxc DsgdmVydGljYWwtYWxpZ2 87BADjeFgmMeKAMfi9O7U vWse3CAIizSwp YG5fxEGrTPqgKo3vbIaww WjkFD5wMVFyzqbmx148Cc Xug3piELOhoCEsIZwxLRQ 3G14ao6Q0RRCh MSAiPTM0mAU1aK4jaUdbo jogbGVmdDsgdmVydGljYW jmBLlxE086BBUjyDufSd0 KQpe1C7IzBwj9 EYJiwUzeCA9blRKiAHgpJ t7umXybaOajBE4sBISpot xlc374WeYqy7gxJJKqsKF jFUkzEQY8U90n m4I6AOJmBKGmTTF0sDC5n Y3jaGypatxhnZOwrCmewx HenEbsCPukSCfyG242UJZ vcDsnPlBheWVy OjwvdGQ+EM90kl64G0HqT pcuFmx0BDChEIL7wZW8lC 3uBFPgGSlor1L4yTG8V8U zmmSpeg3cw6kn YXBz (more content not included)... Normal [facility] Auto Diffon 10-22-2021 Basophils/100 WBC (Bld) 0.1 % Normal 0.0-2.[address] [facility] Comment on above: Order Comment: Order Added by Discern Expert. Performed By: #### 2 296197, 6424165, 4073806, 8397252, 7198891, 03693516 ####[address] [place] [address] Basophils/Leukocytes Auto (Bld) [Pure # fraction] 0.0 E9/L Normal 0.0-0.[address] [facility] Comment on above: Order Comment: Order Added by Discern Expert. Performed By: #### 2 207755, 0834306, 6939534, 3481104, 4997488, 05361151 ####[facility] [address] [place] [address] Eosinophils/100 WBC (Bld) 4.8 % Normal 0.0-8.[address] [facility] Comment on above: Order Comment: Order Added by Discern Expert. Performed By: #### 2 504464, 1101813, 3971891, 6071988, 8152885, 30895095 ####[facility] [address] [place] [address] Eosinophils/Leukocyt es Auto (Bld) [Pure # fraction] 0.2 E9/L Normal 0.0-0.[address] [facility] Comment on above: Order Comment: Order Added by Discern Expert. Performed By: #### 2 795609, 1176362, 7510196, 9413211, 7427851, 74422634 ####[address] [place] [address] Lymphocytes/100 WBC (Bld) 33.2 % Normal 14.0-50.[address] [facility] Comment on above: Order Comment: Order Added by Discern Expert. Performed By: #### 2 489251, 9500187, 5870877, 9299777, 0034217, 85732667 ####[address] [address] Lymphocytes/Leukocyt es Auto (Bld) [Pure # fraction] 1.5 E9/L Normal 1.0-4.[address] [facility] Comment on above: Order Comment: Order Added by Discern Expert. Performed By: #### 2 052446, 6612003, 8656748, 1645245, 2756911, 89701376 ####[address] [address] Monocytes/100 WBC (Bld) 8.4 % Normal 4.0-14.[address] [facility] Comment on above: Order Comment: Order Added by Maki Expert. Performed By: #### 2 849726, 7552329, 0534237, 9123950, 7897229, 90176178 ####[address] [place] [address] Monocytes/Leukocytes Auto (Bld) [Pure # fraction] 0.4 E9/L Normal 0.2-1.[address] [facility] Comment on above: Order Comment: Order Added by Discern Expert. Performed By: #### 2 556633, 5588390, 0148906, 0493206, 2482330, 42160234 ####[address] [address] Neutrophils/100 WBC (Bld) 53.5 % Normal 36.0-75.[address] [facility] Comment on above: Order Comment: Order Added by Discern Expert. Performed By: #### 2 734379, 0180445, 6353884, 9645655, 4075779, 14484753 ####[address] [place] [address] Neutrophils/Leukocyt es Auto (Bld) [Pure # fraction] 2.3 E9/L Normal 2.0-7.[address] [facility] Comment on above: Order Comment: Order Added by Discern Expert. Performed By: #### 2 944570, 2226525, 6253168, 3861656, 3951067, 24674891 ####[address] [address] CBC w/ Auto Diffon 2 Erythrocyte distribution width (RBC) [Ratio] 14.4 % High 10.9-14.[address] [facility] Comment on above: Performed By: #### 2 102621, 4202741, 7156568, 1020021, 4992494, 06520202 ####[address] [address] Hematocrit (Bld) [Volume fraction] 38.2 % Normal 34.0-46.[address] [facility] Comment on above: Performed By: #### 2 139451, 1605945, 7518930, 6877464, 1106240, 08310821 ####[address] [place] [address] Hemoglobin (Bld) [Mass/Vol] 12.8 g/dL Normal 12.0-16.[address] [facility] Comment on above: Performed By: #### 2 317310, 5202372, 1099769, 0338685, 6949435, 39913619 ####[address] [place] [address] MCH (RBC) [Entitic mass] 29.1 pg Normal 27.0-34.[address] [facility] Comment on above: Performed By: #### 2 903861, 7023355, 9375538, 9213652, 4406699, 13267332 ####[address] [place] [address] MCHC (RBC) [Mass/Vol] 33.5 g/dL Normal 31.4-36.[address] [facility] Comment on above: Performed By: #### 2 414591, 5733435, 7598960, 3750903, 1502112, 62452872 ####[facility] [address] [place] [address] MCV (RBC) [Entitic vol] 86.8 fL Normal 80.0-100.[address] [facility] Comment on above: Performed By: #### 2 712548, 9807258, 6525590, 0060942, 9511629, 48222172 ####[facility] [address] [place] [address] Platelet mean volume (Bld) [Entitic vol] 8.3 fL Normal 6.4-10.[address] [facility] Comment on above: Performed By: #### 2 692877, 5309791, 8944951, 2599953, 1266168, 25594515 ####[place] Platelets (Bld) [#/Vol] 303.0 E9/L Normal 150.0-500.[address] [facility] Comment on above: Performed By: #### 2 420432, 7743863, 3624141, 6345289, 1730239, 79870409 ####[address] [address] RBC (Bld) [#/Vol] 4.4 E12/L Normal 4.3-5.[address] [facility] Comment on above: Performed By: #### 2 833148, 9651617, 5714778, 0604901, 8066848, 23948764 ####[address] [place] [address] WBC corrected for nucl RBC Auto (Bld) [#/Vol] 4.4 E9/L Normal 4.0-11.[address] [facility] Comment on above: Performed By: #### 2 497202, 3335167, 0245235, 2969424, 3669307, 63363657 ####[address] [address] CMPon 10-22-2021 Albumin [Mass/Vol] 3.6 g/dL Normal 3.3-5.[address] [facility] Comment on above: Performed By: #### 2 544504, 0158759, 9061485, 2709438, 8899657, 93350742 ####[facility] [address] [place] [address] Albumin/Globulin (S) [Mass conc ratio] 1.2 Normal 1.1-2.[address] [facility] Comment on above: Performed By: #### 2 728093, 2183176, 6954556, 5294061, 7497681, 73134782 ####[address] [place] [address] ALP [Catalytic activity/Vol] 115 Int._Unit/L High 21-[address] [facility] Comment on above: Performed By: #### 2 608883, 3660131, 9959960, 5903447, 9516806, 54482391 ####[facility] [address] [place] [address] ALT No additional P-5'-P [Catalytic activity/Vol] 46 Int._Unit/L Normal 6-[address] [facility] Comment on above: Performed By: #### 2 077196, 9217851, 5299973, 8002943, 9835589, 84208527 ####[address] [place] [address] Anion gap [Moles/Vol] 12 mmol/L Normal 6-[address] [facility] Comment on above: Performed By: #### 2 176774, 4783451, 2120846, 1496780, 3142805, 88531261 ####[address] [place] [address] AST [Catalytic activity/Vol] 36 Int._Unit/L Normal 5-[address] [facility] Comment on above: Performed By: #### 2 599186, 5142159, 8450393, 2838317, 9101776, 50516228 ####[facility] [address] [place] [address] Bilirubin [Mass/Vol] 0.6 mg/dL Normal 0.0-1.1 [facility] Comment on above: Performed By: #### 2 654006, 7742147, 3340412, 0016510, 1407766, 27436235 ####[facility] [address] [place] [address] Calcium [Mass/Vol] 9.3 mg/dL Normal 8.9-11.[address] [facility] Comment on above: Performed By: #### 2 354548, 6659066, 8368553, 7152661, 4544661, 06409147 ####[facility] [address] [place] [address] Chloride [Moles/Vol] 101 mmol/L Normal 101-111 [facility] Comment on above: Performed By: #### 2 949878, 5597504, 0176793, 6922180, 6151112, 65227851 ####[facility] [address] [place] [address] CO2 [Moles/Vol] 26 mmol/L Normal 21-31 [facility] Comment on above: Performed By: #### 2 391820, 0662976, 2017727, 4022526, 4261192, 68716035 ####[facility] [address] [place] [address] Creatinine [Mass/Vol] 0.7 mg/dL Normal 0.5-1.[address] [facility] Comment on above: Performed By: #### 2 471972, 3082237, 9656950, 3235449, 1143429, 77992376 ####[facility] [address] [place] [address] Globulin (S) [Mass/Vol] 3.0 g/dL Normal 1.4-4.[address] [facility] Comment on above: Performed By: #### 2 312746, 2174359, 5093246, 4790585, 5197377, 87361138 ####[facility] [address] [place] [address] Glucose [Mass/Vol] 90 mg/dL Normal 55-[address] [facility] Comment on above: Result Comment: If t his glucose result represents a fasting glucose, interpretation should refer to the following reference range: 55-99 mg/dL Performed By: #### 2 377848, 2687116, 7669105, 3358189, 1562368, 75313246 ####[facility] [address] [place] [address] Potassium [Moles/Vol] 4.2 mmol/L Normal 3.5-5.[address] [facility] Comment on above: Performed By: #### 2 969985, 8961934, 7921845, 6417400, 3759806, 07612918 ####[facility] [address] [place] [address] Protein [Mass/Vol] 6.6 g/dL Normal 6.0-7.[address] [facility] Comment on above: Performed By: #### 2 951962, 9273119, 6182158, 0277631, 2522616, 57611399 ####[facility] [address] [place] [address] Sodium [Moles/Vol] 135 mmol/L Normal 135-[address] [facility] Comment on above: Performed By: #### 2 399537, 7265404, 1650679, 4094630, 1425609, 22422071 ####[facility] [address] [place] [address] Urea nitrogen [Mass/Vol] 14 mg/dL Normal 5-[address] [facility] Comment on above: Performed By: #### 2 674810, 4689634, 8522528, 8110177, 3110745, 83522727 ####[facility] [address] [place] [address] Urea nitrogen/Creatinine [Mass ratio] 20 No Units Normal 10-[address] [facility] Comment on above: Performed By: #### 2 942703, 3050126, 5182085, 4001684, 3473842, 12718349 ####[facility] [address] [place] [address] Consent for Treatmenton Consent for Treatment [id number] .00CD:[address] [facility] Lipid Panelon 10-22-2021 Cholesterol [Mass/Vol] 207 mg/dL High 120-[address] [facility] Comment on above: Performed By: #### 2 564928, 4733621, 6149526, 1401860, 6038984, 84959178 ####[facility] [address] [place] [address] Cholesterol in HDL [Mass/Vol] 51 mg/dL Invalid Interpretation Code [facility] Comment on above: Result Comment: HDL > or equal to 60 mg/dL: Low cardiovascular risk HDL < 40 mg/dL : High cardiovascular risk Performed By: #### 2 181508, 4729855, 2303732, 2418898, 6950577, 87542684 ####[facility] [address] [place] [address] Cholesterol in LDL [Mass/Vol] 128 mg/dL Normal <=[address] [facility] Comment on above: Performed By: #### 2 548757, 3560943, 5751887, 6876676, 0156846, 35527796 ####[facility] [address] [place] [address] Cholesterol in VLDL [Mass/Vol] 21 mg/dL Normal 7-[address] [facility] Comment on above: Performed By: #### 2 397254, 9124922, 3072725, 0740251, 2811890, 37173818 ####[facility] [address] [place] [address] Triglyceride [Mass/Vol] 107 mg/dL Normal <=[address] [facility] Comment on above: Performed By: #### 2 948761, 5228687, 9102261, 2637940, 6264464, 34285368 ####[facility] [address] [place] [address] Physician Orderon 10-22-2021 Physician Order [id number]. 00CD:[address] [facility] TSHon 10-22-2021 TSH Qn 6.19 m[IU]/L High 0.34-5.[address] [facility] Comment on above: Performed By: #### 2 270036, 2997942, 2863207, 8890374, 2721063, 28341694 ####[facility] [address] [place] [address] eGFRon 10-22-2021 GFR/1.73 sq M.predicted among blacks MDRD (S/P/Bld) [Vol rate/Area] mL/min/{1.73_m2} Normal >=[address] [facility] Comment on above: Order Comment: Order added by Discern Expert. Result Comment: eGFR is race adjusted. AA=. Performed By: #### 2 658172, 7220208, 5106765, 6727652, 4631128, 21650034 ####[facility] [address] [place] [address] GFR/1.73 sq M.predicted among non-blacks MDRD (S/P/Bld) [Vol rate/Area] mL/min/{1.73_m2} Normal >=[address] [facility] Comment on above: Order Comment: Order added by Discern Expert. Result Comment: [employer]er ginger kidney disease could be indicated at eGFR's of less than 60 mL/min/1.73m2. Kidney failure is indicated at less than 15 mL/min/1.73m2. Performed By: #### 2 053480, 2168252, 9672487, 4003203, 6998204, 91310581 ####[facility] [address] [place] [address] COVID-[facility] ([facility]on 10-13-2021 SARS-CoV-2 (COVID-19) RNA NORMA+probe Ql (Resp) Not detected Normal Not Detected [facility] Comment on above: Result Comment: This test result should be correlated with clinical presentations and medical history by a healthcare provider to determine its clinical significance. This assay was performed by a reverse transcriptase real-time polymerase chain reaction (rt PCR) method on the [employer] system. This test has been authorized only [...] or revoked sooner. Performed By: #### 2 [id number] #### [facility] [address] [place] [address] SARS-CoV-2 (COVID-19) RNA NORMA+probe Ql (Unsp spec) Pass Normal Pass [facility] Comment on above: Performed By: #### 2 [id number] #### [facility] [address] [place] [address] Specimen source Nom (Unsp spec) Nasal Normal [facility] Comment on above: Performed By: #### 2 [id number] #### [facility] [address] [place] [address] COVID-19 ([facility]on 10-12-2021 ADMITTED TO INTENSIVE CARE UNIT FOR CONDITION OF INTEREST:FIND:PT: NO Normal [facility] Comment on above: Performed By: #### 2 [id number] #### [facility] [address] [place] [address] EMPLOYED IN A HEALTHCARE SETTING:FIND:PT: YES Normal [facility] Comment on above: Performed By: #### 2 [id number] #### [facility] [address] [place] [address] FIRST TEST FOR CONDITION OF INTEREST:FIND:PT: Unknown Normal [facility] Comment on above: Performed By: #### 2 [id number] #### [facility] [address] [place] [address] HAS SYMPTOMS RELATED TO CONDITION OF INTEREST:FIND:PT: Unknown Normal [facility] Comment on above: Performed By: #### 2 [id number] #### [facility] [address] [place] [address] HOSPITALIZED FOR CONDITION OF INTEREST:FIND:PT: NO Normal [facility] Comment on above: Performed By: #### 2 [id number] #### [facility] [address] [place] [address] STATUS:FIND:PT: NO Normal [facility] Comment on above: Performed By: #### 2 [id number] #### [facility] [address] [place] [address] RESIDES IN A [facility] CARE SETTING:FIND:PT: NO Normal [facility] Comment on above: Performed By: #### 2 [id number] #### [facility] [address] [place] [address] Coding Summary.on 04-08-2021 Coding Summary. CD:[id number] G h0bWw+PGhlYWQ+JA4CEHN wK17bqFIwnR0IT4zOBO3O IWVENOADTM8FEC5cjZU3V HrwX8ZkvbHc SqvyuCNgYE19RMo3WVW3o QisNSamcO4goNVmH1e2Kq SzRJ61mK09IAaeKQDkIpN 3LjZpbjsgbWFy X5xmFsEusKVtGxw+PHRhY mxlIHdpZHRoPScxMDAlJy GtyRpvJQ0tBz6bJIGxKDP vbGxhcHNlOiBj l7pnDFMeNXxtLS2usEriC 7BxaPD8EDGli8h6Wg11jO I+HSQiDIW3aJcbGHwvv73 9DlReq0emVOT5 iWFsGRavMFA3M41iy6Q2T GNkSCFdDJV6pVP4gQ6ncS mizbmtL0FziOTpLzK8IUL 2sTQboT0itZow pocaxR2wUca+I55TPA9YW SKWZC1BYcg7O4PlEossiR I+LR88IHFfET62tWNdsTL up4sckUi0PmAj XCAnHFE8tVdbYKwtm7WzO KYtS90iuZSsv7C1PCPdlN nmtVDgBjZawRZ8rD0pYMt mfvnow6qdpbvl Fjyrg4drbw78hY11B03dV VmkBGIlJRM9RZSsDJJfjX xbxz4odN6eFg2+MBllm0r fe2jxgDo3TkGn QGDclrChuLirTNQ1i4UiA m93N1YvyBhep0UmRgi1ia 33mZMau3K9rQI4XXunRTZ usY6xWDchTlY5 WGXeFgMmhG76gHDgFCudG e3taGmbpLocGM7dGBLddq vuFDYauM5cPBCqbCUglBu xFT6wXKQsbjdr x074UqUbXYT7ZJDwfJQgN 6CkoU9eFtPuIZPeKTBiA9 UdwWJcYLntS961MIvhWoE 5IDOtjqOkU4Ty JKZppXahXaX7o7Q1Hs0Wu 2JizqanWUE2FRtwSRU9Kv C1GhEfHqO8Q9VuEbz3VGZ jaEezWS5wY1Wc HSAtbtlavkwvnOI4TMEoA BArpT48dRIjQEhxMt4bh2 Y3h081EOAlAFTyzO06Mz2 udDogMTBwdCBU dH5okywss5tnenwzDbJmY HHhKCv3TSz5BSHwhOtdDu CeKTZ3ZfB2ALX6uBPbhZ9 jnFpfrzelhI9r Oyc+E98huG4hIPA1SAY4v cbvUWYwnqCqGD55LW97O2 RyPjwvdGFibGU+PGRpdiB ciIutEO6rLzJt r7ick1LeAJcrJ2MrNJAkB FibWqq1NYOyGMS8lLM7yT 3hEWFiHCzzb5U3wTT6G4V ctwKubp6ul9fa UYHhPSvzJ83tvBFac7E4G YXlbBN6QOIhdBlvWkZhvF 93Oyc+VPMvePbvz5TpWbp vt0xib2fwrEa3 GpAgABFydsCkwNsyJBK1l 6ZkFz01X45sHLycYERsGO AqDKCmIOBkwPovxy1wyZ9 wIi8+PGNvbCB3 yQR7aT0bSVFoFzX1RNdeH 867IcCetGSiLaiau9qly8 jcsXe5SqCzUEYudwQlvGp qIBS1z1FhLh02 E06dWXrdVPCxQJPjAHLcQ FCmqJjedc1fvH0fCb5+PC 9ki8uhoo07rS21tMF+PHR pECK7kWxeOQde THKrdG0sALgdQhD5TFIsO yFfqE96fQQtJNaxGe5ceX ayiThdGS8iMUGtsrxgx46 0XrWte2rkQYKy nRCrAGznERR8X98uy6C1Z NJcVAYhTZH9jGG3mW1hdQ lnbjogbGVmdDsgdmVydGl xZMvnQFawR046 IHRvcDsnPlBhdGllbnQgT oPxWFa0A5XtWej6BINuxM uaHB3buQJxCGgbXt4dcIn kdOcyEJ9hYKIr ldcvb101QeCqs9pbMVXgc NAkGPgbIKS0W49iv0U4CK GuHZKrWFO4aHM4xG4vaZs nbjogbGVmdDsg lnGxlTuzOKkoUMunS103W HRvcDsnPkJpcnRoIERhdG D9NB65RN63zDCee5G4qAR 2D0HjHZSsekqh cdtsfSM0SWBsEPPdvS83V d3msHuyLu0qDEUdYNU2OG HtmQOmW0YavH5vMfDdCER xOXVoE4LmhVDe EZrnQ207JWfdJtJ4NGPoa hShQ2BpQHPhcUovVeE1w7 U4Mg0RG8N6OV20DL47nOO el8K9hUX9U3Sf XHQlzbjkwoxslEZ8NWBvY UGxrK68Cl8oyOswHr3xAH RvZIA1BXFjjQTjV3UtuV5 yOiAjMDAwMDAw K7RjxLMzXDcoQ863EPzaA oT3IXQocuKyP7TjEEUgbD ipZuU2w5E1Ve9KYGp8QS7 0AL72hRBhk1D8 jNW2R5AhFQBsbrdjtsinv SY5QUGiLBNifJ36Aa2sxH diHc1mKXTxOEC5BQPjfCM nZ9YgtE2gCgWu WDKmPZCuP7XolUIgBOmrV 431FMheGnO7BZUdyhAuE5 BpWSGyjGyiRsT9s8B8Jk1 VPGJhGR14HDV7 mPJ6XI17SG33Q2EhUfezo GFibGU+PHRhYmxlIHdpZH RoPScxMDAlJyBzdHlsZT0 iHn9xJMCfXLNj qSvuyHRqGzTme7gtNSRmS TvaYR5spGufH6PicAO6JO Ocu5d2Mo77Y58uX5GliUT +GWUszME2vKI8 dR9uTcIxEiF1GHqiG183S yKqiTBzQzomd6eco4hsqL z5NoD2INXrofXviWddBUA 3f7HoFg75C03k IHdpZHRoPSIxNSUiIHZhb Itflq2zyK0iQm7+PGNvbC H7zAS8uS9zDpEyLcB1FIi dO596AySscNMm Kmsen1nvq4pqlBl5PnBnW DJakvQrgEruVZI5n1CmYo 77L1PkyHkkk5XnQcz4kz2 6cRKnx8R7xYJ1 U9AoDNPkeyfxxOMptMlnM Z5tDKVukwzmFMKcyD3vOC RsN3d9MaNzBbA6SStiN7I uyiG8FQMfdZKd BYkoYOI6L50je5Z7WRSiA ITxPDL4cSA1gC8raIycpf ogbGVmdDsgdmVydGljYWw qNAfwE379VVWm lPsjZMVxzX4qOPYybBTdr ErhCW7mXTChhelzCriNAT VSNtcKLuxyB8GWLMz4B5W tEgb8SDKmbUjt MJ0edADmACkaQg8fyZhaa GrrAJ1nBDYezfdhMDEumP 5wLCXvxEDscVdcZS7xOIJ tqclex053DoWz DRB5UCBhnONlE4HxtI8rR hFhZLHyGCChI5CldMOzEZ ibA877ATynSkC6HDHgenI cQ1RqYXBriMbh ZuO9r3X1Vv4yFu7bBD7mZ VE0HW45EV85uRKmh3D0zU A8O1KvERXcjdhpavidqPA 9LSWmUOOdiB53 oEKcEHytTc4of0W5j245F DPwKCLyxY85Bq7wzOprJT TyjXNTnE9hqkxuj3zzdfs gIzAwMDAwMDt0 DXd6XBLzcJpjQkRcPYC7C tU6OUD5fPMieR5hfBrpcp wgrC7bKqt+NjMgWWVhcnM 4D6HlJba6XXLo lPadYN8ghVRfJPodEu5xc OzddNaqRY9fCOMhlwjaFK LmoF3bSJCqnBBghAllCE6 fNYQywnaoz041 TaNfWZW1QMDaoLKlI1Nmo P2yFlKyKETcACVcW1ThhX RpPEfaM960UFwiFmY3ENN myiNfF9YwFZUs aVykGpW3b0W4Mr2JVI0ll QI5Q7NuKca7OSDgjAfjYB 9pbPKaAHztIw0fqGzqeJl qVR1zPQIkrgej UGQzaH1gHHGysAIqlUaxJ F9gHFEwdnqpm443PuDbQQ Q5PTElpHAtT5XugV1xQeG wUSGqZKElF1Kx gBEaHJetH888SZjtKnO4X TBjgcLkZ7MuRRXglHdoBj C8m5B9He3ByFVxKITnQC2 0RA11HE40Z4Qa PjwvdGFibGU+PHRhYmxlI HdpZHRoPScxMDAlJyBzdH cpBP7dEb0vTIVdPMBycHh hqTAoBfOcl6on XJIlUKkwDZ5igMfjG3Lgm KO8SGIsv2i1Kn37E41nT0 JvdXA+UGUnbOY2zUI2qQ5 lGxOqJgG8HCwx H254CqXsnVNeSotyt2twb 8thsQs0HsUjQWJvarDjaG xgFEP5z7CiWj31F62aMZi pZHRoPSIyMCUi YZAmgCjjpj1ulS8gYl9+P TLkxZG0fWE4vT4qCqMrXp U3SWbqF406LcMrcFGiQzw qG96tT9MrxFG+ XQSgDbo3ROOlaJguUR3bd IUqDVbcCb4vVTU7HbXhHf UkJKphS6BwQRHjbakvfyj wcLS8SMJaSETi rW77Pp4vqOngAq7sZAXnE TS5OYHexKPfZ7XljC6cMq MwEPDxKAUpT3MjuFKsZWj rB512MLxfKkZ1 GMZhvlRaB3KcAJDuzZwmR kO4o7B4Jt1CkThxkOHyPU 7vOjLaYOs4B5MtRff5CGK rzSjyJC7exEJn KBhzFo1zpDglhYeoUA6iB KGowmwbe446RkYbz6qmXA ElwWToWAcmATU2X35pg6Q 2YNGjDLUyIYW4 lHC3xL4nwRawqovmcPQgi DsgdmVydGljYWwtYWxpZ2 30CGModYlgWfJYIal5Y7E nZdq4XQUaiXdl LW8tmCIsWKpjJt4jkLspr ZftQJ9iDXHlcxlxy364Dx Dhs6fiDCLlsTSwKUtiKBF 3Z65lu6G8KWGj QCFzAUS0zVV8pV0ylOngq jogbGVmdDsgdmVydGljYW nvHEtxV973EUSjrIpdBr3 QOpr4J2FwDvk1 ZCUlgYubGS7huKXsCHioV m0fvQfcaGvlYH9hVLZhph cxl787HeVde3moZEPfsCS eFXujTKQ5U20e x2Z1PTNvRNBoSZT3cFN2j P7shUsfeehyoYFdyOuamh QzrFcxVXhpKMzqE672ETY vcDsnPlBheWVy OjwvdGQ+JB20ff44I2HrN idnNcz7XTYhPCC2zAQ2kY 2tNOUaHGzwd6W5kSX7A7E mvnHfcx5oo0rz YXBz (more content not included)... Normal [facility] MRI Knee w/o Contrast Lefton 04-08-2021 [...] by: NEETU Technologist: MEGHANN Technical Comments None [facility] Consent for Treatmenton 03-16 Consent for Treatment [id number]#1 .00CD:[address] [facility] RAD - MRI Screening Formon 0 04-07-2021 RAD - MRI Screening Form [id number]# 1.00CD:127 [facility] Physician Orderon 03-24-2021 Physician Order [id number]# 1.00CD:127 [facility] Pre-Certification Formon Pre-Certification Form [id number]# 1.00CD:127 [facility] Vital Signs Date Time Vital Sign Value Performing Clinician Facility 07-01-2024 10:34-0400 Body height 161.3 cm Funmilayo Noonan DO Work Phone: [facility] 07-01-2024 10:34-0400 Body mass index (BMI) [Ratio] 37.84 kg/m2 Funmilayo Noonan DO Work Phone: [facility] 07-01-2024 10:34-0400 Body weight 98.43 kg Funmilayo Noonan DO Work Phone: [facility] 06-09-2024 08:56-0400 Body height 162.56 cm [facility] 06-09-2024 08:56-0400 Body mass index (BMI) [Ratio] 37 kg/m2 [facility] 06-09-2024 08:56-0400 Body weight 97.97 kg [facility] 06-09-2024 08:56-0400 Diastolic blood pressure 78 mm[Hg] [facility] 06-09-2024 08:56-0400 Heart rate 68 /min [facility] 06-09-2024 08:56-0400 SaO2% (BldA) [Mass fraction] 98 % [facility] 06-09-2024 08:56-0400 Systolic blood pressure 116 mm[Hg] [facility] 12-10-2023 09:29-0500 Body height 162.56 cm [facility] 12-10-2023 09:29-0500 Body mass index (BMI) [Ratio] 39.1 kg/m2 [facility] 12-10-2023 09:29-0500 Body weight 103.47 kg [facility] 12-10-2023 09:29-0500 Diastolic blood pressure 83 mm[Hg] [facility] 12-10-2023 09:29-0500 Heart rate 83 /min [facility] 12-10-2023 09:29-0500 Respiratory rate 12 /min [facility] 12-10-2023 09:29-0500 Systolic blood pressure 134 mm[Hg] [facility] 08-13-2023 14:30-0400 Body height 162.56 cm Leilani Rohrbacher Other [facility] Other 08-13-2023 14:30-0400 Diastolic blood pressure 64 mm[Hg] Leilani Rohrbacher Other [facility] Other 08-13-2023 14:30-0400 SaO2% (BldA) [Mass fraction] 100 % Leilani Buciorbacher Other [facility] Other 08-13-2023 14:30-0400 Systolic blood pressure 122 mm[Hg] Leilani Buciorbacher Other [facility] Other 08-03-2023 10:15-0400 Body height 162.56 cm Leilani Buciorbacher Other [facility] Other 08-03-2023 10:15-0400 Diastolic blood pressure 80 mm[Hg] Leilani Buciorbacher Other [facility] Other 08-03-2023 10:15-0400 SaO2% (BldA) [Mass fraction] 100 % Leilani Buciorbacher Other [facility] Other 08-03-2023 10:15-0400 Systolic blood pressure 132 mm[Hg] Leilani Rohrbacher Other [facility] Other 05-21-2023 09:00-0400 Body height 162.56 cm Ray Ball Other [facility] Other 05-21-2023 09:00-0400 Body mass index (BMI) [Ratio] 41.6 kg/m2 Ray Ball Other [facility] Other 05-21-2023 09:00-0400 Body weight 109.95 kg Ray Ball Other [facility] Other 05-21-2023 09:00-0400 Diastolic blood pressure 84 mm[Hg] Ray Ball Other [facility] Other 05-21-2023 09:00-0400 Respiratory rate 16 /min Ray Ball Other [facility] Other 05-21-2023 09:00-0400 Systolic blood pressure 133 mm[Hg] Ray Ball Other [facility] Other 12-26-2022 15:30-0400 Body height 162.56 cm Ray Ball Other [facility] Other 12-26-2022 15:30-0400 Body mass index (BMI) [Ratio] 42.38 kg/m2 Ray Ball Other [facility] Other 12-26-2022 15:30-0400 Body weight 111.99 kg Ray Ball Other [facility] Other 12-26-2022 15:30-0400 Diastolic blood pressure 84 mm[Hg] Ray Ball Other [facility] Other 12-26-2022 15:30-0400 Respiratory rate 12 /min Ray Ball Other [facility] Other 12-26-2022 15:30-0400 Systolic blood pressure 132 mm[Hg] Ray Ball Other [facility] Other 02-13-2022 08:50-0400 Diastolic blood pressure 86 mm[Hg] Stacey WU [facility] 02-13-2022 08:50-0400 Heart rate 60 /min Ibarra SALAM [facility] 02-13-2022 08:50-0400 Respiratory rate 11 /min Ibarra SALAM [facility] 02-13-2022 08:50-0400 SaO2% (BldA) [Mass fraction] 100 % Ibarra SALAM [facility] 02-13-2022 08:50-0400 Systolic blood pressure 155 mm[Hg] Ibarra SALAM [facility] 02-13-2022 08:35-0400 Diastolic blood pressure 90 mm[Hg] Ibarra SALAM [facility] 02-13-2022 08:35-0400 Heart rate 65 /min Ibarra SALAM [facility] 02-13-2022 08:35-0400 Respiratory rate 12 /min Ibarra SALAM [facility] 02-13-2022 08:35-0400 Respiratory rate 11 /min Ibarra SALAM [facility] 02-13-2022 08:35-0400 SaO2% (BldA) [Mass fraction] 100 % Ibarra SALAM [facility] 02-13-2022 08:35-0400 SaO2% (BldA) [Mass fraction] 99 % Ibarra SALAM [facility] 02-13-2022 08:35-0400 Systolic blood pressure 139 mm[Hg] Ibarra SALAM [facility] 02-13-2022 08:30-0400 Diastolic blood pressure 83 mm[Hg] Ibarra SALAM [facility] 02-13-2022 08:30-0400 Systolic blood pressure 133 mm[Hg] Ibarra SALAM [facility] 02-13-2022 08:26-0400 Body temperature 96.8 [degF] Ibarra SALAM [facility] 02-13-2022 08:20-0400 Respiratory rate 16 /min Ibarra SALAM [facility] 02-13-2022 08:16-0400 Respiratory rate 19 /min Ibarra SALAM [facility] 02-13-2022 08:15-0400 Respiratory rate 19 /min Ibarra SALAM [facility] 02-13-2022 07:20-0400 Blood Pressure Location Ibarra SALAM [facility] 02-13-2022 07:20-0400 Body temperature 98.42 [degF] Ibarra SALAM [facility] Encounters Encounter Date Encounter Type Care Provider Facility Start: 07-08-2024 End: 07-08-2024 ambulatory FUNMILAYO NOONAN Not Available Start: 07-01-2024 End: 07-01-2024 Bamboo flowsheet Funmilayo Noonan DO Work Phone: [facility] Start: 07-01-2024 End: 07-01-2024 Bamboo flowsheet Funmilayo Noonan DO Work Phone: [facility] Start: 07-01-2024 End: 07-01-2024 Patient encounter procedure Funmilayo Noonan DO Work Phone: [facility] Comment on above: Bilateral primary os teoarthritis of knee (Primary Dx) Start: 07-01-2024 End: 07-01-2024 ambulatory FUNMILAYO NOONAN Not Available Start: 06-24-2024 End: 06-24-2024 ambulatory FUNMILAYO NOONAN Not Available Start: 06-17-2024 End: 06-17-2024 ambulatory FUNMILAYO NOONAN Not Available Start: 06-09-2024 End: 06-09-2024 ambulatory [facility] Work Phone: Start: 06-09-2024 End: 06-09-2024 Patient encounter procedure [facility] Work Phone: Start: 06-02-2024 Non-patient / Non-visit [facility] Work Phone: Start: 05-21-2024 End: 05-21-2024 ambulatory CLIFF SERRANO Not Available Start: 05-05-2024 End: 05-05-2024 ambulatory ROSALIND MCLAUGHLIN Not Available Start: 12-10-2023 End: 12-10-2023 ambulatory [facility] Work Phone: Start: 12-10-2023 End: 12-10-2023 Patient encounter procedure [facility] Work Phone: Start: 12-07-2023 Non-patient / Non-visit [facility] Work Phone: Start: 12-04-2023 Non-patient / Non-visit [facility] Work Phone: Start: 11-07-2023 End: 11-07-2023 ambulatory Ray Rawls Other [facility] Other Start: 11-07-2023 Telephone encounter Ray Rawls [facility] Start: 08-13-2023 End: 08-13-2023 ambulatory Leilani Archibald Other [facility] Other Start: 08-13-2023 Office outpatient vi sit 15 minutes Leilani Archibald [facility] Start: 08-09-2023 End: 08-09-2023 ambulatory Leilani Archibald Other [facility] Other Start: 08-09-2023 Telephone encounter Leilani menon [facility] Start: 08-03-2023 End: 08-03-2023 ambulatory Leilani Cristela Other [facility] Other Start: 08-03-2023 Office outpatient vi sit 15 minutes Leilani Cristela [facility] Start: 05-21-2023 End: 05-21-2023 ambulatory Ray Rawls Other [facility] Other Start: 05-21-2023 Office outpatient vi sit 25 minutes Ray Ball [facility] Start: 05-15-2023 End: 05-15-2023 ambulatory Ray Rawls Other [facility] Other Start: 05-15-2023 Telephone encounter Ray Rawls [facility] Start: 04-18-2023 End: 04-18-2023 ambulatory Ray Rawls Other [facility] Other Start: 04-18-2023 Telephone encounter Ray Rawls [facility] Start: 03-14-2023 End: 03-15-[address] RAY RAWLS Facility:[facility] Start: 03-14-2023 Telephone encounter Ray Rawls [facility] Start: 02-16-2023 End: 02-16-2023 ambulatory Ray Rawls Other [facility] Other Start: 02-16-2023 Office outpatient vi sit 10 minutes Ray Ball [facility] Start: 02-16-2023 Telephone encounter Ray Rawls [facility] Start: 12-26-2022 End: 12-26-2022 ambulatory Ray Joanne Other [facility] Other Start: 12-26-2022 Office outpatient vi sit 15 minutes Ray Ball [facility] Start: 12-25-2022 End: 12-25-2022 ambulatory Ray Rawls Other [facility] Other Start: 12-25-2022 Telephone encounter [facility] Start: 11-14-2022 Encounter for genera l adult medical examination without abnormal findings DR RAY RAWLS [facility] Start: 11-13-2022 End: 11-14-[address] RAY RAWLS Facility:[facility] Start: 11-13-2022 End: 11-14-2022 Encounter for general adult medical examination without abnormal findings DR RAY RAWLS Facility:[facility] Start: 11-01-2022 End: 11-01-2022 ambulatory Ray Rawls Other [facility] Other Start: 11-01-2022 Encounter for genera l adult medical examination without abnormal findings [facility] Start: 11-01-2022 Telephone encounter [facility] Start: 06-14-2022 End: 06-15-[address] RAY RAWLS Facility:[facility] Start: 04-27-2022 End: 04-28-[address] RAY RAWLS Facility:[facility] Start: 04-13-2022 End: 04-14-[address] RAY RAWLS Facility:[facility] Start: 02-13-2022 End: 02-13-2022 Patient encounter procedure Ibarra BRYCE [facility] Start: 01-12-2022 Adult health examination Will Rawls Other [facility] Other Procedures Date Procedure Procedure Detail Performing Clinician Start: 07-01-2024 Arthrocentesis aspir &/inj major jt/bursa w/o us Funmilayo Noonan DO Work Phone: Start: 02-13-2022 Colonoscopy Funmilayo pinto DO Work Phone: Start: 02-13-2022 Colonoscopy Stacey Borja Comment on above: cecal colon polyp, I H Start: 10-15-2018 Endoscopy of stomach Vickie WU Start: 10-15-2008 Abdominal hysterectomy Stacey WU Start: 01-01-2009 Biopsy of breast Stacey WU Start: 10-15-1998 Cholecystectomy Stacey ACOSTA Start: 10-15-1979 Decompression of med diogenes nerve Stacey WU Depression screening Livier Rawls Other End: 01-12-2022 Screening for malignant neoplasm of breast Ray Rawls Other Screening mammography Donisam in [place] Other Plan of Treatment Date Care Activity Detail Author Start: 02-14-2032 Screening for malign ant neoplasm of colon [facility] Start: 05-07-2025 End: 05-07-2025 Patient encounter procedure 05/07/2025 8:30 AM EDT Office Visit [facility] [address] [place] [id number] Rosalind Mclaughlin MD [address] [place] [address] [facility] Start: 07-08-2024 End: 07-08-2024 Patient encounter procedure 07/08/2024 9:45 AM EDT Procedure Visit [facility] [address] [facility] [place] [address] Funmilayo Noonan, DO [address] [place] [address] [facility] Start: 07-01-2024 End: 07-01-2024 Patient encounter procedure 07/01/2024 10:30 AM EDT Procedure Visit [facility] [address] [place] [place] [address] Funmilayo Noonan, DO [address] [place] [address] Bilateral primary osteoarthritis of knee (Primary Dx) [facility] Comment on above: Bilateral primary os teoarthritis of knee (Primary Dx) Start: 06-15-2024 Influenza vaccination Influenza Vacc ine (#1) [facility] Start: 2023 Pneumococcal Vaccine : 65+ Years (1 of 1 - PCV) Pneumococcal Vaccine: 65+ Years (1 of 1 - PCV) [facility] Start: 1998 Screening for malign ant neoplasm of breast Mammogram [facility] Start: 1960 Screening for malign ant neoplasm of colon [facility] Immunizations Immunization Date Immunization Notes Care Provider Sandeep robertson 07-16-2023 COVID-19 Vaccine Pfizer - Documentation Purposes Only Leilani Archibald Other [facility] 07-16-2023 Flu Shot - Documentation Purposes Only Leilani Archibald Other [facility] 07-16-2023 influenza virus vaccine, unspecified formulation Funmilayo Noonan DO Work Phone: [facility] 07-14-2022 influenza virus vaccine, split virus (incl. purified surface antigen) Ray Rawls Other [facility] Other 07-14-2022 influenza virus vaccine, unspecified formulation [facility] 08-13-2021 COVID-19 Vaccine Pfizer - Documentation Purposes Only Ray Rawls Other [facility] 01-14-2021 COVID-19, mRNA, LNP- S, PF, 30 mcg/0.3 mL dose; Translations: [Pfizer-BioNTech COVID-19 Vaccine] [facility] Comment on above: Reason for Medicatio n: Prophylaxis 12-24-2020 COVID-19, mRNA, LNP- S, PF, 30 mcg/0.3 mL dose; Translations: [Pfizer-BioNTech COVID-19 Vaccine] [facility] Comment on above: Reason for Medicatio n: Prophylaxis Payers Date Payer Category Payer Medicare [id number] 2023 Medicare AN[employer]M MEDICARE ADVANTAGE [employer]M BLUE MEDICARE ADVANTAGE [id number] 2023-Present [address] [place] [address] [id number] 2023 Blue Cross Blue Shield [id number] 1959 Self-pay 1961 Unknown [id number] 1958 Unknown [id number] [id number] 93 1958 Unknown [id number] 2.16.840.1.639039.3.579.2.5 93 1958 Unknown [id number] 2.16.840.1.384983.3.579.2.5 93 1958 Unknown [id number] 2.16.840.1.341139.3.579.2.1 259 1958 Unknown [id number] [id number] 259 1958 Unknown [id number] 2.16.840.1.603524.3.579.2.1 259 1958 Unknown [id number] [id number] 259 1958 Unknown [id number] 2.16.840.1.186391.3.579.2.1 259 1958 Unknown [id number] 2.16.840.1.296054.3.579.2.1 259 1958 Unknown [id number] 2.16.840.1.831319.3.579.2.1 259 1958 Unknown [id number] [id number] 259 Unknown [id number] 2.16.840.1.262382.3.579.2.5 93 Unknown [id number] [id number] 93 Social History Date Type Detail Facility Start: 01-03-2022 End: 05-05-2024 Tobacco smoking status Never smoked tobacco (finding) [facility] Tobacco smoking status Never Ad[facility] Start: 06-24-2024 End: 07-01-2024 Sex Assigned At Female [facility] Start: 1960 Sex Assigned At Female [facility] Start: 05-05-2024 Tobacco use and exposure Smokeless tobacco non-user [facility] Start: 06-24-2024 End: 07-01-2024 Alcoholic beverage intake Ex-drinker (finding) [facility] Start: 06-24-2024 End: 07-01-2024 History of Social function [facility] Start: 04-21-2024 Gender identity Identifies as female gender (finding) [facility] Clinical Notes 02-13-2022 to 07-01-2024 Funmilayo Noonan DO - 07/01/2024 10:30 AM EDTMbrittaney Noonan DO - 07/01/2024 10:30 AM EDT Note Date & Type Note Facility 07-01-2024 History of Presen t illness Narrative Associated Order(s): L Inj/Asp: bilateral knee Post-Procedure Diagnose(s): Bilateral primary osteoarthritis of knee L Inj/Asp: bilateral knee on 07/01/2024 10:32 AM Details: 22 G needle Medications (Right): 2 mL sodium hyaluronate 16.8 MG/2ML Medications (Left): 2 mL sodium hyaluronate 16.8 MG/2ML GelSyn 2 of 3 Injection Left knee Patient is seen and evaluated today for left knee pain and stiffness. Continued swelling and stiffness despite conservative course with ice, Tylenol, NSAID's and compression. Occasional buckle sensation. Pt did well with last weeks injection without reaction. Physical Exam: The patient is examined in the office today. The left knee has mild aseptic swelling. Hypertrophic changes are noted. AROM is decreased with pain. Crepitance is present in multiple compartments. Tenderness is moderate to severe thru multiple compartments. Collateral ligaments are intact to stress testing at 0 and 30 degrees. Positive grind test of the patella. Gait is stiff and antalgic with occasional assistive device reported. Hip exam is stable. Negative bench and straight leg raise testing. NVM intact distally without footdrop. Calves are supple without sign of infection, ulceration or DVT. Xrays: Multiple weightbearing views (AP, Lateral and sunrise) are reviewed for the permanent PACS record. Advanced grade 3-4 degenerative changes are present of the left knee. No fracture, dislocation, tumor or infection seen. Images are reviewed with the patient at length. Assessment: Left knee Osteoarthritis-M17.12 Left knee pain-M25.562 Antalgic gait-R26 Treatment/Plan: The nature of the findings were discussed at length. Xray imaging and severity discussed. Conservative management with ice, heat, exercise, strengthening, weight loss, compression wrap/bracing was reviewed. Anti-inflammatory medication , if stable with GI and kidney function, was reviewed. OTC and prescription options were discussed. Tylenol dosing parameters and daily limits for breakt thru pain was reviewed. Cortisone injections can be provided up to 3 per year and no closer than a month interval. Hyaluronic acid viscosupplementation options and expectations were discussed at length. Patient is aware results are not guaranteed. We discussed the role of knee replacement surgery, indications, approach, implants, and rehab process were all reviewed. After lengthy discussion, the patient elects to move forward with the second viscosupplementation injection with GelSyn to the left knee. Under sterile technique with the knee extended and supported, 2 ml of GelSyn was injected to the left knee suprapatellar pouch. Needle was removed and adequate hemostasis was achieved. The patient tolerated the injection well. Post injection restriction of 50% activity reduction the day of the injection with icing techniques 1-2 times per 10-15 minutes to the knee was reviewed. Patient was ambulatory and discharged in stable condition. Any reactions, concerns or continued pain will be reported via phone call or return visit. All questions were answered. Follow-up next week for third GelSyn injection left knee. GelSyn 3 of 3 Injection Right knee Patient is seen and evaluated today for right knee pain and stiffness. Continued swelling and stiffness despite conservative course with ice, Tylenol, NSAID's and compression. Occasional buckle sensation. Did well with last two weeks injection. Physical Exam: The patient is examined in the office today. The right knee has mild aseptic swelling. Hypertrophic changes are noted. AROM is decreased with pain. Crepitance is present in multiple compartments. Tenderness is moderate to severe thru multiple compartments. Collateral ligaments are intact to stress testing at 0 and 30 degrees. Positive grind test of the patella. Gait is stiff and antalgic with occasional assistive device reported. Hip exam is stable. Negative bench and straight leg raise testing. NVM intact distally without footdrop. Calves are supple without sign of infection, ulceration or DVT. Xrays: Multiple weightbearing views (AP, Lateral and sunrise) are reviewed for the permanent PACS record. Advanced grade 3-4 degenerative changes are present of the right knee. No fracture, dislocation, tumor or infection seen. Images are reviewed with the patient at length. Assessment: Right knee Osteoarthritis-M17.11 Right knee pain-M25.562 Antalgic gait-R26 Treatment/Plan: The nature of the findings were discussed at length. Xray imaging and severity discussed. Conservative management with ice, heat, exercise, strengthening, weight loss, compression wrap/bracing was reviewed. Anti-inflammatory medication , if stable with GI and kidney function, was reviewed. OTC and prescription options were discussed. Tylenol dosing parameters and daily limits for breakt thru pain was reviewed. Cortisone injections can be provided up to 3 per year and no closer than a month interval. Hyaluronic acid viscosupplementation options and expectations were discussed at length. Patient is aware results are not guaranteed. We discussed the role of knee replacement surgery, indications, approach, implants, and rehab process were all reviewed. After lengthy discussion, the patient elects to move forward with third viscosupplementation injection with GelSyn to the right knee. Under sterile technique with the knee extended and supported, 2 ml of GelSyn was injected to the right knee suprapatellar pouch. Needle was removed and adequate hemostasis was achieved. The patient tolerated the injection well. Post injection restriction of 50% activity reduction the day of the injection with icing techniques 1-2 times per 10-15 minutes to the knee was reviewed. Patient was ambulatory and discharged in stable condition. Any reactions, concerns or continued pain will be reported via phone call or return visit. All questions were answered. Follow-up in two months if painful or having concerns. documented in this encounter [facility] 08-13-2023 Evaluation note Encounter Date Diagnosis Assessment [...] verbalizes understanding and agreement with treatment plan. [facility] Other 10-20-2023 Evaluation note* Encounter Date Diagnosis [...] verbalizes understanding and agreement with treatment plan. [facility] Other 08-07-2023 Evaluation note* Encounter Date Diagnosis [...] Ortho for Synvisc if needed in Sept [facility] Other 05-31-2023 Evaluation note* Encounter Date Diagnosis Assessment Notes Treatment Notes Treatment Clinical Notes February, Other specified hypothyroidism (ICD-10 - E03.8) February, Autoimmune thyroiditis (ICD-10 - E06.3) [facility] Other 05-05-2023 Evaluation note* Encounter Date Diagnosis Assessment Notes Treatment Notes Treatment Clinical Notes February, Diarrhea of presumed infectious origin (ICD-10 - R19.7) Diet instructions: - avoid juice, milk and tomato sauce - increase bananas, yogurt and cheese February, Nausea (ICD-10 - R11.0) Sip on water and snack every couple hours Zofran as needed. ER for intractable nausea/emesis and dehydration [facility] Other 03-14-2023 Evaluation note* Encounter Date Diagnosis [...] exercise for 30 minutes, 3-5 times weekly. [facility] Other 01-18-2023 Evaluation note* Encounter Date Diagnosis Assessment Notes Treatment Notes Treatment Clinical Notes Oct, Wellness examination (ICD-10 - Z00.00) [place] [facility] Other 05-04-2022 Note [id number]:127[facility] 02-13-2022 Hospital Discharge instructions Patient Education 02/13/2022 08:39:02 Colonoscopy, Care After Surgery Salam (CUSTOM) Colonoscopy Care After Surgery Please read the instructions outlined below and refer to this sheet in the next few weeks. These discharge instructions provide you with general information on caring [facility] Your doctor may also give you [...] 06/27/2005 Document Revised: 01/16/2019 Document Reviewed: 01/16/2019 [employer] Patient Education 2020 [employer] Follow Up Care 01/03/2022 10:52:47 With:Stacey WU Address: [facility] [address] [place] [address] Business (1) When: Unknown [facility] No data available for this section [facility] Other Evaluation note* Diagnosis Onset Date Resolution Status JEANE (generalized anxiety disorder) acute Gastroesophageal reflux dise ase with esophagitis without hemorrhage acute Hypercholesteremia acute Hypothyroid acute IFG (impaired fasting glucose) acute Screening mammogram for breast cancer [facility] Work Phone: Evaluation note* Diagnosis Onset Date Resolution Status JEANE (generalized anxiety disorder) acute Gastroesophageal reflux dise ase with esophagitis without hemorrhage acute Hypercholesteremia acute Hypothyroid acute IFG (impaired fasting glucose) acute Obesity acute [facility] Work Phone: Evaluation note* Diagnosis Bilateral primary osteoarthritis of knee- Primary documented in this [facility] - Reported* Type Description Date [...] History COLONOSCOPY 2021 Hospitalization History SEE SURGICAL [facility] Other History general Narrative - Reported* Type [...] History COLONOSCOPY 2021 Hospitalization History SEE SURGICAL [facility] Other Summary Purpose Family History Relationship Condition Age at Onset Recorded Date/T meka mother Macular degeneration Unknown father Cerebrovascular accident (CVA) Unknown Pulmonary emphysema Unknown Advance Directives Advance Directive Response Recorded Date/ Time Advance Directives No November 03, 2023 1:50pm Advance Directive Response Recorded Date/ Time Advance Directives No November 03, 2023 2:50pm Chief Complaint and Reason for Visit Chief Complaint Medicare Wellness Reason for Visit JEANE (generalized anx iety disorder) Gastroesophageal reflux disease with esophagitis without hemorrhage Hypercholesteremia Hypothyroid IFG (impaired fasting glucose) Screening mammogram for breast cancer Chief Complaint 6 month follow up Reason for Visit JEANE (generalized anx iety disorder) Gastroesophageal reflux disease with esophagitis without hemorrhage Hypercholesteremia Hypothyroid IFG (impaired fasting glucose) Obesity Reason for Referral Specialty Diagnoses / Procedures Referred By Varsha villarreal Referred To Contact Orthopaedic Surgery Diagnoses Bilateral primary osteoarthritis of knee Procedures L Inj/Asp: bilateral knee NoonanFunmilayo, DO [address] [place] [address] Referral ID Status Reason Start Date Expiration Date V isits Requested Visits Authorized [id number] Authorized 07/01/2024 12/28/2024 1 1 Additional Source Comments INFORMATION SOURCE (unrecogn ized section and content) DATE CREATED AUTHOR 03/11/2022 [facility] DATE CREATED AUTHOR AUTHOR'S ORGANIZ ATION 03/23/2023 [facility] DATE CREATED AUTHOR AUTHOR'S ORGANIZ ATION 07/10/2024 [facility] EPIC REASON FOR VISIT (unrecogniz ed section and content) Reason Comments Pain Care Teams (unrecognized sec tion and content) [...] December 10, 2023 End: December 10, 2023 Team Status: Active Member Role Status Dates Ray Rawls DO Primary Care Provide r, Attending Provider Active Start: June 02, 2024 Team Status: Inactive Member Role Status Dates Ray Rawls DO Primary Care Provide r, Attending Provider Active Start: June 09, 2024 End: June 09, 2024 Layout Mechanic Relationship Specialty Start Date End Date Ray Rawls MD [address] [place] [id number] PCP - General 04/28/24 Layout Mechanic Relationship Specialty Start Date End Date Ray Rawls MD [address] [place] [id number] PCP - General 7/15/24 Goals (unrecognized section and content) Goals may [...] BE BASED ON THE PRIMARY CLINICAL RECORDS. [facility]. provides no warranty or guarantee of the accuracy or completeness of information in this document.
== END 2024-10-02 13:55 | disposition home or self-care (01) ==
LOC: CARD 13:54
PROVIDERS: PCP Internal Medicine; Visit Provider Internal Medicine
DX: R00.2 Palpitations (principal); R01.1 Cardiac murmur, unspecified
CPT/HCPCS: 93246; 93306

== ENCOUNTER 2024-12-08 09:12 | Outpatient (OUT) | payer MEDICARE, SELFPAY ==
[2024-12-08 09:41] LABS: Basophils Percent Auto 0.6 % (0.2-2.0); Eosinophils Absolute Auto 0.2 10^3/uL (0.0-0.7); Hematocrit 36.2 % (36.0-48.0); Hemoglobin 12.2 g/dL (12.0-16.0); Immature Granulocytes Abs Auto 0.01 10^3/uL (0.00-0.03); Immature Granulocytes Pct Auto 0.2 % (0.0-0.5); Lymphocytes Absolute Auto 1.4 10^3/uL (1.2-3.8); Lymphocytes Percent Auto 28.7 % (20.5-60.0); Mean Corpuscular HGB Conc 33.7 g/dL (29.9-35.2); Mean Corpuscular Hemoglobin 29.7 pg (26.7-34.0); Mean Corpuscular Volume 88.1 fL (81.0-99.0); Mean Platelet Volume 9.8 fL (9.5-13.5); Monocytes Absolute Auto 0.5 10^3/uL (0.3-0.8); Monocytes Percent Auto 9.6 % (1.7-12.0); Neutrophils Absolute Auto 2.9 10^3/uL (1.4-6.5); Neutrophils Percent Auto 56.9 % (43.0-75.0); Platelet Count 256 10^3/uL (150-450); Red Blood Count 4.11 10^6/uL (4.20-5.40)
[2024-12-08 10:07] LABS: Alanine Aminotransferase 28 U/L (14-59); Albumin Globulin Ratio 1.1; Albumin Level 3.6 g/dL (3.4-5.0); Alkaline Phosphatase 76 U/L (46-116); Anion Gap 11.5; Aspartate Amino Transferase 23 U/L (15-37); BUN Creatinine Ratio 14.9; Bilirubin Total 0.4 mg/dL (0.2-1.0); Calcium 9.1 mg/dL (8.5-10.1); Carbon Dioxide 27.4 mmol/L (21.0-32.0); Chloride 95 mmol/L (98-107); Chol HDL Ratio 3.1; Cholesterol 177 mg/dL (<=200); Estimated GFR (African America >60 (>=60 mL/min/1.73m^2); Estimated GFR (Non-African Ame >60 (>=60 mL/min/1.73m^2); Globulin 3.2 g/dL; Glucose 98 mg/dL (74-106); HDL Cholesterol 57 mg/dL (40-60); LDL Cholesterol Calculated 107.6 mg/dL; Potassium 4.9 mmol/L (3.5-5.1); Sodium 129 mmol/L (136-145); Total Protein 6.8 g/dL (6.4-8.2); Triglycerides 62 mg/dL (<=150); VLDL CHOLESTEROL 12.4 mg/dL
== END 2024-12-08 09:13 | disposition home or self-care (01) ==
LOC: LAB 09:14
PROVIDERS: PCP Internal Medicine; Visit Provider Internal Medicine
DX: E03.9 Hypothyroidism, unspecified (principal); R73.01 Impaired fasting glucose; Z79.899 Other long term (current) drug therapy; R53.83 Other fatigue; E78.00 Pure hypercholesterolemia, unspecified; E03.8 Other specified hypothyroidism
CPT/HCPCS: 36415; 80053; 80061; 85025

== ENCOUNTER 2025-04-21 10:20 | Outpatient (OUT) | payer MEDICARE, SELFPAY ==
--- OUTSIDE RECORDS SUMMARY | 2025-01-27 08:50 | XMS_ITS ---
Author Name Auto Generated Organization OH[facility] Care Team Providers Care Workers Compensation Paralegal Name Role Phone BANDAR BILLS Attending Unavailable BANDAR BILLS Attending Unavailable BANDAR BILLS Attending Unavailable CLIFF SERRANO Referring Unavailable CLIFF SERRANO Referring Unavailable CLIFF SERRANO Attending Unavailable FUNMILAYO NOONAN Attending Unavailable SHAISTA, FUNMILAYO Kendrick Attending Unavailable NOONAN, FUNMILAYO Kendrick Attending Unavailable FUNMILAYO NOONAN Attending Unavailable PROBLEMS No Problem Records Found PROCEDURES No Procedure Records Found RESULTS No Result Records Found ALLERGIES No Allergies Records Found ENCOUNTERS ADMIT/DISCHARGE ACCOUNT NUMBER ADMITTING ENCOUNTER CLASS LOCATION SOURCE 01/27/2025/ 5 [id number] [facility] 01/08/2025/ 5 [id number] Ambulatory Building:[facility] 07/08/2024/ 4 [id number] Ambulatory Building:[facility] 07/01/2024/ 4 [id number] Ambulatory Building:[facility] 06/24/2024/ 4 [id number] Ambulatory Building:[facility] 06/17/2024/ 4 [id number] Ambulatory Building:[facility] 05/21/2024/ 4 [id number] Ambulatory Building:[facility] 05/21/2024/ 4 [id number] Ambulatory Building:[facility] EPIC 05/21/2024/ 4 [id number] Ambulatory Building:[facility] EPIC 05/05/2024/ 4 [id number] Ambulatory Building:[facility] EPIC PAYERS ENCOUNTER GUARANTOR PAYER SUBSCRIBER SOURCE 01/27/2025 JOSE TSERIESDOB: [place], [place] [address]Rku: (HP) (WP) Primary Insurance:ANTHEM MEDICARE ADVANTAGEPolicy Number: [id number] Date:2023-10-15 JOSE TSERIESDOB: [id number] [place] [address] [facility] EPIC 01/08/2025 JOSE TSERIESDOB: [place], [place] [address]Wif: (HP) (WP) Primary Insurance:[employer]HEM MEDICARE ADVANTAGEPolicy Number: [id number] Date:2023-10-15 JOSE THOMPSONPHRIESDOB: [id number] [place] [address] [facility] EPIC 07/08/2024 JOSE THOMPSONPHRIESDOB: [place], [place] [address]Dxp: (HP) (WP) Primary Insurance:ANTHEM MEDICARE ADVANTAGEPolicy Number: [id number] Date:2023-10-15 JOSE THOMPSONPHRIESDOB: [id number] [place] [address] [facility] EPIC 07/01/2024 JOSE THOMPSONPHRIESDOB: [place], [place] [address]Bia: (HP) (WP) Primary Insurance:[facility] MEDICARE ADVANTAGEPolicy Number: [id number] Date:2023-10-15 JOSE K HUMPHRIESDOB: [id number] [place] [address] [facility] EPIC 06/24/2024 JOSE K HUMPHRIESDOB: [place], [place] [address]Ccx: (HP) Primary Insurance:[facility] MEDICARE ADVANTAGEPolicy Number: [id number] Date:2023-10-15 JOSE K HUMPHRIESDOB: [id number] [place] [address] [facility] EPIC 06/17/2024 JOSE Avila HUMPHRIESDOB: [place], [place] [address]Tzd: (HP) Primary Insurance:ANTHEM MEDICARE ADVANTAGEPolicy Number: [id number] Date:2023-10-15 JOSE K HUMPHRIESDOB: [id number] [place] [address] [facility] EPIC 05/21/2024 JOSE K HUMPHRIESDOB: [place], [place] [address]Hoh: (HP) Primary Insurance:[employer]HEM MEDICARE ADVANTAGEPolicy Number: [id number] Date:2023-10-15 JOSE K HUMPHRIESDOB: [id number] [place] [address] [facility] EPIC 05/21/2024 JOSE K HUMPHRIESDOB: [place], [place] [address]Mud: (HP) Primary Insurance:[employer]HEM MEDICARE ADVANTAGEPolicy Number: [id number] Date:2023-10-15 JOSE Avila HUMPHRIESDOB: [id number] [place] [address] [facility] 05/21/2024 JOSE BELTRANB: [place] [address]Mzj: () Primary Insurance:[employer] MEDICARE ADVANTAGEPolicy Number: [id number] Date:2023-10-15 JOSE BELTRANB: [id number] [place] [address] [facility] 05/05/2024 JOSE BELTRANB: [place] [address]Cox: () Primary Insurance:[employer]HEM MEDICARE ADVANTAGEPolicy Number: [id number] Date:2024-04-21 JOSE BELTRANB: [id number] [place] [address] [facility]
--- OUTSIDE RECORDS SUMMARY | 2025-04-21 10:21 | XMS_ITS | Clinical Summary ---
Author Organization [facility] Address [address] [place] [address] Care Team Providers Care Communications Editor Name Role Phone Ray Rawls Primary Care Provider [phone] Allergies Active Allergy Reactions Criticality Noted Date Comments Cranberry Extract Anaphylaxis High 03/16/2021 Diclofenac Itching,Unknown 05/05/2024 Other Reaction(s): hives Influenza Virus Vaccine Shortness of breath High 05/21/2024 Nsaids Unknown 05/05/2024 Medications levothyroxine (Synthroid, Levoxyl) 75 MCG tablet Take 75 mcg by mouth Daily 4 Active albuterol HFA 90 mcg/act inhaler INHALE 2 PUFFS EVERY 4 HOURS NEEDED FOR WHEEZE OR FOR SHORTNESS OF BREATH Active montelukast (Singulair) 10 MG tablet Take 10 mg by mouth Daily Active acetaminophen (Tylenol) 500 MG tablet Take by mouth Active omeprazole (PriLOSEC) [address] capsule Take 10 mg by mouth in the morning. Take before meals. Do not crush or chew.. Active HYDROcodone-zain taminophen ([place]) 5-325 MG tablet TAKE 1 TABLET BY MOUTH TWICE A DAY NEEDED FOR PAIN FOR 14 DAYS 4 Active Active Problems No known active problems Encounters Date Type Department Care Team Description 01/27/2025 9:00 AM EDT Office Visit [facility] [address] [place] [phone] Rosalind Mclaughlin MD Dry eyes (Primary Dx) 01/27/2025 Bamboo flowsheet [facility] [address] [place] [phone] Rosalind Mclaughlin MD 01/27/2025 Travel 01/26/2025 Travel from Last 3 Months Family History Medical History Relation Name Comments Cataracts Brother Sae Diabetes Brother Sae Cataracts Father Navneet Diabetes Maternal Grandmother Yolanda Cataracts Mother Nela Macular degeneration Mother Nela Cancer Mother's Brother Nimesh Relation Name Status Comments Brother Sae Father Edward Maternal Grandmother Yolanda Mother Nela Mother's Brother Nimesh Social History Tobacco Use Types Packs/Day Years Used Date Smoking Tobacco: Never Smokeless Tobacco: Never Tobacco Cessation:Counseling Given: Not Answered Alcohol Use Standard Drinks/Week Comments Not Currently 0 (1 standard drink = 0.6 oz pur e alcohol) Comments Unknown Sex and Gender Information Value Date Recorded Sex Assigned at Female 04/21/2024 9:20 AM EDT Legal Sex Female 8:33 PM EDT Gender Identity Female 04/21/2024 9:20 AM EDT Sexual Orientation Not on file Last Filed Vital Signs Vital Sign Reading Time Taken Comments Blood Pressure - - Pulse - - Temperature 36.4 C (97.6 F) 05/21/2024 2:33 PM EDT Respiratory Rate - - Oxygen Saturation - - Inhaled Oxygen Concentration - - Weight 98.4 kg (217 lb) 07/08/2024 9:38 AM EDT Height 161.3 cm (5' 3.5 ) 07/08/2024 9:38 AM EDT Body Mass Index 37.84 07/08/2024 9:38 AM EDT Plan of Treatment Upcoming Encounters Date Type Department Care Team (Late st Contact Info) Description 05/14/2025 10:00 AM EDT Office Visit [facility] [address] [place] [address] Rosalind Mclaughlin MD [address] [place] [address] Health Maintenance Due Date Last Done Comments CT Colonography 1958 FIT-DNA 1960 FIT 1960 FOBT 1960 Sigmoidoscopy 1960 Mammogram 1998 Pneumococcal Vaccine: 65+ Ye ars (1 of 1 - PCV) 01/03/2008 Influenza Vaccine (#1) 2025 07/02/2024, 2022 Colonoscopy 02/14/2032 02/13/2022 Colorectal Cancer Screening 02/14/2032 Insurance [employer] MED[employer]ARE ADVANTAGE MEDICARE Care Teams Communications Editor Relationship Specialty Start Date End Date Ray Rawls DO PCP - General 04/28/24
--- NOTE | 2025-04-21 10:22 | MM_ITS ---
Patient Name: JOSE LLANOS MR#: [id number] : 1960 Exam Date: 04/21/2025 Ordering Doctor: DR MEDARDO RUBIO D.O. RADIOLOGY REPORT PROCEDURE: MM TOMOSYNTHESIS SCREENING BI COMPARISON: MM TOMOSYNTHESIS SCREENING BI, 04/18/2024. MM TOMOSYNTHESIS SCREENING BI, 04/16/2023. MG MAMM SCREEN 3D OSKAR CAD, 04/13/2022. INDICATIONS: Screening Calculator Name NCI Breast Cancer Risk Assessment Tool 5 Year Breast Cancer Risk 2.20% Lifetime Breast Cancer Risk 7.60% Personal Breast Cancer No Personal Ovarian Cancer No Treatments None Family Cancers Grandmother-paternal with breast cancer at age 60; Uncle-maternal with brain cancer at age 45. LOCATION: [facility] BREAST COMPOSITION: There are scattered areas of fibroglandular density. FINDINGS: RIGHT BREAST: No significant suspicious finding. LEFT BREAST: No significant suspicious finding. DIAGNOSTIC CATEGORY 1--NEGATIVE. RECOMMENDATIONS: ROUTINE MAMMOGRAM AND CLINICAL EVALUATION IN 12 MONTHS. PLEASE NOTE: A NORMAL MAMMOGRAM DOES NOT EXCLUDE THE POSSIBILITY OF BREAST CANCER. A CLINICALLY SUSPICIOUS PALPABLE LUMP SHOULD BE BIOPSIED. Dictated by: Gulshan Rodriguez DO on 04/21/2025 at 11:50 Approved by: Gulshan oRdriguez DO on 04/21/2025 at 11:52
== END 2025-04-21 10:21 | disposition home or self-care (01) ==
LOC: MAMMO 10:20
PROVIDERS: PCP Internal Medicine; Visit Provider Internal Medicine
DX: Z12.31 Encounter for screening mammogram for malignant neoplasm of breast (principal); Z80.3 Family history of malignant neoplasm of breast; Z80.8 Family history of malignant neoplasm of other organs or systems
CPT/HCPCS: 77063; 77067

== ENCOUNTER 2025-06-01 09:44 | Outpatient (OUT) | payer MEDICARE, SELFPAY ==
--- OUTSIDE RECORDS SUMMARY | 2025-06-01 09:48 | XMS_ITS | Clinical Summary ---
Author Organization [facility] Address [address] [place] [address] Care Team Providers Care Tactical Air Control Party Manager Name Role Phone Ray Rawls Primary Care Provider [phone] Allergies Active Allergy Reactions Criticality Noted Date [...] not crush or chew.. Active HYDROcodone-zain taminophen ([place]) 5-325 MG tablet TAKE 1 TABLET BY MOUTH TWICE A DAY NEEDED FOR PAIN FOR 14 DAYS 4 Active Active Problems No known active problems Encounters Date Type Department Care Team Description 05/14/2025 10:00 AM EDT Office Visit [facility] [address] [place] [address] Rosalind Mclaughlin MD Age-related nuclear cataract of both eyes (Primary Dx); Dry eyes 05/14/2025 Bamboo flowsheet [facility] [address] [place] [address] Rosalind Mclaughlin MD 05/14/2025 Travel 05/07/2025 Travel from Last 3 Months Family History Medical History Relation Name Comments Cataracts Brother Sae Diabetes Brother Sae Cataracts Father Navneet Diabetes Maternal Grandmother Yolanda Cataracts Mother Nela Macular degeneration Mother Nela Cancer Mother's Brother Nimesh Relation Name Status Comments Brother Sae Father Navneet Maternal Grandmother Yolanda Mother Nela Mother's Brother [...] Care Team (Late st Contact Info) Description 05/13/2026 9:30 AM EDT Office Visit [facility] [address] [place] [address] Rosalind Mclaughlin MD [address] [place] [address] Health Maintenance Due Date Last Done Comments CT Colonography 1960 FIT-DNA 1958 FIT 1958 FOBT 1960 Sigmoidoscopy 1958 Mammogram 1998 Pneumococcal Vaccine: 65+ Ye ars (1 of 1 - PCV) 01/03/2008 Influenza Vaccine (#1) 2025 07/02/2024, 2022 Colonoscopy 02/14/2032 02/13/2022 Colorectal Cancer Screening 02/14/2032 Insurance [employer] MED[employer]ARE ADVANTAGE MEDICARE Care Teams Tactical Air Control Party Manager Relationship Specialty Start Date End Date Ray Rawls DO PCP - General 04/28/24
--- OUTSIDE RECORDS SUMMARY | 2025-06-01 09:48 | XMS_ITS | Encounter Summary ---
Author Organization [facility] Address [address] [place] [address] Care Team Providers Care Early Morning Babysitter Name Role Phone Ray Rawls Primary Care Provider [phone] Encounter Details Date Type Department Care Team (Late st Contact Info) Description 08/18/2024 Abstract [facility] [address] [place] [address] [place] [address] [place] [address] Social History Tobacco Use Types Packs/Day Years Used Date Smoking Tobacco: Never Smokeless Tobacco: Never Alcohol Use Standard Drinks/Week Comments Not Currently 0 (1 standard drink = 0.6 oz pur e alcohol) Comments Unknown Sex and Gender Information Value Date Recorded Sex Assigned at Female 04/21/2024 9:20 AM EDT Legal Sex Female 8:33 PM EDT Gender Identity Female 04/21/2024 9:20 AM EDT Sexual Orientation Not on file documented as of this encounter Plan of Treatment Upcoming Encounters Date Type Department Care Team (Late st Contact Info) Description 05/13/2026 9:30 AM EDT Office Visit [facility] [address] [place] [address] Rosalind Mclaughlin MD [address] [place] [address] documented as of this encounter Visit Diagnoses Not on filedocumented in this encounter Care Teams Early Morning Babysitter Relationship Specialty Start Date End Date Ray Rawls DO PCP - General 04/28/24 documented as of this encounter
--- OUTSIDE RECORDS SUMMARY | 2025-06-01 09:53 | XMS_ITS | CCD ---
Author Organization [facility] Care Team Providers Care Application Helper Name Role Phone RAY RAWLS Primary Care Physician Ray Rawls Unavailable JOANNE, DR BATRES Primary Care Unavailable JOANNE, DR BATRES Admitting Unavailable BALL, DR BATRES [...] DR BATRES Attending Unavailable Leilani Archibald Unavailable [phone] Ray Rawls MD Primary Care Provider Ray Rawls MD Primary Care Provider Ray Rawls DO Primary Care Provider ROSALIND MCLAUGHLIN Attending Unavailable ROSALIND MCLAUGHLIN Attending Unavailable CLIFF SERRANO Referring Unavailable CLIFF SERRANO Attending Unavailable ROSALIND MCLAUGHLIN Attending Unavailable FUNMILAYO NOONAN Attending Unavailable FUNMILAYO NOONAN Attending Unavailable FUNMILAYO NOONAN Attending Unavailable FUNMILAYO NOONAN Attending Unavailable Allergies Allergy Classification Reported Allergen(s) Allergy Type Date of Onset Reaction(s) Facility (20 sources) Diclofenac; Translations: [diclofenac] Drug Allergy 4 Unknown (qualifier value), Itching, Unknown [facility] (1 source) Egg Drug allergy Nausea and vomiting (disorder) [facility] (1 source) influenza A virus A/[place]/GP1 908/2014 (H1N1) antigen / influenza A virus A/[place]/GP2 050/2014 (H3N2) antigen / influenza B virus B/[place] antigen / influenza B virus B/ antigen; Translations: [influenza virus vaccine] Drug Allergy Dyspnea (finding) [facility] (9 sources) Eggs/Apples/Oat s Drug allergy Unknown [facility] [employer] Other (6 sources) Diclofenac Potassium *ANALGESICS - ANTI-INFLAMMATO Propensity to adverse reactions Unknown [facility] [employer] Other (6 sources) Eggs/Apples/Oat s *DIETARY PRODUCTS/DIETAR Y MANAGEM Propensity to adverse reactions 9 Comment:Allerg y to eggs and cranberries- Reaction unknown [facility] [employer] Other (4 sources) Diclofenac Potassium *ANALGESI Allergy to substance 4 [facility] (4 sources) Eggs/Apples/Oat s *DIETARY PROD Allergy to substance 4 Comment:Allerg y to eggs and cranberries- Reaction unknown [facility] Comment on above: Eggs/Apples/Oats (14 sources) Cranberry Allergy to substance 1 Anaphylaxis [facility] (14 sources) Haemophilus influenzae type b Drug Allergy 4 Shortness of breath [facility] (14 sources) Non-steroidal anti-inflammato ry agent Drug Allergy 4 Unknown [facility] (1 source) Egg-Derived Products Drug Allergy 4 Shortness of breath [facility] Medications Current Medications Medication Drug Class(es) Dates Sig (Normalized) Sig (Original) acetaminophen 325 mg oral tablet (17 sources) Start: 06-09-2024 take 1 tablet by mouth every six hours as needed Acetaminophen (Tylenol) 325 mg tablet Active 325 MG PO Every 6 hours as needed June 09, 2024 12:00am acetaminophen (T ylenol) 500 MG tablet Take by mouth Active acetaminophen 325 mg / HYDROcodone bitartrate 5 mg oral tablet (20 sources) Opioid Agonist Start: 06-09-2024 take 1 tablet by mouth twice daily as needed for pain HYDROcodone-acetaminophen ([place]) 5-325 MG tablet TAKE 1 TABLET BY MOUTH TWICE A DAY NEEDED FOR PAIN FOR 14 DAYS 06/09/2024 Active Start: 12-06-2023 End: 06-09-2024 take 1 tablet by mouth every six hours as needed Hydrocodone-Acetaminophen 5-325 mg table t Discontinued 1 TAB PO Every 6 hours as needed December 06, 2023 1:00am June 09, 2024 9:04am Start: 12-26-2022 take 1 tablet by tala th every six hours HYDROcodone-Acetaminophen 5-325 MG 1 tab let as needed Orally every 6 hrs for 7 days Dec, Active [id number] actuat albuterol 0.09 mg/actuat metered dose inhaler (20 sources) beta2-Adrenergic Agonist Start: 02-17-2025 take 1 puff(s) by inhalation every four hours as needed for wheezing Albuterol Sulfate (Ventolin Hfa) 90 mcg/actuation HFA aerosol inhaler Active 2 PUFF INHALATION Every 4 hours as needed for shortness of breath or wheezing 6.7 February 17, 2025 2:54pm Start: 12-06-2023 End: 02-18-2024 take 1 puff(s) by inhalation every four hours as needed Albuterol Sulfate (Ventolin Hfa) 90 mcg/actuation HFA aerosol inhaler Discontinued 2 PUFF INHALATION Every 4 hours as needed December 06, 2023 1:00am February 18, 2024 [...] 12 hrs for 10 days Jul, Active azithromycin 250 mg oral tablet (1 source) Macrolide Antimicrobial Start: 02-17-2025 Azithromycin 250 mg tablet Active 250 MG PO .COMPLEX 6 February 17, 2025 12:00am 2 tabs on first day followed by 1 tab on days 2-5 difluprednate 0.5 mg/ml ophthalmic suspension (3 sources) Start: 01-08-2025 End: 02-07-2025 take 1 drop(s) into the eye(s) once difluprednate (Durezol) 0.05 % ophthalmic solution Indications: Acute atopic conjunctivitis of both eyes , Contact and allergic dermatitis of eyelid Administer 1 drop into both eyes every 12 (twelve) hours 5 mL 01/08/2025 02/07/2025 Active 60 actuat fluticasone propionate 0.25 mg/actuat / salmeterol 0.05 mg/actuat dry powder inhaler (10 sources) Corticosteroid, beta2-Adrenergic Agonist Start: 02-17-2025 Fluticasone Propion-Salmeterol 250-50 mcg/dose blister with device Active 1 INH INHALATION Twice daily 60 30 February 17, 2025 12:00am Start: 12-06-2023 End: 12-10-2023 take 1 puff(s) [...] a day for 30 days May, Active levothyroxine sodium 0.075 mg oral tablet (20 sources) l-Thyroxine Start: 01-10-2025 take 1 tablet by mouth once daily Levothyroxine 75 mcg tablet Active 0 .ROUTE .COMPLEX 90 January 10, 2025 3:46pm TAKE 1 TABLET BY MOUTH EVERY DAY Start: 04-22-2024 take 1 tablet by tala th once daily levothyroxine (Synthroid, Levoxyl) 75 MCG tablet Take 75 mcg by mouth Daily 04/22/2024 Active Start: 12-10-2023 End: 01-10-2025 take 1 capsule by mouth once daily Levothyroxine 75 mcg capsule Discontinued 75 MCG PO Daily January 24, 2024 8:44pm January 10, 2025 3:46pm Start: 12-06-2023 End: 12-10-2023 Levothyroxine 75 mcg capsule Discontinued 50 MCG PO Daily December 06, 2023 3:14pm December 10, 2023 10:24am Start: 12-06-2023 End: 12-10-2023 take 50 ug by mouth once daily Levothyroxine Discontin ued 50 MCG PO Daily December 06, 2023 3:14pm December 10, 2023 10:24am Start: 12-06-2023 End: 12-10-2023 take 1 tablet by mouth once daily Levothyroxine 50 mcg tablet Discontinued 50 MCG PO Daily December 06, 2023 1:00am December 10, 2023 10:24am Start: 12-04-2023 End: 12-06-2023 take 1 capsule by mouth once daily Levothyroxine 75 mcg capsule Discontinued 75 MCG PO Daily December 04, 2023 [...] Once a day for 90 days Active 24 hr metoprolol succinate 25 mg extended release oral tablet (4 sources) beta-Adrenergic Paolo Start: 11-19-2024 take 1 tablet by mouth once daily Metoprolol Succinate 25 mg tablet extended release 24 hr Active 0 .ROUTE .COMPLEX November 19, 2024 2:07pm TAKE 1 TABLET BY MOUTH EVERY DAY FOR 30 DAYS Start: 10-21-2024 End: 11-19-2024 take 1 tablet by mouth once daily Metoprolol Succinate 25 mg tablet extended release 24 hr Discontinued 25 MG PO Daily October 21, 2024 1:00am November 19, 2024 2:07pm montelukast 10 mg oral tablet (20 sources) Leukotriene Receptor Antagonist Start: 06-09-2024 take 1 tablet by mouth once daily Montelukast 10 mg tablet Active 10 MG PO Daily June 09, 2024 9:03am Start: 05-15-2024 End: 06-09-2024 take 1 tablet by mouth once daily Montelukast 10 mg tablet Discontinued 0 .ROUTE .COMPLEX 90 May 15, 2024 8:51am June 09, 2024 9:04am TAKE 1 TABLET BY MOUTH EVERY DAY Start: 2022 End: 05-15-2024 take 1 tablet by mouth once daily Montelukast 10 mg tablet Discontinued 10 MG PO Daily December 06, 2023 1:00am May 15, 2024 8:51am Multi (3 sources) Start: 06-09-2024 Multi Active P O June 08, 2024 11:00pm Start: 06-09-2024 Multi Active P O June 09, 2024 12:00am omeprazole 20 mg delayed release oral tablet (20 sources) Proton Pump Inhibitor Start: 06-09-2024 take 1 tablet by mouth once daily Omeprazole 20 mg tablet,delayed release (DR/EC) Active 20 MG PO Daily June 09, 2024 12:00am Start: 12-06-2023 End: 06-09-2024 take 1 capsule by mouth once daily Omeprazole 40 mg capsule,delayed release(DR/EC) Discontinued 40 MG PO Daily December 06, 2023 1:00am June 09, 2024 9:03am take 1 capsule by [facility] before mealtime omeprazole (PriLOSEC) [address] capsule Take 10 mg by mouth in the morning. Take before meals. Do not crush or chew.. Active take 1 capsule by mo [facility] once daily Omeprazole 40 MG 1 capsule 30 minutes before morning meal Orally Once a day Active omeprazole 40 mg Cap-DR (1 source) Start: 2022 omeprazole 40 mg Cap-DR 40 mg = 1 cap(s), Oral, Daily, Refills(s) 0, Control of stomach acid Start Date: 01/02/22 Status: Ordered predniSONE 20 mg oral tablet (6 sources) Start: 01-08-2025 End: 01-18-2025 take 1 tablet by mouth once daily predniSONE (Deltasone) 20 MG tablet Indications: Acute atopic conjunctivitis of both eyes , Contact and allergic dermatitis of eyelid Take 1 tablet (20 mg) by mouth Daily for 10 days 10 tablet 01/08/2025 01/18/2025 Active Start: 03-22-2023 take 2 tablets by ga ut twice daily, then take 1 tablet by mouth every other day predniSONE 10 MG 2 tablets Orally Twice daily w/ food x 3 days then decrease by 1 tablet every 2 days for 9 days Mar, Not-Taking traMADol hydrochloride 50 mg oral tablet (7 [...] Drug Class(es) Dates Sig (Normalized) Sig (Original) Albuterol Sulfate (Ventolin Hfa) 90 mcg/actuation HFA aerosol inhaler (3 sources) Start: 02-18-2024 End: 02-17-2025 take 1 puff(s) by inhalation every four hours as needed for wheezing Albuterol Sulfate (Ventolin Hfa) 90 mcg/actuation HFA aerosol inhaler Discontinued 2 PUFF INHALATION Every 4 hours as needed for shortness of breath or wheezing 6.7 February 18, 2024 1:28pm February 17, 2025 2:54pm Start: 02-18-2024 take 1 puff(s) by in halation every four hours as needed for wheezing Albuterol Sulfate (Ventolin Hfa) 90 mcg/actuation HFA aerosol inhaler Active 2 PUFF INHALATION Every 4 hours as needed for shortness of breath or wheezing 6.7 February 18, 2024 12:28pm Start: 02-18-2024 take 1 puff(s) by in halation every four hours Albuterol Sulfate (Ventolin Hfa) 90 mcg/actuation HFA aerosol inhaler Active 2 PUFF INHALATION Every 4 hours 6.7 February 18, 2024 1:28pm escitalopram 10 mg oral tablet (19 sources) Serotonin Reuptake Inhibitor Start: 12-06-2023 End: 12-10-2023 take 1 tablet by mouth once daily Escitalopram Oxalate 10 mg tablet Discontinued 10 MG PO Daily December 06, 2023 1:00am December 10, 2023 10:26am Start: 2022 take 1 tablet by tala th once daily escitalopram 10 mg Tab 10 mg = 1 tab(s), Oral, Daily, Refills(s) 0, Depression Start Date: 01/02/22 Status: Ordered 2 ml sodium hyaluronate 8.4 mg/ml prefilled syringe (10 sources) Start: 07-08-2024 End: 07-08-2024 sodium hyaluronate (Gelsyn-3 ) injection 2 mL Start: 07-08-2024 End: 07-08-2024 2 mL, Intra-articular, Once PRN Procedure, Starting on Sun07/08/24 at 0941, For 1 dose Start: 07-01-2024 End: 07-01-2024 sodium hyaluronate (Gelsyn-3 ) injection 2 mL Start: 07-01-2024 End: 07-01-2024 2 mL, Intra-articular, Once PRN Procedure, Starting on Sun07/01/24 at 1032, For 1 dose Start: 06-24-2024 End: 06-24-2024 sodium hyaluronate (Gelsyn-3 ) injection 2 mL Start: 06-24-2024 End: 06-24-2024 2 mL, Intra-articular, Once PRN Procedure, Starting on Sun06/24/24 at 1052, For 1 dose methylPREDNISolone 4 mg oral tablet (7 sources) Corticosteroid Start: 12-06-2023 End: 12-10-2023 take 1 tablet by mouth once daily Methylprednisolone 4 mg tablets,dose pack Discontinued 4 MG PO Daily December 06, 2023 1:00am December 10, 2023 10:25am Start: 08-09-2023 methylPREDNISo lone 4 MG as directed Orally daily for 6 days Jul, Active ondansetron 4 mg disintegrating oral tablet (14 sources) Serotonin-3 Receptor Antagonist Start: 12-06-2023 End: 12-10-2023 take 1 tablet by mouth every six hours as needed Ondansetron 4 mg tablet,disintegrating Discontinued 4 MG PO Every 6 hours as needed December 06, 2023 1:00am December 10, 2023 10:25am Start: 02-16-2023 Ondansetron 4 MG 1 tablet SL every 6 hours as needed for nausea for 3 days February, Active Problems Active Problems Problem Classification Problem Date Documented Da te Episodic/Chronic Allergic reactions (10 sources) Idiopathic urticaria; Translations: [Idiopathic urticaria] Episodic Anxiety disorders (20 sources) Generalized anxiety disorder; Translations: [Generalized anxiety disorder] 12-08-2023 Chronic Asthma (20 sources) Mild intermittent asthma; Translations: [Mild intermittent asthma, uncomplicated] Resolved: 12-04-2021 Chronic Cardiac dysrhythmias (4 sources) Palpitations; Translations: [Palpitations] 10-21-2024 Episodic Comment on above: Holter: normal - 10/16 025Echo: LVEF 55%, normal RV size/function, RVSP 10/2024 Cataract (1 source) Bilateral age-related nuclear cataracts; Translations: [Age-related nuclear cataract, bilateral] 05-14-2025 Chronic Diabetes mellitus without complication (9 sources) Diabetes mellitus without complication; Translations: [Type 2 diabetes mellitus without complications] Chronic Diabetes mellitus without complication (20 sources) Impaired fasting glycemia; Translations: [Impaired fasting glucose] Episodic Disorders of lipid metabolism (8 sources) Hypercholesterolemia ; Translations: [Pure hypercholesterolemia , unspecified] 11-29-2023 Chronic Esophageal disorders (13 sources) Gastro-esophageal reflux disease with esophagitis; Translations: [Gastroesophageal reflux disease with esophagitis without hemorrhage] 2022 Chronic Inflammation; infection of eye (except that caused by tuberculosis or sexually transmitteddisease) (2 sources) Acute atopic conjunctivitis of bilateral eyes; Translations: [Acute atopic conjunctivitis, bilateral] 01-08-2025 Episodic Mood disorders (16 sources) Major depression in [...] source) Venous insufficiency (chronic) (peripheral) Episodic Other eye disorders (2 sources) Dry eyes; Translations: [Dry eye syndrome of bilateral lacrimal glands] 01-27-2025 Episodic Other gastrointestinal disorders (1 source) Alteration in bowel elimination 01-03-2022 Episodic Other gastrointestinal disorders (1 source) Diarrhea, unspecified Episodic Other gastrointestinal disorders (1 source) Abnormal feces; Translations: [Other fecal abnormalities] Episodic Other nervous system disorders (15 sources) Trigeminal neuralgia; Translations: [Trigeminal neuralgia] Episodic Other non-traumatic joint disorders (2 sources) Pain in right knee; Translations: [Right knee pain] 06-09-2024 Episodic Other nutritional; endocrine; and metabolic disorders (8 sources) Morbid obesity; Translations: [Morbid (severe) obesity due to excess calories] Resolved: 10-17-2021 Chronic Other nutritional; endocrine; and metabolic disorders (2 sources) Morbid (severe) obesity due to excess calories Chronic Other nutritional; endocrine; and metabolic disorders (4 sources) Obesity; Translations: [Obesity, unspecified] Resolved: 04-13-2022 [...] Chronic Other nutritional; endocrine; and metabolic disorders (3 sources) Obesity, unspecified; Translations: [Obesity, unspecified] 06-09-2024 Chronic [...] Test Name Value Interpretation Reference Range Facility Basophils Auto (Bld) [#/Vol] on 12-08-2024 Basophils (Bld) [#/Vol] Automated basophil count 0.0-0.1 [facility] Basophils/100 WBC Auto (Bld) on 12-08-2024 Basophils/100 WBC (Bld) Automated basophil % 0.2-2.0 [facility] Cholesterol in LDL Calc [Mas s/Vol]on 12-08-2024 Cholesterol in LDL [Mass/Vol] Cholesterol in LDL [Mass/volume] in Serum or Plasma by calculation [facility] Comment on above: <100 mg/dl [id number] 0-129 mg/dl NEAR OR ABOVE [id number] mg/dl BORDERLINE [id number] mg/dl HIGH>190 mg/dl VERY HIGH Cholesterol in VLDL Calc [Ma ss/Vol]on 12-08-2024 Cholesterol in VLDL [Mass/Vol] Cholesterol in VLDL [Mass/volume] in Serum or Plasma by calculation [facility] Eosinophils/100 WBC Auto (Bl d)on 12-08-2024 Eosinophils/100 WBC (Bld) Automated eosinophil % 0.9-7.0 [facility] Erythrocyte distribution wid th Auto (RBC) [Ratio]on 12-08-2024 Erythrocyte distribution width (RBC) [Ratio] Erythrocyte distribution width [Ratio] by Automated count 11.0-15.0 [facility] Estimated glomerular filtrat ion rate (GFR) non- Americanon 12-08-2024 GFR/1.73 sq M.predicted among non-blacks MDRD (S/P/Bld) [Vol rate/Area] Estimated glomerular filtration rate (GFR) non- >=60 mL/min/1.73m 2 [facility] Globulin Calc (S) [Mass/Vol] on 12-08-2024 Globulin (S) [Mass/Vol] Serum globulin measurement by calculation (mass/volume) [facility] Hematocrit Auto (Bld) [Volum e fraction]on 12-08-2024 Hematocrit (Bld) [Volume fraction] Hematocrit [Volume Fraction] of Blood by Automated count 36.0-48.0 [facility] Hemoglobin [Mass/volume] in Bloodon 12-08-2024 Hemoglobin (Bld) [Mass/Vol] Hemoglobin [Mass/volume] in Blood 12.0-16.0 [facility] Laboratory - Chemistry and C hemistry - challengeon 12-08-2024 Albumin [Mass/Vol] 3.6 g/dL 3.4-5.0 [facility] ALP [Catalytic activity/Vol] 76 U/L 46-116 [facility] ALT [Catalytic activity/Vol] 28 U/L 14-59 [facility] AST [Catalytic activity/Vol] 23 U/L 15-37 [facility] Bilirubin [Mass/Vol] 0.4 mg/dL 0.2-1.0 [facility] Calcium [Mass/Vol] 9.1 mg/dL 8.5-10.1 [facility] Chloride [Moles/Vol] 95 mmol/L Low 98-107 [facility] Cholesterol [Mass/Vol] 177 mg/dL <=200 [facility] Cholesterol in HDL [Mass/Vol] 57 mg/dL 40-60 [facility] Comment on above: > or =60 mg/dl - LOW CARDIOVASCULAR RISK<40 mg/dl - HIGH CARDIOVASCULAR RISK CO2 [Moles/Vol] 27.4 mmol/L 21.0-32.0 [facility] Creatinine [Mass/Vol] 0.87 mg/dL 0.55-1.02 [facility] GFR/1.73 sq M.predicted MDRD (S/P/Bld) [Vol rate/Area] mL/min/{1.73_m2} >=60 mL/min/1.73m 2 [facility] Glucose [Mass/Vol] 98 mg/dL 74-106 [facility] Potassium [Moles/Vol] 4.9 mmol/L 3.5-5.1 [facility] Protein [Mass/Vol] 6.8 g/dL 6.4-8.2 [facility] Sodium [Moles/Vol] 129 mmol/L Low 136-145 [facility] Triglyceride [Mass/Vol] 62 mg/dL <=150 [facility] Urea nitrogen [Mass/Vol] 13.0 mg/dL 7.0-18.0 [facility] Urea nitrogen/Creatinine [Mass ratio] 14.9 mg/mg [facility] Laboratory - Hematology and Cell countson 12-08-2024 Immature granulocytes/100 WBC (Bld) 0.2 % 0.0-0.5 [facility] Leukocytes [#/volume] correc mart for nucleated erythrocytes in Blood by Automated counon 12-08-2024 WBC corrected for nucl RBC Auto (Bld) [#/Vol] Leukocytes [#/volume] corrected for nucleated erythrocytes in Blood by Automated coun 4.0-11.0 [facility] Lymphocytes Auto (Bld) [#/Vo l]on 12-08-2024 Lymphocytes (Bld) [#/Vol] Lymphocytes [#/volume] in Blood by Automated count 1.2-3.8 [facility] Lymphocytes/100 WBC Auto (Bl d)on 12-08-2024 Lymphocytes/100 WBC (Bld) Lymphocytes/100 leukocytes in Blood by Automated count 20.5-60.0 [facility] MCH Auto (RBC) [Entitic mass ]on 12-08-2024 MCH (RBC) [Entitic mass] MCH [Entitic mass] by Automated count 26.7-34.0 [facility] MCHC Auto (RBC) [Mass/Vol]on 12-08-2024 MCHC (RBC) [Mass/Vol] MCHC [Mass/volume] by Automated count 29.9-35.2 [facility] MCV Auto (RBC) [Entitic vol] on 12-08-2024 MCV (RBC) [Entitic vol] MCV [Entitic volume] by Automated count 81.0-99.0 [facility] Monocytes Auto (Bld) [#/Vol] on 12-08-2024 Monocytes (Bld) [#/Vol] Automated blood monocyte count 0.3-0.8 [facility] Monocytes/100 WBC Auto (Bld) on 12-08-2024 Monocytes/100 WBC (Bld) Automated monocyte % 1.7-12.0 [facility] Neutrophils Auto (Bld) [#/Vo l]on 12-08-2024 Neutrophils (Bld) [#/Vol] Neutrophils [#/volume] in Blood by Automated count 1.4-6.5 [facility] Neutrophils/100 WBC Auto (Bl d)on 12-08-2024 Neutrophils/100 WBC (Bld) Automated neutrophil % 43.0-75.0 [facility] No Panel Informationon 12-08 Eosinophils # (Auto) 0.2 10 3/uL 0.0-0.7 [facility] Immature Granulocyte # (Auto) 0.01 10 3/uL 0.00-0.03 [facility] Platelet mean volume Auto (B ld) [Entitic vol]on 12-08-2024 Platelet mean volume (Bld) [Entitic vol] Platelet mean volume [Entitic volume] in Blood by Automated count 9.5-13.5 [facility] Platelets Auto (Bld) [#/Vol] on 12-08-2024 Platelets (Bld) [#/Vol] Platelets [#/volume] in Blood by Automated count 150-450 [facility] RBC Auto (Bld) [#/Vol]on RBC (Bld) [#/Vol] Erythrocytes [#/volume] in Blood by Automated count Low 4.20-5.40 [facility] Serum or plasma albumin/glob ulin mass ratioon 12-08-2024 Albumin/Globulin [Mass ratio] Serum or plasma albumin/globulin mass ratio [facility] Serum or plasma anion gap de terminationon 12-08-2024 Anion gap [Moles/Vol] Serum or plasma anion gap determination [facility] Serum or plasma total choles terol/high density lipoprotein (HDL) cholesterol mass thomas 12-08-2024 Cholesterol.total/Ch olesterol in HDL [Mass ratio] Serum or plasma total cholesterol/high density lipoprotein (HDL) cholesterol mass rat [facility] Comment on above: 3.3 - 4.4 LOW RISK4. 4 - 7.1 AVERAGE RISK7.1 - 11.0 MODERATE RISK>11.0 HIGH RISK L Inj/Asp: L kneeon 07-08-20 Kathy Holm MA 07/08/2024 12:25 PM L Inj/Asp: L knee on 07/08/2024 9:41 AM Indications: pain Details: 22 G needle Medications: 2 mL sodium hyaluronate 16.8 MG/2ML Consent was given by the patient. [facility] L Inj/Asp: bilateral kneeon 07-01-2024 Funmilayo Noonan DO 07/01/2024 1:40 PM L Inj/Asp: bilateral knee on 07/01/2024 10:32 AM Details: 22 G needle Medications (Right): 2 mL sodium hyaluronate 16.8 MG/2ML Medications (Left): 2 mL sodium hyaluronate 16.8 MG/2ML [facility] L Inj/Asp: bilateral kneeon 06-24-2024 Adri Johnson MA 06/24/2024 11:05 AM L Inj/Asp: bilateral knee on 06/24/2024 10:52 AM Indications: pain Details: 21 G needle Medications (Right): 2 mL sodium hyaluronate 16.8 MG/2ML Medications (Left): 2 mL sodium hyaluronate 16.8 MG/2ML [facility] Laboratory - Chemistry and C hemistry - challengeon 06-02-2024 Free T4 [Mass/Vol] 1.37 ng/dL 0.76-1.46 [facility] TSH Qn 3.596 m[IU]/L 0.358-3.740 [facility] No Panel Informationon 06-02 Total Triiodothyronine 90 ng/dL 71-180 [facility] Comment on above: Performed at: [employer] [facility] [address] [id number] Director: Dylan Keller PhD, Phone: [phone] Glucose mean value [Mass/vol ume] in Blood Estimated from glycated hemoglobinon 12-07-2023 Average glucose Estimated from glycated hemoglobin (Bld) [Mass/Vol] 117 mg/dL [facility] Laboratory - Hematology and Cell countson 12-07-2023 HbA1c (Bld) [Mass fraction] 5.7 % 4.5-6.2 [facility] Comment on above: ADA RECOMMENDED LIMI T 4.0 - 6.0ADA THERAPEUTIC TARGET < 7.0ACTION SUGGESTED> 7.0 Basophils Auto (Bld) [#/Vol] on 12-04-2023 Basophils (Bld) [#/Vol] 0.0 10 3/uL 0.0-0.1 [facility] Basophils/100 WBC Auto (Bld) on 12-04-2023 Basophils/100 WBC (Bld) 0.7 % 0.2-2.0 [facility] Cholesterol in LDL Calc [Mas s/Vol]on 12-04-2023 Cholesterol in LDL [Mass/Vol] 105.8 mg/dL [facility] Comment on above: <100 mg/dl [id number] 0-129 mg/dl NEAR OR ABOVE [id number] mg/dl BORDERLINE QXSS034-972 mg/dl HIGH>190 mg/dl VERY HIGH Cholesterol in VLDL Calc [Ma ss/Vol]on 12-04-2023 Cholesterol in VLDL [Mass/Vol] 27.2 mg/dL [facility] Eosinophils/100 WBC Auto (Bl d)on 12-04-2023 Eosinophils/100 WBC (Bld) 5.8 % 0.9-7.0 [facility] Erythrocyte distribution wid th Auto (RBC) [Ratio]on 12-04-2023 Erythrocyte distribution width (RBC) [Ratio] 13.5 % 11.0-15.0 [facility] Estimated glomerular filtrat ion rate (GFR) non- Americanon 12-04-2023 GFR/1.73 sq M.predicted among non-blacks MDRD (S/P/Bld) [Vol rate/Area] mL/min/{1.73_m2} >=60 [facility] Globulin Calc (S) [Mass/Vol] on 12-04-2023 Globulin (S) [Mass/Vol] 3.9 g/dL [facility] Hematocrit Auto (Bld) [Volum e fraction]on 12-04-2023 Hematocrit (Bld) [Volume fraction] 38.5 % 36.0-48.0 [facility] Hemoglobin [Mass/volume] in Bloodon 12-04-2023 Hemoglobin (Bld) [Mass/Vol] 12.2 g/dL 12.0-16.0 [facility] Laboratory - Chemistry and C hemistry - challengeon 12-04-2023 Albumin [Mass/Vol] 3.4 g/dL 3.4-5.0 [facility] ALP [Catalytic activity/Vol] 87 U/L 46-116 [facility] ALT [Catalytic activity/Vol] 27 U/L 14-59 [facility] AST [Catalytic activity/Vol] 23 U/L 15-37 [facility] Bilirubin [Mass/Vol] 0.3 mg/dL 0.2-1.0 [facility] Calcium [Mass/Vol] 9.1 mg/dL 8.5-10.1 [facility] Chloride [Moles/Vol] 100 mmol/L 98-107 [facility] Cholesterol [Mass/Vol] 185 mg/dL <=200 [facility] Cholesterol in HDL [Mass/Vol] 52 mg/dL 40-60 [facility] Comment on above: > or =60 mg/dl - LOW CARDIOVASCULAR RISK<40 mg/dl - HIGH CARDIOVASCULAR RISK CO2 [Moles/Vol] 28.8 mmol/L 21.0-32.0 [facility] Creatinine [Mass/Vol] 0.91 mg/dL 0.55-1.02 [facility] GFR/1.73 sq M.predicted MDRD (S/P/Bld) [Vol rate/Area] mL/min/{1.73_m2} >=60 [facility] Glucose [Mass/Vol] 109 mg/dL 74-106 [facility] Potassium [Moles/Vol] 4.2 mmol/L 3.5-5.1 [facility] Protein [Mass/Vol] 7.3 g/dL 6.4-8.2 [facility] Sodium [Moles/Vol] 136 mmol/L 136-145 [facility] Triglyceride [Mass/Vol] 136 mg/dL <=150 [facility] TSH Qn 6.476 m[IU]/L 0.358-3.740 [facility] Urea nitrogen [Mass/Vol] 16.0 mg/dL 7.0-18.0 [facility] Urea nitrogen/Creatinine [Mass ratio] 17.6 mg/mg [facility] Laboratory - Hematology and Cell countson 12-04-2023 Immature granulocytes/100 WBC (Bld) 0.2 % 0.0-0.5 [facility] Leukocytes [#/volume] correc mart for nucleated erythrocytes in Blood by Automated counon 12-04-2023 WBC corrected for nucl RBC Auto (Bld) [#/Vol] 5.5 10 3/uL 4.0-11.0 [facility] Lymphocytes Auto (Bld) [#/Vo l]on 12-04-2023 Lymphocytes (Bld) [#/Vol] 2.1 10 3/uL 1.2-3.8 [facility] Lymphocytes/100 WBC Auto (Bl d)on 12-04-2023 Lymphocytes/100 WBC (Bld) 37.9 % 20.5-60.0 [facility] MCH Auto (RBC) [Entitic mass ]on 12-04-2023 MCH (RBC) [Entitic mass] 28.8 pg 26.7-34.0 [facility] MCHC Auto (RBC) [Mass/Vol]on 12-04-2023 MCHC (RBC) [Mass/Vol] 31.7 g/dL 29.9-35.2 [facility] MCV Auto (RBC) [Entitic vol] on 12-04-2023 MCV (RBC) [Entitic vol] 91.0 fL 81.0-99.0 [facility] Monocytes Auto (Bld) [#/Vol] on 12-04-2023 Monocytes (Bld) [#/Vol] 0.4 10 3/uL 0.3-0.8 [facility] Monocytes/100 WBC Auto (Bld) on 12-04-2023 Monocytes/100 WBC (Bld) 7.4 % 1.7-12.0 [facility] Neutrophils Auto (Bld) [#/Vo l]on 12-04-2023 Neutrophils (Bld) [#/Vol] 2.7 10 3/uL 1.4-6.5 [facility] Neutrophils/100 WBC Auto (Bl d)on 12-04-2023 Neutrophils/100 WBC (Bld) 48.0 % 43.0-75.0 [facility] No Panel Informationon 12-04 Eosinophils # (Auto) 0.3 10 3/uL 0.0-0.7 [facility] Immature Granulocyte # (Auto) 0.01 10 3/uL 0.00-0.03 [facility] Platelet mean volume Auto (B ld) [Entitic vol]on 12-04-2023 Platelet mean volume (Bld) [Entitic vol] 10.0 fL 9.5-13.5 [facility] Platelets Auto (Bld) [#/Vol] on 12-04-2023 Platelets (Bld) [#/Vol] 310 10 3/uL 150-450 [facility] RBC Auto (Bld) [#/Vol]on RBC (Bld) [#/Vol] 4.23 10 6/uL 4.20-5.40 [facility] Serum or plasma albumin/glob ulin mass ratioon 12-04-2023 Albumin/Globulin [Mass ratio] 0.9 {ratio} [facility] Serum or plasma anion gap de terminationon 12-04-2023 Anion gap [Moles/Vol] 11.4 mmol/L [facility] Serum or plasma total choles terol/high density lipoprotein (HDL) cholesterol mass thomas 12-04-2023 Cholesterol.total/Ch olesterol in HDL [Mass ratio] 3.6 {ratio} [facility] Comment on above: 3.3 - 4.4 LOW RISK4. 4 - 7.1 AVERAGE RISK7.1 - 11.0 MODERATE RISK>11.0 HIGH RISK DANO - TSHon 03-14-2023 TSH 5.980 uIU/mL Critically high 0.358-3.740 [facility] Comment on above: Performed By: #### D ATTSH #### [facility] [address] [address] [address] Yadira Jo TSH RANGE SEE BELOW Normal [facility] Comment on above: Result Comment: <0.3 4 UIU/ml HYPERTHYROID 0.34-5.60 UIU/ml EUTHYROID >5.60 UIU/ml HYPOTHYROID Performed By: #### D ATTSH #### [facility] [address] [address] [address] Yadira Jo GLUCOSE BLOODon 11-13-2022 Glucose [Mass/Vol] 101 mg/dL Normal 74-106 [facility] Comment on above: Performed By: #### L IPID, GLUC #### [facility] [address] [address] [address] Yadira Jo GLYCOHEMOGLOBIN A1Con 2022 ADA RECOMMENDATION SEE BELOW Normal [facility] Comment on above: Result Comment: ADA RECOMMENDED LIMIT 4.0 - 6.0 ADA THERAPEUTIC TARGET < 7.0 ACTION SUGGESTED > 7.0 Performed By: #### A 1C #### [facility] [address] [address] [address] Yadira Jo Glucose [Mass/Vol] 111 mg/dL Normal [facility] Comment on above: Performed By: #### A 1C #### [facility] [address] [address] [address] Yadira Jo HbA1c (Bld) [Mass fraction] 5.5 % Normal 4.5-6.2 [facility] Comment on above: Performed By: #### A 1C #### [facility] [address] [address] [address] Yadira Jo LIPID PROFILEon 11-13-2022 CHOL-HDL RATIO NORM SEE BELOW Normal [facility] Comment on above: Result Comment: 3.3 - 4.4 LOW RISK 4.4 - 7.1 AVERAGE RISK 7.1 - 11.0 MODERATE RISK >11.0 HIGH RISK Performed By: #### L IPID, GLUC #### [facility] [address] [place] [address] Dr. Yadira Jo Cholesterol [Mass/Vol] 184 mg/dL Normal <=200 [facility] Comment on above: Performed By: #### L IPID, GLUC #### [facility] [address] [place] [address] Dr. Yadira Jo Cholesterol in HDL [Mass/Vol] 56 mg/dL Normal 40-60 [facility] Comment on above: Performed By: #### L IPID, GLUC #### [facility] [address] [address] [address] Yadira Jo Cholesterol in LDL [Mass/Vol] 111.2 mg/dL Normal [facility] Comment on above: Performed By: #### L IPID, GLUC #### [facility] [address] [place] [address] Dr. Yadira Jo Cholesterol.total/Ch olesterol in HDL [Mass ratio] 3.3 {ratio} Normal [facility] Comment on above: Performed By: #### L IPID, GLUC #### [facility] [address] [address] [address] Yadira Jo HDL NORMAL > or = 60 mg/dl - LO W CARDIOVASCULAR RISK <40 mg/dl - HIGH CARDIOVASCULAR RISK Normal [facility] Comment on above: Performed By: #### L IPID, GLUC #### [facility] [address] [place] [address] Dr. Yadira Jo LDL CALC NORMAL SEE BELOW Normal [facility] Comment on above: Result Comment: <100 mg/dl OPTIMAL 100 - 129 mg/dl NEAR OR ABOVE OPTIMAL 130 - 159 mg/dl BORDERLINE HIGH 160 - 189 mg/dl HIGH >190 mg/dl VERY HIGH Performed By: #### L IPID, GLUC #### [facility] [address] [place] [address] Dr. Yadira Jo Triglyceride [Mass/Vol] 84 mg/dL Normal <=150 [facility] Comment on above: Performed By: #### L IPID, GLUC #### [facility] [address] [place] [address] Dr. Yadira Jo VLDL CALC 16.8 mg/dL Normal [facility] Comment on above: Performed By: #### L IPID, GLUC #### [facility] [address] [place] [address] Dr. Yadira Jo DANO - TSHon 06-08-2022 TSH 4.673 uIU/mL Critically high 0.358-3.740 [facility] Comment on above: Performed By: #### D ATTSH #### [facility] [address] [place] [address] Dr. Yadira Jo TSH RANGE SEE BELOW Normal [facility] Comment on above: Result Comment: <0.3 4 UIU/ml HYPERTHYROID 0.34-5.60 UIU/ml EUTHYROID >5.60 UIU/ml HYPOTHYROID Performed By: #### D ATTSH #### [facility] [address] [place] [address] Dr. Yadira Jo TSHon 04-27-2022 TSH 4.399 uIU/mL Critically high 0.358-3.740 [facility] Comment on above: Performed By: #### T SH #### [facility] [address] [address] [address] Yadira Jo MG MAMM SCREEN 3D OSKAR CADon 04-13-2022 MG MAMM SCREEN 3D OSKAR CAD Patient: YADIRA LLANOS Exam Date: 04/13/2022 : 1960 Gender:F Ordering : DR RAY RAWLS D.O. Admission #: [id number] Family : Order #: [id number] CLICK HERE TO VIEW EXAM RADIOLOGY REPORT PROCEDURE: MAMMOGRAM SCREENING 3D BILATERAL CAD COMPARISON: None. INDICATIONS: Screening mammography Calculator Name NCI Breast Cancer Risk Assessment Tool 5 Year Breast Cancer Risk 1.80% Lifetime Breast Cancer Risk 7.20% Personal Breast Cancer No Personal Ovarian Cancer No Treatments None Family Cancers None LOCATION: [facility] BREAST COMPOSITION: Scattered areas fibroglandular density. FINDINGS: [...] Hendrickson MD on 04/13/2022 at 12:32 Normal [facility] Reminderson 03-10-2022 Reminders - From: Chantelle Sanches CNP To: Eugenie Good; Sent: 03/02/2022 08:28:24 EDT Show up: 03/02/2022 08:29:00 EDT Subject: Ambulatory Reminder Reminder/Recall Colonoscopy in 5 years (2026). [facility] Ambulatory Visit Summaryon 0 03-02-2022 Ambulatory [...] ? Eat (more content not included)... [facility] Gastroenterology Office/Clin ic Noteon 03-02-2022 Gastroenterology [...] mRNA BNT-162b2 vax 12/24/2020 Given Prophylaxis [facility] Comment on above: Result Comment: Elec [...] 06/27/2005 Document Revised: 01/16/2019 Document Reviewed: 01/16/2019 [place] Patient Education ? 2019 [employer]. [facility] Progress Note-Physicianon Progress Note-Physician Patient: YADIRA LLANOS [...] Change in bowel habits / SNOMED CT 764992184 / Confirmed Chronic reflux esophagitis / SNOMED CT 796934698 / Confirmed Chronic venous insufficiency / SNOMED CT 27199059 / Confirmed Positive colorectal cancer screening using Cologuard test / SNOMED CT 7194634703 / Confirmed Physical Examination Vital Signs 02/13/2022 [...] vomiting. Plan Transfer/ Discharge: Condition stable. [facility] Comment on above: Result Comment: Elec [...] Change in bowel habits / SNOMED CT 280805890 / Confirmed Chronic reflux esophagitis / SNOMED CT 448574182 / Confirmed Chronic venous insufficiency / SNOMED CT 55566359 / Confirmed Positive colorectal cancer screening using Cologuard test / SNOMED CT 7389622104 / Confirmed Histories Past Medical History: No [...] Cardiovascular: Regular rhythm. Neurologic: Alert, Oriented. Plan [place] [employer] (ASA) physical status classification: Class III. Anesthetic Preoperative Plan Anesthesia: General. . Anesthetic plan, risks, benefits, and alternatives discussed with the patient and/or family. Communication: face to face with (patient 5 minutes, Patient educated on smoking cesstation). [facility] Comment on above: Result Comment: Elec tronically Signed By: Talon Toribio Jr, DO.tammy\Date and Time Signed: 02/28/22 08:51 EDT IntraOperative Documentson 0 02-23-2022 IntraOperative Documents [id number]# 1.00CD:127 [facility] Coding Summary.on 02-15-2022 Coding Summary. CD:[id number] G h0bWw+PGhlYWQ+CQ7LJIL zN99uuGZbmF7AQ8rZDC6K TUYAOIPGGE2BLE9tuIC2V GqpQ2NzxdEn PtimvHRyFD29ZNd2IRX7z XxaEAbmrN9krUKdO1j6Od NhYD06dX05TVggOEKyDfT 3LjZpbjsgbWFy R0woRtSmrBReMkh+PHRhY mxlIHdpZHRoPScxMDAlJy VokMtsDS0zPk3sLNMlAQU vbGxhcHNlOiBj b4teZSLzRHclNL8dfIllM 9OweVB0WKDpr9g5Wq92zV I+RKRiRUH9wIbwHOqpo08 4IeFsg6bmLSY7 jLSjKHgrLIU1B34vg9R1X CJyCVAjPJN8oML3zP3viO hwutnwX8PntZIfGqL0WFX 0iQHwgZ1juPmt rwwumS0cAcl+N41CSE2EF WIVYM4WLdm2B6AtHulrwO I+BA36UCReJE30lLNivVZ ei1qrxRp4BbTo TGCkSQW2iEpkFFgdf6WqJ XPcN22mtHKfq5S5RUSsyO ygoMSjAcRjbGX5rS2xUJh ffpjwq4euybpf Zmtkj9fquq42wN26Z90jZ ItkIKPsBLH5WOQeGTEiaU bqvt4frD6yDp2+IJmyr3x ar1fzwDh8NzMz JONcncZnaYovCRB7g9SnE d85I7HnhBvfw7ZxYws6wh 75xLQlz2E6bGV2EEaeYQF rsH8xNGgvGiF1 LFBpGtKulM67bQKjNBahI d4bvUookJwpXW0cNRYyod sxYJAsiP3vOZAuhJYrpXc kAC3eLHMskwfs r795XsNnIBW1VFQydMEwD 2KftJ5fVeLyPQCsQVKgI9 WghJHoDVjnD912CQdpUgO 8HAPdxeVxZ2Yi PWKoqArjCsX3y9T3Jt5Il 4KfnutwZZE2TAyjZHV2Di R4ObWyQkN9Q2QqHvv7DFK zbSnqZK0wN9Re FSMsyrrizsuuyQR1NMRwA KQosG30pYInXIxaJe4ui9 C5v837NZNmJYYyxD01Xg7 udDogMTBwdCBU oI3gppeyd2ppcmsiMoAlA MIwIMy4NKl7MAPkrEutSq SiHGP2OnK2FWF3gCBatQ3 tdLdcxczlfF7m Oyc+X50akO2wCQL0RUJ7m abgYGWhcoEcMD25EB14I2 RyPjwvdGFibGU+PGRpdiB bvCfnVS4bPrMk z3mvd5EdLPmsN4GhMXKoZ FlnZtn2BAYhJTD0kCR7fM 5gXUCrKOrge1H1pSK9G8C kolGsso5gw8hn UREhYLfkY31juKBlw8E3J QHwdKB8HWShjZxaQsTkhK 93Oyc+WCPgmGiza4PhNcq fq0gcn4dgxUa4 HoYeCEFgktNnbGpiRIX9a 9OyAu12H48oNEyzZFImXL OjYFHlRSPhpVdxdx5cqN7 wIi8+PGNvbCB3 rEI7bS8pFJEqTvD8NKtiY 812IxIrlARwRaags5xio0 oedRb4HsVcUZBzgoYfmWs tWRK0w1WrYe86 S58yJSgkAOMvUXFgEOQeA THbbFsgxl7hpE8vTq0+PC 4gk1qlot98aS14rUS+PHR uYBO1hGlvRAcx WDJnnM4lTRnySyR9UWCyK wHhkM92oOBsKVbzKg4lfS hcaVzxFA0kOXOnfpdvo64 7YyLtf2qqIUBr xIWtJBuyQBC1E87vg9I4O PDcZCDiWBE0xND3zH7nvL lnbjogbGVmdDsgdmVydGl oNIlnVRmvB714 IHRvcDsnPlBhdGllbnQgT hPsLKh6G4CeLxs6VTCrjO afXY7snOYgCRxmMx5snOz bqDgkAU6aAFWw nvhze222SvSwz6ozFIZyy WWkRRreYIJ9V23ot2B4TM WzRLFqVVB6dQH5oW3abKk nbjogbGVmdDsg hdAdfKvxSYkgKBemS137C HRvcDsnPkJpcnRoIERhdG H8XH50TS90oTJvx8N5dPS 6G8FuRLZlunqz asylxMI4UJEwFOWtsC80I d7xeBftSr2lPYQhQNC4HT RtiQIpX4AcwO6rLvBmJKK bSTMfM7JpjQHx TCyaS097HHibCgS3NXTfg nTrI8KfBIQbnRovSwQ3i3 B2Lw1CC7N7ZS68CW95yGI id6H5vIM2S9Jb OQXlxvbsemwieWW1PDImQ JSfeH68Mg1cfGcySv4sHP SbVWR5WWFpmUXlT0YxwV7 yOiAjMDAwMDAw N0FtlTAdSZhvB874LTllD kP0SOKilvKiR8EtODWgiL gpDdC3e5V6Xk2AAPi0BR2 0EP75kJBqu1A3 wQM0E3LhHCPbsucplvcqj TN5OGDdBFBwiR25Mn8ljP niRl0gWQGaTKX7YQFvaKE bL5XttU5wSaWb WRRuNOOdN0XmsTUoDEgtO 778XCeaSpI1MMGzjlCkY9 RhFPRxsIpyKlX8r2Q0Sx3 LJINkGI03AJC7 qYE6IU64WD29C2BaVihzl GFibGU+PHRhYmxlIHdpZH RoPScxMDAlJyBzdHlsZT0 oSl1pBZDiGXGv jRqhaESyXmUlt6oyYBFjI WkdFG6vtMtfZ4YeuRT3DC Qsj1t6Yv50Z56fX8HomAO +DEJbwPI9qVK7 eR6gRpIlTeV3ABjqP304G sRitSDiKopzt8mmc5yalO t8BlH8RSDibvDvrOneKWU 4v8EzEg20O33i IHdpZHRoPSIxNSUiIHZhb Ymyzn5gmG6fOr2+PGNvbC G5yUM1zS2uAtGiGpK2WTm oR431JxNwsCAm Eilxb8ytl1ffmPb4PlOnY GOuwqBiyNeaTFE5x0KcLw 97H5IwmQgnp8DiFgk0ly9 9aFPql7B1iHL0 E3LgHDDfjukxpMMrpCiuZ W5rFMOifkybNENcwQ8uDR BaT8k7GlCbMsJ6RCwoL8N oykD3PHSxjSOk BMvhVIV5N61iz5U9HFOcA FOkOEN6zBK6bE4ilUudwh ogbGVmdDsgdmVydGljYWw lYAiqG901GHNu fWszUPEssB2hMMPfrSHve OweCG9fVSKrgwcvNugCNI EIRkoNSpaqW3HCLGn5P0N uEji3HZPdeLrm EJ4ymTCyEPuaGv2otEssw HrwVM7pKNVxrlhdQDGdeD 2uNSZtlXYhtSwxVE7nPHE olkxsk308EhOs GXV3EBQucPDbR5RcrU9lZ cWdAFTjCDEeS5PkjBAzOH yjI923XExbZwU3GCGkpkH nK9PxWVLbgGox RxI5z5J7Nd3uQf4oUI9zL AO2GZ41RF67iWHeg9S4aL J8W7XiCTQgzougbbccfSN 8RLSlAPZpjX32 qPCnYDxuTy2it8Y9k786E BYwYRFphK28Qc4kdPbiDC JpuNLWgA0uzraad7yqwcu gIzAwMDAwMDt0 MGt9ESZbsPwgEwOaRLZ9E zL2LAN4pWGprU8fsGurnv xelO0jCro+NjQgWWVhcnM 1R8JdYry2ABGf yKloQK8guCGeDUfgHs5df VdbkLbuGB8dJWJpduihEA NkoM3jPWLkiYSfhJgoHV2 uZWAivjobi479 CmQgZFZ4JALsuQNjW3Lxi T2nPuAqLQAtBKJdT7UbrH ZhVJxoO933EQifArQ1AFD uxkOxF3XkXHAt kMeuVqA1r1K6Lh2MLS1wi RH9O3UqLix9NKWmxLcxSS 5jkOKzZObgAy8viBecxDw wRA5uFLYywzsz SHFtoA2qIUIhrHSacKqaF Y0zLKBnjavkz669RyFjQV Y0KDDarTGuY0TdpM8oPoC wYOXeAAYmF0Tm yVVgNAgjM527KLhjMiL1V ASuakPzR6OiNSZkrKpeRl C8x1Z0Sb6TeTAmCHFiEB2 6GS94IV94X4Mu PjwvdGFibGU+PHRhYmxlI HdpZHRoPScxMDAlJyBzdH siTN2eNu5cXMPeTJVddMy rvCHfPoTpa6sj TLFeQPcdLU8mrWpbN5Ncj LY1FHXkx9p6Bm24E21rB7 JvdXA+WHUizZT6yMO5iV4 dJvTnRyY8SDit G453VyXcjQGqNybaf9ngz 6nwfDc9NmHtOJKngbSntM oaQPL1r7TxJd41Z25xFSk pZHRoPSIyMCUi GANdiUcsqv3biS3rFa1+P HGvgIU6zXV6cO4lHwVwAs X1OEyjS738JcHzxOFiKcf pQ02vE4ZznCQ+ MFQxWap1UQFkhDgiSP3jr WEgGJrsDl8aOYL9SrWwFh VuKBdqN9MhYECtxwpdgbv eyRW4HMBpXBEv jU75Dh1pwOysQq9yRGSxK FV9SMOjgSYuB5DsuJ2pMv ChMNDwLRRdM6KtaJOwSSx nS634KRuoIjS1 VTRjbvDvK7GbNJPgeIxqH aO8g5W3Zb5GlFgyrTWaGM 8pPbIeHXp0X3HpDfp2SRC naCfxKX8zuAOy URvzRt4lxGzhyMvdWC3iA KYgumpzo092OmBiv7dyAO YdvJLtXPntQIQ3H88st0I 6IECvGHZpDOY3 rWP3kG7eyEjudxnniBGgj DsgdmVydGljYWwtYWxpZ2 97DRNtfExoVwYPAkp2U5Q tFqe7DNXmrYyq VJ9luRUtBFthQq5olXakj GggBD3xXWLdkhywd613Im Iny4kjJIYjjEYrLBvpXEB 5C52wn8Y5STPk CHHrKWH1xMS9sT0kzZglg jogbGVmdDsgdmVydGljYW biQIatM194IBHagKyyRj4 ZRnc7J0FoUcp9 BRBomAfbHJ7rbYLoUTlyN i9ttPqpmMauAM7wLFEphu jkt666FtJai4ltFQKcaCZ rFWxzUQW2R27b p9I8HXNvIDGdSOI3mIX0h W9swPynndtugPOueLaojp CadNziVFbdOJuvF968JPV vcDsnPlBheWVy OjwvdGQ+YE86ym94L9ZeU ufrWvw8RHNtKJH6kOS3xS 6eHDRmQTkpn3G9tSO1F5W lixBqnl9ze2tv YXBz (more content not included)... [facility] Consenton 02-15-2022 Consent [id number]#1 .00CD:127 [facility] Discharge Instructionson Discharge Instructions [id number]#1 .00CD:127 [facility] IntraOperative Documentson 0 02-15-2022 IntraOperative Documents [id number] .00CD:127 [facility] IntraOperative Documents [id number] .00CD:127 [facility] Main OR Intraoperative Recor don 02-15-2022 Main OR Intraoperative Record IntraOp Document Type FT Summary Primary Physician: Stacey WU MD Finalized Date/Time: 02/15/22 14:00:09 Pt. Name: YADIRA LLANOS/Sex: 1960 Female Med Rec #: [id number] Physician: Stacey WU MD Financial #: [id number] Pt. Type: O Room/Bed: / Admit/Disch: 02/13/22 [...] Anesthesiologist Scrub - Primary Staff - Other Asian Studies Professor Time In 02/13/22 08:07:00 02/13/22 08:07:00 02/13/22 08:07:00 Time Out 02/13/22 08:25:00 02/13/22 08:25:00 02/13/22 08:25:00 Procedure COLONOSCOPY(.) COLONOSCOPY(.) COLONOSCOPY(.) Comments Dr. Toribio supervising help in room case Last Modified By: Gloria LESILE, Priya Castro RN, Priya Castro RN, Priya Pedraza 02/13/22 08:25:26 02/13/22 08:25:26 02/13/22 08:25:26 Entry 4 Entry 5 Case Attendee BRYCE GONZALEZ, Stacey Castro RN, Priya Pedraza Role Performed Surgeon - Primary Secretary Book Keeper - Primary Time In 02/13/22 08:07:00 02/13/22 08:07:00 Time Out 02/13/22 08:25:00 02/13/22 08:25:00 Procedure COLONOSCOPY(.) COLONOSCOPY(.) Comments Last Modified By: Gloria LESLIE, rPiya Castro RN, Priya Pedraza 02/13/22 08:25:26 02/13/22 [...] and tissue Entry 1 Skin Integrity Intact, [place], Warm, and Skin Abnormality No Dry Outcomes [...] side u (more content not included)... [facility] Postoperative Documentson Postoperative Documents [id number] .00CD:127 [facility] Consent for Treatmenton Consent for Treatment [id number] .00CD:127 [facility] Endoscopic Procedure Report - Otheron 02-13-2022 [...] Return to activities:: After 24 hours. [facility] Comment on above: Result Comment: Elec tronically Signed By: BRYCE GONZALEZ, Stacey\.br\Date and Time Signed: 02/13/22 08:25 EDT Other Comment: Idania green Attachment - attachment storage system not supported [id number] Can be viewed in source system Missing Attachment - attachment storage system not supported [id number] Can be viewed in source system Missing Attachment - attachment storage system not supported [id number] Can be viewed in source system Missing Attachment - attachment storage system not supported [id number] Can be viewed in source system Inpatient Patient Summaryon 02-13-2022 Inpatient Patient Summary [place] [id number] [facility] Clinical Discharge Instructions PERSON INFORMATION Name: YADIRA LLANOS [facility]#:[id number] PHYSICIANS Admitting Physician: Stacey WU MD Attending Physician: Stacey WU MD PCP: RAY RAWLS DO Discharge Diagnosis: Colon polyp Comment: PATIENT EDUCATION INFORMATION Instructions: Colonoscopy, Care After Surgery Bryce (JAMILAH); Colon Polyps Medication Leaflets: Follow up: With: Address: When: [address] [place], [place] [phone] Business (1) MEDICATION LIST Medications to Continue with No Changes Other Medications albuterol (Ventolin HFA 90 mcg/inh Aerosol) Inhalation every 6 hours as needed as needed for wheezing. escitalopram (escitalopram 10 mg Tab) 1 Tablets By Mouth every day. montelukast (montelukast 10 mg Tab) 1 Tablets By Mouth every day. omeprazole (omeprazole 40 mg Cap-DR) 1 Capsules By Mouth every day. Comment: [facility] Main OR PACU I Recordon Main OR PACU I Record PACU Phase I Document Type FT Summary Primary Physician: Stacey WU MD Finalized Date/Time: 02/13/22 12:41:47 Pt. Name: YADIRA LLANOS/Sex: 1960 Female Med Rec #: [id number] Physician: Stacey WU MD Financial #: [id number] Pt. Type: O Room/Bed: / Admit/Disch: 02/13/22 [...] By: Delmi Bailey RN 02/13/22 12:41 [facility] Main OR Preoperative Recordo n 02-13-2022 Main OR Preoperative Record Holding Area Document Type FT Summary Primary Physician: Stacey WU MD Finalized Date/Time: 02/13/22 07:11:40 Pt. Name: YADIRA LLANOS/Sex: 1960 Female Med Rec #: [id number] Physician: Stacey WU MD Financial #: [id number] Pt. Type: O Room/Bed: / Admit/Disch: 02/13/22 [...] By: Priya Castro RN 02/13/22 07:11 [facility] Monitor Recordon 02-13-2022 Monitor Record [id number] 1.00CD:127 [facility] Monitor Record [id number] 1.00CD:127 [facility] Outpatient Surgery Discharge Instructionon 02-13-2022 Outpatient Surgery Discharge Instruction [address] [address] Patient Discharge Instructions PERSON INFORMATION Name: YADIRA LLANOS Date of : 1960 Current Date: 02/13/2022 08:39:03 PHYSICIANS Admitting Physician: BRYCE GONZALEZ, Ibarra Discharge Diagnosis: Colon polyp YADIRA LLANOS [...] Follow up: With: Address: When: Stacey WU [address] [place] [address]. [address] [place], [place] [phone] Business (1) Pharmacy Information: [facility] [facility] You may receive a survey from Taj Barnard asking you to rate your care experience. Your feedback is important and will help us understand what we do well and how we can improve the quality of care we provide to you, your loved ones and our community. It?s an honor to serve you. Thank you for choosing [facility] HERE ARE THE MEDICATION CHANGES [...] Have a (more content not included)... [facility] Patient Education - Texton 0 02-13-2022 [...] that are (more content not included)... [facility] Coding Summary.on 01-13-2022 Coding Summary. CD:[id number]:[id number] G h0bWw+PGhlYWQ+OQ9VCDL yP55mvBSxuI0SS3hZSW1S JJLFJNFKIL8XQI6riEI4Z TamN5AbqfEr CyappTQiQG89BSm5WKN5f RevJGacjH8xoWXvY7j9Wo HlOU79lS19IByiCYHpUhU 3LjZpbjsgbWFy D3riCmEyuPVbLst+PHRhY mxlIHdpZHRoPScxMDAlJy GtzFftKQ2eAs6sVQQfISD vbGxhcHNlOiBj l7nrBTZkPXsmZZ7diQbeK 8WzcUV3RTFya8k0Yg61tR I+LEOcQJP4hXkeRQlen23 4IoWnr2uaGOX7 sERoFUaxLLF9M81cs8N4I KQgGUJyJKV6cFB9nP1mdE mnxfotO3PotUWzJdA1JUU 9hYQcdU7tcGco vtfkcX2yDuc+I64FTB1MJ MRNQO3WZoh9H5PbIncltT I+OZ99BAEyHA86cDSgpKD lc5bjcZh9KwUd ETDzCYX0jIlnQCgwf0DpL VZoK02boRGir3E1WJJfsM blqGIpYiZxrXH1wN7nARp ancyxq4gvuwyy Eecxw2fhzz31eI40E38cO JtoQFAoAZT2CKIoASIlwI hfcs4hjA5cGv2+WAhmk2u dk3uatVj1VfBp GAMtbkJgvGhfMLB1c0HtA m22V9TxdRaym4EpKog5bt 71gLZpv8D5xOG2HTttLNP pgF0qHMorLtA6 HPFeOiYmkE59wNUrOHkrY p7sxDxicMyvWV1nFSPedk aiLKPcjR8lSTBpgIHrdWk bSC8mKMXrwxnr j347OiXpGGZ0TEKqmMAmW 1YeyG9vOdEqYXGpQXAaH3 SpiLJqXKvkH626FLpuAyD 5KKUtupOdU8Nx GWKggLgxWsC1w1P1Vm4Xu 5OjyxbcQMD2VWbzBTR2Yl JlKfIjBqQ4W8FjVhz3QDL iwZflKK3oI5Bj XXYsdpcjbsgckBM0OIRhP QKamM85eRQcDTdzTh1uc6 A5u466GRLiURZcrL72Dp8 udDogMTBwdCBU vH2kznkou3nnfeglToRvV LSwCFf2ZCt3FUOzxOqmLl WbGDM8HwL1GLS9tKVwcA8 lxHbmasvotZ8p Oyc+V57wiF5xIRX1EMJ5t zusZKRjsqZdOC91LG56O9 RyPjwvdGFibGU+PGRpdiB zvIggFZ5fXdJj d7jfd8OwITgcI5DgDYBlX TjvSds7WYQjDDF9tKY7fU 4rEWAfQIgkk1P7kPB3P0G ycmOydd2ne4tt FUHmLPwbV76taDDpy2H4I EUquRO0SNQmkSnwOvBrpZ 93Oyc+VPDwjPtns8QvGmv kp4eht5xyjCn3 MjDuCMKdhmHsiRrkOYC9h 1XzDw38Y50rQIwqIHKmLW SyNDOkKQPiaSsoys4tzK9 wIi8+PGNvbCB3 sRI8sY7yLFRbSnP5BZjbA 832DnYbgUVfAtfmn2rxb5 ksoAz3QhYfHZTnpzThzUa fIZD6c4IsZt80 B52uERsvZFWyEEZjWJMbG UHlzLdnag4wjI6cJx4+PC 5oy0cfeu80kF79rUT+PHR pMQP1dTrfFKyk AFXabV2qZBefDlK3HOTrX lRbrB88gXAgCXwfFt4dqW shsXszGY9aGDCofwish41 9RaKqp2uaHNFi kXAjXIjlEHH6Z73hm8H4B QUgEOVrEIF1aLE2bM3wnG lnbjogbGVmdDsgdmVydGl gPVslAOajN831 IHRvcDsnPlBhdGllbnQgT cCnCPi2F1ClYlz3WQRoeC zaWC7zxVSbUWvwYa2muTh ihDewMJ8vXIIy jyvan582OwXxo5hoMFZsx XOfDFqeEHE4R09fc8G3SP HdKSVkKOT6mWT9iN9sdQh nbjogbGVmdDsg jrAvkTahSGmwOWklZ786D HRvcDsnPkJpcnRoIERhdG F3SR56JI61uUBzj6J0nHM 9Q2BsPKQrttvg srzozLN4SHKgHIZzcS12O w3pgZksPg6qAUCeILG6LM CooFMiH7DpdK3mSkSgKWV aVGPjJ4DnjQGj ZMuzZ130ZBdrPxW7HXYnb gQlT4EvHNTxwEjkGeI4c2 E9Ty0DX7G7VG40IJ83yKE ho0M6tOP9V6Tk XWAinqbfpnktyHM4GGHeV ZFjlC55Aq3zaFqqCz0bRW TlMAI1IROyvXJbW8AbxU9 yOiAjMDAwMDAw S8FcrXIoYJgwC239TWinK aQ0MIDfhxRuW5BxVYNqoV mcSnS9b7Q5Tj0PXCa4GF8 9CH89hGDrr9W0 dUT6S9GsEFMggdtsnchcw WH2MFOtKBOdjC07Zx9gsE ebMi3wLAGpVKA8GZCfmFQ mB6TknE5vZlFx QCUlKSVqS5QaiRJjDTlwB 572RUpdQhT4LVVpjrTsX6 QyFSWuoBaqQyW4k3A5Wv9 XATIhFD87DMF1 rRT7UY37YH73M6OcLhcoa GFibGU+PHRhYmxlIHdpZH RoPScxMDAlJyBzdHlsZT0 pQy4xOEGkDRTy wVfggSUgXfZde3apUINfV LllAS2ydDugG9BfoIH7NB Cwc0y1Ek73X46aA0EhlZA +ZPOcmON9eXU5 jY8eVtZdXmK6AOudW971J cBhuOJpIvijt6fvx6kywC s5VyW6INFlgqRtyMbmKRM 3w4PtEn40C67a IHdpZHRoPSIxNSUiIHZhb Uetik5nnW4iQy7+PGNvbC Y3gTT6rI3xBnHwTfX6RKl uU107JjUwbANp Qmdis8ymx9cfmIu4UyUeI TMpujCojXysEXL0l4NvIc 95N8KjlYfoc3ZxNsf4hm4 7eRHdp7C4yDS4 E4YmBMLrxcnxlOMuoPgdW F6oEMWpawzyHBFioA0dWA DdW2i5OfPgDkB9YCamC1O svzJ6YYGqxBMc PFrtALS2G28nm1G7XYVqW MEdQEP5tFX4vR2ozTnvlp ogbGVmdDsgdmVydGljYWw nUDgxG185FQMc lUvjECSyyN9jGHOjfPUnc JcmUO2kMMDhqmxaOxoJKD UOUlnAJnfsS1GRBQr8R6G kPql0QMByeDcn YQ1ffARwRLazJj0snLyxc ApvAQ3pAKMvadabXSCbkB 5uUJDjmNTohXgzNO7fJTG xrnqfy650NdGy LTK2MPCxhCSsR8LnoV2wM tWnIWKaRUYeU5OlsPBrHE rjM508FWprFxI6TTIiauL fF8GgXLAllIar TaH6o2B4Sc9jWl3wDR1iL DZ0EI72AB01dGWoh2R1wM O6V3LmOFCzapuxxqimrBR 2EFBgCJZuzT72 qEYjDLjtSl9oe3F1f333C IJqJYJwqA15Eq4edQumOB GapKSXmH6jjwjyn2guure gIzAwMDAwMDt0 PWw1HNVohOvbOfQhYCR2P jA4ZPO6cWEhzO4kbKqjyw zyyO7dGvy+NjQgWWVhcnM 2F1TzYlq4LCMa zDjdLC6ulYSqUZseDl9ck KnqoXhfIF0pKALbawjjNS PitD4oHVJvbQOnjOujLR8 rKHCkrhtex597 NdEaHWG4TJVupOIaI8Jui O3sQsVxBBIeCJOpW8SvdT ZiUSwaO400UQdmFlY5ASG rerWuI9ZpRWVz gMjfXzF7x3F0Qa4CLK2cq AD2D9NoHdo7JSKvbWiqTF 5jpJLgQSfuVj8zjUvabNs sFG8tRDMtxueu UBPdfC9lRXYljDAjsRbvR G5oVDQemsguj594HhCtXN W8XUIavGApI3OvlW7sCtF rCDZnGKJpX7Ac kXJjIEbtY313WDdzUdN4F GWhrfBfT0UiOHZcxIgnMo H1c0B8Cx2SvUMoATIoKW8 0FC08CB51K0Fu PjwvdGFibGU+PHRhYmxlI HdpZHRoPScxMDAlJyBzdH iyQB1wCy9fMPUzAFYnrNz vzABwAiBdf7lw TRBdMAeqKJ9ncThcD1Tkr VM4ODNti6w2Hh42F29tP2 JvdXA+RROgyZI8nTF6mV9 yWeYrJuY0VXnn S587JgRyhWAjBdgon0cdt 1izcWu9VsRxCHFaraPepW shLKH3t9UjNf04C98yMTc pZHRoPSIyMCUi XASqqUbpxb3akO7sEd2+P HMdqHM4xOX2mK5fZvGdTr T5QWzuI463NuSesUWsQcn yL49tB2XzbAP+ FJZeLod8MTBxpNbwAD9mx JToQYvyIq0iSJT4YqJbCx SdQNlqT1YbTRSptjtafwy veVC0TECmUKQb fV05Vh2raAafBh5yNBKwS ZU9OZTzaMAvG0AltN1eYh UfXMWsWCQcS2BfcDEhOKt dD283ALdvQuW2 AGQrckWeX4HxOLYmcDttX aZ8f7Y7Ug5NtXshbVWzYW 0eYoNvBMb2F6TeIml6FPD btZzgTP8reBBg EBbvNm6xaYvlkZltNA7gI QZbwzycv766MtKvw9dtTN VchEDwNUgnNXZ9Y02yb6N 5LSCaFCYlGXL7 wMC8eG4coUhgvvawqPZil DsgdmVydGljYWwtYWxpZ2 20BTYedYzeAiVASlu4R7X wWyb4OAXylOhu LN2zmPXqJVemBd1wmEnjc WavDZ7hCUEiwcnnf323Ih Ewv8znWVUvqVHhNDpxEYH 7F66tt5F1PIIm MNVvDUS9nIV5nA4mjCaoh jogbGVmdDsgdmVydGljYW esFYioY307VPBgmDzwRt2 PHfk0M7BvWyz7 IBRamQzeVG4bcWEvBUgpL h3prQshkIlnVR3yPZGopp hel599TdLku3kuRRTbtZE lKGtwAMQ7W32a b1Q5GLQbJYEnUEI4hBK8x P3mzGxcsxngrTWilKjptm PnmAehRGrxBUuxS412NCC vcDsnPlBheWVy OjwvdGQ+DT90aw37A5LgE iqkGei7AJAcEUS2pNH4cV 7fSIVbFVcjf5J1mUF5J6E damHuhz9nv1aj YXBz (more content not included)... [facility] T3 Totalon 01-07-2022 T3 [Mass/Vol] 113 ng/dL Invalid Interpretation Code 71-180 [facility] Comment on above: Result Comment: Perf ormed at: [facility] [id number] [place], [place] [id number] PhD Krishna Richardson Performed By: #### 2 [id number] ####[facility] [address] [place] [address] Thyroid Perox.tpo Abon 01-07 TPO Ab Qn 293 International_Unit/mL High 0-34 [facility] Comment on above: Result Comment: Perf ormed at: [facility] [address] [place], [place] [id number] PhD Krishna Richardson Performed By: #### 2 [id number] ####[facility] [address] [place] [address] Consent for Treatmenton 12-14 Consent for Treatment [id number]# 1.00CD:127 [facility] Free T4on 01-06-2022 Free T4 [Mass/Vol] 0.85 ng/dL Normal 0.58-1.64 [facility] Comment on above: Performed By: #### 2 [id number], [id number], [id number] ####[facility] [address] [place] [address] TSHon 01-06-2022 TSH Qn 5.94 m[IU]/L High 0.34-5.60 [facility] Comment on above: Performed By: #### 2 [id number], [id number], [id number], [id number] ####[facility] [address] [place] [address] Physician Orderon 01-05-2022 Physician Order [id number]# 1.00CD:127 [facility] Consent for Procedure/Surger yon 01-04-2022 Consent for Procedure/Surgery [id number]#1 .00CD:127 [facility] Gastroenterology Office/Clin ic Noteon 01-03-2022 Gastroenterology Office/Clinic Note Chief Complaint HALL MONITOR positive cologuard HPI Staff New patient Yadira [...] E&M of New Patient Low 30-44 Min 91979 2. Change in bowel habits (R19.4: Change [...] E&M of New Patient Low 30-44 Min 30381 Orders: polyethylene glycol 3350 with electrolytes, See [...] mRNA BNT-162b2 vax 12/24/2020 Given Prophylaxis [facility] Comment on above: Result Comment: Elec [...] including vitamins, herbs, eye drops, creams, and vvio-txa-nkrzsec medicines. ? Any problems you or family [...] air t (more content not included)... [facility] Physician Referralon 022 Physician Referral [id number]#1 .00CD:127 [facility] COVID-19 ([facility])on 11-14-2021 SARS-CoV-2 (COVID-19) RNA NORMA+probe Ql (Resp) Not detected Normal Not Detected [facility] Comment on above: Result Comment: This test result should be correlated with clinical presentations and medical history by a healthcare provider to determine its clinical significance. This assay was performed by a reverse transcriptase real-time polymerase chain reaction (rt PCR) method on the [employer] system. This test has been authorized only [...] or revoked sooner. Performed By: #### 2 [id number] #### [facility] [address] [place] [address] SARS-CoV-2 (COVID-19) RNA NORMA+probe Ql (Unsp spec) Pass [facility] Comment on above: Performed By: #### 2 [id number] #### [facility] [address] [place] [address] Specimen source Nom (Unsp spec) Nasal [facility] Comment on above: Performed By: #### 2 [id number] #### [facility] [address] [place] [address] ADMITTED TO INTENSIVE CARE UNIT FOR CONDITION OF INTEREST:FIND:PT: Unknown [facility] Comment on above: Performed By: #### 2 [id number] #### [facility] [address] [place] [address] EMPLOYED IN A HEALTHCARE SETTING:FIND:PT: YES [facility] Comment on above: Performed By: #### 2 [id number] #### [facility] [address] [place] [address] FIRST TEST FOR CONDITION OF INTEREST:FIND:PT: Unknown [facility] Comment on above: Performed By: #### 2 [id number] #### [facility] [address] [place] [address] HAS SYMPTOMS RELATED TO CONDITION OF INTEREST:FIND:PT: Unknown [facility] Comment on above: Performed By: #### 2 [id number] #### [facility] [address] [place] [address] HOSPITALIZED FOR CONDITION OF INTEREST:FIND:PT: Unknown [facility] Comment on above: Performed By: #### 2 [id number] #### [facility] [address] [place] [address] STATUS:FIND:PT: Unknown [facility] Comment on above: Performed By: #### 2 [id number] #### [facility] [address] [place] [address] [facility]:FIND:PT: Unknown [facility] Comment on above: Performed By: #### 2 [id number] #### [facility] [address] [place] [address] Consent for Treatmenton 10-17 Consent for Treatment [id number]# 1.00CD:127 [facility] Coding Summary.on 11-02-2021 Coding Summary. CD:[id number] G h0bWw+PGhlYWQ+UK5AYZN pG27abOQenA0BV1zGYM8O GJRZOFWFZY3MKM4cuWT4H HtoP5HzxqQs CstylCXbVG59HRm4EFZ7x XerJYiztJ5axWXhW2e8Jl JeMD99wY57TDwvIEDwTgS 3LjZpbjsgbWFy N5lfVeBajJDnXnp+PHRhY mxlIHdpZHRoPScxMDAlJy CjvHfpLB0cVq0sQEFvUPI vbGxhcHNlOiBj x6ucHFIsZUxpBB0evSscJ 8PxjYJ1QLHpn5x4Lk29eJ I+VSJlDIZ5hYtoFQmig92 2GhNgc2oeSOZ2 eDMpLUdqMPQ6G38yd1T3I WLvGVXmRSZ2fJN6uM4ieT uiibxaN9GwyFAtFeU1YVN 3yDAjuH5laXie bdjzxT7nTva+T91EMI5LC RYBMO1CDmd6G8MmGraibN I+YP15LGRiWN54rGKwnUJ ix0sngVu7LnNp QABeNIN2cHyaLXczf2AwZ HGcR78roVBzz9D0QLCqhT bpyPWdBzUkhSP1bU3dWTv karwwn5wnbhpx Foaob8gwtk34mC69Y53lN UztNTKyBTF6PULuDMCedS xerj3boG5gHn7+OVeqa7c sy3vmtAt2KnRx KLOehnUepDkoTLM5z7BmM c59I9ZxmSdol6JmZdv3ru 05jQEdw0N4bLW7PHkaNYL tkS3jHJikJiL9 VERqBtHdwP65vOJjCKxrD t2zbKgysLqdDX3tKWEnhh poIEYukL6eONLycVUznHb vVR5hQLDupcgo k160TbUpZKS4KDDvwXVjV 4MuuH2bXqIhAOYxEHIwC9 OoxYVpUEsuC945FPnqSxB 2HFKtihPoZ5Ol UKJgkJdhInF7j4K8Vs6Tb 5JcfyxsUIU5VTemLAMwOw Y9AqItDlL8I1XhCmm2UXJ nmJxjFA3tV8Up SMFxxjzquoudgDG6VTKoX ZZzwR66gICfRDnrPw4tu7 E9u611WPLrUKZdjD47Lk9 udDogMTBwdCBU jK1wgllrs4upczeuTbEeT IZrIJr6DUi5WMAwsQqwKa PvKIV5NzK2PRV3vXNduE4 ngLrpbfqyaG2d Oyc+F44mwC9dBUM5DVF2r ztbEMYeldGlXU09WT90Y2 RyPjwvdGFibGU+PGRpdiB lrQpoJP2pKjOa a8eij2WqTPcvU2AzFVWhR TfeSlq8YPZrNQJ2qQY2cL 7bNNOqQTyte2Y0gFR8W9X bqgWoox6aw5sz AUDjDNusL66veYWkr6E5B LKqlHT0NHMbgVrtAdJspY 93Oyc+HZNaaFppe8XtRvu mb2nrp3bjaMw9 TbYjOOLchxSdvRshHYD1v 9WbDx85H33iODykMTGgKZ JkKNKsRHIvnJjiwo6xyU5 wIi8+PGNvbCB3 aIY0aY1gRDKhHlI5RTgyQ 026MoFehSPbXalkk0ryf6 rhrEp2LbYbRQYbqxBueOk bKHE2r9VtLj25 M42sJSvrNXDwBWPpVGGhA IJeePgrvp1wwV6kXn0+PC 9rd0vawb82aG18cYO+PHR aKBN5xFrrQNyt TZSicQ5sMVimZgP6OOShS dDjmL07oEPmQZbxWf9gbB hlpWlzTC0oLFZjmknmb55 2QmAef2enXCLs rBExNAixHCW6Q12ds3H4D QYkALMpQLL6pPN1rC6sgO lnbjogbGVmdDsgdmVydGl aNRtoVSgoT071 IHRvcDsnPlBhdGllbnQgT zHuYPk2G1FaCsf7HZLysA twPL1vnMCvAHroUk8cyRd ypRmhMI7pIOSv nypxn868ToLin8mtMINuq LNoYRnoHTA6P23jb5Q6GZ RtHSZpQLZ1aCA3wG6pgEy nbjogbGVmdDsg aaZwvMljLVicWTmrP581W HRvcDsnPkJpcnRoIERhdG J8IP44SM55wLPca9P2jUR 0J0DtMEGspumd jqeqxYL4GEAnNYMrrU55Y d0fxVgkGd9eXZOwPSO1FJ GqqYRdI9CziW4fGyNwXBA vFRBgQ3UhrFWi UKbnC063PGztVuE4PQFhy vJiQ5RiQLOuwKcqDfN1z4 J3Gp0SD9K9VV80XV85wZG cp0W9vBI7K0Ho QXBcwarusqietXP5WLMjK DTzlK07Ni3ouXyvPa5dQF AmJJR6AQJsbOMsQ1LvxS4 yOiAjMDAwMDAw K7DuaAZsIOrfY405FUerO yC1JXTgepWpF5GrFAYhkO nyNaH4t6A3Rc6BWKo0LQ3 6GR83uYEvo5B7 qAO5X6TkPHArwdvvoutzv FB5CZNtNIAmuD44Ys8vnG alUf5yLKOxTBE3LXVapWU sA0TtxW5fGtNs GSRsLDIuO5DjbLLiJCtpV 330MRpyCeC0BRQabrUvZ9 SxZCVakWbqOxM0f1R5Qa8 GGXMrQL70BGA3 ySC3HF04EP62H8DjWidev GFibGU+PHRhYmxlIHdpZH RoPScxMDAlJyBzdHlsZT0 jZs4qBHSaBSDe sAonlOSbKsQtn0ihTXZmU XnlNM9oqHplT4TsmOQ1UL Pub1l6Dt20O72oJ4AjqSR +JEFvcIW1gGS3 iO8vNbUfXcY3XTfjT337O vXitIAgWnckv8vey7xvpV n3JzT1ALTudhHrsUkyZQG 3x7FuIo08J61d IHdpZHRoPSIxNSUiIHZhb Ibtjv0iiU2pZt2+PGNvbC R2rHM7jR8nCdBxIyG7ISk yP797TkCnwMHo Eikok1rkw5hjkMk7EaQeM OGnbaSnhOtkMJK4f2HqQh 06C6BpoNzks1UbRgy7cw8 2yESqy0L1mFB8 C3JeTCYppqqyrVKreXamI F2tTODznyphAKHbbG6dLI VhN1s4FiGrBkK2CLhvS1P rpcH9OHMdpNCx SMhgFPS9R73lx6E4JRMyB JHmRJA6wFA3yU4llAdkbd ogbGVmdDsgdmVydGljYWw kHLefT759YPUc qVrwVFNmkM5cRWHwjJUyr GmeGB4kFOGwososIwxZEM DREvkICsnxR0AJMDo6O6Y iMbg8BBBscSga VL6gfJGjHPnrMy7vyFwmc RomAW3uHPSlxkyeAHIrwB 2iQVOydPPxhTgbUV7uYND qrtukx545AfDb IDM4RQDxxDDsO8YkfW8bV zKpIRZvRSNeC1XdqSLcLU hpA630WBlvTyF8AEKdksS rS4UmPDRbxBax YpG1c7W9Nv7lUp0kNH8gE WY8HL76NV99eTTlf1B4wB D0L9RpSJJvbtdeclwdqGJ 9OXBuBJPbgI92 bZPgOPxzYz7ey1M8y273U WGyPKPqfQ58Uz8liMqmMW PmmKBTzZ7ggqrbb4aabux gIzAwMDAwMDt0 CPc9SMUvgAjkVaCwJGQ0F jI0TUF3eZAspL3qnDizep eowV8iZke+NjMgWWVhcnM 5T5DbOfz1ABJf rVgnHF8mgBZqVRkaKo3ee WgtfNtoJO1bQVVbsgdzDU FzvK7kTRKwpVYvxEnfXQ7 xYVMyukdrw729 JlAiJWU7JEOnmNZiZ9Waz Z9nFbUlWUNwBPVgS1ChqA LkVAqrW747VNxvBdV5MXS fgzYqI8CyEJHv jFsoBvB5g1T1Xs4HOM0pm NR7J6FdPiy5YKReoLcsON 4lvEDwBAegJl3njKkgnEm dRL8dRQUxdygj QIIwtT3oTXTivWBckOdnG Z2dIBAovwcwy990SrHyAR K1LKYvdESeM9GkjF2zDzC rKNOyJUXqW5Hs xEXrYWqpG100XCnbKgH0H KJfdwBmI4WlRFKsbMpkUy W9v7Y7Do5NxKXiYNDpWM5 8EA31LB37B5Qo PjwvdGFibGU+PHRhYmxlI HdpZHRoPScxMDAlJyBzdH fzIU1nMa4gUCEuSUZogUv nfFVgCbXwu5bv ZTMjZLuqBZ8kdDvnP2Znk UB4QUUfc0q7Ia26M51nX1 JvdXA+GWGyaVM8mPZ5zB5 zMoGdWxV1JMwc T994LuDveISaAfxvn4oao 8ceuJz3UhUgDWOaeoAfgH xyTFE6f8QmLg63I26uOJa pZHRoPSIyMCUi CPKdxModuk5waP0fHk8+P QAzzJU5dVG3sE5hRoZnGg A1SZeoN691CgZwoKKeOtm iM94oG7AjuRY+ KOQrQzl5XJPaaIztJY0sq JTzRDnpYs4vTHK2CoFdGy GkSGifJ9VcIJYsauhtiga ccEP5YJZrPPVm fB31Xg9wnUvlZw5tHKBwW LD7NBBhdHTvH9ErcD4uVk AfHESkSARvI9EhaTQjBYb eZ739LIojXxY5 NVJsysRpW4HgKABhgOpjZ pI0h2S4Ds5DyWreuTQmLG 8kTlGkEGn2A8NuJwo5OUZ kzFgmUX7wkJEy FKopQw9hjCkeaTskND1cK WEwitwpj543LyEzk5ejWL QapWRrWPsuBVE7N80ga5F 3SLOxPDMhOWH6 pEZ2xR2loFirhrbtlPHfn DsgdmVydGljYWwtYWxpZ2 78BUUquRpvPbOSVug2R8E xPaa9ITSbjStc TA7xrNPfJTxoRi9otVhwf GsuLS2aIEWebfqaj173Zu Jch6vrSVFxuGCwBOudSGT 7Q46lw8N9KXAv ODDmQNR1dTG6hH9rsSzal jogbGVmdDsgdmVydGljYW ekNHozR078PNVxuCdlVq6 ECbc4L9VhWyr4 OIIhcXhmTJ3hsXSaAZpjH q5viStjcSrbTL0tEQYbip ijx280ZqNho8njQSHdgDZ uSYihWKA8A01j n5B3ZZRpEPCkIOO8wRS1w H5eePdcazydyROloGvfwg MugGslEYzhGCwtT945SXZ vcDsnPlBheWVy OjwvdGQ+EL94yz08N8KqN svxXqi7WEZxZQP0sKO8wH 8nSESsJZhbq4D9sHI6S6H bmbKhfg9zh6fz YXBz (more content not included)... [facility] Auto Diffon 10-22-2021 Basophils/100 WBC (Bld) 0.1 % Normal 0.0-2.0 [facility] Comment on above: Order Comment: Order Added by Discern Expert. Performed By: #### 2 145783, 7369013, 9180947, 6278729, 9692921, 24027057 ####[address] [place] [address] Basophils/Leukocytes Auto (Bld) [Pure # fraction] 0.0 E9/L Normal 0.0-0.2 [facility] Comment on above: Order Comment: Order Added by Discern Expert. Performed By: #### 2 172737, 6688961, 3385862, 0833518, 2144577, 90564335 ####[address] [address] Eosinophils/100 WBC (Bld) 4.8 % Normal 0.0-8.0 [facility] Comment on above: Order Comment: Order Added by Discern Expert. Performed By: #### 2 601225, 1471641, 0382106, 5798947, 0570037, 03898084 ####[address] [place] [address] Eosinophils/Leukocyt es Auto (Bld) [Pure # fraction] 0.2 E9/L Normal 0.0-0.5 [facility] Comment on above: Order Comment: Order Added by Discern Expert. Performed By: #### 2 023557, 1196103, 8553837, 7561280, 5571088, 10938927 ####[address] [place] [address] Lymphocytes/100 WBC (Bld) 33.2 % Normal 14.0-50.0 [facility] Comment on above: Order Comment: Order Added by Discern Expert. Performed By: #### 2 101081, 8236026, 3378863, 9431620, 9575084, 15946510 ####[address] [address] Lymphocytes/Leukocyt es Auto (Bld) [Pure # fraction] 1.5 E9/L Normal 1.0-4.0 [facility] Comment on above: Order Comment: Order Added by Discern Expert. Performed By: #### 2 739930, 2669306, 9132076, 9150859, 2714147, 51673882 ####[address] [address] Monocytes/100 WBC (Bld) 8.4 % Normal 4.0-14.0 [facility] Comment on above: Order Comment: Order Added by Discern Expert. Performed By: #### 2 371717, 8522091, 6677709, 9238341, 6361962, 71226013 ####[address] [address] Monocytes/Leukocytes Auto (Bld) [Pure # fraction] 0.4 E9/L Normal 0.2-1.0 [facility] Comment on above: Order Comment: Order Added by Discern Expert. Performed By: #### 2 424463, 9402143, 5357917, 8162703, 8236452, 51034623 ####[address] [address] Neutrophils/100 WBC (Bld) 53.5 % Normal 36.0-75.0 [facility] Comment on above: Order Comment: Order Added by Discern Expert. Performed By: #### 2 076852, 7722909, 6124550, 8074877, 3056752, 99410444 ####[address] [address] Neutrophils/Leukocyt es Auto (Bld) [Pure # fraction] 2.3 E9/L Normal 2.0-7.5 [facility] Comment on above: Order Comment: Order Added by Discern Expert. Performed By: #### 2 193546, 7386814, 4792780, 5154535, 2438774, 49506721 ####[address] [address] CBC w/ Auto Diffon 2 Erythrocyte distribution width (RBC) [Ratio] 14.4 % High 10.9-14.2 [facility] Comment on above: Performed By: #### 2 367592, 6962015, 9183160, 4642164, 3491846, 92940174 ####[facility] [address] [place] [address] Hematocrit (Bld) [Volume fraction] 38.2 % Normal 34.0-46.0 [facility] Comment on above: Performed By: #### 2 009601, 0812456, 4385457, 1689343, 5733222, 36618790 ####[address] [place] [address] Hemoglobin (Bld) [Mass/Vol] 12.8 g/dL Normal 12.0-16.0 [facility] Comment on above: Performed By: #### 2 570266, 9635427, 8057733, 5403281, 0388272, 14280287 ####[facility] [address] [place] [address] MCH (RBC) [Entitic mass] 29.1 pg Normal 27.0-34.0 [facility] Comment on above: Performed By: #### 2 907221, 6734745, 7469925, 2133523, 4817199, 07857009 ####[address] [address] MCHC (RBC) [Mass/Vol] 33.5 g/dL Normal 31.4-36.0 [facility] Comment on above: Performed By: #### 2 909167, 2314676, 2678237, 7814230, 8446023, 62900076 ####[address] [place] [address] MCV (RBC) [Entitic vol] 86.8 fL Normal 80.0-100.0 [facility] Comment on above: Performed By: #### 2 719059, 3053630, 3828095, 6656142, 6623214, 67867211 ####[facility] [address] [place] [address] Platelet mean volume (Bld) [Entitic vol] 8.3 fL Normal 6.4-10.8 [facility] Comment on above: Performed By: #### 2 827459, 0044819, 1828013, 8195422, 9318903, 98290736 ####[address] [place] [address] Platelets (Bld) [#/Vol] 303.0 E9/L Normal 150.0-500.0 [facility] Comment on above: Performed By: #### 2 363532, 8400558, 5640532, 2584668, 1253757, 26263701 ####[address] [address] RBC (Bld) [#/Vol] 4.4 E12/L Normal 4.3-5.9 [facility] Comment on above: Performed By: #### 2 882020, 6988746, 9457020, 1344172, 6359596, 57840441 ####[address] [place] [address] WBC corrected for nucl RBC Auto (Bld) [#/Vol] 4.4 E9/L Normal 4.0-11.0 [facility] Comment on above: Performed By: #### 2 651725, 6791820, 3404651, 3124053, 0204255, 55270108 ####[address] [place] [address] CMPon 10-22-2021 Albumin [Mass/Vol] 3.6 g/dL Normal 3.3-5.0 [facility] Comment on above: Performed By: #### 2 905208, 0891296, 8225100, 6277845, 6916210, 99004829 ####[facility] [address] [place] [address] Albumin/Globulin (S) [Mass conc ratio] 1.2 Normal 1.1-2.2 [facility] Comment on above: Performed By: #### 2 643045, 7357522, 8512546, 6318095, 7848795, 50891381 ####[facility] [address] [place] [address] ALP [Catalytic activity/Vol] 115 Int._Unit/L High 21-98 [facility] Comment on above: Performed By: #### 2 336034, 6123346, 9964946, 4818111, 3014053, 97330167 ####[facility] [address] [place] [address] ALT No additional P-5'-P [Catalytic activity/Vol] 46 Int._Unit/L Normal 6-46 [facility] Comment on above: Performed By: #### 2 335428, 4868040, 9244041, 6300937, 4110665, 51780885 ####[facility] [address] [place] [address] Anion gap [Moles/Vol] 12 mmol/L Normal 6-16 [facility] Comment on above: Performed By: #### 2 048447, 4993677, 2233150, 8427418, 1578026, 18223046 ####[facility] [address] [place] [address] AST [Catalytic activity/Vol] 36 Int._Unit/L Normal 5-43 [facility] Comment on above: Performed By: #### 2 966536, 2996334, 7690206, 6379442, 2907163, 18427334 ####[facility] [address] [place] [address] Bilirubin [Mass/Vol] 0.6 mg/dL Normal 0.0-1.1 [facility] Comment on above: Performed By: #### 2 345885, 6133253, 4194583, 9750307, 5510447, 73701329 ####[facility] [address] [place] [address] Calcium [Mass/Vol] 9.3 mg/dL Normal 8.9-11.1 [facility] Comment on above: Performed By: #### 2 238874, 1973803, 8311852, 7651395, 9353632, 54160082 ####[facility] [address] [place] [address] Chloride [Moles/Vol] 101 mmol/L Normal 101-111 [facility] Comment on above: Performed By: #### 2 596406, 8099090, 7920777, 6229550, 6660313, 28961924 ####[facility] [address] [place] [address] CO2 [Moles/Vol] 26 mmol/L Normal 21-31 [facility] Comment on above: Performed By: #### 2 688109, 0856252, 9942491, 9585955, 3738221, 70548570 ####[facility] [address] [place] [address] Creatinine [Mass/Vol] 0.7 mg/dL Normal 0.5-1.3 [facility] Comment on above: Performed By: #### 2 480124, 8221903, 7656028, 4876334, 6659806, 60167562 ####[facility] [address] [place] [address] Globulin (S) [Mass/Vol] 3.0 g/dL Normal 1.4-4.0 [facility] Comment on above: Performed By: #### 2 449443, 6874260, 1457323, 8303805, 6522835, 49708190 ####[facility] [address] [place] [address] Glucose [Mass/Vol] 90 mg/dL Normal 55-199 [facility] Comment on above: Result Comment: If t his glucose result represents a fasting glucose, interpretation should refer to the following reference range: 55-99 mg/dL Performed By: #### 2 725123, 5957950, 6138630, 4909407, 0408626, 17466042 ####[facility] [address] [place] [address] Potassium [Moles/Vol] 4.2 mmol/L Normal 3.5-5.3 [facility] Comment on above: Performed By: #### 2 080601, 2733493, 4039019, 5784565, 2438652, 77154315 ####[facility] [address] [place] [address] Protein [Mass/Vol] 6.6 g/dL Normal 6.0-7.8 [facility] Comment on above: Performed By: #### 2 532777, 4011612, 2446422, 5171143, 1578225, 81222080 ####[facility] [address] [place] [address] Sodium [Moles/Vol] 135 mmol/L Normal 135-145 [facility] Comment on above: Performed By: #### 2 591459, 8031234, 4477562, 5826230, 1524048, 44318187 ####[facility] [address] [place] [address] Urea nitrogen [Mass/Vol] 14 mg/dL Normal 5-21 [facility] Comment on above: Performed By: #### 2 202552, 1176234, 5707346, 4123782, 8528696, 23533661 ####[facility] [address] [place] [address] Urea nitrogen/Creatinine [Mass ratio] 20 No Units Normal 10-20 [facility] Comment on above: Performed By: #### 2 247461, 5760460, 5735108, 0284292, 9784697, 60381513 ####[facility] [address] [place] [address] Consent for Treatmenton Consent for Treatment [id number]:127 [facility] Lipid Panelon 10-22-2021 Cholesterol [Mass/Vol] 207 mg/dL High 120-200 [facility] Comment on above: Performed By: #### 2 [id number], [id number], 2393044, 4037535, 4388280, [id number] ####[facility] [address] [place] [address] Cholesterol in HDL [Mass/Vol] 51 mg/dL Invalid Interpretation Code [facility] Comment on above: Result Comment: HDL > or equal to 60 mg/dL: Low cardiovascular risk HDL < 40 mg/dL : High cardiovascular risk Performed By: #### 2 [id number], 9803668, 0746552, 8209822, 7799112, [id number] ####[facility] [address] [place] [address] Cholesterol in LDL [Mass/Vol] 128 mg/dL Normal <=129 [facility] Comment on above: Performed By: #### 2 [id number], 8073967, 5546560, 7668698, 6226800, [id number] ####[facility] [address] [place] [address] Cholesterol in VLDL [Mass/Vol] 21 mg/dL Normal 7-40 [facility] Comment on above: Performed By: #### 2 462354, 1928287, 8778625, 7408819, 1825468, [id number] ####[facility] [address] [place] [address] Triglyceride [Mass/Vol] 107 mg/dL Normal <=149 [facility] Comment on above: Performed By: #### 2 754980, 0393246, 3636617, 5525709, 6842728, [id number] ####[facility] [address] [place] [address] Physician Orderon 10-22-2021 Physician Order [id number]#1. 00CD:127 [facility] TSHon 10-22-2021 TSH Qn 6.19 m[IU]/L High 0.34-5.60 [facility] Comment on above: Performed By: #### 2 805424, 0660258, 5818905, 0300654, 3366381, [id number] ####[facility] [address] [place] [address] eGFRon 10-22-2021 GFR/1.73 sq M.predicted among blacks MDRD (S/P/Bld) [Vol rate/Area] mL/min/{1.73_m2} Normal >=59 [facility] Comment on above: Order Comment: Order added by Discern Expert. Result Comment: eGFR is race adjusted. AA=. Performed By: #### 2 446639, 7501282, 0333502, 8969313, 3566486, [id number] ####[facility] [address] [place] [address] GFR/1.73 sq M.predicted among non-blacks MDRD (S/P/Bld) [Vol rate/Area] mL/min/{1.73_m2} Normal >=59 [facility] Comment on above: Order Comment: Order added by Discern Expert. Result Comment: Ndt Inspector ginger kidney disease could be indicated at eGFR's of less than 60 mL/min/1.73m2. Kidney failure is indicated at less than 15 mL/min/1.73m2. Performed By: #### 2 757985, 3971598, 1030613, 6066289, 4180314, [id number] ####[facility] [address] [place] [address] COVID-19 ([facility]on 10-13-2021 SARS-CoV-2 (COVID-19) RNA NORMA+probe Ql (Resp) Not detected Normal Not Detected [facility] Comment on above: Result Comment: This test result should be correlated with clinical presentations and medical history by a healthcare provider to determine its clinical significance. This assay was performed by a reverse transcriptase real-time polymerase chain reaction (rt PCR) method on the [employer] system. This test has been authorized only [...] or revoked sooner. Performed By: #### 2 [id number] #### [facility] [address] [place] [address] SARS-CoV-2 (COVID-19) RNA NORMA+probe Ql (Unsp spec) Pass Normal Pass [facility] Comment on above: Performed By: #### 2 [id number] #### [facility] [address] [place] [address] Specimen source Nom (Unsp spec) Nasal [facility] Comment on above: Performed By: #### 2 [id number] #### [facility] [address] [place] [address] COVID-19 ([facility])on 10-12-2021 ADMITTED TO INTENSIVE CARE UNIT FOR CONDITION OF INTEREST:FIND:PT: NO [facility] Comment on above: Performed By: #### 2 [id number] #### [facility] [address] [place] [address] EMPLOYED IN A HEALTHCARE SETTING:FIND:PT: YES [facility] Comment on above: Performed By: #### 2 [id number] #### [facility] [address] [place] [address] FIRST TEST FOR CONDITION OF INTEREST:FIND:PT: Unknown [facility] Comment on above: Performed By: #### 2 [id number] #### [facility] [address] [place] [address] HAS SYMPTOMS RELATED TO CONDITION OF INTEREST:FIND:PT: Unknown [facility] Comment on above: Performed By: #### 2 [id number] #### [facility] [address] [place] [address] HOSPITALIZED FOR CONDITION OF INTEREST:FIND:PT: NO [facility] Comment on above: Performed By: #### 2 [id number] #### [facility] [address] [place] [address] STATUS:FIND:PT: NO [facility] Comment on above: Performed By: #### 2 [id number] #### [facility] [address] [place] [address] [facility] CARE SETTING:FIND:PT: NO [facility] Comment on above: Performed By: #### 2 [id number] #### [facility] [address] [place] [address] Coding Summary.on 04-08-2021 Coding Summary. CD:[id number] G h0bWw+PGhlYWQ+IG6ZMVD uJ44eyAHarS8GP9fFGZ4N IZBSUQQOVE8BLI6jnLP6Q BhuG3RariLc KwdxhOLuNL70UDe2YVF0d NesHAwinA8mnJDjF4p1Hr PyXI75kW36EGccAZEgSzN 3LjZpbjsgbWFy O7vmPtBhcTYkVim+PHRhY mxlIHdpZHRoPScxMDAlJy EetIkgPS0vCp5vUKZpWTL vbGxhcHNlOiBj g3otVWGyGJvpUA9esYtiD 7JfaBK7CMDgc4q9Nq55cD I+TNLeOXQ1cKbxJOcmz72 7JeDen1gtONF3 pKXkKAzkPJL5Q47mg5N7D YVmMPNsIOA4fMJ5oH4zcV kbqyrtT8UloNFnJaQ0GKV 1rJUgcY1lmUho gcewyO4iYrn+C17SSF8JO FUPRB5UZsl0L6YoSykoqP I+WZ71ZTEbYA38oYOvzIK yl7lkmGu7HvCi HYAjBMS3lYfnUPomc9PbX SPkO61rySSpg9T9BLLchI nkzSMpWhGftDZ9tN2aDBi lgoikq3phayjm Ovpom0gteq05yN70P02iT NytBGTsXYV4YVUcBKPerG gzgl9iaB4wFq9+MNqim9i cy2lwoYw7RhPy VVTlbeZzaUbgCQG9h9BtY c26X6SstMevl7GtWyf3ym 44xFUjh8X1bZE8WHbtVUN zoD8hIKxlRjZ5 VSIrGfGoaD13qKVeIXnrN m2sbFeehBecPD7dYUDoiq ciQEBgcF1oAJFnkBBiyZj rBD7fCTGbebzb a466VmHxFHG3CHIgdVYdC 6XyzU3aHgKcTCEpZNRzU1 BsrCDuFRirX656SHlvDhA 7JPSduiAlC6Cq XSNbuKorOdK6c2F3Lf0Ro 4FgngvnEFB3YVvtFDN2Yq M0ByLbUlQ3R9KcWca4ZTU uxSuiQU3hS6Uv ESRrnhwptkgogZW5WGWaF XLdmR01sDQzBHdyPn9mk9 O0r627DEQqNVLbcM80Uy9 udDogMTBwdCBU jM6iylenz3fagwrzQmRpJ AZdFTq2HIx6KPDqhSdnRq LlUWC6OsQ8YUM8qGKnoQ8 kfEjkrlfspC0z Oyc+C85brJ9xNGS9VZE2v vteUKXfsrBiEZ56FM57Q8 RyPjwvdGFibGU+PGRpdiB tyDnpCI4bGyPo l7gvy2PnXLoyO3MeDRCcP WpjMlw6YQVnCXS3rQX2wQ 5oGUWgGNpvt7A8fPS2T8U useFtbs5px9gs ODUrEBabU83vwMBmm4H5B JVlaAV5YITiaEvbMiEkdU 93Oyc+IIDkwOszb6MwGwq ru0fzj9ikpPo8 FjZtUFZonaTsqMdmFPD2p 3EaJt54B60jWZwaEWKoNX CsYHQeVRPtlMifcb3huV3 wIi8+PGNvbCB3 iOT3xR7vQHNvQkM5GMgiF 591QjIgaGFkGsvoe5bxd5 dpjMy8HkXuYJMoveKmqJx yJLI8s5GyLh37 K07gLFyaZABbXYGkOTXmM PLcyUpzsa8plU8xRy3+PC 1ce1iwdy74mD86fST+PHR bSTF2yIsiPHmc JHKrcU3fHDpsMxQ8AOYhR zZeaZ79vPZqTVwoOl1nkJ lyeAnxUA1oHGMqftsdp17 3KmPbi5coMKSk mMDoCXibXBO7J53qe6Q0Q UMpSWLpRLV5fZP8iD2twL lnbjogbGVmdDsgdmVydGl yGFlcZOhzS592 IHRvcDsnPlBhdGllbnQgT dGgJAf3K4JaGll1OHXigA ztCZ7zeBWhKKeeNl7mdAz kuWdyJS1vKKAq hmdjx829ClVqq8uqVCQxm SBbFXipRFG1F65oa0A1DS IpVXAoGLA7oWP9zG3xnSg nbjogbGVmdDsg arOstPuqEJvcQAxvY823N HRvcDsnPkJpcnRoIERhdG P4HA30SD36bBUmh4W6zUQ 7D6EbAQZaondy ikelvBM2HCZpJSWldC04G v5jrVpvDm6oBEBbNQX5DZ LxsSBeG1JmtC7sPnKjWAY vIDHqG8SqcXQs GIfhO526KVlvLqJ4VQOxq dEcF5YoLDMhuKwjFdR8h7 X9Be4FU7R8FA81AP33aZE jk5L2zKY7E4Xw EOUgmhfpfhmynOZ7MYDvX ENtcJ82Xg6jkHlvFv9uPV WtMYI0XXCwcEApU7QceE8 yOiAjMDAwMDAw S1XkkOCdMYvoM180NLjqY pS9UNHydePzC9BeHYJodU cdDnL9x1H0Tw9HGXf2LU5 9QK43fKFvt6C5 mRQ7R6YdPXTqazwthitsb WG0YLFfREHsjN40Hl7ibD yqMh0fPSHjHWO3ZBFmdTF wM4CuwA7sQyDg VEIyLRAyC2XmuSCzWNexZ 461IPkvXuW2RYXwbpEvG5 QmFEZmeRriToN4a5P7Tm3 BYMYkBP23HPL6 dLN1NB50YH66U1CsZrbtv GFibGU+PHRhYmxlIHdpZH RoPScxMDAlJyBzdHlsZT0 zQc8gFVUnSXXp dPgjvMEjIbIcw2vxVLFjT WjkKX8jaCwhA4CkrHX8PM Vmb3o7Kc21E99lC7HriES +BLQyhLV2nIC2 aS8wGtQfHxJ3HGbdM391R aSpdGAqNhfvz6qxe6lzsT p1HfQ4WELyziCejShbEFT 3z0DbGo35S08l IHdpZHRoPSIxNSUiIHZhb Rqpei7exN9wEd4+PGNvbC D3pVD0fD6fOvCyKiA0GXp eE928NfZvdZYk Syyot1oxt8mynUf1EkCaA HIcadTvxQtiBTN6i5MfQe 98Q6QezIxjs5LfBxs1sg4 9iFVvv6H9oAA3 B5KiNGUeugbxoLRrkIkvX O0rIWSnzotiXXVosO7fDT JtO5r7UaGkEbI3RWhjW9U ohgH5NWUcsSVf JTedOWP5L35hk3G1NMXpC PJtWRG0cXO7tZ2agIlweb ogbGVmdDsgdmVydGljYWw fUIssZ861BRAa mNgcKSAkiJ3eGAJilOCym PqbON4wYVQzbyniEanODJ GVUflADsukB0UHQVm8S1U vOqt7IPZjdZkz IA4nhJKqWHpoPu9tnLvaq FvhIQ8qYHDtdbpsDHSmhT 2tSTJwxPKljSxoPL9gZGC vbvjtq515ZyVk XHF6GDJcbACcH6DgzT0nW bBtWVZpYDJvK3UiyWLwHP orH474CKhmOsZ3QMNrmkY bZ8JtCQMhtLea MwI3i9R9Vl2dHu6aKI8sP HM2BA32YZ59qDEms3Q1hE K4H1FmKAYknaomofkbbJD 8KXXeTFJkbB19 aPYbENxmEt4bl8I1f854M IOsIXQzzN67Wp6ncDufIY NxkUISoS5gpeioa0lsydg gIzAwMDAwMDt0 HKj6YKSmrTisUeRkLQP4Q dS6OAQ2nBQtfT0gwDdyqw rjgK8yDqu+NjMgWWVhcnM 5V6AgYrl7KEBe vRytUI4wyAXqANzbPg9uh IywyDqeWA6tMKSdegxhVH IlfD3lPOEwzOPqvUzgKZ9 aTOQqvgamo179 LwTdBPL3JLYutVBkG5Ans B6aHvLgRXImKWDmU7LdeQ NuUUhdT759QVyvRzD1BKO kcdGbS5PzXBGi uXxwOtU3h7O9An9KMP9lh HZ5R7PgHbh7COLtiCabNV 8ywWMjYEayDr9qsYibjHq pZL5qICJsghsb MWAjlF8aLTIlsCAqaXxlL E2mTYYpgpwgi889FkMqFK Z8FUUkqULkH1QliP2iKqV qYKEpELNbW7Qd iNIePRjiG837OHitRhZ7J MTbxrIfS8PrHBWbzQawJw B4o4Q9Qd1UaZJiLTTuLT2 7YZ61NI43Z4Aj PjwvdGFibGU+PHRhYmxlI HdpZHRoPScxMDAlJyBzdH fhYD1bHx1wHGCcELJtkTs qcITbNdCsb7bk LYYfVCyaMM9gvZytP4Jat BP4SWXzh1g8Xf56M45fN8 JvdXA+TQBzvLF9oQG9cH0 jYiLlPoY2YTbn K378CcZfrNIsZemjp5rui 1lbpKj9HkMoWRRgoeGvrM eaKBL3t1LkRb67U00xLQr pZHRoPSIyMCUi WNPpxXymhf6slC7wHo9+P JWdfMR5jRM5nG9kJuTgEg P4BIvxY286YePxpLRtWvt sL43rO4GzwSO+ HSKjPqg6MATcsCcmVS7il QYtFZisFi7qEFG2GyQdYb UkSFjaV8SfYGZcucojyps hwXS7NEHeUDJh zH91Up0idNsnAp9oLWMtU IK4KEKulROcQ2BfyD8lEr NeDNOwTZIxD1IfxRTmJDe qG393OHslBaY4 BHRszuHfT7HuXLDjuZfkV yI9o1H0Vp7XiYbppWZhKA 0yXvHyPGn3P9LaKmv1IRB xwHbxWT2hbNIx WOcwWq2ngXtnaYuoQL0tW HGmjjohs309XpVah5jdSP EazOAkWFijNLL9C02rb6X 1MCIhLLGfZVU5 jKI1mR9eyHcqiubafMUfz DsgdmVydGljYWwtYWxpZ2 08WFJtnBhzEzKDAfo3U3G cMxu4RNMxnEug MM4pzAQsBTfqIb3wfGxjn KhnWG6wJUCpnfnoi049Cc Max1elIWUptULmPTvfIWB 6O37eg2O7WETn EJRhEEF8hKL5rR7eeSmjk jogbGVmdDsgdmVydGljYW xqBQawV638KHQjyHuaUp2 FIfl6E1LiIsu0 IKUsuJuoHZ8ilYJdYVphI e4boOsclZwhPU0nBGQkzv zyt418UsWiu4kuXGZkaUG cYOhgXNF3C60t k6Q4AXJcJXRzLNY3oXQ2s E6umYehzuqlxCKzoQpsco DrxLquCLbvAClyW752IHL vcDsnPlBheWVy OjwvdGQ+QI47hl79C7AiT rpnZxl1EDAfUTD0gRP3qE 5fECYhQBrwl0R0tSE3A7L mpzSgkr9xy1ba YXBz (more content not included)... [facility] Knee w/o Contrast Lefton 04-08-2021 [...] by: NEET[employer] Technologist: MEGHANN Technical Comments None [facility] Consent for Treatmenton 03-16 Consent for Treatment [id number]#1 .00CD:127 [facility] RAD - MRI Screening Formon 0 04-07-2021 RAD - MRI Screening Form [id number]# 1.00CD:127 [facility] Physician Orderon 03-24-2021 Physician Order [id number]# 1.00CD:127 [facility] Pre-Certification Formon Pre-Certification Form [id number]# 1.00CD:127 [facility] Vital Signs Date Time Vital Sign Value Performing Clinician Facility 02-17-2025 14: Body height 162.56 cm [facility] 02-17-2025 14: Body mass index (BMI) [Ratio] 36.8 kg/m2 [facility] 02-17-2025 14: Body weight 97.52 kg [facility] 02-17-2025 14: Diastolic blood pressure 83 mm[Hg] [facility] 02-17-2025 14:21-0400 Heart rate 70 /min [facility] 02-17-2025 14:21-0400 Respiratory rate 12 /min [facility] 02-17-2025 14:21-0400 Systolic blood pressure 140 mm[Hg] [facility] 12-11-2024 09:08-0500 Body height 162.56 cm [facility] 12-11-2024 09:08-0500 Body mass index (BMI) [Ratio] 36.8 kg/m2 [facility] 12-11-2024 09:08-0500 Body weight 97.52 kg [facility] 12-11-2024 09:08-0500 Diastolic blood pressure 79 mm[Hg] [facility] 12-11-2024 09:08-0500 Heart rate 60 /min [facility] 12-11-2024 09:08-0500 Respiratory rate 12 /min [facility] 12-11-2024 09:08-0500 Systolic blood pressure 127 mm[Hg] [facility] 07-08-2024 09:38-0400 Body height 161.3 cm Funmilayo Noonan DO Work Phone: [facility] 07-08-2024 09:38-0400 Body mass index (BMI) [Ratio] 37.84 kg/m2 Funmilayo Noonan DO Work Phone: [facility] 07-08-2024 09:38-0400 Body weight 98.43 kg Funmilayo Noonan DO Work Phone: [facility] 07-01-2024 10:34-0400 Body height 161.3 cm Funmilayo Noonan DO Work Phone: [facility] 07-01-2024 10:34-0400 Body mass index (BMI) [Ratio] 37.84 kg/m2 Funmilayo Noonan DO Work Phone: [facility] 07-01-2024 10:34-0400 Body weight 98.43 kg Funmilayo Noonan DO Work Phone: [facility] 06-24-2024 10:52-0400 Body height 161.3 cm Funmilayo Noonan DO Work Phone: [facility] 06-24-2024 10:52-0400 Body mass index (BMI) [Ratio] 37.84 kg/m2 Funmilayo Noonan DO Work Phone: [facility] 06-24-2024 10:52-0400 Body weight 98.43 kg Funmilayo Noonan DO Work Phone: [facility] 06-17-2024 10:28-0400 Body height 161.3 cm Funmilayo Noonan DO Work Phone: [facility] 06-17-2024 10:28-0400 Body mass index (BMI) [Ratio] 37.84 kg/m2 Funmilayo Noonan DO Work Phone: [facility] 06-17-2024 10:28-0400 Body weight 98.43 kg Funmilayo Noonan DO Work Phone: [facility] 06-09-2024 08:56-0400 Body height 162.56 cm [facility] 06-09-2024 08:56-0400 Body mass index (BMI) [Ratio] 37 kg/m2 [facility] 06-09-2024 08:56-0400 Body weight 97.97 kg [facility] 06-09-2024 08:56-0400 Diastolic blood pressure 78 mm[Hg] [facility] 06-09-2024 08:56-0400 Heart rate 68 /min [facility] 06-09-2024 08:56-0400 SaO2% (BldA) [Mass fraction] 98 % [facility] 06-09-2024 08:56-0400 Systolic blood pressure 116 mm[Hg] [facility] 12-10-2023 09:29-0500 Body height 162.56 cm [facility] 12-10-2023 09:29-0500 Body mass index (BMI) [Ratio] 39.1 kg/m2 [facility] 12-10-2023 09:29-0500 Body weight 103.47 kg [facility] 12-10-2023 09:29-0500 Diastolic blood pressure 83 mm[Hg] [facility] 12-10-2023 09:29-0500 Heart rate 83 /min [facility] 12-10-2023 09:29-0500 Respiratory rate 12 /min [facility] 12-10-2023 09:29-0500 Systolic blood pressure 134 mm[Hg] [facility] 08-13-2023 14:30-0400 Body height 162.56 cm Leilani Christineacher Other [employer] Other 08-13-2023 14:30-0400 Diastolic blood pressure 64 mm[Hg] Leilani Christineacher Other [facility] Other 08-13-2023 14:30-0400 SaO2% (BldA) [Mass fraction] 100 % Leilani Christineacher Other [facility] Other 08-13-2023 14:30-0400 Systolic blood pressure 122 mm[Hg] Leilani Buciorbacher Other [facility] Other 08-03-2023 10:15-0400 Body height 162.56 cm Leilani Wolfer Other [facility] Other 08-03-2023 10:15-0400 Diastolic blood pressure 80 mm[Hg] Leilani Buciorbacher Other [facility] Other 08-03-2023 10:15-0400 SaO2% (BldA) [Mass fraction] 100 % Leilani Buciorbacher Other [facility] Other 08-03-2023 10:15-0400 Systolic blood pressure 132 mm[Hg] Leilani Buciorbacher Other [facility] Other 05-21-2023 09:00-0400 Body height 162.56 cm Ray Ball Other [facility] Other 05-21-2023 09:00-0400 Body mass index (BMI) [Ratio] 41.6 kg/m2 Ray Ball Other [facility] Other 05-21-2023 09:00-0400 Body weight 109.95 kg Ray Ball Other [facility] Other 05-21-2023 09:00-0400 Diastolic blood pressure 84 mm[Hg] Ray Ball Other [facility] Other 05-21-2023 09:00-0400 Respiratory rate 16 /min Ray Ball Other [facility] Other 05-21-2023 09:00-0400 Systolic blood pressure 133 mm[Hg] Ray Ball Other [facility] Other 12-26-2022 15:30-0400 Body height 162.56 cm Ray Ball Other [facility] Other 12-26-2022 15:30-0400 Body mass index (BMI) [Ratio] 42.38 kg/m2 Ray Ball Other [facility] Other 12-26-2022 15:30-0400 Body weight 111.99 kg Ray Ball Other [facility] Other 12-26-2022 15:30-0400 Diastolic blood pressure 84 mm[Hg] Ray Ball Other [facility] Other 12-26-2022 15:30-0400 Respiratory rate 12 /min Ray Ball Other [facility] Other 12-26-2022 15:30-0400 Systolic blood pressure 132 mm[Hg] Ray Ball Other [facility] Other 02-13-2022 08:50-0400 Diastolic blood pressure 86 mm[Hg] Ibarra SALAM [facility] 02-13-2022 08:50-0400 Heart rate 60 /min Ibarra SALAM [facility] 02-13-2022 08:50-0400 Respiratory rate 11 /min Ibarra SALAM [facility] 02-13-2022 08:50-0400 SaO2% (BldA) [Mass fraction] 100 % Ibarra SALAM [facility] 02-13-2022 08:50-0400 Systolic blood pressure 155 mm[Hg] Ibarra SALAM [facility] 02-13-2022 08:35-0400 Diastolic blood pressure 90 mm[Hg] Ibarra SALAM [facility] 02-13-2022 08:35-0400 Heart rate 65 /min Ibarra SALAM [facility] 02-13-2022 08:35-0400 Respiratory rate 12 /min Ibarra SALAM [facility] 02-13-2022 08:35-0400 Respiratory rate 11 /min Ibarra SALAM [facility] 02-13-2022 08:35-0400 SaO2% (BldA) [Mass fraction] 100 % Ibarra SALAM [facility] 02-13-2022 08:35-0400 SaO2% (BldA) [Mass fraction] 99 % Ibarra SALAM [facility] 02-13-2022 08:35-0400 Systolic blood pressure 139 mm[Hg] Ibarra SALAM [facility] 02-13-2022 08:30-0400 Diastolic blood pressure 83 mm[Hg] Ibarra SALAM [facility] 02-13-2022 08:30-0400 Systolic blood pressure 133 mm[Hg] Ibarra SALAM [facility] 02-13-2022 08:26-0400 Body temperature 96.8 [degF] Ibarra SALAM [facility] 02-13-2022 08:20-0400 Respiratory rate 16 /min Ibarra SALAM [facility] 02-13-2022 08:16-0400 Respiratory rate 19 /min Ibarra SALAM [facility] 02-13-2022 08:15-0400 Respiratory rate 19 /min Ibarra SALAM [facility] 02-13-2022 07:20-0400 Blood Pressure Location Ibarra SALAM [facility] 02-13-2022 07:20-0400 Body temperature 98.42 [degF] Ibarra SALAM [facility] Encounters Encounter Date Encounter Type Care Provider Facility Start: 05-14-2025 End: 05-14-2025 Mariangel Mclaughlin MD Work Phone: [facility] Start: 05-14-2025 End: 05-14-2025 Mariangel Mclaughlin MD Work Phone: [facility] Start: 05-14-2025 End: 05-14-2025 ambulatory ROSALIND MCLAUGHLIN Not Available Start: 02-17-2025 End: 02-17-2025 ambulatory [facility] Work Phone: Start: 02-17-2025 End: 02-17-2025 Patient encounter procedure [facility] Work Phone: Start: 01-27-2025 End: 01-27-2025 Bamboo flowsheet Rosalind Mclaughlin MD Work Phone: [facility] Start: 01-27-2025 End: 01-27-2025 Bamboo flowsheet Rosalind Mclaughlin MD Work Phone: [facility] Start: 01-27-2025 End: 01-27-2025 ambulatory ROSALIND MCLAUGHLIN Not Available Start: 01-08-2025 End: 01-08-2025 ambulatory ROSALIND MCLAUGHLIN Not Available Start: 12-11-2024 End: 12-11-2024 ambulatory [facility] Work Phone: Start: 12-11-2024 End: 12-11-2024 Encounter for general adult medical examination without abnormal findings [facility] Start: 12-11-2024 End: 12-11-2024 Patient encounter procedure [facility] Work Phone: Start: 12-08-2024 Non-patient / Non-visit [facility] Work Phone: Start: 10-20-2024 Non-patient / Non-visit [facility] Work Phone: Start: 07-08-2024 End: 07-08-2024 Bamboo flowsheet Funmilayo Noonan DO Work Phone: [facility] Start: 07-08-2024 End: 07-08-2024 Bamboo flowsheet Funmilayo Noonan DO Work Phone: [facility] Start: 07-08-2024 End: 07-08-2024 Patient encounter procedure Funmilayo Noonan DO Work Phone: [facility] Comment on above: Localized osteoarthr itis of left knee (Primary Dx) Start: 07-08-2024 End: 07-08-2024 ambulatory FUNMILAYO NOONAN [...] NOONAN Not Available Start: 06-24-2024 End: 06-24-2024 Bamboo flowsheet Funmilayo Noonan DO Work Phone: [facility] Start: 06-24-2024 End: 06-24-2024 Bamboo flowsheet Funmilayo Noonan DO Work Phone: [facility] Start: 06-24-2024 End: 06-24-2024 Patient encounter procedure Funmilayo Noonan DO Work Phone: [facility] Comment on above: Bilateral primary os teoarthritis of knee (Primary Dx) Start: 06-24-2024 End: 06-24-2024 ambulatory FUNMILAYO NOONAN Not Available Start: 06-17-2024 End: 06-17-2024 Bamboo flowsheet Funmilayo Noonan DO Work Phone: [facility] Start: 06-17-2024 End: 06-17-2024 Bamboo flowsheet Funmilayo Noonan DO Work Phone: [facility] Start: 06-17-2024 End: 06-17-2024 Patient encounter procedure Funmilayo Noonan DO Work Phone: [facility] Comment on above: Bilateral primary os teoarthritis of knee (Primary Dx) Start: 06-17-2024 End: 06-17-2024 ambulatory FUNMILAYO NOONAN Not Available Start: 06-09-2024 End: 06-09-2024 ambulatory [facility] Work Phone: Start: 06-09-2024 End: 06-09-2024 Patient encounter procedure [facility] Work Phone: Start: 06-02-2024 Non-patient / Non-visit [facility] Work Phone: Start: 05-21-2024 End: 05-21-2024 ambulatory CLIFF SERRANO Not Available Start: 12-10-2023 End: 12-10-2023 ambulatory [facility] Work Phone: Start: 12-10-2023 End: 12-10-2023 Patient encounter procedure [facility] Work Phone: Start: 12-07-2023 Non-patient / Non-visit [facility] Work Phone: Start: 12-04-2023 Non-patient / Non-visit [facility] Work Phone: Start: 11-07-2023 End: 11-07-2023 ambulatory Ray Rawls Other [facility] Other Start: 11-07-2023 Telephone encounter Ray Rawls [facility] Start: 08-13-2023 End: 08-13-2023 ambulatory Leilani Archibald Other [facility] Other Start: 08-13-2023 Office outpatient vi sit [address] [facility] Start: 08-09-2023 End: 08-09-2023 ambulatory Leilani Archibald Other [facility] Other Start: 08-09-2023 Telephone encounter Leilani menon [facility] Start: 08-03-2023 End: 08-03-2023 ambulatory Leilani Archibald Other [facility] Other Start: 08-03-2023 Office outpatient vi sit 15 minutes Leilani Archibald [facility] Start: 05-21-2023 End: 05-21-2023 ambulatory Ray Rawls Other [facility] Other Start: 05-21-2023 Office outpatient vi sit 25 minutes Ray Ball [facility] Start: 05-15-2023 End: 05-15-2023 ambulatory Ray Rawls Other [facility] Other Start: 05-15-2023 Telephone encounter Ray Rawls [facility] Start: 04-18-2023 End: 04-18-2023 ambulatory Ray Rawls Other [facility] Other Start: 04-18-2023 Telephone encounter Ray Rawls [facility] Start: 03-14-2023 End: 03-15-[address] RAY RAWLS Facility: Start: 03-14-2023 Telephone encounter Ray Rawls [facility] Start: 02-16-2023 End: 02-16-2023 ambulatory Ray Rawls Other [facility] Other Start: 02-16-2023 Office outpatient vi sit 10 minutes Ray Joanne [facility] Start: 02-16-2023 Telephone encounter Ray Rawls [facility] Start: 12-26-2022 End: 12-26-2022 ambulatory Ray Rawls Other [facility] Other Start: 12-26-2022 Office outpatient vi sit 15 minutes Ray Rawls [facility] Start: 12-25-2022 End: 12-25-2022 ambulatory Ray Rawls Other [facility] Other Start: 12-25-2022 Telephone encounter Ray Rawls [facility] Start: 11-14-2022 Encounter for genera l adult medical examination without abnormal findings DR RAY RAWLS [facility] Start: 11-13-2022 End: 11-14-[address] RAY RAWLS Facility:[facility] Start: 11-13-2022 End: 11-14-2022 Encounter for general adult medical examination without abnormal findings DR RAY RAWLS Facility:[facility]1 Start: 11-01-2022 End: 11-01-2022 ambulatory Ray Rawls Other [facility] Other Start: 11-01-2022 Encounter for genera l adult medical examination without abnormal findings Ray Rawls [facility] Start: 11-01-2022 Telephone encounter Ray Rawls [facility] Start: 06-14-2022 End: 06-15-[address] RAY RAWLS Facility:[facility]1 Start: 04-27-2022 End: 04-28-[address] RAY RAWLS Facility:[facility] Start: 04-13-2022 End: 04-14-[address] RAY RAWLS Facility:[facility] Start: 02-13-2022 End: 02-13-2022 Patient encounter procedure [facility] Start: 01-12-2022 Adult health examination Will Rawls Other [facility] Other Procedures Date Procedure Procedure Detail Performing Clinician Start: 05-14-2025 End: 05-14-2025 [facility] xm&eval comprhnsv estab pt 1/> Age-related nuclear cataract of both eyes Rosalind Mclaughlin MD Work Phone: Comment on above: Age-related nuclear cataract of both eyes (Primary Dx); Dry eyes Start: 01-27-2025 End: 01-27-2025 [facility] xm&eval intermediate estab pt Dry eyes Rosalind Mclaughlin MD Work Phone: Comment on above: Dry eyes (Primary Dx ) Start: 01-08-2025 End: 01-08-2025 [facility] xm&eval comprhnsv estab pt 1/> Acute atopic conjunctivitis of both eyes Rosalind Mclaughlin MD Work Phone: Comment on above: Acute atopic conjunc tivitis of both eyes (Primary Dx); Contact and allergic dermatitis of eyelid Start: 07-08-2024 Arthrocentesis aspir &/inj major jt/bursa w/o us Funmilayo Villarreal Noonan DO Work Phone: Start: 07-01-2024 Arthrocentesis aspir &/inj major jt/bursa w/o us Funmilayo Mireille Noonan DO Work Phone: Start: 06-24-2024 Arthrocentesis aspir &/inj major jt/bursa w/o us Funmilayo Noonan DO Work Phone: Start: 02-13-2022 Colonoscopy Funmialyo pinto DO Work Phone: Start: 02-13-2022 Colonoscopy Stacey Borja Comment on above: cecal colon polyp, I H Start: 10-15-2018 Endoscopy of stomach Vickie WU Start: 10-15-2008 Abdominal hysterectomy Stacey WU Start: 10-15-2008 Biopsy of breast Stacey WU Start: 10-15-1998 Cholecystectomy Stacey S DAVE Start: 10-15-1979 Decompression of med diogenes nerve Stacey WU Depression screening Donisami n [facility] Other End: 01-12-2022 Screening for malignant neoplasm of breast Ray [facility] Other Screening mammography Benjam in [facility] Other Plan of Treatment Date Care Activity Detail Author Start: 02-14-2032 Screening for malign ant neoplasm of colon [facility] Start: 06-15-2025 Influenza vaccination Influenza Vacc ine (#1) [facility] Start: 05-14-2025 End: 05-14-2025 Patient encounter procedure 05/14/2025 10:00 AM EDT Office Visit [facility] [address] [place] [id number] Rosalind Mclaughlin MD [address] [place] [address] Arrived [facility] Comment on above: Arrived Start: 05-07-2025 End: 05-07-2025 Patient encounter procedure 05/07/2025 8:30 AM EDT Office Visit [facility] [address] [place] [phone] Rosalind Mclaughlin MD [address] [place] [address] [facility] Start: 01-27-2025 End: 01-27-2025 Patient encounter procedure 01/27/2025 9:00 AM EDT Office Visit [facility] [address] [place] [phone] Rosalind Mclaughlin MD [address] [place] [address] Arrived [facility] Comment on above: Arrived Start: 07-08-2024 End: 07-08-2024 Patient encounter procedure [facility] Comment on above: Localized osteoarthr itis of left knee (Primary Dx) Start: 07-01-2024 End: 07-01-2024 Patient encounter procedure [facility] Comment on above: Bilateral primary os teoarthritis of knee (Primary Dx) Start: 06-24-2024 End: 06-24-2024 Patient encounter procedure [facility] Comment on above: Bilateral primary os teoarthritis of knee (Primary Dx) Start: 06-17-2024 End: 06-17-2024 Patient encounter procedure 06/17/2024 10:30 AM EDT Office Visit [facility] [address] [place] [phone] Funmilayo Noonan DO [address] [place] [address] Bilateral primary osteoarthritis of knee (Primary Dx) [facility] Comment on above: Bilateral primary os teoarthritis of knee (Primary Dx) Start: 06-15-2024 Influenza vaccination Influenza Vacc ine (#1) [facility] Start: 2023 Pneumococcal Vaccine : 65+ Years (1 of 1 - PCV) Pneumococcal Vaccine: 65+ Years (1 of 1 - PCV) [facility] Start: 01-03-2008 Pneumococcal Vaccine : 65+ Years (1 of 1 - PCV) Pneumococcal Vaccine: 65+ Years (1 of 1 - PCV) [facility] Start: 1998 Screening for malign ant neoplasm of breast Mammogram [facility] Start: 1960 Screening for malign ant neoplasm of colon [facility] MG Breast - bilatera l Screening [facility] Immunizations Immunization Date Immunization Notes Care Provider Sandeep robertson 07-02-2024 influenza virus vaccine, unspecified formulation Funmilayo Noonan DO Work Phone: [facility] 07-16-2023 COVID-19 Vaccine Pfizer - Documentation Purposes Only Leilani Archibald Other [facility] 07-16-2023 Flu Shot - Documentation Purposes Only Leilani Archibald Other [facility] 07-16-2023 influenza virus vaccine, unspecified formulation Funmilayo Noonan DO Work Phone: [facility] 07-14-2022 influenza virus vaccine, split virus (incl. purified surface antigen) Ray Rawls Other [facility] Other 07-14-2022 influenza virus vaccine, unspecified formulation [facility] 08-13-2021 COVID-19 Vaccine Pfizer - Documentation Purposes Only Ray Rawls Other [facility] 01-14-2021 COVID-19, mRNA, LNP- S, PF, 30 mcg/0.3 mL dose; Translations: [Pfizer-BioNTech COVID-19 Vaccine] Stacey WU [facility] Comment on above: Reason for Medicatio n: Prophylaxis 12-24-2020 COVID-19, mRNA, LNP- S, PF, 30 mcg/0.3 mL dose; Translations: [Pfizer[employer] COVID-19 Vaccine] Stacey WU [facility] Comment on above: Reason for Medicatio n: Prophylaxis Payers Date Payer Category Payer Medicare (Managed Care) HOMER Borja [employer] [id number] 2023 [facility] [id number] 2023 Medicare [id number] 1959 Self-pay 1959 Unknown [id number] 1958 Unknown [id number] 2.16.840.1.990160.3.579.2. 593 1958 Unknown [id number] 2.16.840.1.179198.3.579.2. 593 1958 Unknown [id number] 2.16.840.1.134558.3.579.2. 593 1958 Unknown [id number] 2.16.840.1.983070.3.579.2. 1259 1958 Unknown [id number] 2.16.840.1.617956.3.579.2. 1259 1958 Unknown [id number] 2.16.840.1.878882.3.579.2. 1259 1958 Unknown [id number] 2.16.840.1.823636.3.579.2. 9 1958 Unknown [id number] 2.16.840.1.900521.3.579.2. 9 1958 Unknown [id number] 2.16.840.1.889329.3.579.2. 1258 1958 Unknown [id number] 2.16.840.1.182668.3.579.2. 1258 1958 Unknown [id number] 2.16.840.1.992153.3.579.2. 1258 1958 Unknown [id number] 2.16.840.1.439904.3.579.2. 9 1958 Unknown [id number] 2.16.840.1.684657.3.579.2. 125 Unknown [id number] 2.16.840.1.660270.3.579.2. 593 Unknown [id number] 2.16.840.1.287855.3.579.2. 593 Social History Date Type Detail Facility Start: 01-03-2022 End: 05-05-2024 Tobacco smoking status Never smoked tobacco (finding) [facility] Tobacco smoking status Never [facility] Start: 06-24-2024 End: 01-27-2025 Sex Assigned At Female [facility] Start: 1960 Sex Assigned At Female [facility] Start: 05-05-2024 Tobacco use and exposure Smokeless tobacco non-user [facility] Start: 06-24-2024 End: 05-14-2025 Alcoholic beverage intake Ex-drinker (finding) [facility] Start: 06-24-2024 End: 01-27-2025 History of Social function [facility] Start: 04-21-2024 Gender identity Identifies as female gender (finding) [facility] Start: 12-11-2024 End: 02-17-2025 Sex Female (finding) [facility] Clinical Notes 02-13-2022 to 05-14-2025 Rosalind Mclaughlin MD - 05/14/2025 10:00 AM Ralph Mclaughlin MD - 01/27/2025 9:00 AM Ralph Mclaughlin MD - 01/08/2025 9:30 AM EDT Note Date & Type Note Facility 05-14-2025 History of Presen t illness Narrative Allergies Allergen Reactions Cranberry Extract Anaphylaxis Influenza Virus Vaccine Shortness of breath Diclofenac Itching and Unknown Other Reaction(s): hives Nsaids Unknown Past Medical History: Diagnosis Date Arthritis Asthma (HCC) Reyez's cyst Cataract Disease of thyroid gland PSVT (paroxysmal supraventricular tachycardia) (HCC) Assessment/Plan Cataract, OU: Observe for now without intervention. The patient was advised to contact us if any change or worsening of vision documented in this encounter [facility] 01-27-2025 History of Presen t illness Narrative Assessment/Plan try cequa documented in this encounter [facility] 01-08-2025 History of Presen t illness Narrative Assessment/Plan prednisone 20/d Lotemax bid documented in this encounter [facility] 12-11-2024 Evaluation note Diagnosis Onset Date Resolution Asthma acute December 11, 2024 8:55am JEANE (generalized anxiety disorder) acute December 11, 2024 8:55am Gastroesophageal reflux disease with esophagitis without hemorrhage acute November 8:55am Hypercholesteremia acute Februa 2024 8:55am Hypothyroid acute November 8:55am IFG (impaired fasting glucose) acute December 11, 2024 8:55am Obesity acute December 11, 2024 8:55am Palpitation acute November 8:55am Screening mammogram for breast cancer acute December 11, 2024 8:55am Medicare annual wellness visit, initial noneactive December 11, 2024 8:55am [facility] Work Phone: 1(791) 206-728909-24-2024 History of Present illness Narrative* Kathy Holm MA - 07/08/2024 9:45 AM EDTAssociated Order(s): L Inj/Asp: L knee Post-Procedure Diagnose(s): Localized osteoarthritis of left knee L Inj/Asp: L knee on 07/08/2024 9:41 AM Indications: pain Details: 22 G needle Medications: 2 mL sodium hyaluronate 16.8 MG/2ML Consent was given by the patient. * Funmilayo Noonan DO - 07/08/2024 9:45 AM EDT GelSyn 3 of 3 Injection Left knee Patient is seen and evaluated today for left knee pain and stiffness. Continued swelling and stiffness despite conservative course with ice, Tylenol, NSAID's and compression. Occasional buckle sensation. Pt did well with last two weeks injections without reaction. Physical Exam: The patient is [...] parameters and daily limits for breakt thru painwas reviewed. Cortisone injections can be provided up to 3 per year and no closer than a month interval. Hyaluronic acid viscosupplementation options and expectations were discussed at length. Patient is aware results are not guaranteed. We discussed the role of knee replacement surgery, indications, approach, implants, and rehab process were all reviewed. After lengthy discussion, the patient elects to move forward with the third viscosupplementation injection with GelSyn to the left [...] to the knee was reviewed. Patient was ambulatoryand discharged in stable condition. Any reactions, concerns or continued pain will be reported via phone call or return visit. All questions were answered. Follow-up in 2 months if having pain or concerns. [id number] History of Present illness Narrative* Funmilayo Noonan DO - 07/01/2024 10:30 AM EDTAssociated Order(s): L Inj/Asp: bilateral knee Post-Procedure Diagnose(s): Bilateral primary osteoarthritis of knee L Inj/Asp: bilateral knee on 07/01/2024 10:32 AM Details: 22 G needle Medications (Right): 2 mL sodium hyaluronate 16.8 MG/2ML Medications (Left): 2 mL sodium hyaluronate 16.8 MG/2ML * Funmilayo Noonan DO - 07/01/2024 10:30 AM EDT GelSyn 2 of 3 Injection Left knee [...] parameters and daily limits for breakt thru painwas reviewed. Cortisone injections can be provided up [...] concerns or continued pain will be reported viaphone call or return visit. All questions were [...] The right knee has mild aseptic swelling. Hypertrophicchanges are noted. AROM is decreased with pain. [...] parameters and daily limits for breakt thru painwas reviewed. Cortisone injections can be provided up [...] painful or having concerns. documented in this encounter[facility] [id number] History of Present illness Narrative* Adri Johnson MA - 06/24/2024 10:30 AM EDTAssociated Order(s): L Inj/Asp: bilateral knee Post-Procedure Diagnose(s): Bilateral primary osteoarthritis of knee L Inj/Asp: bilateral knee on 06/24/2024 10:52 AM Indications: pain Details: 21 G needle Medications (Right): 2 mL sodium hyaluronate 16.8 MG/2ML Medications (Left): 2 mL sodium hyaluronate 16.8 MG/2ML * Funmilayo Noonan DO - 06/24/2024 10:30 AM EDT GelSYn 2 of 3 Injection Bilateral knee Patient is seen and evaluated today for bilateral knee pain and stiffness. Continued swelling and stiffness despite conservative course with ice, Tylenol, NSAID's and compression. Did well with injections last week. Physical Exam: The patient is examined in the office today. The bilateral knees have mild aseptic swelling. Hypertrophic changes are noted. [...] 3-4 degenerative changes are present of the bilateral knee. No fracture, dislocation,tumor or infection seen. Images are reviewed with the patient at length. Assessment: Bilateral knee Osteoarthritis-M17.0 Bilateral knee pain-M25.561/M25.562 Antalgic gait-R26 Treatment/Plan: The nature of the findings were discussed at length. Xray imaging and severity discussed. Conservative management with ice, heat, exercise, strengthening, weight loss, compression wrap/bracing was reviewed. Anti-inflammatory medication , if stable with GI and kidney function, was reviewed. OTC and prescription options were discussed. Tylenol dosing parameters and daily limits for breakt thru painwas reviewed. Cortisone injections can be provided up [...] forward with the second viscosupplementation injection with GelSYn bilateral. Under sterile technique with the knee extended and supported, 2 ml of GelSyn was injected to the bilateral knee suprapatellar pouch. Needle was removed and adequate hemostasis was achieved. The patient tolerated both injections well. Post injection restriction of 50% activity reduction the day of the injection with icing techniques 1-2 times per 10-15 minutes each knee were reiterated. Patient was ambulatory and discharged in stable condition. Any reactions, concerns or continued pain will be reported via phone call or return visit. All questions were answered. Follow-up next week for the third bilateral knee GelSyn injection. documented in this encounter[facility] [id number] History of Present illness Narrative* Funmilayo Noonan DO - 06/17/2024 10:30 AM EDT GelSyn 1 of 3 Injection Right knee Patient is seen and evaluated today for right knee pain and stiffness. Continued swelling and stiffness despite conservative course with ice, Tylenol, NSAID's and compression. Occasional buckle sensation. Night disruption is present and increasing. Progression of pain. Occasional assistive device required. Here today to review non-operative conservative options and discuss indications and overview of knee arthroplasty. Physical Exam: The patient is examined in the office today. The right knee has mild aseptic swelling. Hypertrophicchanges are noted. AROM is decreased with pain. [...] parameters and daily limits for breakt thru painwas reviewed. Cortisone injections can be provided up to 3 per year and no closer than a month interval. Hyaluronic acid viscosupplementation options and expectations were discussed at length. Patient is aware results are not guaranteed. We discussed the role of knee replacement surgery, indications, approach, implants, and rehab process were all reviewed. After lengthy discussion, the patient elects to move forward with viscosupplementation injection with GelSYn to the right knee. Under sterile technique with the knee extended and supported, 2 ml of GelSyn was injected to the right knee supra patellar pouch. Needle was removed and adequate hemostasis [...] questions were answered. Follow-up next week for second right knee GelSyn injection. documented in this encounterSaint [facility] [id number] Evaluation note* Encounter Date Diagnosis Assessment Notes Treatment Notes Treatment Clinical Notes Jul, Acute non-recurrent maxillary sinusitis (ICD-10 [...] verbalizes understanding and agreement with treatment plan. [facility] Other 10-20-2023 Evaluation note* Encounter Date Diagnosis [...] verbalizes understanding and agreement with treatment plan. [facility] Other 08-07-2023 Evaluation note* Encounter Date Diagnosis [...] f/u Ortho for Synvisc if needed in [facility] Other 05-31-2023 Evaluation note* Encounter Date Diagnosis Assessment Notes Treatment Notes Treatment Clinical Notes February, Other specified hypothyroidism (ICD-10 - E03.8) February, Autoimmune thyroiditis (ICD-10 - E06.3) [facility] Other 05-05-2023 Evaluation note* Encounter Date Diagnosis Assessment Notes Treatment Notes Treatment Clinical Notes February, Diarrhea of presumed infectious origin (ICD-10 - R19.7) Diet instructions: - avoid juice, milk and tomato sauce - increase bananas, yogurt and cheese February, Nausea (ICD-10 - R11.0) Sip on water and snack every couple hours Zofran as needed. ER for intractable nausea/emesis and dehydration [facility] Other 03-14-2023 Evaluation note* Encounter Date Diagnosis [...] exercise for 30 minutes, 3-5 times weekly. [facility] Other 01-18-2023 Evaluation note* Encounter Date Diagnosis Assessment Notes Treatment Notes Treatment Clinical Notes Oct, Wellness examination (ICD-10 - Z00.00) [facility] Other 05-04-2022 Note [id number]:[facility] Hospital Discharge instructions Patient Education 02/13/2022 08:39:02 Colonoscopy, Care After Surgery Salam (CUSTOM) Colonoscopy Care After Surgery Please read the instructions outlined below and refer to this sheet in the next few weeks. These discharge instructions provide you with general information on caring [facility] Your doctor may also give you specific [...] 06/27/2005 Document Revised: 01/16/2019 Document Reviewed: 01/16/2019 [employer] Patient Education 2020 [employer]. Follow Up Care 01/03/2022 10:52:47 With:Stacey WU Address: [address] [place] [address]. [address] [place] [address] Business (1) When: Unknown [facility] No data available for this section [facility] cent[facility] noteNo [facility] [employer] Other Evaluation note* Diagnosis Onset Date Resolution Status JEANE (generalized anxiety disorder) acute Gastroesophageal reflux dise ase with esophagitis without hemorrhage acute Hypercholesteremia acute Hypothyroid acute IFG (impaired fasting glucose) acute Screening mammogram for breast cancer [facility] Work Phone: Evaluation note* Diagnosis Onset Date Resolution Status JEANE (generalized anxiety disorder) acute Gastroesophageal reflux dise ase with esophagitis without hemorrhage acute Hypercholesteremia acute Hypothyroid acute IFG (impaired fasting glucose) acute Obesity [facility] Work Phone: Evaluation note* Diagnosis Bilateral primary osteoarthritis of knee- Primary [facility] Diagnosis Bilateral primary osteoarthritis of knee- Primary [facility] Diagnosis Localized osteoarthritis of left knee- Primary [facility]* Diagnosis Onset Date Resolution Status Admit Date Asthma acute December 11, 2024 8:55am JEANE (generalized anxiety disorder) acute December 11 8:55am Gastroesophageal reflux dise ase with esophagitis without hemorrhage acute December 11 8:55am Hypercholesteremia acute Februa 2024 8:55am Hypothyroid acute November 8:55am IFG (impaired fasting glucose) acute December 11, 2024 8:55am Obesity acute December 11, 2024 8:55am Palpitation acute November 8:55am Screening mammogram for [facility] cancer acute December 11 8:55am Welcome to Medicare preventi ve visit noneactive December 11 8:55am [facility] Work Phone: Evaluation note* Diagnosis Acute atopic conjunctivitis of both eyes- Primary Contact and allergic dermatitis of eyelid [facility]* Diagnosis Dry eyes- Primary Unspecified tear film insufficiency [facility]* Diagnosis Age-related nuclear cataract of both eyes- Primary Dry eyes Unspecified tear film insufficiency documented in this encounter [facility] HealthcareHistory general [...] COLONOSCOPY 2021 Hospitalization History SEE SURGICAL HX [facility] Other History general Narrative - Reported* Type [...] COLONOSCOPY 2021 Hospitalization History SEE SURGICAL HX [facility] Other Summary Purpose Family History No Family History Records Found Relationship Condition Age at Onset Recorded Date/T meka mother Macular degeneration Unknown father Cerebrovascular accident (CVA) Unknown Pulmonary emphysema Unknown Advance Directives No Advanced Directives Records Found [...] Hypercholesteremia Hypothyroid IFG (impaired fasting glucose) Obesity Chief Complaint Admit Date wellness December 11, 2024 8:55am Reason for Visit Admit Date Asthma December 11, 2024 8:55am JEANE (generalized anxiety disorder) Febru betty 2024 8:55am Gastroesophageal reflux dise ase with esophagitis without hemorrhage December 11, 2024 8:55am Hypercholesteremia December 11, 2024 8:55am Hypothyroid December 11, 2024 8:55am IFG (impaired fasting glucose) December 11, 2024 8:55am Obesity December 11, 2024 8:55am Palpitation December 11, 2024 8:55am Screening mammogram for breast cancer Fe bruary 2024 8:55am Welcome to Medicare preventive visit Feb ruary 2024 8:55am Chief Complaint Admit Date wellness December 11, 2024 8:55am Cough, SOB May 6th, 2025 2:07pm Reason for Visit Admit Date Asthma December 11, 2024 8:55am JEANE (generalized anxiety disorder) Febru betty 2024 8:55am Gastroesophageal reflux dise ase with esophagitis without hemorrhage December 11, 2024 8:55am Hypercholesteremia December 11, 2024 8:55am Hypothyroid December 11, 2024 8:55am IFG (impaired fasting glucose) December 11, 2024 8:55am Obesity December 11, 2024 8:55am Palpitation December 11, 2024 8:55am Screening mammogram for breast cancer Fe bruary 2024 8:55am Medicare annual wellness visit, initial December 11, 2024 8:55am Reason for Referral Specialty Diagnoses / Procedures Referred By Varsha villarreal Referred To Contact Orthopaedic Surgery Diagnoses Localized osteoarthritis of left knee Procedures L Inj/Asp: L knee Funmilayo Noonan, [address] [address] Referral ID Status Reason Start Date Expiration Date V isits Requested Visits Authorized [id number] Authorized 07/08/2024 01/04/2025 1 1 Specialty Diagnoses / Procedures Referred By Varsha villarreal Referred To Contact Orthopaedic Surgery Diagnoses Bilateral primary osteoarthritis of knee Procedures L Inj/Asp: bilateral knee Funmilayo Noonan, [address] [place] [address] Referral ID Status Reason Start Date Expiration Date V isits Requested Visits Authorized [id number] Authorized 07/01/2024 12/28/2024 1 1 Additional Source Comments INFORMATION SOURCE (unrecogn ized section and content) DATE CREATED AUTHOR 03/11/2022 [facility] DATE CREATED AUTHOR AUTHOR'S ORGANIZ ATION 03/23/2023 [facility] DATE CREATED AUTHOR AUTHOR'S ORGANIZ ATION 05/16/2025 [facility] EPIC REASON FOR VISIT (unrecogniz ed section and content) Reason Comments Pain Reason Comments Pain Reason Comments Injections Gelsyn 3/3 Lt knee O A Reason Comments Itchy Eye Reason Comments Follow-up Reason Comments Eye Exam Care Teams (unrecognized sec tion and content) Team Status: Active Member Role Status Dates Ray Ball , DO Primary Care Provider Active Team Status: Active Member Role Status Dates Ray Rawls , DO Primary Care Provide r, Attending Provider Active Start: December 04, 2023 Team Status: Active Member Role Status Dates Ray Joanne , DO Primary Care Provide r, Attending Provider Active Start: December 07, 2023 Team Status: Inactive Member Role Status Dates Ray Joanne , DO Primary Care Provide r, Attending Provider Active Start: December 10, 2023 End: December 10, 2023 Team Status: Active Member Role Status Dates Ray Joanne , DO Primary Care Provide r, Attending Provider Active Start: June 02, 2024 Team Status: Inactive Member Role Status Dates Ray Joanne , DO Primary Care Provide r, Attending Provider Active Start: June 09, 2024 End: June 09, 2024 Application Helper Relationship Specialty Start Date End Date Ray Rawls MD [address] [place] [id number] PCP - General 04/28/24 Application Helper Relationship Specialty Start Date End Date Ray Rawls MD [address] [place] [address] PCP - General 04/28/24 Application Helper Relationship Specialty Start Date End Date Ray Rawls MD [address] [place] [address] PCP - General 04/28/24 Application Helper Relationship Specialty Start Date End Date Ray Rawls MD [address] [place] [address] PCP - General 04/28/24 Application Helper Relationship Specialty Start Date End Date Ray Rawls MD [address] [place] [address] PCP - General 04/28/24 Application Helper Relationship Specialty Start Date End Date Ray Rawls MD [address] [place] [id number] PCP - General 04/28/24 Team Status: Active Member Role Status Dates Ray Rawls DO Primary Care Provide r, Attending Provider Active Start: October 20, 2024 Team Status: Active Member Role Status Dates Ray Rawls DO Primary Care Provide r, Attending Provider Active Start: December 08, 2024 Team Status: Inactive Member Role Status Dates Ray Rawls DO Primary Care Provide r, Attending Provider Active Start: December 11, 2024 End: December 11, 2024 Application Helper Relationship Specialty Start Date End Date Ray Rawls MD [address] [place] [id number] PCP - General 04/28/24 Application Helper Relationship Specialty Start Date End Date Ray Ralws MD [address] [place] [id number] PCP - General 04/28/24 Application Helper Relationship Specialty Start Date End Date Ray Rawls MD [address] [place] [id number] PCP - General 04/28/24 Team Status: Inactive Member Role Status Dates Ray Rawls DO Primary Care Provide r, Attending Provider Active Start: February 17, 2025 End: February 17, 2025 Application Helper Relationship Specialty Start Date End Date Ray Rawls DO PCP - General 04/28/24 Application Helper Relationship Specialty Start Date End Date Ray Rawls DO PCP - General 04/28/24 Goals (unrecognized section and content) Goals may [...] BE BASED ON THE PRIMARY CLINICAL RECORDS. [facility] [employer] [facility]. provides no warranty or guarantee of the accuracy or completeness of information in this document.
[2025-06-01 10:03] LABS: Hematocrit 38.3 % (36.0-48.0); Hemoglobin 12.6 g/dL (12.0-16.0); Immature Granulocytes Abs Auto 0.03 10^3/uL (0.00-0.03); Immature Granulocytes Pct Auto 0.6 % (0.0-0.5); Lymphocytes Absolute Auto 1.4 10^3/uL (1.2-3.8); Mean Corpuscular HGB Conc 32.9 g/dL (29.9-35.2); Mean Corpuscular Hemoglobin 29.8 pg (26.7-34.0); Mean Corpuscular Volume 90.5 fL (81.0-99.0); Platelet Count 295 10^3/uL (150-450); Red Blood Count 4.23 10^6/uL (4.20-5.40); White Blood Count 5.3 10^3/uL (4.0-11.0)
[2025-06-01 10:35] LABS: Anion Gap 7.4; Blood Urea Nitrogen 12.0 mg/dL (7.0-18.0); Calcium 8.8 mg/dL (8.5-10.1); Carbon Dioxide 29.6 mmol/L (21.0-32.0); Chloride 103 mmol/L (98-107); Estimated GFR (African America >60 (>=60 mL/min/1.73m^2); Estimated GFR (Non-African Ame >60 (>=60 mL/min/1.73m^2); Glucose 107 mg/dL (74-106); Magnesium 2.0 mg/dL (1.8-2.4); Potassium 5.0 mmol/L (3.5-5.1); Sodium 135 mmol/L (136-145); Thyroid Stimulating Hormone 5.004 uIU/mL (0.358-3.740)
== END 2025-06-01 09:45 | disposition home or self-care (01) ==
LOC: LAB 09:46
PROVIDERS: PCP Internal Medicine; Visit Provider Internal Medicine
DX: R00.2 Palpitations (principal); R73.01 Impaired fasting glucose; E03.8 Other specified hypothyroidism; E06.3 Autoimmune thyroiditis; I49.3 Ventricular premature depolarization
CPT/HCPCS: 36415; 80048; 83735; 84443; 85025

== ENCOUNTER 2025-07-06 10:00 | Outpatient (OUT) | payer MEDICARE, SELFPAY ==
--- OUTSIDE RECORDS SUMMARY | 2025-07-07 09:53 | XMS_ITS | Clinical Summary ---
Author Organization [facility] Address [address] [place] [address] Care Team Providers Care Artist'S Representative Name Role Phone Ray Rawls Primary Care Provider [phone] Allergies Active Allergy Reactions Criticality Noted Date [...] not crush or chew.. Active HYDROcodone-zain taminophen ([place]) 5-325 MG tablet TAKE 1 TABLET BY MOUTH TWICE A DAY NEEDED FOR PAIN FOR 14 DAYS 4 Active Active Problems No known active problems Encounters Date Type Department Care Team Description 05/14/2025 10:00 AM EDT Office Visit [facility] [address] [place] [address] Rosalind Mclaughlin MD Age-related nuclear cataract of both eyes (Primary Dx); Dry eyes 05/14/2025 Bamboo flowsheet [facility] [address] [place] [address] Rosalind Mclaughlin MD 05/14/2025 Travel [...] 05/13/2026 9:30 AM EDT Office Visit [facility] [address] [place] [address] Rosalind Mclaughlin MD [address] [place] [address] Health Maintenance Due Date Last Done Comments CT Colonography 1958 FIT-DNA 1958 FIT 1958 FOBT 1958 Sigmoidoscopy 1958 Mammogram 1998 Pneumococcal Vaccine: 65+ Ye ars (1 of 1 - PCV) 01/03/2008 Influenza Vaccine (#1) 2025 07/02/2024, 2022 Colonoscopy 02/14/2032 02/13/2022 Colorectal Cancer Screening 02/14/2032 Insurance [employer]ARE ADVANTAGE MEDICARE Care Teams Artist'S Representative Relationship Specialty Start Date End Date Ray Rawls DO PCP - General 04/28/24
--- OUTSIDE RECORDS SUMMARY | 2025-07-07 09:53 | XMS_ITS | Encounter Summary ---
Author Organization [facility] Address [address] [place] [address] Care Team Providers Care Breast Trimmer Name Role Phone Ray Rawls Primary Care Provider [phone] Encounter Details Date Type Department Care Team (Late st Contact Info) Description 08/18/2024 Abstract [facility] [address] [place] [address] [place] [address] [place] [address] Social History Tobacco Use Types [...] 05/13/2026 9:30 AM EDT Office Visit [facility] [address] [place] [address] Rosalind Mclaughlin MD [address] [place] [address] documented as of this encounter Visit Diagnoses Not on filedocumented in this encounter Care Teams Breast Trimmer Relationship Specialty Start Date End Date Ray Rawls DO PCP - General 04/28/24 documented as of this encounter
--- OUTSIDE RECORDS SUMMARY | 2025-07-07 09:55 | XMS_ITS | CCD ---
Author Organization [facility] [employer] Care Team Providers Care Substation Design Draftsperson Name Role Phone RAY RAWLS Primary Care Physician [phone] Ray Rawls Unavailable JOANNE, DR BATRES Primary Care Unavailable BALL, DR [...] DR BATRES Attending Unavailable Leilani Archibald Unavailable [phone] Ray Rawls MD Primary Care Provider Ray Rawls MD Primary Care Provider Ray Rawls DO Primary Care Provider ROSALIND MCLAUGHLIN Attending Unavailable ROSALIND MCLAUGHLIN Attending Unavailable CLIFF SERRANO Referring Unavailable CLIFF SERRANO Attending Unavailable ROSALIND MCLAUGHLIN Attending Unavailable FUNMILAYO NOONAN Attending Unavailable FUNMILAYO NOONAN Attending Unavailable FUNMILAYO NOONAN Attending Unavailable FUNMILAYO NOONAN Attending Unavailable Ray Rawls DO Primary Care Provider Ray Rawls DO Attending Provider Allergies Allergy Classification Reported Allergen(s) Allergy Type Date of Onset Reaction(s) Facility (20 sources) Diclofenac; Translations: [diclofenac] Drug Allergy 4 Unknown (qualifier value), Itching, Unknown [facility] (2 sources) Egg Drug allergy 5 Nausea and vomiting (disorder) [facility] (1 source) influenza A virus A/[place]/GP1 908/2014 (H1N1) antigen / influenza A virus A/[place]/GP2 050/2014 (H3N2) antigen / influenza B virus B/[place] antigen / influenza B virus B/ antigen; Translations: [influenza virus vaccine] Drug Allergy Dyspnea (finding) [facility] (9 sources) Eggs/Apples/Oat s Drug allergy Unknown [employer] [facility] [email or web address] Other (6 sources) Diclofenac Potassium *ANALGESICS - ANTI-INFLAMMATO Propensity to adverse reactions Unknown [facility] [email or web address] Other (6 sources) Eggs/Apples/Oat s *DIETARY PRODUCTS/DIETAR Y MANAGEM Propensity to adverse reactions 9 Comment:Allerg y to eggs and cranberries- Reaction unknown [facility] [email or web address] Other (4 sources) Diclofenac Potassium *ANALGESI Allergy to substance 4 [facility] (4 sources) Eggs/Apples/Oat s *DIETARY PROD Allergy to substance 4 Comment:Allerg y to eggs and cranberries- Reaction unknown [facility] Comment on above: Eggs/Apples/Oats (14 sources) Cranberry Allergy to substance 1 Anaphylaxis [facility] (14 sources) Haemophilus influenzae type b Drug Allergy 4 Shortness of breath [facility] (14 sources) Non-steroidal anti-inflammato ry agent Drug Allergy 4 [facility] Egg-Derived Products Drug Allergy 4 Shortness of breath [facility] (1 source) Apples Allergy to substance 5 Unknown Reaction [facility] (1 source) Oats Allergy to substance 5 Unknown Reaction [facility] Medications Current Medications Medication Drug Class(es) Dates Sig (Normalized) Sig (Original) acetaminophen 325 mg oral tablet (18 sources) Start: 06-09-2024 take 1 tablet by mouth every six hours as needed Acetaminophen (Tylenol) 325 mg tablet Active 325 MG PO Every 6 hours as needed June 09, 2024 12:00am Complies with drug therapy acetaminophen (T ylenol) 500 MG tablet Take by mouth Active acetaminophen 325 mg / HYDROcodone bitartrate 5 mg oral tablet (20 sources) Opioid Agonist Start: 06-09-2024 take 1 tablet by mouth twice daily as needed for pain Hydrocodone-Acetaminophen 5-325 mg tablet Active 1 TAB PO Twice daily as needed for pain 28 14 June 09, 2024 Complies with drug therapy Start: 12-06-2023 End: 06-09-2024 take 1 tablet [...] 6 hrs for 7 days Dec, Active [id number] 200 actuat albuterol 0.09 mg/actuat metered dose inhaler (20 sources) beta2-Adrenergic Agonist Start: 12-06-2023 End: 02-17-2025 take 1 puff(s) by inhalation every four hours as needed for wheezing Albuterol Sulfate (Ventolin Hfa) 90 mcg/actuation HFA aerosol inhaler Active 2 PUFF INHALATION Every 4 hours as needed for shortness of breath or wheezing 6.7 February 17, 2025 2:54pm Complies with drug therapy take 2 puff(s) by in halation every [...] Jul, Active azithromycin 250 mg oral tablet (2 sources) Macrolide Antimicrobial Start: 02-17-2025 Azithromycin 250 mg tablet Active 250 MG PO .COMPLEX 6 5 February 17, 2025 12:00am 2 tabs on first day followed by 1 tab on days 2-5 Complies with drug therapy difluprednate 0.5 mg/ml ophthalmic suspension (3 sources) [...] / salmeterol 0.05 mg/actuat dry powder inhaler (13 sources) Corticosteroid, beta2-Adrenergic Agonist Start: 05-27-2025 take 1 puff(s) by mouth twice daily Fluticasone Propion-Salmeterol 250-50 mcg/dose blister with device Active 0 .ROUTE .COMPLEX 60 May 27, 2025 7:45am INHALE 1 PUFF BY MOUTH TWICE A DAY Complies with drug therapy Start: 02-17-2025 End: 05-27-2025 Fluticasone Propion-Salmeter ol 250-50 mcg/dose blister with device Discontinued 1 INH INHALATION Twice daily 60 30 February 17, 2025 12:00am May 27, 2025 7:45am Start: 12-06-2023 End: 12-10-2023 take 1 puff(s) [...] 75 mcg tablet Active 0 .ROUTE .COMPLEX January 10, 2025 3:46pm TAKE 1 TABLET BY MOUTH EVERY DAY Complies with drug therapy Start: 04-22-2024 take 1 tablet by tala [...] succinate 25 mg extended release oral tablet (6 sources) beta-Adrenergic Paolo Start: 11-19-2024 take 1 tablet by mouth once daily Metoprolol Succinate 25 mg tablet extended release 24 hr Active 0 .ROUTE .COMPLEX 90 November 19, 2024 2:07pm TAKE 1 TABLET BY MOUTH EVERY DAY FOR 30 DAYS Complies with drug therapy Start: 10-21-2024 End: 11-19-2024 take 1 tablet by mouth once daily Metoprolol Succinate 25 mg tablet extended release 24 hr Discontinued 25 MG PO Daily October 21, 2024 1:00am November 19, 2024 2:07pm montelukast 10 mg oral tablet (20 sources) Leukotriene Receptor Antagonist Start: 05-18-2025 take 1 tablet by mouth once daily Montelukast 10 mg tablet Active 0 .ROUTE .COMPLEX May 18, 2025 7:26am TAKE 1 TABLET BY MOUTH EVERY DAY Complies with drug therapy Start: 06-09-2024 End: 05-18-2025 take 1 tablet by mouth once daily Montelukast 10 mg tablet Discontinued 10 MG PO Daily June 09, 2024 9:03am May 18, 2025 7:26am Start: 05-15-2024 End: 06-09-2024 take 1 tablet by mouth once daily Montelukast 10 mg tablet Discontinued 0 .ROUTE .COMPLEX May 15, 2024 8:51am June 09, 2024 9:04am TAKE 1 TABLET BY MOUTH EVERY DAY Start: 2022 End: 05-15-2024 take 1 tablet by mouth once daily Montelukast 10 mg tablet Discontinued 10 MG PO Daily December 06, 2023 1:00am May 15, 2024 8:51am Multi (4 sources) Start: 06-09-2024 Multi Active P O June 09, 2024 12:00am Complies with drug therapy Start: 06-09-2024 Multi Active P O June 08, 2024 11:00pm Start: 06-09-2024 Multi Active P O June 09, 2024 12:00am omeprazole 20 mg delayed release oral tablet (20 sources) Proton Pump Inhibitor Start: 06-09-2024 take 1 tablet by mouth once daily Omeprazole 20 mg tablet,delayed release (DR/EC) Active 20 MG PO Daily June 09, 2024 12:00am Complies with drug therapy Start: 12-06-2023 End: 06-09-2024 take 1 capsule by mouth once daily Omeprazole 40 mg capsule,delayed release(DR/EC) Discontinued 40 MG PO Daily December 06, 2023 1:00am June 09, 2024 9:03am take 1 capsule by mo [facility] before mealtime omeprazole (PriLOSEC) [address] [...] Active Start: 03-22-[address] [facility] twice daily, then take 1 tablet by [...] 2024 1:28pm escitalopram 10 mg oral tablet (20 sources) Serotonin Reuptake Inhibitor Start: 12-06-2023 End: [...] 1 dose methylPREDNISolone 4 mg oral tablet (8 sources) Corticosteroid Start: 12-06-2023 End: 12-10-2023 take 1 tablet by mouth once daily Methylprednisolone 4 mg tablets,dose pack Discontinued 4 MG PO Daily December 06, 2023 1:00am December 10, 2023 10:25am Start: 08-09-2023 methylPREDNISo lone 4 MG as directed Orally daily for 6 days Jul, Active ondansetron 4 mg disintegrating oral tablet (15 sources) Serotonin-3 Receptor Antagonist Start: 12-06-2023 End: [...] asthma, uncomplicated] Resolved: 12-04-2021 Chronic Cardiac dysrhythmias (2 sources) Ventricular arrhythmia; Translations: [Ventricular premature depolarization] 06-01-2025 Chronic Cardiac dysrhythmias (6 sources) Palpitations; Translations: [Palpitations] 10-21-2024 Episodic Comment on above: Holter: normal - 10/16 025Echo: LVEF 55%, normal RV size/function, RVSP 10/2024 Holter: normal - 10/16 025,Echo: LVEF 55%, normal RV size/function, RVSP 10/2024 Cataract (1 source) Bilateral age-related nuclear cataracts; Translations: [Age-related nuclear cataract, bilateral] 05-14-2025 Chronic Diabetes mellitus without complication (9 sources) Diabetes mellitus without complication; Translations: [Type 2 diabetes mellitus without complications] Chronic Diabetes mellitus without complication (20 sources) Impaired fasting glycemia; Translations: [Impaired fasting glucose] Episodic Disorders of lipid metabolism (10 sources) Hypercholesterolemia ; Translations: [Pure hypercholesterolemia , unspecified] 11-29-2023 Chronic Esophageal disorders (15 sources) Gastro-esophageal reflux disease with esophagitis; Translations: [...] [Trigeminal neuralgia] Episodic Other non-traumatic joint disorders (3 sources) Pain in right knee; Translations: [Right knee pain] 06-09-2024 Episodic Other nutritional; endocrine; and metabolic disorders (8 sources) Morbid obesity; Translations: [Morbid (severe) obesity due to excess calories] Resolved: 10-17-2021 Chronic Other nutritional; endocrine; and metabolic disorders (2 sources) Morbid (severe) obesity due to excess calories Chronic Other nutritional; endocrine; and metabolic disorders (6 sources) Obesity; Translations: [Obesity, unspecified] Resolved: 04-13-2022 [...] Basophils (Bld) [#/Vol] Automated basophil count 0.0-0.1 [facility] Basophils/100 WBC Auto (Bld) on 12-08-2024 Basophils/100 WBC (Bld) Automated basophil % 0.2-2.0 [facility] Cholesterol in LDL Calc [Mas s/Vol]on 12-08-2024 Cholesterol in LDL [Mass/Vol] Cholesterol in LDL [Mass/volume] in Serum or Plasma by calculation [facility] Comment on above: <100 mg/dl [id number] 0-129 mg/dl NEAR OR ABOVE [id number] mg/dl BORDERLINE [id number] mg/dl HIGH>190 mg/dl VERY HIGH Cholesterol in VLDL Calc [Ma ss/Vol]on 12-08-2024 Cholesterol in VLDL [Mass/Vol] Cholesterol in VLDL [Mass/volume] in Serum or Plasma by calculation [facility] Eosinophils/100 WBC Auto (Bl d)on 12-08-2024 Eosinophils/100 WBC (Bld) Automated eosinophil % 0.9-7.0 [facility] Erythrocyte distribution wid th Auto (RBC) [Ratio]on 12-08-2024 Erythrocyte distribution width (RBC) [Ratio] Erythrocyte distribution width [Ratio] by Automated count 11.0-15.0 [facility] Estimated glomerular filtrat ion rate (GFR) non- Americanon 12-08-2024 GFR/1.73 sq M.predicted among non-blacks MDRD (S/P/Bld) [Vol rate/Area] Estimated glomerular filtration rate (GFR) non- >=60 mL/min/1.73m 2 [facility] Globulin Calc (S) [Mass/Vol] on 12-08-2024 Globulin (S) [Mass/Vol] Serum globulin measurement by calculation (mass/volume) [facility] Hematocrit Auto (Bld) [Volum e fraction]on 12-08-2024 Hematocrit (Bld) [Volume fraction] Hematocrit [Volume Fraction] of Blood by Automated count 36.0-48.0 [facility] Hemoglobin [Mass/volume] in Bloodon 12-08-2024 Hemoglobin (Bld) [Mass/Vol] Hemoglobin [Mass/volume] in Blood 12.0-16.0 [facility] Laboratory - Chemistry and C hemistry - challengeon 12-08-2024 Albumin [Mass/Vol] 3.6 g/dL 3.4-5.0 [facility] ALP [Catalytic activity/Vol] 76 U/L 46-116 [facility] ALT [Catalytic activity/Vol] 28 U/L 14-59 [facility] AST [Catalytic activity/Vol] 23 U/L 15-37 [facility] Bilirubin [Mass/Vol] 0.4 mg/dL 0.2-1.0 [facility] Calcium [Mass/Vol] 9.1 mg/dL 8.5-10.1 [facility] Chloride [Moles/Vol] 95 mmol/L Low 98-107 [facility] Cholesterol [Mass/Vol] 177 mg/dL <=200 [facility] Cholesterol in HDL [Mass/Vol] 57 mg/dL 40-60 [facility] Comment on above: > or =60 mg/dl - LOW CARDIOVASCULAR RISK<40 mg/dl - HIGH CARDIOVASCULAR RISK CO2 [Moles/Vol] 27.4 mmol/L 21.0-32.0 [facility] Creatinine [Mass/Vol] 0.87 mg/dL 0.55-1.02 [facility] GFR/1.73 sq M.predicted MDRD (S/P/Bld) [Vol rate/Area] mL/min/{1.73_m2} >=60 mL/min/1.73m 2 [facility] Glucose [Mass/Vol] 98 mg/dL 74-106 [facility] Potassium [Moles/Vol] 4.9 mmol/L 3.5-5.1 [facility] Protein [Mass/Vol] 6.8 g/dL 6.4-8.2 [facility] Sodium [Moles/Vol] 129 mmol/L Low 136-145 [facility] Triglyceride [Mass/Vol] 62 mg/dL <=150 [facility] Urea nitrogen [Mass/Vol] 13.0 mg/dL 7.0-18.0 [facility] Urea nitrogen/Creatinine [Mass ratio] 14.9 mg/mg [facility] Laboratory - Hematology and Cell countson 12-08-2024 Immature granulocytes/100 WBC (Bld) 0.2 % 0.0-0.5 [facility] Leukocytes [#/volume] correc mart for nucleated erythrocytes in Blood by Automated counon 12-08-2024 WBC corrected for nucl RBC Auto (Bld) [#/Vol] Leukocytes [#/volume] corrected for nucleated erythrocytes in Blood by Automated coun 4.0-11.0 [facility] Lymphocytes Auto (Bld) [#/Vo l]on 12-08-2024 Lymphocytes (Bld) [#/Vol] Lymphocytes [#/volume] in Blood by Automated count 1.2-3.8 [facility] Lymphocytes/100 WBC Auto (Bl d)on 12-08-2024 Lymphocytes/100 WBC (Bld) Lymphocytes/100 leukocytes in Blood by Automated count 20.5-60.0 [facility] MCH Auto (RBC) [Entitic mass ]on 12-08-2024 MCH (RBC) [Entitic mass] MCH [Entitic mass] by Automated count 26.7-34.0 [facility] MCHC Auto (RBC) [Mass/Vol]on 12-08-2024 MCHC (RBC) [Mass/Vol] MCHC [Mass/volume] by Automated count 29.9-35.2 [facility] MCV Auto (RBC) [Entitic vol] on 12-08-2024 MCV (RBC) [Entitic vol] MCV [Entitic volume] by Automated count 81.0-99.0 [facility] Monocytes Auto (Bld) [#/Vol] on 12-08-2024 Monocytes (Bld) [#/Vol] Automated blood monocyte count 0.3-0.8 [facility] Monocytes/100 WBC Auto (Bld) on 12-08-2024 Monocytes/100 WBC (Bld) Automated monocyte % 1.7-12.0 [facility] Neutrophils Auto (Bld) [#/Vo l]on 12-08-2024 Neutrophils (Bld) [#/Vol] Neutrophils [#/volume] in Blood by Automated count 1.4-6.5 [facility] Neutrophils/100 WBC Auto (Bl d)on 12-08-2024 Neutrophils/100 WBC (Bld) Automated neutrophil % 43.0-75.0 [facility] No Panel Informationon 12-08 Eosinophils # (Auto) 0.2 10 3/uL 0.0-0.7 [facility] Immature Granulocyte # (Auto) 0.01 10 3/uL 0.00-0.03 [facility] Platelet mean volume Auto (B ld) [Entitic vol]on 12-08-2024 Platelet mean volume (Bld) [Entitic vol] Platelet mean volume [Entitic volume] in Blood by Automated count 9.5-13.5 [facility] Platelets Auto (Bld) [#/Vol] on 12-08-2024 Platelets (Bld) [#/Vol] Platelets [#/volume] in Blood by Automated count 150-450 [facility] RBC Auto (Bld) [#/Vol]on RBC (Bld) [#/Vol] Erythrocytes [#/volume] in Blood by Automated count Low 4.20-5.40 [facility] Serum or plasma albumin/glob ulin mass ratioon 12-08-2024 Albumin/Globulin [Mass ratio] Serum or plasma albumin/globulin mass ratio [facility] Serum or plasma anion gap de terminationon 12-08-2024 Anion gap [Moles/Vol] Serum or plasma anion gap determination [facility] Serum or plasma total choles terol/high density lipoprotein (HDL) cholesterol mass thomas 12-08-2024 Cholesterol.total/Ch olesterol in HDL [Mass ratio] Serum or plasma total cholesterol/high density lipoprotein (HDL) cholesterol mass rat [facility] Comment on above: 3.3 - 4.4 LOW RISK4. 4 - 7.1 AVERAGE RISK7.1 - 11.0 MODERATE RISK>11.0 HIGH RISK L Inj/Asp: L kneeon 07-08-20 Kathy Holm MA 07/08/2024 12:25 PM L Inj/Asp: L knee on 07/08/2024 9:41 AM Indications: pain Details: 22 G needle Medications: 2 mL sodium hyaluronate 16.8 MG/2ML Consent was given by the patient. [facility] Vizibility [facility] L Inj/Asp: bilateral kneeon 07-01-2024 Funmilayo Noonan DO 07/01/2024 1:40 PM L Inj/Asp: bilateral knee on 07/01/2024 10:32 AM Details: 22 G needle Medications (Right): 2 mL sodium hyaluronate 16.8 MG/2ML Medications (Left): 2 mL sodium hyaluronate 16.8 MG/2ML [facility] V[facility]ibility L Inj/Asp: bilateral kneeon 06-24-2024 Adri Johnson MA 06/24/2024 11:05 AM L Inj/Asp: bilateral knee on 06/24/2024 10:52 AM Indications: pain Details: 21 G needle Medications (Right): 2 mL sodium hyaluronate 16.8 MG/2ML Medications (Left): 2 mL sodium hyaluronate 16.8 MG/2ML [facility] Laboratory - Chemistry and C hemistry - challengeon 06-02-2024 Free T4 [Mass/Vol] 1.37 ng/dL 0.76-1.46 [facility] TSH Qn 3.596 m[IU]/L 0.358-3.740 [facility] No Panel Informationon 06-02 Total Triiodothyronine 90 ng/dL 71-180 [facility] Comment on above: Performed at: - [facility] [id number] [place], [place] [id number] Director: Dylan Keller PhD, Phone: [phone] Glucose mean value [Mass/vol ume] in Blood Estimated from glycated hemoglobinon 12-07-2023 Average glucose Estimated from glycated hemoglobin (Bld) [Mass/Vol] 117 mg/dL [facility] Laboratory - Hematology and Cell countson 12-07-2023 HbA1c (Bld) [Mass fraction] 5.7 % 4.5-6.2 [facility] Comment on above: ADA RECOMMENDED LIMI T 4.0 - 6.0ADA THERAPEUTIC TARGET < 7.0ACTION SUGGESTED> 7.0 Basophils Auto (Bld) [#/Vol] on 12-04-2023 Basophils (Bld) [#/Vol] 0.0 10 3/uL 0.0-0.1 [facility] Basophils/100 WBC Auto (Bld) on 12-04-2023 Basophils/100 WBC (Bld) 0.7 % 0.2-2.0 [facility] Cholesterol in LDL Calc [Mas s/Vol]on 12-04-2023 Cholesterol in LDL [Mass/Vol] 105.8 mg/dL [facility] Comment on above: <100 mg/dl [id number] 0-129 mg/dl NEAR OR ABOVE [id number] mg/dl BORDERLINE BHAN025-168 mg/dl HIGH>190 mg/dl VERY HIGH Cholesterol in VLDL Calc [Ma ss/Vol]on 12-04-2023 Cholesterol in VLDL [Mass/Vol] 27.2 mg/dL [facility] Eosinophils/100 WBC Auto (Bl d)on 12-04-2023 Eosinophils/100 WBC (Bld) 5.8 % 0.9-7.0 [facility] Erythrocyte distribution wid th Auto (RBC) [Ratio]on 12-04-2023 Erythrocyte distribution width (RBC) [Ratio] 13.5 % 11.0-15.0 [facility] Estimated glomerular filtrat ion rate (GFR) non- Americanon 12-04-2023 GFR/1.73 sq M.predicted among non-blacks MDRD (S/P/Bld) [Vol rate/Area] mL/min/{1.73_m2} >=60 [facility] Globulin Calc (S) [Mass/Vol] on 12-04-2023 Globulin (S) [Mass/Vol] 3.9 g/dL [facility] Hematocrit Auto (Bld) [Volum e fraction]on 12-04-2023 Hematocrit (Bld) [Volume fraction] 38.5 % 36.0-48.0 [facility] Hemoglobin [Mass/volume] in Bloodon 12-04-2023 Hemoglobin (Bld) [Mass/Vol] 12.2 g/dL 12.0-16.0 [facility] Laboratory - Chemistry and C hemistry - challengeon 12-04-2023 Albumin [Mass/Vol] 3.4 g/dL 3.4-5.0 [facility] ALP [Catalytic activity/Vol] 87 U/L 46-116 [facility] ALT [Catalytic activity/Vol] 27 U/L 14-59 [facility] AST [Catalytic activity/Vol] 23 U/L 15-37 [facility] Bilirubin [Mass/Vol] 0.3 mg/dL 0.2-1.0 [facility] Calcium [Mass/Vol] 9.1 mg/dL 8.5-10.1 [facility] Chloride [Moles/Vol] 100 mmol/L 98-107 [facility] Cholesterol [Mass/Vol] 185 mg/dL <=200 [facility] Cholesterol in HDL [Mass/Vol] 52 mg/dL 40-60 [facility] Comment on above: > or =60 mg/dl - LOW CARDIOVASCULAR RISK<40 mg/dl - HIGH CARDIOVASCULAR RISK CO2 [Moles/Vol] 28.8 mmol/L 21.0-32.0 [facility] Creatinine [Mass/Vol] 0.91 mg/dL 0.55-1.02 [facility] GFR/1.73 sq M.predicted MDRD (S/P/Bld) [Vol rate/Area] mL/min/{1.73_m2} >=60 [facility] Glucose [Mass/Vol] 109 mg/dL 74-106 [facility] Potassium [Moles/Vol] 4.2 mmol/L 3.5-5.1 [facility] Protein [Mass/Vol] 7.3 g/dL 6.4-8.2 [facility] Sodium [Moles/Vol] 136 mmol/L 136-145 [facility] Triglyceride [Mass/Vol] 136 mg/dL <=150 [facility] TSH Qn 6.476 m[IU]/L 0.358-3.740 [facility] Urea nitrogen [Mass/Vol] 16.0 mg/dL 7.0-18.0 [facility] Urea nitrogen/Creatinine [Mass ratio] 17.6 mg/mg [facility] Laboratory - Hematology and Cell countson 12-04-2023 Immature granulocytes/100 WBC (Bld) 0.2 % 0.0-0.5 [facility] Leukocytes [#/volume] correc mart for nucleated erythrocytes in Blood by Automated counon 12-04-2023 WBC corrected for nucl RBC Auto (Bld) [#/Vol] 5.5 10 3/uL 4.0-11.0 [facility] Lymphocytes Auto (Bld) [#/Vo l]on 12-04-2023 Lymphocytes (Bld) [#/Vol] 2.1 10 3/uL 1.2-3.8 [facility] Lymphocytes/100 WBC Auto (Bl d)on 12-04-2023 Lymphocytes/100 WBC (Bld) 37.9 % 20.5-60.0 [facility] MCH Auto (RBC) [Entitic mass ]on 12-04-2023 MCH (RBC) [Entitic mass] 28.8 pg 26.7-34.0 [facility] MCHC Auto (RBC) [Mass/Vol]on 12-04-2023 MCHC (RBC) [Mass/Vol] 31.7 g/dL 29.9-35.2 [facility] MCV Auto (RBC) [Entitic vol] on 12-04-2023 MCV (RBC) [Entitic vol] 91.0 fL 81.0-99.0 [facility] Monocytes Auto (Bld) [#/Vol] on 12-04-2023 Monocytes (Bld) [#/Vol] 0.4 10 3/uL 0.3-0.8 [facility] Monocytes/100 WBC Auto (Bld) on 12-04-2023 Monocytes/100 WBC (Bld) 7.4 % 1.7-12.0 [facility] Neutrophils Auto (Bld) [#/Vo l]on 12-04-2023 Neutrophils (Bld) [#/Vol] 2.7 10 3/uL 1.4-6.5 [facility] Neutrophils/100 WBC Auto (Bl d)on 12-04-2023 Neutrophils/100 WBC (Bld) 48.0 % 43.0-75.0 [facility] No Panel Informationon 12-04 Eosinophils # (Auto) 0.3 10 3/uL 0.0-0.7 [facility] Immature Granulocyte # (Auto) 0.01 10 3/uL 0.00-0.03 [facility] Platelet mean volume Auto (B ld) [Entitic vol]on 12-04-2023 Platelet mean volume (Bld) [Entitic vol] 10.0 fL 9.5-13.5 [facility] Platelets Auto (Bld) [#/Vol] on 12-04-2023 Platelets (Bld) [#/Vol] 310 10 3/uL 150-450 [facility] RBC Auto (Bld) [#/Vol]on RBC (Bld) [#/Vol] 4.23 10 6/uL 4.20-5.40 [facility] Serum or plasma albumin/glob ulin mass ratioon 12-04-2023 Albumin/Globulin [Mass ratio] 0.9 {ratio} [facility] Serum or plasma anion gap de terminationon 12-04-2023 Anion gap [Moles/Vol] 11.4 mmol/L [facility] Serum or plasma total choles terol/high density lipoprotein (HDL) cholesterol mass thomas 12-04-2023 Cholesterol.total/Ch olesterol in HDL [Mass ratio] 3.6 {ratio} [facility] Comment on above: 3.3 - 4.4 LOW RISK4. 4 - 7.1 AVERAGE RISK7.1 - 11.0 MODERATE RISK>11.0 HIGH RISK DANO - TSHon 03-14-2023 TSH 5.980 uIU/mL Critically high 0.358-3.740 [facility] Comment on above: Performed By: #### D ATTSH #### [facility] [address] [place] [address] Dr. Yadira Jo TSH RANGE SEE BELOW Normal [facility] Comment on above: Result Comment: <0.3 4 UIU/ml HYPERTHYROID 0.34-5.60 UIU/ml EUTHYROID >5.60 UIU/ml HYPOTHYROID Performed By: #### D ATTSH #### [facility] [address] [place] [address] Dr. Yadira Jo GLUCOSE BLOODon 11-13-2022 Glucose [Mass/Vol] 101 mg/dL Normal 74-106 [facility] Comment on above: Performed By: #### L IPID, GLUC #### [facility] [address] [place] [address] Dr. Yadira Jo GLYCOHEMOGLOBIN A1Con 2022 ADA RECOMMENDATION SEE BELOW Normal [facility] Comment on above: Result Comment: ADA RECOMMENDED LIMIT 4.0 - 6.0 ADA THERAPEUTIC TARGET < 7.0 ACTION SUGGESTED > 7.0 Performed By: #### A 1C #### [facility] [address] [place] [address] Dr. Yadira Jo Glucose [Mass/Vol] 111 mg/dL Normal [facility] Comment on above: Performed By: #### A 1C #### [facility] [address] [place] [address] Dr. Yadira Jo HbA1c (Bld) [Mass fraction] 5.5 % Normal 4.5-6.2 [facility] Comment on above: Performed By: #### A 1C #### [facility] [address] [place] [address] Dr. Yadira Jo LIPID PROFILEon 11-13-2022 CHOL-HDL RATIO NORM SEE BELOW Normal [facility] Comment on above: Result Comment: 3.3 - 4.4 LOW RISK 4.4 - 7.1 AVERAGE RISK 7.1 - 11.0 MODERATE RISK >11.0 HIGH RISK Performed By: #### L IPID, GLUC #### [facility] [address] [address] [address] Yadira Jo Cholesterol [Mass/Vol] 184 mg/dL Normal <=200 [facility] Comment on above: Performed By: #### L IPID, GLUC #### [facility] [address] [address] [address] Yadira Jo Cholesterol in HDL [Mass/Vol] 56 mg/dL Normal 40-60 [facility] Comment on above: Performed By: #### L IPID, GLUC #### [facility] [address] [address] [address] Yadira Jo Cholesterol in LDL [Mass/Vol] 111.2 mg/dL Normal [facility] Comment on above: Performed By: #### L IPID, GLUC #### [facility] [address] [address] [address] Yadira Jo Cholesterol.total/Ch olesterol in HDL [Mass ratio] 3.3 {ratio} Normal [facility] Comment on above: Performed By: #### L IPID, GLUC #### [facility] [address] [address] [address] Yadira Jo HDL NORMAL > or = 60 mg/dl - LO W CARDIOVASCULAR RISK <40 mg/dl - HIGH CARDIOVASCULAR RISK Normal [facility] Comment on above: Performed By: #### L IPID, GLUC #### [facility] [address] [address] [address] Yadira Jo LDL CALC NORMAL SEE BELOW Normal [facility] [place] [facility] Comment on above: Result Comment: <100 mg/dl OPTIMAL 100 - 129 mg/dl NEAR OR ABOVE OPTIMAL 130 - 159 mg/dl BORDERLINE HIGH 160 - 189 mg/dl HIGH >190 mg/dl VERY HIGH Performed By: #### L IPID, GLUC #### [facility] [address] [address] [address] Yadira Jo Triglyceride [Mass/Vol] 84 mg/dL Normal <=150 [facility] Comment on above: Performed By: #### L IPID, GLUC #### [facility] [address] [address] [address] Yadira Jo VLDL CALC 16.8 mg/dL Normal [facility] Comment on above: Performed By: #### L IPID, GLUC #### [facility] [address] [place] [address] Dr. Yadira Jo DANO - TSHon 06-08-2022 TSH 4.673 uIU/mL Critically high 0.358-3.740 [facility] Comment on above: Performed By: #### D ATTSH #### [facility] [address] [place] [address] Dr. Yadira Jo TSH RANGE SEE BELOW Normal [facility] Comment on above: Result Comment: <0.3 4 UIU/ml HYPERTHYROID 0.34-5.60 UIU/ml EUTHYROID >5.60 UIU/ml HYPOTHYROID Performed By: #### D ATTSH #### [facility] [address] [place] [address] Dr. Yadira Jo TSHon 04-27-2022 TSH 4.399 uIU/mL Critically high 0.358-3.740 [facility] Comment on above: Performed By: #### T SH #### [facility] [address] [place] [address] Dr. Yadira Jo MG MAMM SCREEN 3D OSKAR CADon 04-13-2022 MG MAMM SCREEN 3D OSKAR CAD Patient: YADIRA LLANOS Exam Date: 04/13/2022 : 1960 Gender:F Ordering : DR RAY RAWLS D.O. Admission #: [id number] Family : Order #: [id number] CLICK HERE TO VIEW EXAM RADIOLOGY REPORT PROCEDURE: MAMMOGRAM SCREENING 3D BILATERAL CAD COMPARISON: None. INDICATIONS: Screening mammography Calculator Name NCI Breast Cancer Risk Assessment Tool 5 Year Breast Cancer Risk 1.80% Lifetime Breast Cancer Risk 7.20% Personal Breast Cancer No Personal Ovarian Cancer No Treatments None Family Cancers None LOCATION: [facility] BREAST COMPOSITION: Scattered areas fibroglandular density. FINDINGS: [...] Hendrickson MD on 04/13/2022 at 12:32 Normal [facility] Reminderson 03-10-2022 Reminders - From: Chantelle Sanches CNP To: Eugenie Good; Sent: 03/02/2022 08:28:24 EDT Show up: 03/02/2022 08:29:00 EDT Subject: Ambulatory Reminder Reminder/Recall Colonoscopy in 5 years (2026). Normal [facility] Ambulatory Visit Summaryon 0 03-02-2022 Ambulatory Visit [...] ? Eat (more content not included)... Normal [facility] Gastroenterology Office/Clin ic Noteon 03-02-2022 Gastroenterology Office/Clinic [...] BNT-162b2 vax 12/24/2020 Given Prophylaxis Normal [facility] Comment on above: Result Comment: Elec trogingerally Signed By: Chantelle Sanches CNP\.br\Date and Time [...] 06/27/2005 Document Revised: 01/16/2019 Document Reviewed: 01/16/2019 [employer] Patient Education ? 2019 [employer]. [facility] Progress Note-Physicianon Progress Note-Physician Patient: YADIRA LLANOS [...] Change in bowel habits / SNOMED CT 523627021 / Confirmed Chronic reflux esophagitis / SNOMED CT 822333725 / Confirmed Chronic venous insufficiency / SNOMED CT 29720846 / Confirmed Positive colorectal cancer screening using Cologuard test / SNOMED CT 1692362183 / Confirmed Physical Examination Vital Signs 02/13/2022 [...] vomiting. Plan Transfer/ Discharge: Condition stable. Normal [facility] Comment on above: Result Comment: Elec tronically Signed By: Talon Toribio Jr, DO\.tammy\Date and Time Signed: 02/28/22 08:51 EDT Progress [...] Change in bowel habits / SNOMED CT 430587097 / Confirmed Chronic reflux esophagitis / SNOMED CT 234180573 / Confirmed Chronic venous insufficiency / SNOMED CT 31226156 / Confirmed Positive colorectal cancer screening using Cologuard test / SNOMED CT 0128387829 / Confirmed Histories Past Medical History: No [...] Cardiovascular: Regular rhythm. Neurologic: Alert, Oriented. Plan [employer] Anesthesiologists (ASA) physical status classification: Class III. Anesthetic Preoperative Plan Anesthesia: General. . Anesthetic plan, risks, benefits, and alternatives discussed with the patient and/or family. Communication: face to face with (patient 5 minutes, Patient educated on smoking cesstation). Normal [facility] Comment on above: Result Comment: Elec tronically Signed By: Catarino Valle DO, Talon Ace\.tammy\Date and Time Signed: 02/28/22 08:51 EDT IntraOperative Documentson 0 02-23-2022 IntraOperative Documents [id number]# 1.00CD:127 Normal [facility] Coding Summary.on 02-15-2022 Coding Summary. CD:[id number] G h0bWw+PGhlYWQ+DJ2NXIF aO68nuTYiaU2GU2rFNF4F BSETYPRYNZ3EZX8akQD0K YvhI7ZlgnZa UtuztMWqHE63SIf9TEF3m FmxCCbkfO6fwIYtN6y8Tj GsQX13gT10WUalQAWzRkJ 3LjZpbjsgbWFy G0jjNiOywFTaGvu+PHRhY mxlIHdpZHRoPScxMDAlJy AzxCxqTP5hHn9xZTMhMCD vbGxhcHNlOiBj b2ezJGWvDHfhVA1qiPbvW 1EohZG8ASEog0l3Ry49hJ I+WHPtTZM8uPkuZCclo09 9ZjVtv3jtGDZ7 pUXwWJpwVNM3X85jf0L9P SMaXDTgGDG4pEA1nH1acR tkeydvE5PckAYmDyZ0VDY 4hXFneP6mtXoi sqpieR4sTlk+Y94SNJ5EQ OLIRH6EFza5P0KkDmqiiG I+IP69ZHPyGT97jXAuyVA wz0typYo4IsYt EFPqIHF5dUtgTRkbf5XxE SJbX12xhGWha1R8WFNxhL tnxZFkAqMmiQQ9jB0rZVt yqtjkk9njumnn Bndwh6dlnr88lE60S21tN SknEAQqUFD4QTVkJVAmpI tcws0ldA5cLi9+UFrnn7x yn5zmiKp5VxWb QZDdjuNnvUwsMHJ2j3GnJ x51X8AvmDgmc1XcGio5jo 51sGVot6O6aMI0BSkpEWE siX9aPSggLmQ3 GCNnVaAlsI75aNNjQZdvC z4oyVsfjQitJX8dBOLuax oqJQDonM4nLMJkxYOwaXs rZD5fNHCccdzk h520XsCwKMX0RHPpdNHbC 2NjzS0kKpFwFHDvIPAiV4 GziVGzNKjmD769HMuiKfS 8PUWpmwRzD2Se UKZaeVjvGkK5g1M8Cy9Li 5UrxkecJGB6OEhkMQQ0Qj Q1AsZiZnH3W8YuBup0KBM igJpmPB1iG6Uw SKCirmfdbwxlsMN8PTLxA CTqiX71yZCyVJwjQs8ul1 P8j807GNMyESJgcD29Ry0 udDogMTBwdCBU rR9urbkem1zvvfeiWrKeP PQmHHe0SXe2MFDpwErrSh IhDRB0MnB1FMA7sWBatV4 pbIpwajawzG2p Oyc+P18sxV9vBIF3MAS3q hanRHApalDeQP12YD86G7 RyPjwvdGFibGU+PGRpdiB vxNmgLL2fAoHr w6nfk3XdVOnhS3UrLKVhS OjaNjs5HQExNQR6gXY4tQ 5jQWZbYJhcr3Y8jPU9Z4K vrrBwhf8ba3zb BFJbYAenW36yzNTjk6B4L HXexNE9YVSlaPerNsHwjB 93Oyc+SFGmiTefw2WoQwy mt6ywr4eryYf7 JrNfAOKtpiYzmCesXID5r 9YqGv77G21hDQsgMJAuED UzZEVhJOKzrGcldd8niP4 wIi8+PGNvbCB3 nUT3jG7mTJMjPxN7KZunD 546VxVpeZUeLxyot3lyh3 cldLh8YcHgWQErtuUeuKb jGKR1q9QkKo27 B97xWRaeIIQpUYTpOQAfD MGeiMqgfb6szA6bMx3+PC 3tp3tdzb84lV77hZU+PHR nPKB7qSatFGdb OVXqhZ5oKGepDsS2HPPxO yXcuK50uVEcRKwhIb6kzY jllPybOQ5nNJQiezsxe18 4IvIkq3wrPTCw qXVvRFozKJC7W24ih5F9W TXvFPRaGYN5rNW7bF9roJ lnbjogbGVmdDsgdmVydGl nDDstRIodF775 IHRvcDsnPlBhdGllbnQgT vRoVNs2W5SeAhc9XNDreK rhIF6mrMPkPAgoEf4xvXz xiSpkBB7hQVTa drjfb914OyDwb4fgGNPlr PPeTLqnEIR4J04tr0A5MY ThIDNgEML3oXE2bL5upCt nbjogbGVmdDsg fuHpbPsqDDxpIPrdG798O HRvcDsnPkJpcnRoIERhdG I9KL39SJ55iHLnf0V1fSN 0D0GfMDFzyetl rqlylMK3RQRdFDFnhA37W c8gtHtvOg8oOUVmIEF9RQ NuhHCuC8WquM7gAlEzGTY gCJAmD5ArzABe UJbpW990YUmbEiX7DRFvx hNpX1QeBPIewZtrCfC9g7 E0Ru3RY5J3JJ52HV94sJV nd2N9qAI7Y8Bd ZWBovzrobsgclTW9BHNnA JDlyT23Hx2piXaqJs0uPE VgIBW2GBTgvPQaJ8KezW2 yOiAjMDAwMDAw I1BlbBAhNIisC717IJcgV uM6GHCmtiDnX7NhHBEhxI knTvE8k6I1Fq9PWJc3AO0 1ZE86nIUna6Z4 fQA9U1SgBTOpbbkykyyac NC0CSGnRHEbkG44Lk7raM daJy6vGWCnLUW2PRElvWV fL9FcjM7kIuQn EBOoVWPvE7DdxGZaUKeeW 945UGlpFdT5WAOsopAbK4 BnLQClzGipPcQ0y8Q3Ru4 UFQRsGQ54MNX2 kQX6OT35HD14P2JvXspfs GFibGU+PHRhYmxlIHdpZH RoPScxMDAlJyBzdHlsZT0 ySc3eGLJwJZQb qYumvAJfLjXrv0odNZZgQ HlbTZ0iqEcpI9FllAO4RZ Lth3i3Od49J30gI0AiaBJ +YPIcnCP9mOJ6 qB4uPkZvYzA4WBnsC754Z rGgyVLnUcfwp3szu6bupX w7JeH2TKJykkXhaKihQLB 8s1PvOz48Z85w IHdpZHRoPSIxNSUiIHZhb Gecdr5zoN0aUw2+PGNvbC N7jZC4dX8yDlCcMhJ8JQn vQ707KyBgtLMz Yynbq8oes0wyuZt9TsPzE RWhjlSdjCqkUYX3j7KwYa 95L2BauOgpz9IfYvz9vx3 0sGPiq4O0iCZ9 V3BnNAJserrxjSIglDueX Y6zDXPpgggxBIJerO4kNS FyG8r9UuAaKyK5QVrvU0E yytK3ZEYodGTp SQidPQL4F45ev1U2ZMGsN QQyMVB4iXU6fN7chXwwoz ogbGVmdDsgdmVydGljYWw bECidF381SYWh lVpcXPZodV5iCDSizHDbm PphVA1mREPkwxoiPbrXKO ZJLmtJBfwxY3FHCJm4I4A vTiz6LZPtpHoc DS5ycOFvHAghBz4blJsrp KshJW3hEURfgqocRXPcjR 9sRAGvbSYsaJggEF9eSRV ikbxbx795UoWy TIK1NHDlyBGsP2HohC7wN iVgSTMbFHGlK1DryWNuMJ mvA921UQcdEzM9VPClkdU nS3UaRAWrkSod VkI6o5B7Ci0fEv2jAI3oK SW3KW19FN02jEUst7E6rK K1D8VnBJNketolhxgncDZ 2QJCnBWRetA92 rUEfMUjoKl0oo1B2z323J UHsYPWesQ78Vv5upOoeCX FvzZIUlI1yfjtzb1wafjg gIzAwMDAwMDt0 EOf3FTLigRebGyVdXPK4C lD8KIY9gBCzfU1atGcasd rsbF5aRmj+NjQgWWVhcnM 3U4UdPzc2VPMv cKpcZR9xbLZoAGllRk5tn LgvuJmyQT3aFNHphfypFJ JchW6xBHPgpLIloLfqOG5 mTVMsuthcr295 AmDiKJD2DOQjsBGvY2Bzf L6pVvGdASSjCEQzV9LzmG FqFHicV933MQxnTcW4VHN mgeFyE2RcMXQm nRpdPeS6o8E1Hq5JTW0yq HY3N0AyRjc9FFNfqExvHK 4brIToYNmnCj0krQcndBk bOX4yNOAuiuhe IHZjiF3hCAGcyOKrcSyaW S0sUOYakdpwt050QsWuDX J1UBKggZXxP1CuiD5vNnU bBBGbZBJcA1Kc xCIsPBcvU865RJcrUmN2N EKeisKpK6YaPMBklQowBq I8a8N0Xe6NoMHzADTsGC0 9EQ21OZ52N7Tj PjwvdGFibGU+PHRhYmxlI HdpZHRoPScxMDAlJyBzdH bmRR8nJn2pUOYqFSOxxPu nrMApYoDzt9ee GWVbLUbcXZ4gxHovJ3Scj OB2MBJjc8d7Gs58Y34jF9 JvdXA+VOSvaDV8mBX9sG1 bEgFuXuB9FNal E729YhUppQEcLdjvc2mpb 2ylrJj5GaStMAUvqbNdxX jyWSK3m3QeKk42O03hOXp pZHRoPSIyMCUi GAEfhDxxtc8tuR3xZb6+P LYdyNV0kMK9bY0gXjDjIb M7YXipR036CoRpiZQmOwu yE53tO0WvxAV+ ZWLzVwo8KIReuZjqRF7xd XQzAWihUh1kKWY3RpAjJw QdRHtpB0KcBKOyhgdbjqx pvQD3AWUkTJOt oS53Wj4pmZhgLa7wTBVpZ FB8FADdhUWzS0OvxF2hBm LwLNXoJFPmH8QvlRBgLZj nN513JMmsSkH3 WBWzfpYgJ1VbZQRpfKtjN iA3y8Z8Uv5WlOavoHJnJO 2bGoKxYFs0R5MrFvd8HMD fsWuoCK0qfTDs FDvvNt2zfJxhnPyaMO4dC QOwtbfjp850CrDqu9zeWG DvvRFjUIeaIVG2G34pa6E 1HKWaSOAnOGB2 gSI4cX8meYeqvgsgrMIqb DsgdmVydGljYWwtYWxpZ2 35FJWviUxdTlQQLkr3T5D zWhw9KFNxbQfq GF3yrTSlSIxjFt0kqGafg UfcLM1qSWOkfclmo140Lt Pus0lwAOYbcWEiHKpfLPH 6Y59uj4V4JOQa WZXtRFU1zZM3aK3gnZulf jogbGVmdDsgdmVydGljYW cpODskS340INSthJwnVv8 MNdn2B2ZkVsn3 ISPazAmaFI6bwBCuXHtcA x7auJrsvLkoTJ3hOCIkdd nmr122TuCfc2knJKPzdXQ wHJlaHBJ9N95p z9C9SBNkGGBrXAC3cBN9o Q6fxXnhvhuhwYVwiHkyjt QlgRdgBMhjVAjeO203ASW vcDsnPlBheWVy OjwvdGQ+SR29pk89C0OxJ trlTyv2RBEuXNJ1tSQ7aI 9hIOWgIHnov4S2rUA2M6F rxpYroj7fc2bo YXBz (more content not included)... Normal [facility] Consenton 02-15-2022 Consent [id number]#1 .00CD:127 Normal [facility] Discharge Instructionson Discharge Instructions [id number]#1 .00CD:127 Normal [facility] IntraOperative Documentson 0 02-15-2022 IntraOperative Documents [id number]#1 .00CD:127 Normal [facility] IntraOperative Documents [id number]#1 .00CD:127 Normal [facility] Main OR Intraoperative Recor don 02-15-2022 Main OR Intraoperative Record IntraOp Document Type FT Summary Primary Physician: Stacey WU MD Finalized Date/Time: 02/15/22 14:00:09 Pt. Name: YADIRA LLANOS/Sex: 1960 Female Med Rec #: [id number] Physician: Stacey WU MD Financial #: [id number] Pt. Type: O Room/Bed: / Admit/Disch: 02/13/22 06:51:53 - 02/13/22 23:59:59 Institution: Case Times FT Entry 1 Patient Times In Room 02/13/22 08:07:00 Out Room 02/13/22 08:25:00 Procedure Times Start 02/13/22 08:12:00 Stop 02/13/22 08:22:00 Anesthesia Times Start 02/13/22 08:07:00 Stop 02/13/22 08:25:00 Time at [facility] 02/13/22 08:16:00 Last Modified By: Gloria LESLIE, Priya F 02/13/22 08:25:25 General Comments: 02/15 chart opened for charge review only. Kaia Byrne RN. [place] Case Attendance FT Entry 1 Entry 2 Entry 3 Case Attendee Isaac HODGE, Azeb Hale, Mackenzie Art Role Performed Anesthesiologist Scrub - Primary Staff - Other Manager Ob Time In 02/13/22 08:07:00 02/13/22 08:07:00 02/13/22 08:07:00 Time Out 02/13/22 08:25:00 02/13/22 08:25:00 02/13/22 08:25:00 Procedure COLONOSCOPY(.) COLONOSCOPY(.) COLONOSCOPY(.) Comments Dr. Toribio supervising help in room case Last Modified By: Priya Castro RN, RN, Priya Castro RN, Priya Pedraza 02/13/22 08:25:26 02/13/22 08:25:26 02/13/22 08:25:26 Entry 4 Entry 5 Case Attendee BRYCE GONZALEZ, Stacey Castro RN, Priya Pedraza Role Performed Surgeon - Primary Boiler Testing Technician - Primary Time In 02/13/22 08:07:00 02/13/22 08:07:00 Time Out 02/13/22 08:25:00 02/13/22 08:25:00 Procedure COLONOSCOPY(.) COLONOSCOPY(.) Comments Last Modified By: Priya Castro RN, RN, Priya Pedraza 02/13/22 08:25:26 02/13/22 08:25:26 [...] Spencer, Given Participants Kavita Hale, Mackenzie Zavala, BRYCE GONZALEZ, Gloria Ibarra RN, Priya Pedraza Time Out Complete 02/13/22 08:11:00 Outcomes Met? [...] cecal polypectomy Primary Procedure Yes Primary Surgeon BRYCE GONZALEZ, Stacey Start 02/13/22 08:12:00 Stop 02/13/22 08:22:00 Anesthesia [...] and tissue Entry 1 Skin Integrity Intact, [place], Warm, and Skin Abnormality No Dry Outcomes [...] side u (more content not included)... Normal [facility] Postoperative Documentson Postoperative Documents [id number]#1 .00CD:127 Normal [facility] Consent for Treatmenton Consent for Treatment [id number]#1 .00CD:127 Normal [facility] Endoscopic Procedure Report - Otheron 02-13-2022 Endoscopic [...] Moderate nonbleeding internal hemorrhoids Images Procedure images: Rec_hd_video_2021_ _[id number].jpg Rec_hd_video_ _07_17_14_095.jpg Rec_hd_video_2021_ _[id number]_18_15_691.jpg Rec_hd_video_ __21_51_693.jpg . Post-Procedure Complications: none. Estimated blood loss: [...] Return to activities:: After 24 hours. Normal [facility] Comment on above: Result Comment: Elec tronically Signed By: Stacey WU MD\.br\Date and Time Signed: 02/13/22 08:25 EDT Other Comment: Idania green Attachment - attachment storage system not supported [id number] Can be viewed in source system Missing Attachment - attachment storage system not supported [id number] Can be viewed in source system Missing Attachment - attachment storage system not supported [id number] Can be viewed in source system Missing Attachment - attachment storage system not supported [id number] Can be viewed in source system Inpatient Patient Summaryon 02-13-2022 Inpatient Patient Summary [address] [id number] [facility] Clinical Discharge Instructions PERSON INFORMATION Name: YADIRA LLANOS PHYSICIANS Admitting Physician: Stacey WU MD Attending Physician: Stacey WU MD PCP: RAY RAWLS DO Discharge Diagnosis: Colon polyp Comment: PATIENT EDUCATION INFORMATION Instructions: Colonoscopy, Care After Surgery Bryce (JAMILAH); Colon Polyps Medication Leaflets: Follow up: With: Address: When: Stacey WU [address] [place] [address] [place] [phone] Business (1) MEDICATION LIST Medications to Continue with No Changes Other Medications albuterol (Ventolin HFA 90 mcg/inh Aerosol) Inhalation every 6 hours as needed as needed for wheezing. escitalopram (escitalopram 10 mg Tab) 1 Tablets By Mouth every day. montelukast (montelukast 10 mg Tab) 1 Tablets By Mouth every day. omeprazole (omeprazole 40 mg Cap-DR) 1 Capsules By Mouth every day. Comment: Normal [facility] Main OR PACU I Recordon Main OR PACU I Record PACU Phase I Document Type FT Summary Primary Physician: Stacey WU MD Finalized Date/Time: 02/13/22 12:41:47 Pt. Name: YADIRA LLANOS Addis/Sex: 1960 Female Med Rec #: [id number] Physician: Stacey WU MD Financial #: [id number] Pt. Type: O Room/Bed: / Admit/Disch: 02/13/22 [...] By: Delmi Bailey RN 02/13/22 12:41 Normal [facility] Main OR Preoperative Recordo n 02-13-2022 Main OR Preoperative Record Holding Area Document Type FT Summary Primary Physician: Stacey WU MD Finalized Date/Time: 02/13/22 07:11:40 Pt. Name: ROMIYADIRA/Sex: 1960 Female Med Rec #: [id number] Physician: Stacey WU MD Financial #: [id number] Pt. Type: O Room/Bed: / Admit/Disch: 02/13/22 [...] By: Priya Castro RN 02/13/22 07:11 Normal [facility] Monitor Recordon 02-13-2022 Monitor Record [id number]# 1.00CD:127 Normal [facility] Monitor Record [id number]# 1.00CD:127 Normal [facility] Outpatient Surgery Discharge Instructionon 02-13-2022 Outpatient Surgery Discharge Instruction [place] [id number] Patient Discharge Instructions PERSON INFORMATION Name: YADIRA LLANOS Date of : 1960 Current Date: 02/13/2022 08:39:03 PHYSICIANS Admitting Physician: BRYCE GONZALEZ [facility] Discharge Diagnosis: Colon polyp YADIRA LLANOS has [...] THE NEAREST EMERGENCY ROOM OR CALL 911 IROMI SALLY, have received the attached patient education materials/instruction s and have verbalized understanding: May we do a follow up call? Yes No I was present when discharge instructions were given Patient Signature Date Clinican/Nurse Signature Date Follow up: With: Address: When: Stacey Clark [address] [place] [phone] Business (1) Pharmacy Information: Medicine Leanna Morris You may receive a survey from [employer] asking you to rate your care experience. Your feedback is important and will help us understand what we do well and how we can improve the quality of care we provide to you, your loved ones and our community. It?s an honor to serve you. Thank you for choosing [facility] HERE ARE THE MEDICATION CHANGES THAT OCCURRED [...] Have a (more content not included)... Normal [facility] Patient Education - Texton 0 02-13-2022 Patient [...] that are (more content not included)... Normal [facility] Coding Summary.on 01-13-2022 Coding Summary. CD:[id number]:[id number] G h0bWw+PGhlYWQ+VA0YRLU fI76lwXCmmG4SX2lRUI2P ZOARUHGQPE1GIJ5ktLX1K AmyM2BtheJj HwdmbZVtVN06FEl6CWC4r UwrJDdfaN4ppJSoZ0t9Ew InBE52mO49UTghNGFhQjV 3LjZpbjsgbWFy T0ejAgCtnKLfOzd+PHRhY mxlIHdpZHRoPScxMDAlJy AypLxbLX3eOt3pYHUyEEK vbGxhcHNlOiBj m9tcYKTjWXzsNZ6keYaiU 3SobUO1XSIzo0a6Js50hQ I+YNZxWYU8aYqzLLpxj85 7JpPfw2jqGOH4 xAJeDSkhHQG5Q07cb3F5P ISxUHWhCYO0qRP3bW9esB kfwvfqM6FtmYCkSyV0ULZ 7uYAsfV5xmRnn htvnsL9uKfh+A28MBN4GG JQVPA8VUpk0Y6QxHwvpcC I+IV20VNCzSR69cXUngEZ uk1zraAj7DeCb LXOuAOY5sXcjUOilf2AzI RQrX16ztBByd8P5BVCfqX zguXLgZiNtjGI7aI8kTHd txuysg0lnfcdm Ejhfh2biap17qF02D34sT OqbCMIvNHW6QVTxTFXsdU ouxl5heS1uAw0+WOscn7r fd0fbuOw8KsVe ADPpgfLapJfuTLM6m5NfG x56L8HgmBfun2SeWis8dr 10nZXtm4B4dNC4FXggWWH pvV9iKGzaGyB6 NHRoNdPuwJ33qILrQCemW n3veBrvgWmhYG1bSYZxio rnABJibN2eFTZsxRYenMy fMF2mQFRvdvif g562OeTfVIU7TQAiiVDtF 6ZdsG6zXjPyYXVjIBXcI1 RalFGiIVabV693DEgiKcQ 6UWUdanQyE1Ey TJKdpHfdBaO9x6P1Fj4Fo 0OpiuxsKWB0VWbkPNU3Cm YqVkSoPxP0Q4LuIzw9LQH irLskQA2oH5Sx YLGwmsnnxjjrgHI8XCLeU IQspS57jCHaMIdsIh9qj6 D9n970NBFyFREaiH72Pq7 udDogMTBwdCBU hY0rysfsl4wndybiPkYnE NQxWSv4FPm3BTDttYuiRn YyCJA9MvW5OMH3hGHbmP5 yuScldjcezX7i Oyc+A66tuB1aHEA4SVV9g dibNQIqebPfBN27FQ50D1 RyPjwvdGFibGU+PGRpdiB hqDheDW7uIdNt t2nri1ZaTGfcS9XaBRWrD ChhJch3SWTqSXO8eOS3kO 1vZHOnYJlmn8D0kAK4O8O gvvRaxu4mn6kq NHWiUCtbZ72ohGHvk6P5C QHrrTH1FCNrgYdlHuEkzB 93Oyc+YWIjwRcvp3FtCck re8rkn6fthJn1 BjBwHVJewtQptZnlIRB4x 9LnYs93P30uQDtbZNAoSX DhTNLzFATmiMxquv8viF0 wIi8+PGNvbCB3 pGO3jO9tRAOaNwR7IMokD 299EzHrxSDxXnrhw5cfv1 nylXz6LcFmCRYoefDxzUz pFGF9d4XxId68 N87vNAugZLTiOWDaAFHqL NLdhXxwbk7xcL8kBv7+PC 0om0fvai46qF76rWM+PHR rDUP9uRhzQNln LNGspS8lFNilFnP6BCWbA ySgsV78jROaZZntYa8klV uqeHuhQL5uJZVjodawn11 9WfUtc1ujYKRn jVMzFAxlKOZ8U48es9Q8O JZyTXKbYRL8cHL8iA8jfZ lnbjogbGVmdDsgdmVydGl qOHhfOWzxC461 IHRvcDsnPlBhdGllbnQgT wIeDPq6O3QpVqo2EVMnjO hlGB2dpQHoAWxuSc3nwTd zrLvlQJ0uCUIl ubutc957HrQqq6lfQFAdr SZvEXwyHNQ5V41kj7B4YZ JwWAErQFO0hSA7kN8ylCz nbjogbGVmdDsg obXunTwvTJqcBIosA741K HRvcDsnPkJpcnRoIERhdG L7YB62GD30kFYay6R1aKT 2U2GlPVUseojy dewmnGA1RBKqPHDjmK79N c0ygRbnWc2cXMCzPPR8SC MurVOrY9GyfZ3yZsMcONO pWYOnF0AtjIMb OHqnM268IYgxSrX6YPWaz tSfT6HzHKRhtAcdMrC3k7 B7Ch4TG3Y4KL94XI09nVM hn8N8bND0J1Ql RSMrompzcqnfoBY4ZZTlB IJneN98Nc3ucFtuMt7eDN IwKRW9MUAgaPYnS9YesJ9 yOiAjMDAwMDAw S1UzcUPqXDsnF150RXpqO tM6OFGhznBbK9GcUPVcvH jiRxB7p4Q1Rz9MJTb4SM1 4AU57fMZkf8T6 tIR1N9JlJBArfaivabgmi MB6PAGpVTOmcN42Tx8ueD awNu2dYJHdGTJ6AHRcqAY rR9IpqT7lXwZc JNHoOKMkL6IcjOFkYKzvJ 053VGaxJzI9GGWzoqYzG2 WhXSSrtQwlUgT7x7F6Vl2 FEDFiSO39BBC6 hAP2PD38XH41P5GhExmgb GFibGU+PHRhYmxlIHdpZH RoPScxMDAlJyBzdHlsZT0 rEh8qRSAuISWu gLkmgJYqMrSea5hdGSEmO QumMG2gkRpfZ7YxeAX9KC Hrx1f0La79Y46fK3JuyBW +PJMuuOR4mCX7 nI2mIzRzTwX8LHqcO164Y vKlkUYxYctdb4ciu5htuF e7LeK5AMKmomXbkRekYLB 3c1AzRr67Y99t IHdpZHRoPSIxNSUiIHZhb Uqtsh1wuY4aEd8+PGNvbC F3wYI1dY5qFiHwGeS5PZg eM943UwYgsKXy Qbepc9vma6jbvWq3XySpA TKldyKdvVqeIAG1x5BwBr 34L0HusMnhr5AyHgy5fm1 1iPRno0Y6cPK1 B7HgNKKzauspsMYzoQhvS H5lILWhyqaaVFYnuE1eVT NhZ7w9KaYvQaE5VIidA1C onbE6NSFkpZNc EIfwKVO3G79nh8E5VUHnG YDwLGR2qMR4lH5bfIsuxg ogbGVmdDsgdmVydGljYWw mJPulK508KMZl xThsBXDdgT8cVDXklHCby MiyCN1tFAJffpnkEtcSXS HIUqiKGynwM8LLDTf8M4Y kXiw8IWDlhKly AI5taIKqTBtaGj3eeDcqr LyfFC4fINDtdigbLPUasL 1iVWKbeUXtlGodQC5uNQO hxnfor376BlXx QAX3NWJcyDFmH1MdwY7yS lHbCKUtUPDaY2BtlSWnJU pnQ533EFoiPwA4ZHNuxtL sN7YgHJHiyXuu XzF5w4K9Ig8uZr9gRD0nI GF2AH75YB95nKKkh2D7jO N9S2MjQWNfslxtthmrxZZ 9NDDiQQNfxV59 tRSuERlgUv0ud3A6o209E UDiSLMxtH75To9blXpvOH JjgNZXhB6uembww4fzapp gIzAwMDAwMDt0 HNc8QLErlItyFhXoWCB2F rA2XGL6bXZqbL5hvHpdqa wfdX8kTgy+NjQgWWVhcnM 8Y2EiDhh4FBAi wOleLH5khCKmDXpwDw9lc HbqpYudDC0gAWXykwjrZH DxwG2cZBCmrKBodOdwPE9 nXZWaiewto490 FcRvUQB1KFZaaUTvA3Tmh J6aTmWoKZXjXMBdR6CkpV QoNHyeJ233TJqgDxV2MKG ewbCxM7EuGMMr aDhxIdM3q0L1Ak8UJL4la BM2N1VmZrv8LUXdiGsiMK 6viXVeLCtsCx0mkQgunUb vEX6xEBDzpbpy MRRdwB5hQHOsaQUeuXegB J2dLTYmabnll041FnTcXF Y8OHVloPGsZ8IleW3zEbG tYWKlDJRqQ0Kq vTMwRSlxP201XLxwNgB7T KVjmaCnO0OaHYKtbPybPl Q2n7M5Sz9OeDAdFLMtWG4 1VD12FV10D3Yk PjwvdGFibGU+PHRhYmxlI HdpZHRoPScxMDAlJyBzdH pwQZ1xPd0jEVUaGFUnpKx vsLAjPuUfm1oi XWPxNGfmRK0xgZayY7Xfr GJ7BZPrc4g7Rj94O87pK1 JvdXA+WAEtkBJ6iVU6nO9 fRiVzKlO2RWna K808KdDqiKPoLijzf1trl 9gyvGb0VnIoCHHbbmNikP jeVOL0b5LuOt49K90jRRc pZHRoPSIyMCUi PDPzzLcslv0zcM1dYw8+P YHstUR4yFD8pF7uFkNwHa E8ZLxcX941ZqJtiFVpCyt pM09lK4XyqLG+ HSXvJao4DUMwxNhwBY6mo CMtMQwiXo4jBXM5KnZlYl KjPDqrA9ShGYSygaqumzz ocWX1YIJyOHCg oO33Lg6mfQqlYg8uWKHlZ AN5PEZukXDnY9OigE2pKp WuSFFaUCPdF0UljGEnRZx mX290FQyqVlK9 SQXmmnOvW1IlQNVxhVhgN zX8c5D4Cb9OfGzakEKtDO 2fMvRoCCa4W6BsMug8JSH vtYgwIE5jvHBr ARthRb5gfFvnwHleGH6cL QQdcaspg451RsHgq8fuFF SepHIzKRegBSI1M06uj1O 9FITxHAJjCJM0 mOX7lS2dwXpxaduzpDYoo DsgdmVydGljYWwtYWxpZ2 25KWScxQylKqXJAxi7C2K qPjn2BUTmeFwd OZ4apDWwXWgaUj9rgMjel TjmHK9sKXPjtvgbu403Xd Opk2jaACUcgFFwTOtnKJP 8H50sr8Q8YDJr NTUiZUA0mME2vF7seExmu jogbGVmdDsgdmVydGljYW mtYHisN013NVFnqQnlGo4 ULbq2P6QiCts2 KARlmZaxIY7wpIUmYGvwB k3jpPgviVppNQ4xHPNfny jxs939RdQuy3xdDNZnpFF qOIkdBZQ5Z53y p5Z4HJIbLKFuLDO2kVQ2q M0myImhhefamLGpsKtqjt AuwXckEEelXIdbH486FBQ vcDsnPlBheWVy OjwvdGQ+TL54wd55H8FfN uwbHcc6VXVmGAO4fHC9gK 2mFBFcQFdvq5S1wMQ3R6C kpnWbrx6od2ig YXBz (more content not included)... Normal [facility] T3 Totalon 01-07-2022 T3 [Mass/Vol] 113 ng/dL Invalid Interpretation Code 71-180 [facility] Comment on above: Result Comment: Perf ormed at: [id number] [place], [place] [id number] PhD Krishna Richardson Performed By: #### 2 187529, 44034276, 40132476, 0683532 ####[facility] [address] [place] [address] Thyroid Perox.tpo Abon 01-07 TPO Ab Qn 293 International_Unit/mL High 0-34 [facility] Comment on above: Result Comment: Perf ormed at: [employer] [address] [id number] PhD Krishna Richardson Performed By: #### 2 135101, [id number], [id number], 0607138 ####[address] [place] [address] Consent for Treatmenton 12-14 Consent for Treatment [id number]# 1.00CD:127 Normal [facility] Free T4on 01-06-2022 Free T4 [Mass/Vol] 0.85 ng/dL Normal 0.58-1.64 [facility] Comment on above: Performed By: #### 2 674235, 61593841, 15281200, 3666896 ####[facility] [address] [place] [address] TSHon 01-06-2022 TSH Qn 5.94 m[IU]/L High 0.34-5.60 [facility] Comment on above: Performed By: #### 2 807156, 45241305, 71849211, 2733127 ####[facility] [address] [place] [address] Physician Orderon 01-05-2022 Physician Order [id number]# 1.00CD:127 Normal [facility] Consent for Procedure/Surger yon 01-04-2022 Consent for Procedure/Surgery [id number]#1 .00CD:127 Normal [facility] [place] Gastroenterology Office/Clin ic Noteon 01-03-2022 Gastroenterology Office/Clinic Note 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 Change in bowel habits (R19.4: Change [...] E&M of New Patient Low 30-44 Min 83401 Orders: polyethylene glycol 3350 with electrolytes, See [...] BNT-162b2 vax 12/24/2020 Given Prophylaxis Normal [facility] Comment on above: Result Comment: Elec [...] including vitamins, herbs, eye drops, creams, and acsm-hpd-fxofwwq medicines. ? Any problems you or family [...] air t (more content not included)... Normal [facility] Physician Referralon 022 Physician Referral [id number]#1 .00CD:127 Normal [facility] COVID-19 (MC)on 11-14-2021 SARS-CoV-2 (COVID-19) RNA NORMA+probe Ql (Resp) Not detected Normal Not Detected [facility] Comment on above: Result Comment: This test result should be correlated with clinical presentations and medical history by a healthcare provider to determine its clinical significance. This assay was performed by a reverse transcriptase real-time polymerase chain reaction (rt PCR) method on the [employer] system. This test has been authorized only [...] or revoked sooner. Performed By: #### 2 [id number] #### [facility] Laboratory [address] [place] [address] SARS-CoV-2 (COVID-19) RNA NORMA+probe Ql (Unsp spec) Pass Normal Pass [facility] Comment on above: Performed By: #### 2 [id number] #### [facility] [address] [place] [address] Specimen source Nom (Unsp spec) Nasal Normal [facility] Comment on above: Performed By: #### 2 [id number] #### [facility] [place] [facility] [address] [place] [address] ADMITTED TO INTENSIVE CARE UNIT FOR CONDITION OF INTEREST:FIND:PT: Unknown Normal [facility] Comment on above: Performed By: #### 2 [id number] #### [facility] [address] [place] [address] EMPLOYED IN A HEALTHCARE SETTING:FIND:PT: YES Normal [facility] Comment on above: Performed By: #### 2 [id number] #### [facility] [address] [place] [address] FIRST TEST FOR CONDITION OF INTEREST:FIND:PT: Unknown Normal [facility] Comment on above: Performed By: #### 2 [id number] #### [facility] [address] [place] [address] HAS SYMPTOMS RELATED TO CONDITION OF INTEREST:FIND:PT: Unknown Normal [facility] Comment on above: Performed By: #### 2 [id number] #### [facility] [place] [facility] [address] [place] [address] HOSPITALIZED FOR CONDITION OF INTEREST:FIND:PT: Unknown Normal [facility] [place] Comment on above: Performed By: #### 2 [id number] #### [facility] [place] [facility] [address] [place] [address] STATUS:FIND:PT: Unknown Normal [facility] Comment on above: Performed By: #### 2 [id number] #### [facility] [place] Laboratory [address] [place] [address] RESIDES IN A [facility] CARE SETTING:FIND:PT: Unknown Normal [facility] [place] Comment on above: Performed By: #### 2 [id number] #### [facility] [place] [facility] [address] [place] [address] Consent for Treatmenton 10-17 Consent for Treatment [id number]# 1.00CD:127 Normal [facility] [place] Coding Summary.on 11-02-2021 Coding Summary. CD:[id number]:[id number] G h0bWw+PGhlYWQ+EL3OEHH sZ90gkPPitE6GV5fIQW0T ZIGKUOVJGX3KIB4tqSU8F RfzO1UlssLu ZodsoAYcQB14RAd4YCD2h ZegXNpghH2fqOEtW6h9Lu PsVE88cO45LDacFFDhWrA 3LjZpbjsgbWFy G0ntSeKvmLHjCtg+PHRhY mxlIHdpZHRoPScxMDAlJy IqxCisKR1qJi5kJPUqVXR vbGxhcHNlOiBj o5qfWYImPHubCF0xeYetX 2ZqyJN8KTQhl6k1Tp20nJ I+MNJtXQD1rTqxYCrpr64 6CgVay9pzGMJ2 gHNwOWveXMM2W75dx8I3N HQsNBReMIW4yMZ1uP8vfW tozopfJ0BneGKyRxU7UPC 3uYOhfM6nlDnw jtydlV5lHfl+F74VLU0XE JJYOV5TCpf1A5IwInbkxF I+PA18FMEwWF00tQItvSS kg3yfkQy9HwQk SYWtORF4oIiuWTaif6KpT LCaT98lqYEhv2S3YRJzsO owbXWpJjGbtMS5qI8aZXf etqqbx7xyyyge Gdqzg1lhkw36bQ94H37yS JsrQYPnBTQ3SPIpPEWqrL xbtl5vmP4iGx9+EZfxh5m wt7ubaMu7EnTn FYRzctVwpNfaYUQ2z1OqJ l84L8BpkKsvq4SuJfi3lg 12qESul4X8gCF7TElmFWI yoZ1sGExnZqF5 SIGlDiSblW97oWIsIFihS v5asYvncGelJY0lUESvnk yqYPBldH1eUXIkjPXtpWe wGL4xKVFggvow y141SiZtDGP4LZTouLAiJ 0JyaT0lReOjDXKhJXFcL5 MixXVeAKhqM304YIzoHfG 9KLYiixWrO3Md OICnzDruOnS6a8U6Ue5Gr 0FjpufcIGS6QLdqIVYnDb I9JhExMtR4P1FmAyx4YMP elTwfTO0eT2Vq ONFoammywuisiYF6FKWnB NEbiS15gWOkOGdyKy8qt4 A8z363HBOaXBUewD02Sr7 udDogMTBwdCBU aR4gzlthc2wltpjhXhHjJ TWeZZz4GNu2VWGaoOyiSm EbMRT4NkY7BWW3lVHpkX0 itAuwbpizdM2h Oyc+O86bsG8vADJ0EGJ5t krwPAEuqgQlSP29TM25X5 RyPjwvdGFibGU+PGRpdiB mrDpzZM1wRfMl u2ynm8FiVGybU0VmKQVnJ RhtQwl2VQLiYCT9sEB4oV 0tIGGfGXdlc5V0sNV9W2F qklGsov4sn1uw APDdTXwwD02wjWPbd2B1L DSbgBB9AHZvcWzbWiVbbH 93Oyc+DQLcqAubz2DoCye jn2fpk0wmmSq8 QsYnGIAazrYbdJrsJNZ3f 3BfSa18A79gIQhbSHGtJD NlGGIvYLPbpXlptx2kmI9 wIi8+PGNvbCB3 lHL8fY9vYDYnHgG4AIdvK 013XyUzwINuSjgdg6bze8 kahSi7KaPbKHApfkUzgRn qLBS6w9VuMv43 J69cRLfcYPWgQLTuSGGxW FKhhAugtw7nfG2iBt5+PC 7wc7ynxb90lE63zCY+PHR dRGO5fSlhUHki ZBYypU1rIRmmTsX8OZRdX fVsrW93jMSoTZlfAg3buB eqxFmsAJ5fEOLgrhqin20 5AkNis7dlEDJs rRKyEJnpWMO9U20ss3D5G MBbOECoGND3pYO8zF1sjM lnbjogbGVmdDsgdmVydGl cFMwcOZmnU814 IHRvcDsnPlBhdGllbnQgT iZeSYp2Z2QjXwx9TZWfmY chKI0kfSByNUqdWc9prBv fnHiqBW0cTYUo bbokf330GuMhi7beWDInp RLfFGzpFOH0X05if3B9PF MeEKFbEQW5mCG0aP4ugZb nbjogbGVmdDsg deLfqOhpJJkkYEdtU387F HRvcDsnPkJpcnRoIERhdG Q6WJ86MB14gRLsc6H9oKN 3W1EvTRKjwndq hckwxNK2CRNxNJMwlU81Z m6ypKdtQd5xFSNeIBQ1XI WvbYCwA9SyvV9dEhHrGMF eOCSpV1BeiVVh SJiqF745COwhEhG8MHEac uHuN6DnOKHopGozKnH9i4 D2Hn7PM7U0TU45CU14rCB bp9Y3cOI9D1Vm TFHsiolatjzssJL0WUShP REomK10Oc0qkHxnHz0mJZ TzIPO1KTSmmTZrV9IrbB6 yOiAjMDAwMDAw E1JdtDNgRHdiP169QItuY nH7JQErocPiK9RaMRBzyH xiKmT9i6W8Jc1OCSn1IB1 7CK29rTPdw3M5 uJM0D9QnCKEvswfoqeetq BP5ZVQkEMYpsA83Ec5snW jxHh3sYUJbZWT0FUKnuBA nS1MvuE9cZkPv UTEqKZWoO8CqbHFkNIscR 491XJhnDxG5MNCvnbQxD5 YmFEUazLmjUiN3c0V9Wt4 BWZZaYY66HRI3 fSM4IR98WP55N6QbVekdg GFibGU+PHRhYmxlIHdpZH RoPScxMDAlJyBzdHlsZT0 mPp9nUQZqBFOh dUzgtUGoEzCde1eaNBPwE VycFR0aqQsmM5GciWA7HG Smp3b2By96J48jR4QebHZ +UTFcmCM5cWB2 wZ4vVeXqAfI2DWwsK181L xOylMYuItnrw9qxp2kepO f6OfY7AGIjikSjmDxsFKJ 5x5EuTj77F42y IHdpZHRoPSIxNSUiIHZhb Rgxvo6jpZ6rGg3+PGNvbC L6uKM6wI2qPaMxKjN8SVd yQ046CpYizJEl Pnabb4xdv0rbvYt6VeHrO GMkxhLqlOgnWGV6a2ApEc 52M2ZksVtcf6NqPgh8qv0 8qJYjo7C8mRI2 N5VhFBEtzewxeZFkiVqtX R4bNSMplctcZSDyfO3vDK CcJ5p2ObRuUxI0CKutC4C trfJ1TJZwmJLr DAuiTPB1W43qd0L2DACdY YGzNLP4nDQ4mL4tvHovld ogbGVmdDsgdmVydGljYWw yJSjyV817VVXp zVvbSJQdtL3oAHBinVLyb BzdTN8jDXOmmfitWazBDI PRWqhTRmalI6USQUv6C5M iTsp7GGAxyIxz VI3zgPWrPKfgQy7mdYtlu TgaRV9xZOKnjtofKYIdsE 2zHQYaiZEpxOesHB6jXIM dpmabh559CqIs XUL9MJEyeWDuF9FdqH4qM gEaUEXjHNCzP9QqjMDfXE twT789WEigIxR1NSOnuoP rO2IuCLHnwVgx PoN4e2I5Zo1rMk6uBS2wV HL9FC16XM06vYEcw1E1lL V0F3ObKHIkhqqcjnzfzOG 9HCItZFGyyP30 nLMgRWseRl5qr8K9b517W KCpRDUfnV82Ph0yyUclLG UjqZJZrE6hnmkkz2ahhkz gIzAwMDAwMDt0 TPy0WEGdgLvvRkRpZNF9X tO3FDA6qLZuqJ0luVecho zluS4mZec+NjMgWWVhcnM 6I7ObWmk2UUWl hQlvZB8hbPNfKRaaZb7tp EzzaCtxFU3nZUPqvdjpBY IoeT2oSXEolOQatRtaMA3 qRLDjvaupr468 FeKmHVQ0ZKZemRWrR4Oqi P3gOtYiYCGaFCYnR7MykS OdSDjmX218UTwfRoD4QIH dzhMnI0OmDOKt zFnuHdP3e9S8Rw3OXQ9du HI6V5SuYnr5OFVoiYfaZT 2ykAEjVJxhTb3xxVbsvVd pAK6kWVCsfmkl GWNgwZ8xFAHhxEHkjMknB Y0mVEByeajsr575ApDcJO T5CTYtkITuE3HnjF1jDrN dRKUcCUNoV8Qw uFUfZKmcL258SQkxRjA4M GAzqcFzB0YtABBisQzmXx H7t1P2Ev3SiSQfWOLlRX3 3HH35DE57Q4Jl PjwvdGFibGU+PHRhYmxlI HdpZHRoPScxMDAlJyBzdH upQN9zXd2vDTTkZLUyjHb rgGEwHcBbl8oe XZDyMRugEI5jgWflS7Txl UB8GTVgt0b0Mj76F10pH5 JvdXA+DVTgzVB1wIW5lS7 oZrZvDdC5VPtf C631BgWtxTOkEfqgc1omi 2froIn9NjXoEEBhvqXvcK hsDCN6w7PxPs93W71dALa pZHRoPSIyMCUi HKSipFnzyu9pqV2vUb4+P NUhtKK5qXM9yQ8gPtUiKp A7GZttV609DhGzkPQoCxd xG28sJ1ViuAE+ ESNkBcr4SLKywMbkNA2cl QDcYGegXo5sKXV6VtVxQx EjDOsgL2HfKABssddgtoq xrGJ6JHUtACIz fG10Vz3dxSwnNf5dENDzG HZ6EESgeLZwM0HzgE8sMw DwNUAiPCWeL4DmjZOvEOw tY500KQclHwT5 HAHthnEoE9KdWEIwdPcdM zF9j0F6Hp1CnJmqyXCmNI 6fYtMwXEm4V2NwWtu3QGK bbEcxVS4zfTVv YLypFf2tdBzlaCauAV4nO OLptcymw288IvAov1dkME NtjDVeFKsnYFS9H76jp1N 0KXCwOTOhNRP9 mXJ3uW6opLufbmquzXLhz DsgdmVydGljYWwtYWxpZ2 38DMXwyXgxRiBKNnu9X2R gYzv7GEGykPll OJ5xhPChJUanLr2glUlza CjeCW5cEVDcuapus897Mt Lyr6sdBSKcyVFeSMadWVI 8N20rq4N4SSVp MCNwQQK2xQR2hW5kpSlld jogbGVmdDsgdmVydGljYW giFFpfD987KUGlbUdxWb6 DQjr5G3AjYpq1 JCMvdKfyFV8jgTWqGFmpS v8wkZiiwPhsAC1yTFVdrn mrk358HlFao8ikAVYunJM vGUhqSTG5K67t u7Z8HPNrZTFdJYV5dSO4u D1huLulaopxoJHmcEdlzm JjtAmyCDrdBBtqG646LTN vcDsnPlBheWVy OjwvdGQ+HV69ew95W9KzN dfnHrh0FPYvARJ7yUG4iE 7jRFQnBVeeg7K7sQF3I1F yqiQxuc0jz4qs YXBz (more content not included)... Normal [facility] Auto Diffon 10-22-2021 Basophils/100 WBC (Bld) 0.1 % Normal 0.0-2.0 [facility] Comment on above: Order Comment: Order Added by Discern Expert. Performed By: #### 2 248273, 1583724, 1768397, 6682748, 6116320, 15924458 ####[facility] [address] [place] [address] Basophils/Leukocytes Auto (Bld) [Pure # fraction] 0.0 E9/L Normal 0.0-0.2 [facility] Comment on above: Order Comment: Order Added by Discern Expert. Performed By: #### 2 071901, 7228058, 5652626, 5841779, 4484181, 25912822 ####[facility] [address] [place] [address] Eosinophils/100 WBC (Bld) 4.8 % Normal 0.0-8.0 [facility] Comment on above: Order Comment: Order Added by Discern Expert. Performed By: #### 2 821723, 9196893, 7116493, 7295455, 8529509, 29525531 ####[facility] [address] [place] [address] Eosinophils/Leukocyt es Auto (Bld) [Pure # fraction] 0.2 E9/L Normal 0.0-0.5 [facility] Comment on above: Order Comment: Order Added by Discern Expert. Performed By: #### 2 121720, 5571158, 3141780, 9100267, 4886268, 30564435 ####[address] [address] Lymphocytes/100 WBC (Bld) 33.2 % Normal 14.0-50.0 [facility] Comment on above: Order Comment: Order Added by Maki Expert. Performed By: #### 2 581126, 7379754, 2792667, 9236895, 4371582, 73542342 ####[facility] [address] [place] [address] Lymphocytes/Leukocyt es Auto (Bld) [Pure # fraction] 1.5 E9/L Normal 1.0-4.0 [facility] Comment on above: Order Comment: Order Added by Maki Expert. Performed By: #### 2 899094, 2146756, 4792590, 6618482, 7060723, 96649969 ####[address] [place] [address] Monocytes/100 WBC (Bld) 8.4 % Normal 4.0-14.0 [facility] Comment on above: Order Comment: Order Added by Maki Expert. Performed By: #### 2 381814, 1453550, 4918314, 4335648, 3650333, 60316175 ####[address] [place] [address] Monocytes/Leukocytes Auto (Bld) [Pure # fraction] 0.4 E9/L Normal 0.2-1.0 [facility] Comment on above: Order Comment: Order Added by Discern Expert. Performed By: #### 2 741452, 9536472, 6294925, 3988651, 4751403, 65448408 ####[address] [place] [address] Neutrophils/100 WBC (Bld) 53.5 % Normal 36.0-75.0 [facility] Comment on above: Order Comment: Order Added by Discern Expert. Performed By: #### 2 632396, 3518441, 5958943, 3357945, 6046173, 51283656 ####[address] [address] Neutrophils/Leukocyt es Auto (Bld) [Pure # fraction] 2.3 E9/L Normal 2.0-7.5 [facility] Comment on above: Order Comment: Order Added by Discern Expert. Performed By: #### 2 041734, 8328144, 7529970, 3872932, 4106749, 65365752 ####[address] [address] CBC w/ Auto Diffon Erythrocyte distribution width (RBC) [Ratio] 14.4 % High 10.9-14.2 [facility] Comment on above: Performed By: #### 2 043756, 8785188, 4500524, 8874800, 5973931, 04025162 ####[address] [place] [address] Hematocrit (Bld) [Volume fraction] 38.2 % Normal 34.0-46.0 [facility] Comment on above: Performed By: #### 2 516021, 3009557, 0169231, 4386372, 2771165, 19581043 ####[address] [address] Hemoglobin (Bld) [Mass/Vol] 12.8 g/dL Normal 12.0-16.0 [facility] Comment on above: Performed By: #### 2 345154, 9197263, 4917801, 0459455, 7141718, 70666044 ####[address] [address] MCH (RBC) [Entitic mass] 29.1 pg Normal 27.0-34.0 [facility] Comment on above: Performed By: #### 2 782772, 8345800, 4655466, 4747324, 2218526, 86235785 ####[address] [address] MCHC (RBC) [Mass/Vol] 33.5 g/dL Normal 31.4-36.0 [facility] Comment on above: Performed By: #### 2 705718, 1806860, 6083956, 7613651, 4141332, 00692048 ####[address] [address] MCV (RBC) [Entitic vol] 86.8 fL Normal 80.0-100.0 [facility] Comment on above: Performed By: #### 2 496447, 1716764, 9834347, 6044737, 4816723, 01757478 ####[address] [address] Platelet mean volume (Bld) [Entitic vol] 8.3 fL Normal 6.4-10.8 [facility] Comment on above: Performed By: #### 2 776283, 3944841, 6704734, 6921966, 8161593, 94651798 ####[address] [address] Platelets (Bld) [#/Vol] 303.0 E9/L Normal 150.0-500.0 [facility] Comment on above: Performed By: #### 2 604824, 9843202, 6561777, 7389288, 6355675, 72223268 ####[address] [address] RBC (Bld) [#/Vol] 4.4 E12/L Normal 4.3-5.9 [facility] Comment on above: Performed By: #### 2 693990, 1541569, 2020897, 7512555, 4440944, 10108746 ####[facility] [address] [place] [address] WBC corrected for nucl RBC Auto (Bld) [#/Vol] 4.4 E9/L Normal 4.0-11.0 [facility] Comment on above: Performed By: #### 2 391969, 1668381, 7122929, 0104753, 7687497, 39764131 ####[facility] [address] [place] [address] CMPon 10-22-2021 Albumin [Mass/Vol] 3.6 g/dL Normal 3.3-5.0 [facility] Comment on above: Performed By: #### 2 535152, 2422654, 5915480, 9805163, 3338974, 06736207 ####[facility] [address] [place] [address] Albumin/Globulin (S) [Mass conc ratio] 1.2 Normal 1.1-2.2 [facility] Comment on above: Performed By: #### 2 332171, 4981092, 9121676, 6862624, 9676835, 27360920 ####[facility] [address] [place] [address] ALP [Catalytic activity/Vol] 115 Int._Unit/L High 21-98 [facility] Comment on above: Performed By: #### 2 367554, 8280763, 4063839, 6943134, 5643708, 29280325 ####[facility] [address] [place] [address] ALT No additional P-5'-P [Catalytic activity/Vol] 46 Int._Unit/L Normal 6-46 [facility] Comment on above: Performed By: #### 2 555318, 3625025, 2069224, 9311582, 2466388, 22114082 ####[facility] [address] [place] [address] Anion gap [Moles/Vol] 12 mmol/L Normal 6-16 [facility] Comment on above: Performed By: #### 2 643333, 2330202, 0306933, 9943907, 6305653, 08149972 ####[facility] [address] [place] [address] AST [Catalytic activity/Vol] 36 Int._Unit/L Normal 5-43 [facility] Comment on above: Performed By: #### 2 028020, 4249473, 2447986, 1938969, 9328861, 19382837 ####[facility] [address] [place] [address] Bilirubin [Mass/Vol] 0.6 mg/dL Normal 0.0-1.1 [facility] Comment on above: Performed By: #### 2 662058, 7433671, 0579245, 2350772, 3398032, 03339739 ####[facility] [address] [place] [address] Calcium [Mass/Vol] 9.3 mg/dL Normal 8.9-11.1 [facility] Comment on above: Performed By: #### 2 739116, 0474049, 8427125, 8170757, 4361856, 00778831 ####[facility] [address] [place] [address] Chloride [Moles/Vol] 101 mmol/L Normal 101-111 [facility] Comment on above: Performed By: #### 2 114328, 0651436, 3327323, 5279536, 8188456, 84421898 ####[facility] [address] [facility] [place] [address] CO2 [Moles/Vol] 26 mmol/L Normal 21-31 [facility] Comment on above: Performed By: #### 2 882376, 0042689, 6482551, 5107913, 2127195, 31919115 ####[facility] [address] [place] [address] Creatinine [Mass/Vol] 0.7 mg/dL Normal 0.5-1.3 [facility] Comment on above: Performed By: #### 2 385479, 2228827, 4101921, 0377316, 9393371, 78723258 ####[facility] [address] [place] [address] Globulin (S) [Mass/Vol] 3.0 g/dL Normal 1.4-4.0 [facility] Comment on above: Performed By: #### 2 111730, 9532666, 3994583, 1625350, 6943663, 59189115 ####[facility] [address] [place] [address] Glucose [Mass/Vol] 90 mg/dL Normal 55-199 [facility] Comment on above: Result Comment: If t his glucose result represents a fasting glucose, interpretation should refer to the following reference range: 55-99 mg/dL Performed By: #### 2 139551, 1679534, 3914279, 6723553, 4948605, 83434560 ####[facility] [address] [place] [address] Potassium [Moles/Vol] 4.2 mmol/L Normal 3.5-5.3 [facility] Comment on above: Performed By: #### 2 153138, 7414755, 8924688, 3816172, 5345043, 48115088 ####[facility] [address] [place] [address] Protein [Mass/Vol] 6.6 g/dL Normal 6.0-7.8 [facility] Comment on above: Performed By: #### 2 301782, 9648664, 1697791, 0716739, 6554919, [id number] ####[facility] [address] [place] [address] Sodium [Moles/Vol] 135 mmol/L Normal 135-145 [facility] Comment on above: Performed By: #### 2 011584, 6978111, 7926892, 6914702, 1641462, 86504265 ####[facility] [address] [place] [address] Urea nitrogen [Mass/Vol] 14 mg/dL Normal 5-21 [facility] Comment on above: Performed By: #### 2 872770, 3527751, 1407735, 1729737, 2736182, [id number] ####[facility] [address] [place] [address] Urea nitrogen/Creatinine [Mass ratio] 20 No Units Normal 10-20 [facility] Comment on above: Performed By: #### 2 080016, 0504086, 7737139, 1468428, 0088822, [id number] ####[facility] [address] [place] [address] Consent for Treatmenton Consent for Treatment [id number] .[id number]:127 Normal [facility] Lipid Panelon 10-22-2021 Cholesterol [Mass/Vol] 207 mg/dL High 120-200 [facility] Comment on above: Performed By: #### 2 851509, 9212861, 8236642, 4944425, 7171514, 60097352 ####[facility] [address] [place] [address] Cholesterol in HDL [Mass/Vol] 51 mg/dL Invalid Interpretation Code [facility] Comment on above: Result Comment: HDL > or equal to 60 mg/dL: Low cardiovascular risk HDL < 40 mg/dL : High cardiovascular risk Performed By: #### 2 001685, 4307595, 0589453, 2711451, 0239581, 84349195 ####[facility] [address] [place] [address] Cholesterol in LDL [Mass/Vol] 128 mg/dL Normal <=129 [facility] Comment on above: Performed By: #### 2 754920, 6123711, 0356518, 2240458, 0003060, [id number] ####[facility] [address] [place] [address] Cholesterol in VLDL [Mass/Vol] 21 mg/dL Normal 7-40 [facility] Comment on above: Performed By: #### 2 359681, 2197302, 4897791, 8578533, 8605151, 63479732 ####[facility] [address] [place] [address] Triglyceride [Mass/Vol] 107 mg/dL Normal <=149 [facility] Comment on above: Performed By: #### 2 832969, 9372531, 8945828, 9674350, 2432812, 56012642 ####[facility] [address] [place] [address] Physician Orderon 10-22-2021 Physician Order [id number]. 00CD:127 Normal [facility] TSHon 10-22-2021 TSH Qn 6.19 m[IU]/L High 0.34-5.60 [facility] Comment on above: Performed By: #### 2 337629, 0161291, 4809504, 8854124, 1570508, 60290634 ####[facility] [address] [place] [address] eGFRon 10-22-2021 GFR/1.73 sq M.predicted among blacks MDRD (S/P/Bld) [Vol rate/Area] mL/min/{1.73_m2} Normal >=59 [facility] Comment on above: Order Comment: Order added by Discern Expert. Result Comment: eGFR is race adjusted. AA=. Performed By: #### 2 564766, 0173402, 0745220, 3765231, 2203066, 07983207 ####[facility] [address] [place] [address] GFR/1.73 sq M.predicted among non-blacks MDRD (S/P/Bld) [Vol rate/Area] mL/min/{1.73_m2} Normal >=59 [facility] [place] Comment on above: Order Comment: Order added by Discern Expert. Result Comment: Yeast Supervisor ginger kidney disease could be indicated at eGFR's of less than 60 mL/min/1.73m2. Kidney failure is indicated at less than 15 mL/min/1.73m2. Performed By: #### 2 [id number] ####[facility] [place] [address] [place] [address] COVID-19 ([facility])on 10-13-2021 SARS-CoV-2 (COVID-19) RNA NORMA+probe Ql (Resp) Not detected Normal Not Detected [facility] [place] Comment on above: Result Comment: This test result should be correlated with clinical presentations and medical history by a healthcare provider to determine its clinical significance. This assay was performed by a reverse transcriptase real-time polymerase chain reaction (rt PCR) method on the [employer] system. This test has been authorized only [...] or revoked sooner. Performed By: #### 2 [id number] #### [facility] [place] [address] [place] [address] SARS-CoV-2 (COVID-19) RNA NORMA+probe Ql (Unsp spec) Pass Normal Pass [facility] [place] Comment on above: Performed By: #### 2 [id number] #### [facility] [place] [address] [place] [address] Specimen source Nom (Unsp spec) Nasal Normal [facility] [place] Comment on above: Performed By: #### 2 [id number] #### [facility] [place] [address] [place] [address] COVID-19 ([facility])on 10-12-2021 ADMITTED TO INTENSIVE CARE UNIT FOR CONDITION OF INTEREST:FIND:PT: NO Normal [facility] [place] Comment on above: Performed By: #### 2 [id number] #### [facility] [place] [address] [place] [address] EMPLOYED IN A HEALTHCARE SETTING:FIND:PT: YES Normal [facility] [place] Comment on above: Performed By: #### 2 [id number] #### [facility] [place] [address] [place] [address] FIRST TEST FOR CONDITION OF INTEREST:FIND:PT: Unknown Normal [facility] [place] Comment on above: Performed By: #### 2 [id number] #### [facility] [place] [address] [place] [address] HAS SYMPTOMS RELATED TO CONDITION OF INTEREST:FIND:PT: Unknown Normal [facility] [place] Comment on above: Performed By: #### 2 [id number] #### [facility] [place] [address] [place] [address] HOSPITALIZED FOR CONDITION OF INTEREST:FIND:PT: NO Normal [facility] [place] Comment on above: Performed By: #### 2 [id number] #### [facility] [place] [address] [place] [address] STATUS:FIND:PT: NO Normal [facility] [place] Comment on above: Performed By: #### 2 [id number] #### [facility] [place] [address] [place] [address] [facility]:FIND:PT: NO Normal [facility] [place] Comment on above: Performed By: #### 2 [id number] #### [facility] [place] [address] [place] [address] Coding Summary.on 04-08-2021 Coding Summary. CD:[id number] G h0bWw+PGhlYWQ+NI3PUKS pA82yfBGnsF0DB9kHEM9E ISWUBHPNOC4ACL7hqPS6C FlxO6FyngUd BqwnuSDxSQ30IKw0DBE3n UelHTntcC7rrSTfD3p1Sb XdRX21lL91WXtoEJUmLkR 3LjZpbjsgbWFy D0snAyHsqNHwBoq+PHRhY mxlIHdpZHRoPScxMDAlJy JiiKvgDP4tDt8qMYThKTL vbGxhcHNlOiBj w3lcEIQzREabLX6jnUlxQ 6FowCF3DOZui7l0Sv68eP I+UGItMSQ8eKwyVIcrz32 0VqIhm5jiWER7 wRHcZFzhTZW6J60pg3O9Y KGjJGOfSPM6yYQ8gX6iqE xjbmumV1UlcWAwGsL0HNB 9rTAcxW1hnGvw mxhbmB7kKcy+L10KPN0NY XGYQO1EFaz4O7MuWxwjzV I+OX02PFQdCR59aZWxmYB gy0vvbZb0BxJy HHMrOAW9zKihBHcag8HbB ZOmU61teJQak7D6ENAwaW aywSBpTxTsuPR0qJ7mAYx dkmfjm2fdyhhh Dgxrp1bema02kF38P05qG SjdAELgKAU4FBLdZJQjuI owmg3miH2wSp1+MHcwr3s sv8xzbBp0NkUz YDAcpuUneLneBCL9n1NtI a93A5WryYaac5QhAnb1mh 66jKGvv0T2xRQ0PJacHFN qpZ0vLRckMzK6 BAEiElBiuM61aRTjNQmnT u4baQxxsMgtQE8eRINzls gpAQOdcF6xTKYhqSOriXb sYR6aKXWtmhob j094TbPnKBQ4PCZsiYMdU 7WktB1gHpGfKRTgTQEwN2 JieGXnLBjxD202UOidCcW 7XRJjotQeR5If EXJbgWknEiL5k3I9Pb8Vx 5CjzxnoHHM6HNolGUM8Kr D5GuFeUiP4M6UfUoc5FRO awSqjJO2sG8Ci LAYelrzenyosmAI6GCCnQ HGueF45fTWfWVqjEt7zg9 X7i081LBSzZBBwyY42Vd3 udDogMTBwdCBU cW1nvaeqa8iwqupeQsUpN EVpYNv5JIk1KOAonWeaCs YtPZP5DbG0JEK0xMXvlI3 lwDcjpspyoN8g Oyc+T53svT9hXRE4GTS4j gkoAIOmkgBrUG01PX81R3 RyPjwvdGFibGU+PGRpdiB gbDvyUE9cFlQr w7zqq0ImBEomW5OoJPBuT NzuCxd3ZRJlBST5jDE0zW 9tGCXyNQszl4O2mOF0V3T ikhCiks5wk1tq TWWwDKtpU99rfMZxh9T1S QSwiNR6VVWmqEkyUvEvgZ 93Oyc+QEQpbFdea0CuZpj hk7pzy7kxrPt0 OnEeCUOifoLmaCcqFVG2g 0UuHt53L05eCHdlELKyYY NnJRQkLRIeeKcflj5slF2 wIi8+PGNvbCB3 wVO0hQ6cNWEvYvZ2VBzvU 744GtRosUDaRhaxg0dmu9 jycXl3MoIeYZYulcXhjDg vWYP0v2MrWd02 S48cWJuwHBOhJLQzSYShR DXgeFeiny8eiZ4gVa8+PC 0dx5jedn27aY08lKG+PHR dGQD6eFutKFpx PKNdiC2vHSgoKoW8HYWlO aRbmU17rMHjQLmcFe4kaB ryiCasOT9uZCSyjwhlt91 4UhPyo7zlQGYp sEQaHJlmJKW1P56kw6W8Z YZiERHnYJC7pCJ3gW3suU lnbjogbGVmdDsgdmVydGl nVEnvCHscR305 IHRvcDsnPlBhdGllbnQgT fNkAJh8Y0EhPhv3BRHxiQ atFZ8wyLGfJKhjGr2ifFk etOqpQX5vUHUj arfom168EsZap8uqFCDdu KPyUCpkIYZ2C12ms8X2LN ZsODGpLPW5pVE2iS3cnSp nbjogbGVmdDsg iwOwrNnzIKuqDOjmZ220B HRvcDsnPkJpcnRoIERhdG W5WH47RT73pYDfs2K4kEE 7M7FdUJXneyts wufthHM0UHJkNLIlaM69S q8ylVlpTp4oRAVgXNI3UP QhbPVlT5AuoA8zGjMxICI sBYSbZ5WzaXJa POyeP565YYfbBqH3QQOyv vZgX4NbWOKqdKgtDeX7q4 G7Rk5CF4M5GH60QX34eKN rr6H0iHW8T0Ii DESppwvayzqgzBM1AFUhH XQboX80Mq3zuDjyBd5sDZ DmXLR2IFKjxFDlD4RibH3 yOiAjMDAwMDAw W9XblUBrIXdgN185NGqvY fY1CMFjvgIqR8UvMUFezO otZlF5g3H9Lf7DMQp5ML2 1UX47zVMzx2T4 sGP2K8MgIAHzuikpahozg UX9HFDoFAQnrD75Qa7njD oaBn8aGPYlLHP9CFGbwCF rK4QvoP9dUeIk HGMaVNIdC5QzhODiZPmpM 524WMptKzQ8QLGmwfAmK3 IkUDIfzCnoDdF9h8Q8Ww6 JHDBmIM82ONQ6 rCB2MG59VI24W7IpYgoai GFibGU+PHRhYmxlIHdpZH RoPScxMDAlJyBzdHlsZT0 dJk5zWKXlCDJg jNrmxKGxRxMhf3ipZHBiE DvmOD2zdAzeY3CnwWX3TJ Orm0d0Vd40F37bI8RnmEO +JCZatAT6iTC2 nC3bTrCfExR6XFplI740T xPqqCKbBwpxm0qjp0bvuJ r7RaL2KHRexeBgfQneEKX 2l2VfTo56X69j IHdpZHRoPSIxNSUiIHZhb Fxfxw0jkV9zKc0+PGNvbC D0aRE2dW2pFuNcYmM6ZMe xU178ZrNveSMe Xncnq3ici5nupRq9SxHqU LKrnnNyyNsnQGK6z2RqXy 17X1JjvXkbj3MtEoi1iq2 6hNKvn8C0iEY6 I3AnDQBjiryllWJrkRvyK O3xEYPpenbdJSIrmG5fTV YzY6d4QlHrMaB9KUsuG6C iuxJ1YDZssJZw HDplMFZ4K16qs6T2RJTvO YLlBGC8nMG8rI7hnDrqdj ogbGVmdDsgdmVydGljYWw aAFkxZ534OZQf uOchSKGwcJ8cTQBcqXDdy RcrPT2bXGNpgvncUwjPAK KHDrhFEiugM5FIIMu1T9R oMin9KXRlaVur FI7trTBdNHapBe5mbJyvc XjeBC8wVSWpwthsVVWbhK 8hSIPafYEkoCjaLK5sMSL ahrrqi828PrRr RIS8MTWceZTmE8PqwO9dW hTbAFOmBBVuW8WyeYXzVX peA087FZriMkM8NTCyakE tU3FyKOOikSpd ZhP6u1K1Rm8kAc8yIU6sL QI5NT76TN45hUSvk9F6rV G9N2BpLYBtnyzjlatcwXC 8KKZdWXRosG07 tIHkSOzcNm7ip3N6j792S WWoROOgbA59Sh6nkWspZU PvjKVMeN2giifph4myene gIzAwMDAwMDt0 MYm5GTSseTtcCjZjTBF6A xD2DZF4uJBuuF5lsQmspc tmnL1jKqc+NjMgWWVhcnM 2U6ClQgj2EVXe sPzhLL7pcHHtJViaPu3ib EnnaSfnPY4pIOWbqiqfRE EgzY9kOEZorQJmgLcnAX7 rJHDijtaki203 YjIyGHV2TRNggVKrE5Zmk I6vHdLbDATlWLHzD8YsgU XpKFnbU686LMohQkF5HBT uqgBoW8OqRBWm oYjtDpA9b5X0Ng3ZYO8fp SR5T6LzGni6MSLikCrgYT 9xfOFyJNduKa6psUtsrWu vDP0oWELdohsd GIMiyE4vWXCynDIxoJiiG Y1yOJGjkdffx594SmDaSH J6ATCtlJEsG3PnkJ5wFkJ jIQCiPDXdR7Ro uHNqKWhvV043FIanEhT9P XPgyfWdX7WcSODncQubRe J1m3C2Zq2VsKVmEJAtKA9 0RH22BL61X7Ti PjwvdGFibGU+PHRhYmxlI HdpZHRoPScxMDAlJyBzdH sdCC7lTd7jOEFsDRFonPv vdXTtRoLrf3fi SVXdAEscJE9bkHxvZ2Xvj MB1YTJaz4h3Ej51D70sQ6 JvdXA+VXUicAK5bOQ9uE7 zNpJkCrW2MWgh H074ZfGhdWXxBroxo0lmm 8rrhWb7CcWiEUUbygWslN znGID0z0IiHd53H41zDEr pZHRoPSIyMCUi DOAkcQrrab1ckV3hFh2+P XXjsUE7wGW2bH6fRySrAe C5BHxfK355FuPxiPYvOar tO63tR1MbxFQ+ FAHfFzx4QDLboEdzYW8ej VBoPOirKn4fWKG4UlBtOh VrIAraY5AeJELvircmxjf trQX1WVYvZCZd fQ58Je3jzWkaZk3oEBRgZ NO7GSOlxVUeY3VqhT5yWp JaWJNnPXZuG1ZsbHDbCVp gN987UMfxJxW9 JZSscrOtG3UyUTRyiHhvL gX9e2G6Ni1HqHideABiOW 2qSfVhHVs4C1ZzPcz4IBY bpPidSB7yuJSc AVobNb5jmTsacFhqTN0yU CWfcuqkw840FnSby0moZW KiwFZzEKkuJDT8Z58ye4T 1MGZoUFUeJUR8 gPL9iQ7lcZcdhaomzDUir DsgdmVydGljYWwtYWxpZ2 26EHEtoFqjLjXJEoo2C8O dMad8XFMzhTco XL3dwQIjSKdqMm1hzAjix TkwBA7cNQDbkifgx968Jp Stu6tqOEBgtEQxACelAQP 9L00tx1P7PIYy LIJtMQV3gEE0gB2pbVuzb jogbGVmdDsgdmVydGljYW nxKRgzK642KHJxtHslVj9 OLlv3L3VsMsp4 LYQaiFqrHV9viFWdTRxlO m7adAjtpNfjBL8vXHGgdu zls741GvNfx8hiONXgxGF wOAomNWT3X80m b7D7XERfCKFnSYG0nRT8q W4auXtlkrpvxTCypMecgb PfkRhkBIyjJUtfU170MRF vcDsnPlBheWVy OjwvdGQ+MU27is96E7AyB twuQws0DRSlMQC2pHY7iQ 3bYQYlLEgyg7Z5hHM6K4S beoVazr3pc9fq YXBz (more content not included)... Normal [facility] MRI Knee w/o Contrast Lefton 04-08-2021 MRI [...] by: NEETU Technologist: MEGHANN Technical Comments None Normal [facility] [place] Consent for Treatmenton 03-16 Consent for Treatment [id number]#1 .00CD:127 Normal [facility] RAD - MRI Screening Formon 0 04-07-2021 RAD - MRI Screening Form [id number]# 1.00CD:127 Normal [facility] [place] Physician Orderon 03-24-2021 Physician Order [id number]# 1.00CD:127 Normal [facility] [place] Pre-Certification Formon Pre-Certification Form [id number]# 1.00CD:127 Normal [facility] Vital Signs Date Time Vital Sign Value Performing Clinician Facility 06-01-2025 08:57-0400 Body height 162.56 cm Ray Ball DO Work Phone: [facility] 06-01-2025 08:57-0400 Body mass index (BMI) [Ratio] 40.2 kg/m2 Ray Ball DO Work Phone: [facility] 06-01-2025 08:57-0400 Body weight 106.31 kg Ray Ball DO Work Phone: [facility] 06-01-2025 08:57-0400 Diastolic blood pressure 80 mm[Hg] Ray Ball DO Work Phone: [facility] 06-01-2025 08:57-0400 Heart rate 69 /min Ray Ball DO Work Phone: [facility] 06-01-2025 08:57-0400 Respiratory rate 12 /min Ray Ball DO Work Phone: [facility] 06-01-2025 08:57-0400 Systolic blood pressure 116 mm[Hg] Ray Ball DO Work Phone: [facility] 02-17-2025 14:21-0400 Body height 162.56 cm [facility] 02-17-2025 14:21-0400 Body mass index (BMI) [Ratio] 36.8 kg/m2 [facility] 02-17-2025 14:21-0400 Body weight 97.52 kg [facility] 02-17-2025 14:21-0400 Diastolic blood pressure 83 mm[Hg] [facility] 02-17-2025 14:21-0400 Heart rate 70 /min [facility] 02-17-2025 14:21-0400 Respiratory rate 12 /min [facility] 02-17-2025 14:21-0400 Systolic blood pressure 140 mm[Hg] [facility] 12-11-2024 09:08-0500 Body height 162.56 cm [facility] 12-11-2024 09:08-0500 Body mass index (BMI) [Ratio] 36.8 kg/m2 [facility] 12-11-2024 09:08-0500 Body weight 97.52 kg [facility] 12-11-2024 09:08-0500 Diastolic blood pressure 79 mm[Hg] [facility] 12-11-2024 09:08-0500 Heart rate 60 /min [facility] 12-11-2024 09:08-0500 Respiratory rate 12 /min [facility] 12-11-2024 09:08-0500 Systolic blood pressure 127 mm[Hg] [facility] 07-08-2024 09:38-0400 Body height 161.3 cm Funmilayo Noonan DO Work Phone: [facility] 07-08-2024 09:38-0400 Body mass index (BMI) [Ratio] 37.84 kg/m2 Funmilayo Noonan DO Work Phone: [facility] 07-08-2024 09:38-0400 Body weight 98.43 kg Funmilayo Noonan DO Work Phone: [facility] 07-01-2024 10:34-0400 Body height 161.3 cm Funmilayo Noonan DO Work Phone: [facility] 07-01-2024 10:34-0400 Body mass index (BMI) [Ratio] 37.84 kg/m2 Funmilayo Noonan DO Work Phone: [facility] 07-01-2024 10:34-0400 Body weight 98.43 kg Funmilayo Noonan DO Work Phone: [facility] 06-24-2024 10:52-0400 Body height 161.3 cm Funmilayo Noonan DO Work Phone: [facility] 06-24-2024 10:52-0400 Body mass index (BMI) [Ratio] 37.84 kg/m2 Funmilayo Noonan DO Work Phone: [facility] 06-24-2024 10:52-0400 Body weight 98.43 kg Funmilayo Noonan DO Work Phone: [facility] 06-17-2024 10:28-0400 Body height 161.3 cm Funmilayo Noonan DO Work Phone: [facility] 06-17-2024 10:28-0400 Body mass index (BMI) [Ratio] 37.84 kg/m2 Funmilayo Noonan DO Work Phone: [facility] 06-17-2024 10:28-0400 Body weight 98.43 kg Funmilayo Noonan DO Work Phone: [facility] 06-09-2024 08:56-0400 Body height 162.56 cm [facility] 06-09-2024 08:56-0400 Body mass index (BMI) [Ratio] 37 kg/m2 [facility] 06-09-2024 08:56-0400 Body weight 97.97 kg [facility] 06-09-2024 08:56-0400 Diastolic blood pressure 78 mm[Hg] [facility] 06-09-2024 08:56-0400 Heart rate 68 /min [facility] 06-09-2024 08:56-0400 SaO2% (BldA) [Mass fraction] 98 % [facility] 06-09-2024 08:56-0400 Systolic blood pressure 116 mm[Hg] [facility] 12-10-2023 09:29-0500 Body height 162.56 cm [facility] 12-10-2023 09:29-0500 Body mass index (BMI) [Ratio] 39.1 kg/m2 [facility] 12-10-2023 09:29-0500 Body weight 103.47 kg [facility] 12-10-2023 09:29-0500 Diastolic blood pressure 83 mm[Hg] [facility] 12-10-2023 09:29-0500 Heart rate 83 /min [facility] 12-10-2023 09:29-0500 Respiratory rate 12 /min [facility] 12-10-2023 09:29-0500 Systolic blood pressure 134 mm[Hg] [facility] 08-13-2023 14:30-0400 Body height 162.56 cm Leilani Archibald Other [employer] Other 08-13-2023 14:30-0400 Diastolic blood pressure 64 mm[Hg] Leilani Archibald Other [employer] Other 08-13-2023 14:30-0400 SaO2% (BldA) [Mass fraction] 100 % Leilani Archibald Other [facility] Other 08-13-2023 14:30-0400 Systolic blood pressure 122 mm[Hg] Leilani Archibald Other [employer] Other 08-03-2023 10:15-0400 Body height 162.56 cm Leilani Archibald Other [facility] Other 08-03-2023 10:15-0400 Diastolic blood pressure 80 mm[Hg] Leilani Archibald Other [employer] Other 08-03-2023 10:15-0400 SaO2% (BldA) [Mass fraction] 100 % Leilani Christineacher Other [employer] Other 08-03-2023 10:15-0400 Systolic blood pressure 132 mm[Hg] Leilani Buciorbacher Other [facility] Other 05-21-2023 09:00-0400 Body height 162.56 cm Ray Ball Other [employer] Other 05-21-2023 09:00-0400 Body mass index (BMI) [Ratio] 41.6 kg/m2 Ray Ball Other [employer] Other 05-21-2023 09:00-0400 Body weight 109.95 kg Ray Ball Other [employer] Other 05-21-2023 09:00-0400 Diastolic blood pressure 84 mm[Hg] Ray Ball Other [employer] Other 05-21-2023 09:00-0400 Respiratory rate 16 /min Ray Ball Other [employer] Other 05-21-2023 09:00-0400 Systolic blood pressure 133 mm[Hg] Ray Ball Other [employer] Other 12-26-2022 15:30-0400 Body height 162.56 cm Ray Ball Other [employer] Other 12-26-2022 15:30-0400 Body mass index (BMI) [Ratio] 42.38 kg/m2 Ray Ball Other [employer] Other 12-26-2022 15:30-0400 Body weight 111.99 kg Ray Ball Other [employer] Other 12-26-2022 15:30-0400 Diastolic blood pressure 84 mm[Hg] Ray Ball Other [employer] Other 12-26-2022 15:30-0400 Respiratory rate 12 /min Ray Ball Other [facility] [email or web address] Other 12-26-2022 15:30-0400 Systolic blood pressure 132 mm[Hg] Ray Rawls Other [facility] [email or web address] Other 02-13-2022 08:50-0400 Diastolic blood pressure 86 mm[Hg] Ibarra SALAM [facility] 02-13-2022 08:50-0400 Heart rate 60 /min Ibarra SALAM [facility] 02-13-2022 08:50-0400 Respiratory rate 11 /min Ibarra SALAM [facility] 02-13-2022 08:50-0400 SaO2% (BldA) [Mass fraction] 100 % Ibarra SALAM [facility] 02-13-2022 08:50-0400 Systolic blood pressure 155 mm[Hg] Ibarra SALAM [facility] 02-13-2022 08:35-0400 Diastolic blood pressure 90 mm[Hg] Ibarra SALAM [facility] 02-13-2022 08:35-0400 Heart rate 65 /min Ibarra SALAM [facility] 02-13-2022 08:35-0400 Respiratory rate 12 /min Ibarra SALAM [facility] 02-13-2022 08:35-0400 Respiratory rate 11 /min Ibarra SALAM [facility] 02-13-2022 08:35-0400 SaO2% (BldA) [Mass fraction] 100 % Ibarra SALAM [facility] 02-13-2022 08:35-0400 SaO2% (BldA) [Mass fraction] 99 % Ibarra SALAM [facility] 02-13-2022 08:35-0400 Systolic blood pressure 139 mm[Hg] Ibarra SALAM [facility] 02-13-2022 08:30-0400 Diastolic blood pressure 83 mm[Hg] Ibarra SALAM [facility] 02-13-2022 08:30-0400 Systolic blood pressure 133 mm[Hg] Ibarra SALAM [facility] 02-13-2022 08:26-0400 Body temperature 96.8 [degF] Ibarra SALAM [facility] 02-13-2022 08:20-0400 Respiratory rate 16 /min Ibarra SALAM [facility] 02-13-2022 08:16-0400 Respiratory rate 19 /min Ibarra SALAM [facility] 02-13-2022 08:15-0400 Respiratory rate 19 /min Ibarra SALAM [facility] 02-13-2022 07:20-0400 Blood Pressure Location Ibarra SALAM [facility] 02-13-2022 07:20-0400 Body temperature 98.42 [degF] Ibarra SALAM [facility] Encounters Encounter Date Encounter Type Care Provider Facility Start: 06-01-2025 End: 06-01-2025 ambulatory Ray Rawls DO Work Phone: [facility] Work Phone: Start: 06-01-2025 End: 06-01-2025 Patient encounter procedure Ray Rawls DO [facility] Work Phone: Start: 05-14-2025 End: 05-14-2025 Mariangel Mclaughlin MD Work Phone: [facility] Start: 05-14-2025 End: 05-14-2025 Bamboo flowsheet Rosalind Mclaughlin MD Work Phone: [facility] Start: 05-14-2025 End: 05-14-2025 ambulatory ROSALIND MCLAUGHLIN Not Available Start: 02-17-2025 End: 02-17-2025 ambulatory [facility] Work Phone: Start: 02-17-2025 End: 02-17-2025 Patient encounter procedure [facility] Work Phone: Start: 01-27-2025 End: 01-27-2025 Bamboo flowsheet Rosalind Mclaughlin MD Work Phone: [facility] Start: 01-27-2025 End: 01-27-2025 Bamboo flowscelestina Mclaughlin MD Work Phone: [facility] Start: 01-27-2025 End: 01-27-2025 ambulatory ROSALIND MCLAUGHLIN Not Available Start: 01-08-2025 End: 01-08-2025 ambulatory ROSALIND MCLAUGHLIN Not Available Start: 12-11-2024 End: 12-11-2024 ambulatory [facility] Work Phone: Start: 12-11-2024 End: 12-11-2024 Encounter for general adult medical examination without abnormal findings [facility] Start: 12-11-2024 End: 12-11-2024 Patient encounter procedure [facility] Work Phone: Start: 12-08-2024 Non-patient / Non-visit [facility] Work Phone: Start: 10-20-2024 Non-patient / Non-visit [facility] Work Phone: Start: 07-08-2024 End: 07-08-2024 [...] Not Available Start: 06-09-2024 End: 06-09-2024 ambulatory [facility] Work Phone: Start: 06-09-2024 End: 06-09-2024 Patient encounter procedure [facility] Work Phone: Start: 06-02-2024 Non-patient / Non-visit [facility] Work Phone: Start: 05-21-2024 End: 05-21-2024 ambulatory CLIFF SERRANO Not Available Start: 12-10-2023 End: 12-10-2023 ambulatory [facility] Work Phone: Start: 12-10-2023 End: 12-10-2023 Patient encounter procedure [facility] Work Phone: Start: 12-07-2023 Non-patient / Non-visit [facility] Work Phone: Start: 12-04-2023 Non-patient / Non-visit [facility] Work Phone: Start: 11-07-2023 End: 11-07-2023 ambulatory Ray Rawls Other [employer] Other Start: 11-07-2023 Telephone encounter Ray Rawls [facility] Start: 08-13-2023 End: 08-13-2023 ambulatory Leilani rAchibald Other [employer] Other Start: 08-13-2023 Office outpatient vi sit 15 minutes Leilani Archibald [facility] Start: 08-09-2023 End: 08-09-2023 ambulatory Leilani Archibald Other [employer] Other Start: 08-09-2023 Telephone encounter Leilani menon [facility] Start: 08-03-2023 End: 08-03-2023 ambulatory Leilani Buciokelbyarmando Other [employer] Other Start: 08-03-2023 Office outpatient vi sit 15 minutes Leilani Buciokelbyarmando [facility] Start: 05-21-2023 End: 05-21-2023 ambulatory Ray Joanne Other [employer] Other Start: 05-21-2023 Office outpatient vi sit 25 minutes Ray Rawls [facility] Start: 05-15-2023 End: 05-15-2023 ambulatory Ray Rawls Other [employer] Other Start: 05-15-2023 Telephone encounter Ray Rawls [facility] Start: 04-18-2023 End: 04-18-2023 ambulatory Ray Rawls Other [employer] Other Start: 04-18-2023 Telephone encounter Ray Rawls FP [facility] Start: 03-14-2023 End: 03-15-[address] RAY RAWLS Facility: Start: 03-14-2023 Telephone encounter Ray Rawls FP [facility] Start: 02-16-2023 End: 02-16-2023 ambulatory Ray Joanne Other [employer] Other Start: 02-16-2023 Office outpatient vi sit 10 minutes Ray Rawls [facility] Start: 02-16-2023 Telephone encounter Ray Rawls FP [facility] Start: 12-26-2022 End: 12-26-2022 ambulatory Ray Rawls Other [employer] Other Start: 12-26-2022 Office outpatient vi sit 15 minutes Ray Rawls [facility] Start: 12-25-2022 End: 12-25-2022 ambulatory Ray Rawls Other [employer] Other Start: 12-25-2022 Telephone encounter Ray Rawls FP [facility] Start: 11-14-2022 Encounter for genera l adult medical examination without abnormal findings DR RAY RAWLS [facility] Start: 11-13-2022 End: 11-14-[address] RAY RAWLS Facility:[facility] Start: 11-13-2022 End: 11-14-2022 Encounter for general adult medical examination without abnormal findings DR RAY RAWLS Facility:[facility] Start: 11-01-2022 End: 11-01-2022 ambulatory Ray Rawls Other [employer] Other Start: 11-01-2022 Encounter for genera l adult medical examination without abnormal findings Ray Rawls [facility] Start: 11-01-2022 Telephone encounter Ray Rawls [facility] Start: 06-14-2022 End: 06-15-[address] RAY RAWLS Facility:[facility] Start: 04-27-2022 End: 04-28-[address] RAY RAWLS Facility:[facility] Start: 04-13-2022 End: 04-14-[address] RAY RAWLS Facility:[facility] Start: 02-13-2022 End: 02-13-2022 Patient encounter procedure Stacey WU [facility] Start: 01-12-2022 Adult health examination Will shani Rawls Other [employer] Other Procedures Date Procedure Procedure Detail Performing Clinician Start: 05-14-2025 End: 05-14-2025 [facility] medical xm&eval comprhnsv estab pt 1/> Age-related nuclear cataract of both eyes Rosalind Mclaughlin MD Work Phone: Comment on above: Age-related nuclear cataract of both eyes (Primary Dx); Dry eyes Start: 01-27-2025 End: 01-27-2025 Ophth medical xm&eval intermediate estab pt Dry eyes Rosalind Mclaughlin MD Work Phone: Comment on above: Dry eyes (Primary Dx ) Start: 01-08-2025 End: 01-08-2025 [facility] xm&eval comprhnsv estab pt 1/> Acute atopic conjunctivitis of both eyes Rosalind Mclaughlin MD Work Phone: Comment on above: Acute atopic conjunc tivitis of both eyes (Primary Dx); Contact and allergic dermatitis of eyelid Start: 07-08-2024 Arthrocentesis aspir &/inj major jt/bursa w/o us Funmilayo Noonan DO Work Phone: Start: 07-01-2024 Arthrocentesis aspir &/inj major jt/bursa w/o us Funmilayo Noonan DO Work Phone: Start: 06-24-2024 Arthrocentesis aspir &/inj major jt/bursa w/o us Funmilayo Kendrick Noonan DO Work Phone: Start: 02-13-2022 Colonoscopy Funimlayo Cruz pinto DO Work Phone: Start: 02-13-2022 Colonoscopy Stacey Borja Comment on above: cecal colon polyp, I H Start: 10-15-2018 Endoscopy of stomach Vickie WU Start: 10-15-2008 Abdominal hysterectomy Stacey WU Start: 10-15-2008 Biopsy of breast Stacey WU Start: 10-15-1998 Cholecystectomy Stacey S ALAM Start: 10-15-1979 Decompression of med diogenes nerve Stacey WU Depression screening Benjami n [place] Other End: 01-12-2022 Screening for malignant neoplasm of breast Ray [place] Other Screening mammography Benjam in [place] Other Plan of Treatment Date Care Activity Detail Author Start: 02-14-2032 Screening for malign ant neoplasm of colon [facility] Start: 06-15-2025 Influenza vaccination Influenza Vacc ine (#1) [facility] Start: 05-14-2025 End: 05-14-2025 Patient encounter procedure 05/14/2025 10:00 AM EDT Office Visit [facility] [address] [place] [phone] Rosalind Mclaughlin MD [address] [place] [address] Arrived [facility] Comment on above: Arrived Start: 05-07-2025 End: 05-07-2025 Patient encounter procedure 05/07/2025 8:30 AM EDT Office Visit [facility] [address] [place] [phone] Rosalind Mclaughlin MD [address] [place] [address] [facility] Start: 01-27-2025 End: 01-27-2025 Patient encounter procedure 01/27/2025 9:00 AM EDT Office Visit [facility] [address] [place] [phone] Rosalind Mclaughlin MD [address] [place] [address] Arrived [facility] Comment on above: Arrived Start: [...] procedure 06/17/2024 10:30 AM EDT Office Visit [facility] [address] [facility] [place] [address] Funmilayo Noonan DO [address] [place] [address] Bilateral primary osteoarthritis of knee (Primary Dx) [facility] Comment on above: Bilateral primary os teoarthritis of knee (Primary Dx) Start: 06-15-2024 Influenza vaccination Influenza Vacc ine (#1) [facility] Start: 2023 Pneumococcal Vaccine : 65+ Years (1 of 1 - PCV) Pneumococcal Vaccine: 65+ Years (1 of 1 - PCV) [facility] Start: 01-03-2008 Pneumococcal Vaccine : 65+ Years (1 of 1 - PCV) Pneumococcal Vaccine: 65+ Years (1 of 1 - PCV) [facility] Start: 1998 Screening for malign ant neoplasm of breast Mammogram [facility] Start: 1960 Screening for malign ant neoplasm of colon [facility] MG Breast - bilatera l Screening [facility] Immunizations Immunization Date Immunization Notes Care Provider Fa marcelo 07-02-2024 influenza virus vaccine, unspecified formulation Funmilayo Noonan DO Work Phone: [facility] 07-16-2023 COVID-19 Vaccine Pfizer - Documentation Purposes Only Leilani Archibald Other [facility] 07-16-2023 Flu Shot - Documentation Purposes Only Leilani Archibald Other [facility] 07-16-2023 influenza virus vaccine, unspecified formulation Funmilayo Noonan DO Work Phone: [facility] 07-14-2022 influenza virus vaccine, split virus (incl. purified surface antigen) Ray Rawls Other [facility] Other 07-14-2022 influenza virus vaccine, unspecified formulation [facility] 08-13-2021 COVID-19 Vaccine Pfizer - Documentation Purposes Only Ray Rawls Other [facility] 01-14-2021 COVID-19, mRNA, LNP- S, PF, 30 mcg/0.3 mL dose; Translations: [Pfizer-BioNTech COVID-19 Vaccine] Stacey WU [facility] Comment on above: Reason for Medicatio n: Prophylaxis 12-24-2020 COVID-19, mRNA, LNP- S, PF, 30 mcg/0.3 mL dose; Translations: [Pfizer-BioNTech COVID-19 Vaccine] Stacey WU [facility] Comment on above: Reason for Medicatio n: Prophylaxis Payers Date Payer Category Payer Medicare (Managed Care) [employer] [id number] 2023 [facility] [id number] 2023 Medicare [id number] 1959 Self-pay 1959 Unknown [id number] [id number] 1958 Unknown [id number] 2.0.1.799076.3.579.2. 593 1958 Unknown [id number] 2.0.1.904272.3.579.2. 593 1958 Unknown [id number] 2.16.840.1.039709.3.579.2. 593 1958 Unknown [id number] 2.16.840.1.603542.3.579.2. 9 1958 Unknown [id number] 2.16.840.1.577728.3.579.2. 1259 1958 Unknown [id number] 2.16.840.1.413653.3.579.2. 1258 1958 Unknown [id number] 2.16.840.1.884727.3.579.2. 125 1958 Unknown [id number] 2.16.840.1.603851.3.579.2. 1258 1958 Unknown [id number] 2.16.840.1.579164.3.579.2. 1258 1958 Unknown [id number] 2.16.840.1.331897.3.579.2. 125 1958 Unknown [id number] 2.16.840.1.249166.3.579.2. 125 1958 Unknown [id number] 2.16.840.1.639527.3.579.2. 1259 1958 Unknown [id number] 2.16.840.1.369569.3.579.2. 1259 Unknown [id number] 2.16.840.1.822646.3.579.2. 593 Unknown [id number] 2.16.840.1.926200.3.579.2. 593 Social History Date Type Detail Facility Start: 01-03-2022 End: 12-10-2023 Tobacco smoking status Never smoked tobacco (finding) [facility] Start: 06-24-2024 End: 01-27-2025 Sex Assigned At Female [facility] Start: 1960 Sex Assigned At Female [facility] Start: 05-05-2024 Tobacco use and exposure Smokeless tobacco non-user [facility] Start: 06-24-2024 End: 05-14-2025 Alcoholic beverage intake Ex-drinker (finding) [facility] Start: 06-24-2024 End: 01-27-2025 History of Social function [facility] Start: 04-21-2024 Gender identity Identifies as female gender (finding) [facility] Start: 12-11-2024 End: 02-17-2025 Sex Female (finding) [facility] Clinical Notes 02-13-2022 to 05-14-2025 Rosalind Mclaughlin [...] worsening of vision documented in this encounter [facility] 01-27-2025 History of Presen t illness Narrative Assessment/Plan try cequa documented in this encounter [facility] 01-08-2025 History of Presen t illness Narrative Assessment/Plan prednisone 20/d Lotemax bid documented in this encounter [facility] 12-11-2024 Evaluation note Diagnosis Onset Date Resolution Asthma acute December 11, 2024 8:55am JEANE (generalized anxiety disorder) acute February 27th, 2025 8:55am Gastroesophageal reflux disease with esophagitis without hemorrhage acute November 8:55am Hypercholesteremia acute Februa 2024 8:55am Hypothyroid acute November 8:55am IFG (impaired fasting glucose) acute December 11, 2024 8:55am Obesity acute December 11, 2024 8:55am Palpitation acute November 8:55am Screening mammogram for breast cancer acute December 11, 2024 8:55am Medicare annual wellness visit, initial noneactive December 11, 2024 8:55am [facility] Work Phone: 1(294) 596-418109-24-2024 History of Present illness Narrative* Kathy Holm [...] having pain or concerns. documented in this encounter[facility] [id number] History of Present illness Narrative* Funmilayo Noonan [...] painful or having concerns. documented in this encounterPemiscot [facility] [id number] History of Present illness Narrative* Adri Johnson [...] bilateral knee GelSyn injection. documented in this encounterPemiscot Memorial Health [id number] History of Present illness Narrative* Funmilayo Noonan, DO - 06/17/2024 10:30 AM EDT GelSyn [...] right knee GelSyn injection. documented in this encounterPemiscot [facility] [id number] Evaluation note* Encounter Date Diagnosis Assessment Notes [...] verbalizes understanding and agreement with treatment plan. [facility] Other 10-20-2023 Evaluation note* Encounter Date Diagnosis [...] verbalizes understanding and agreement with treatment plan. [facility] Other 08-07-2023 Evaluation note* Encounter Date Diagnosis [...] Ortho for Synvisc if needed in Sept [facility] Other 05-31-2023 Evaluation note* Encounter Date Diagnosis Assessment Notes Treatment Notes Treatment Clinical Notes February, Other specified hypothyroidism (ICD-10 - E03.8) February, Autoimmune thyroiditis (ICD-10 - E06.3) [facility] Other 05-05-2023 Evaluation note* Encounter Date Diagnosis Assessment Notes Treatment Notes Treatment Clinical Notes February, Diarrhea of presumed infectious origin (ICD-10 - R19.7) Diet instructions: - avoid juice, milk and tomato sauce - increase bananas, yogurt and cheese February, Nausea (ICD-10 - R11.0) Sip on water and snack every couple hours Zofran as needed. ER for intractable nausea/emesis and dehydration [facility] Other 03-14-2023 Evaluation note* Encounter Date Diagnosis [...] exercise for 30 minutes, 3-5 times weekly. [facility] Other 01-18-2023 Evaluation note* Encounter Date Diagnosis Assessment Notes Treatment Notes Treatment Clinical Notes Oct, Wellness examination (ICD-10 - Z00.00) [facility] Other 05-04-2022 Note [id number]:[id number] 02-13-2022 Hospital Discharge instructions Patient Education 02/13/2022 [...] 06/27/2005 Document Revised: 01/16/2019 Document Reviewed: 01/16/2019 [employer] Patient Education 2019 [employer]. Follow Up Care 01/03/2022 10:52:47 With:Stacey WU Address: [address] [place] [address]. [address] [place] [address] Business (1) When: Unknown [facility] No data available for this section [facility] noteNo [employer] [employer] Other Evaluation note* Diagnosis Onset Date Resolution Status JEANE (generalized anxiety disorder) acute Gastroesophageal reflux dise ase with esophagitis without hemorrhage acute Hypercholesteremia acute Hypothyroid acute IFG (impaired fasting glucose) acute Screening mammogram for breast cancer [facility] Work Phone: Evaluation note* Diagnosis Onset Date Resolution Status JEANE (generalized anxiety disorder) acute Gastroesophageal reflux dise ase with esophagitis without hemorrhage acute Hypercholesteremia acute Hypothyroid acute IFG (impaired fasting glucose) acute Obesity acute [facility] Work Phone: Evaluation note* Diagnosis Bilateral primary osteoarthritis of knee- Primary documented in this encounter [facility]* Diagnosis Bilateral primary osteoarthritis of knee- Primary documented in this encounter [facility]* Diagnosis Localized osteoarthritis of left knee- Primary documented in this encounter [facility]* Diagnosis Onset Date Resolution Status Admit Date Asthma acute December 11, 2024 8:55am JEANE (generalized anxiety disorder) acute December 11 8:55am Gastroesophageal reflux dise ase with esophagitis without hemorrhage acute December 11 8:55am Hypercholesteremia acute Febr2024 8:55am Hypothyroid acute November 8:55am IFG (impaired fasting glucose) acute December 11, 2024 8:55am Obesity acute December 11, 2024 8:55am Palpitation acute November 8:55am Screening mammogram for [facility] cancer acute December 11 8:55am Welcome to Medicare preventi ve visit noneactive December 11 8:55am [facility] Work Phone: Evaluation note* Diagnosis Acute atopic conjunctivitis of both eyes- Primary Contact and allergic dermatitis of eyelid documented in this encounter [facility]* Diagnosis Dry eyes- Primary Unspecified tear film insufficiency documented in this encounter [facility]* Diagnosis Age-related nuclear cataract of both eyes- Primary Dry eyes Unspecified tear film insufficiency documented in this encounter [facility]* Diagnosis Onset Date Resolution Status Admit Date Asthma acute June 01 8:50am JEANE (generalized anxiety disorder) a cute June 01, 2025 8:50am Gastroesophageal reflux dise ase with esophagitis without hemorrhage acute June 01 8:50am Hypercholesteremia acute June 01, 2025 8:50am Hypothyroid acute June 01, 2025 8:50am IFG (impaired fasting glucose) acute June 01, 2025 8:50am Obesity acute June 01, 2 025 8:50am Palpitation acute June 01, 2025 8:50am Ventricular ectopy acute June 01, 2025 8:50am [facility] Work Phone: History general Narrative - Reported* [...] History COLONOSCOPY 2021 Hospitalization History SEE SURGICAL [facility] Other [facility] general Narrative - Reported* Type Description Date [...] History COLONOSCOPY 2021 Hospitalization History SEE SURGICAL [facility] Other Reason for referral (narrative)No reason for referral information availableOhio [facility] System Work Phone: Summary Purpose Family History Relationship Condition Age at Onset Recorded Date/T meka mother Macular degeneration Unknown father Cerebrovascular accident (CVA) Unknown Pulmonary emphysema Unknown Advance Directives Advance Directive Response Recorded Date/ Time Advance Directives No Milla 20th, 2024 1:50pm Advance Directive Response Recorded Date/ Time [...] 2024 8:55am Screening mammogram for breast [facility] 2024 8:55am Welcome to Medicare preventive visit Feb [place] 2024 8:55am Chief Complaint Admit Date wellness December 11, 2024 8:55am Cough, SOB February 17, 2025 2:07pm Reason for Visit Admit Date Asthma December 11, 2024 8:55am JEANE (generalized anxiety disorder) u betty 2024 8:55am Gastroesophageal reflux dise ase with esophagitis without hemorrhage December 11, 2024 8:55am Hypercholesteremia December 11, 2024 8:55am Hypothyroid December 11, 2024 8:55am IFG (impaired fasting glucose) December 11, 2024 8:55am Obesity December 11, 2024 8:55am Palpitation December 11, 2024 8:55am Screening mammogram for breast cancer [facility] 2024 8:55am Medicare annual wellness visit, initial December 11, 2024 8:55am Chief Complaint Admit Date 6 month f/u June 01, 2025 8: 50am Reason for Visit Admit Date Asthma June 01, 2025 8: 50am JEANE (generalized anxiety disorder) Augus t 2024 8:50am Gastroesophageal reflux dise ase with esophagitis without hemorrhage June 01, 2025 8:50am Hypercholesteremia June 01, 2025 8: 50am Hypothyroid June 01, 2025 8: 50am IFG (impaired fasting glucose) June 012024 8:50am Obesity June 01, 2025 8: 50am Palpitation June 01, 2025 8: 50am Ventricular ectopy June 01, 2025 8: 50am Reason for Referral Specialty Diagnoses / Procedures Referred By Contac t Referred To Contact Orthopaedic Surgery Diagnoses Localized osteoarthritis of left knee Procedures L Inj/Asp: L knee Funmilayo Noonan, DO [address] [place] [address] Referral ID Status Reason Start Date Expiration Date V isits Requested Visits Authorized [id number] Authorized 07/08/2024 01/04/2025 1 1 Specialty Diagnoses / Procedures Referred By Contac t Referred To Contact Orthopaedic Surgery Diagnoses Bilateral primary osteoarthritis of knee Procedures L Inj/Asp: bilateral knee Funmilayo Noonan, DO [address] [place] [address] Referral ID Status Reason Start Date Expiration Date V isits Requested Visits Authorized [id number] Authorized 07/01/2024 12/28/2024 1 1 Additional Source Comments INFORMATION SOURCE (unrecogn ized section and content) DATE CREATED AUTHOR 03/11/2022 [place] [facility] DATE CREATED AUTHOR AUTHOR'S ORGANIZ ATION 03/23/2023 [facility] DATE CREATED AUTHOR AUTHOR'S ORGANIZ ATION 05/16/2025 [facility] EPIC REASON FOR VISIT (unrecogniz ed section and content) Reason Comments Pain Reason Comments Pain Reason Comments Injections Gelsyn 3/3 Lt knee O A Reason Comments Itchy Eye Reason Comments Follow-up Reason Comments Eye Exam Care Teams (unrecognized sec tion and content) Team Status: Active Member Role Status Dates Ray Rawls DO Primary Care Provider Active Team Status: Inactive Member Role Status Dates Ray Rawls DO Primary Care Provider Active Start: June 01, 2025 End: June 01, 2025 Ray Rawls DO Attending Provider Active Sta rt: June 01, 2025 End: June 01, 2025 Team Status: Active Member Role Status Dates [...] June 09, 2024 End: June 09, 2024 [employer] Draftsperson Relationship Specialty Start Date End Date Ray Rawls MD [address] [phone] PCP - General 04/28/24 [employer] Draftsperson Relationship Specialty Start Date End Date Ray Rawls MD [address] [place] [address] PCP - General 04/28/24 [employer] Draftsperson Relationship Specialty Start Date End Date Ray Rawls MD [address] [place] [phone] PCP - General 04/28/24 [employer]station [employer] Draftsperson Relationship Specialty Start Date End Date Ray Rawls MD [address] [place] [address] PCP - General 04/28/24 [employer]station Design Draftsperson Relationship Specialty Start Date End Date Ray Rawls MD [address] [place] [address] PCP - General 04/28/24 [employer]station Design Draftsperson Relationship Specialty Start Date End Date Ray Rawls MD [address] [place] [address] PCP - General 04/28/24 Team Status: Active [...] December 11, 2024 End: December 11, 2024 [employer]station Design Draftsperson Relationship Specialty Start Date End Date Ray Rawls MD [address] [place] [address] [facility] - General 04/28/24 [employer]station Design Draftsperson Relationship Specialty Start Date End Date Ray Rawls MD [address] [place] [phone] PCP - General 04/28/24 [employer]station [employer] Draftsperson Relationship Specialty Start Date End Date Ray Rawls MD [address] [place] [phone] PCP - General 04/28/24 Team Status: Inactive Member Role Status Dates Ray Rawls DO Primary Care Provide r, Attending Provider Active Start: February 17, 2025 End: February 17, 2025 [employer]station [employer] Draftsperson Relationship Specialty Start Date End Date Ray Rawls DO PCP - General 04/28/24 [employer] Draftsperson Relationship Specialty Start Date End Date Ray Rawls DO PCP - General 04/28/24 Team Status: Inactive Member Role Status Dates Ray Rawls DO Primary Care Provider Active Start: June 01, 2025 End: June 01, 2025 Ray Rawls DO Attending Provider Active Sta rt: June 01, 2025 End: June 01, 2025 Goals (unrecognized section and content) Goals may [...] BE BASED ON THE PRIMARY CLINICAL RECORDS. [employer] [facility]. provides no warranty or guarantee of the accuracy or completeness of information in this document.
== END 2025-07-06 10:01 | disposition home or self-care (01) ==
LOC: SLEEP 07-07 09:49
PROVIDERS: PCP Internal Medicine; Visit Provider Internal Medicine
DX: G47.33 Obstructive sleep apnea (adult) (pediatric) (principal)
CPT/HCPCS: 95806